=== PATIENT | male | born 1960 | race Two or more races ===

== ENCOUNTER 2024-11-13 16:43 | Emergency (ER) | payer MEDICAID, SELFPAY ==
[2024-11-13 16:55] VITALS: PULSE 84; RESP 18; O2SAT 98
--- NOTE | 2024-11-13 17:15 | EKG_ITS ---
[facility] Test Date: 2024-11-13 Pat Name: SHREYA HUERTA Department: Room: - Gender: Male Manager Epic: : [id number] Requested By: Gilles Knox Order Number: [id number] Reading MD: Gilles Knox Measurements Intervals [place] Rate: 79 P: 38 AL: 152 QRS: -81 QRSD: 89 T: 32 QT: 376 QTc: 431 Interpretive Statements SINUS RHYTHM LOW QRS VOLTAGE IN EXTREMITY LEADS [QRS DEFLECTION < 0.5 mV IN LIMB LEADS] LEFT ANTERIOR FASCICULAR BLOCK [QRS AXIS <= -45, QR IN I, RS IN II] POSSIBLE ANTERIOR MYOCARDIAL INFARCTION , OF INDETERMINATE AGE [30 ms Q WAVE IN V3/V4, OR R < 0.2 mV IN V4] INFERIOR MYOCARDIAL INFARCTION , PROBABLY OLD [40+ ms Q WAVE AND/OR ST/T ABNORMALITY IN II/aVF] Compared to ECG 05/19/2024 08:07:41 Low QRS voltage now present Left anterior fascicular block now present Myocardial infarct finding now present Left-axis deviation no longer present /store/S0/[id number]
--- NOTE | 2024-11-13 17:16 | PD.EDADULT ---
ED General RME/HPI General Chief complaint: Extremity Problem,Nontraumatic Stated complaint: SWELLING R LEG, L ARM x 3 MONTHS Time Seen by Provider: 11/13/24 17:14 Arrival date/time: 11/13/24 16:43 CC: Lower extremity edema medication noncompliance HPI per report the patient has had increased lower extremity edema and it was determined that since his has not been taking her medications he does not take his. The patient is awake alert oriented states he has swelling in his lower extremities and feet but denies any pain. Patient has a history of diabetes hypertension hyperlipidemia. Patient denies any chest pain shortness of breath or difficulty breathing. Related Data Home Medications ?Medication ?Instructions ?Recorded ?Confirmed sitagliptin phosphate 50 1 tab PO BID 05/19/24 07/16/24 mg-metformin 1,000 mg tablet (Janumet) Previous Rx's ?Medication ?Instructions ?Recorded flash glucose scanning reader #1 ea 05/23/24 (FreeStyle Rene 2 [place]) flash glucose sensor (FreeStyle #1 ea 05/23/24 Rene 2 Sensor kit) amlodipine 10 mg tablet 10 mg PO QDAY #30 tabs 05/24/24 doxycycline hyclate 100 mg capsule 100 mg PO BID #6 caps 07/17/24 dulaglutide 0.75 mg/0.5 mL 0.75 mg (0.5 mL) subcut QWEEK #2 mL 07/17/24 subcutaneous pen injector (Trulicity) zinc sulfate 50 mg zinc (220 mg) 50 mg PO QDAY #14 caps 07/17/24 capsule lisinopril 20 mg tablet 40 mg (2 x 20 mg) PO QDAY #60 tabs 07/19/24 furosemide 20 mg tablet (Lasix) 20 mg PO QAM #3 tabs 11/13/24 Allergies Allergy/AdvReac Type Severity Reaction Status Date / Time No Known Allergies Allergy Verified 11/13/24 17:09 Review of Systems Review of Systems Narrative Review of Systems: GEN: No fever, no chills, no weight loss EYES: No discharge, no visual changes, no pain HEENT: No ear pain, no congestion, no sore throat PULM: No shortness of breath, no cough, no congestion CV: No chest pain, no dyspnea on exertion, no palpitations GI: No nausea, no vomiting, no diarrhea, no pain, no constipation : No frequency, no urgency, no dysuria MUSC/SKEL: No joint pain, no back pain SKIN: No rash PSYCH: No hallucinations, no depression HEME/LYMPH: No easy bleeding or bruising tendencies NEURO: No weakness, no headache Past Medical History Past Medical History NEUROLOGIC: Positive Peripheral Neuropathy; Negative Neurological Disorders or Seizures CARDIAC: Positive Cardiac Disorders, Hypercholesterolemia and Hypertension; Negative Congestive Heart Failure RESPIRATORY: Negative Chronic Obstructive Pulmonary Disease (COPD) or Asthma GASTROINTESTINAL: Negative Gastrointestinal Disorders GENITOURINARY: Negative Genitourinary Disorders or Renal Disease MUSCULOSKELETAL: Positive Musculoskeletal Disorders and Fractures ENDOCRINE: Positive Endocrine Disorders and Diabetes Mellitus Type 2; Negative Diabetes Mellitus Type 1 HEMATOLOGIC: Negative Blood Disorders or Sickle Cell Disease OTHER HISTORY: Negative Blood Transfusions, Blood Transfusion Reaction, Anesthesia Reactions or Cancer Surgical History SURGICAL: Negative Abdominal Surgery Social History SMOKING STATUS: Never smoker SECOND HAND EXPOSURE: No SUBSTANCE USE: does not use ED Exam Narrative Physical exam: [General: No kempt but not disheveled, not in any acute distress Head normocephalic HEENT: Eyes pupils PERRLA EOMs are intact mouth: [place] dry membranes uvula is midline swallow symmetrical very poor dentition. All other subsystems of HEENT are within acceptable limits Neck is supple nontender Chest equal chest rise nontender to palpation Respiratory: Clear to auscultation no wheezes crackles or rubs CV: Rate rhythm is regular no murmurs rubs or clicks Abdomen is distended secondary to body habitus soft nontender no masses positive bowel sounds all 4 quadrants Back: No CVA tenderness no spinous process tenderness from cervical spine thoracic and lumbar spine Skin: Single 1 cm diameter ulcer to the ball of the left foot. Otherwise skin is intact no petechiae rash induration ulceration or crepitus Extremities: Bilateral lower extremity edema, nonpitting 2+ to mid shaft tibia. Moving all extremity against resistance cap refill less than 2 seconds neurosensory intact Neuro: Awake alert oriented x3 Glascow coma 15 no focal deficits] Course Quality Measures none Orders Category Date Time Status EKG (ED ONLY) *Do not use* NOW Care 11/13/24 17:15 Completed Saline [Insert IV] NOW Care 11/13/24 17:15 Active EKG (ED Only) Stat Exams 11/13/24 17:15 Draft B-Type Natriuretic Peptide Stat Lab 11/13/24 17:31 Completed CBC Stat Lab 11/13/24 17:31 Completed Comprehensive Metabolic Panel Stat Lab 11/13/24 17:31 Completed Drug Screen,Urine Stat Lab 11/13/24 20:43 Completed LDH (Lactate Dehydrogenase) Stat Lab 11/13/24 17:31 Completed Magnesium Stat Lab 11/13/24 17:31 Completed Partial Thromboplastin Time Stat Lab 11/13/24 17:31 Completed Prothrombin Time with INR Stat Lab 11/13/24 17:31 Completed Troponin I Stat Lab 11/13/24 17:31 Completed Urinalysis Stat Lab 11/13/24 20:43 Completed Ketorolac Inj [Toradol Inj] Med 11/13/24 19:16 Discontinued 15 mg IVP X1 ONE hydrALAZINE INJ [Apresoline Inj] Med 11/13/24 17:15 Discontinued 20 mg IV X1 ONE Vital Signs Vital signs: Vital Signs Pulse Rate 84 11/13/24 17:58 Blood Pressure 202/115 H 11/13/24 17:58 [facility] Patient data External records reviewed:: [facility] previous records and EMS form Clinical information provided by:: patient and EMS Social determinants that could affect healthcare access:: none Patient has the following chronic illnesses:: Diabetes hypertension hyperlipidemia How is presenting disease/condition affected by chronic disease/condition?: uneffected by Evaluation data The following diagnostics were reviewed and interpreted by me:: lab results, radiology exam(s) and EKG tracing(s) Lab and/or radiology exams considered but not ordered:: CBC shows no leukocytosis and H&H of 8 and 27 stable anemia, no thrombocytopenia Coags within acceptable limits CMP shows no acute electrolyte imbalances other than blood glucose level of 141 no renal impairment transaminitis or T. bili elevation BNP of 735 Troponin is negative Urine is negative for any acute finding requires emergent immediate intervention no UTI. Interpretation Summary: The patient has mild fluid overload we will give the patient IV Lasix and discharged home. Medications Medications considered but not ordered:: None Medication administrations:: Medication Administration History Discontinued Medications Hydralazine HCl (Hydralazine Inj 20 Mg/Ml Vial) 20 mg IV X1 ONE Stop: 11/13/24 17:16 Last Admin: 11/13/24 17:58 Dose: 20 mg Documented By: DAVID Ketorolac Tromethamine (Ketorolac Inj 30 Mg/Ml Vial) 15 mg IVP X1 ONE Stop: 11/13/24 19:17 Last Admin: 11/13/24 20:52 Dose: 15 mg Documented By: DAVID None Consultations Consultation(s) initiated? (list below): No Diagnosis Differential Diagnosis ED Complaint MDM: Mild fluid overload hyperglycemia electrolyte imbalance Most likely diagnosis given after review of the tests above:: Lower extremity edema Admission Indicated Admission indicated?: not indicated Explain why admission is indicated or not indicated:: Stable for outpatient follow-up Admission Request Was there a request for admission?: No Disposition Plan Disposition Plan: Discharge Discharge Attestation Discharge Attestation: The patient and all family members were given an opportunity to ask questions and understood the discharge instructions. Discharge instructions specifically effects, indications for sooner follow up or return to the emergency department, and the expected course of current diagnosis. Patient condition: Stable Medical Decision Making Differential Diagnosis Differential Diagnosis: Mild fluid overload hyperglycemia electrolyte imbalance Lab Data 11/13/24 17:31 11/13/24 17:31 Labs: Lab Results 11/13/24 11/13/24 Range/Units 17:31 20:43 WBC 6.2 (3.8-10.6) Thou/mm3 RBC 3.20 L (4.50-5.90) Miln/mm3 Hgb 8.9 L (13.5-16.0) g/dL Hct 27.5 L (41.0-53.0) % MCV 86 (80-100) fL MCH 27.8 (25.0-35.0) pg MCHC 32.4 (31.0-37.0) g/dl RDW Std Deviation 48.3 H (35.1-43.9) fL Plt Count 295 (140-440) Thou/mm3 Neut % (Auto) 61 (37-80) % Lymph % (Auto) 24 (10-50) % [place] % (Auto) 8 (0-12) % Eos % (Auto) 5 (0-10) % Baso % (Auto) 1 (0-2.5) % Neut # (Auto) 3.8 (1.8-7.7) Thou/mm3 Lymph # (Auto) 1.5 (1.0-4.8) Thou/mm3 [place] # (Auto) 0.5 (0.0-0.8) Thou/mm3 Eos # (Auto) 0.3 (0.0-0.5) Thou/mm3 Baso # (Auto) 0.1 (0.0-0.2) Thou/mm3 Immature Gran # (Auto) 0.03 H (0.00-0.00) Thou/mm3 Absolute Nucleated RBC 0.00 (0.00-0.00) Thou/mm3 Immature Gran % 1 H (0-0) % Nucleated RBC % 0 (0) /100 WBC PT 10.2 (9.0-12.2) Seconds INR 0.9 (0.9-1.3) APTT 32.2 (22.0-36.0) Seconds Sodium 139 (136-145) mMol/L Potassium 4.4 (3.4-5.1) mMol/L Chloride 106 (98-107) mMol/L Carbon Dioxide 28.5 (20.0-31.0) mMol/L Anion Gap 5 L (7-16) BUN 15 (9-23) mg/dL Creatinine 0.9 (0.6-1.3) mg/dL Estim Creat Clear Calc Not Performed. eGFR > 60 (60 - ) See Note BUN/Creatinine Ratio 17 (12-20) Ratio Glucose 141 H (74-106) mg/dL Calculated Osmolality 280 (275-295) Calcium 8.7 (8.3-10.6) mg/dL Corrected Calcium 9.5 (8.5-10.1) mg/dL Magnesium 1.8 (1.6-2.6) mg/dL Total Bilirubin 0.2 L (0.3-1.2) mg/dL AST 20 (0-34) U/L ALT 14 (10-49) U/L Alkaline Phosphatase 48 (46-116) U/L Lactate Dehydrogenase 244 (120-246) U/L Troponin I < 0.020 (0.0-0.045) ng/mL B-Natriuretic Peptide 735 H* (0-100) pg/mL Total Protein 6.0 (5.7-8.2) gm/dL Albumin 3.0 L (3.4-4.8) gm/dL Globulin 3.0 (2.3-3.5) gm/dL Albumin/Globulin Ratio 1.0 L (1.2-2.2) Ur Collection Type Clean Catch Urine Color Lt-Yellow (Lt Yel-Yel) Urine Clarity Clear (Clear/Hazy) Urine pH 7.0 (5.0-7.0) Ur Specific [place] 1.016 (1.001-1.035) Urine Protein 3+ A (Neg - Trace) Urine Glucose (UA) 1+ A (Negative) Urine Ketones Negative (Negative) Urine Blood 1+ A (Negative) Urine Nitrite Negative (Negative) Urine Bilirubin Negative (Negative) Urine Urobilinogen (Auto) Negative (0.0-1.0) mg/dL Ur Leukocyte Esterase Negative (Negative) Urine RBC 8 H (0-3) /hpf Urine WBC 4 (0-5) /hpf Ur Squamous Epith Cells < 1 (0-5) /hpf Urine Bacteria None (None) Hyaline Casts 1 (0-1) /hpf Urine Opiates Screen Negative (Negative) Urine Fentanyl Screen Negative (Negative) Ur Barbiturates Screen Negative (Negative) U Amphetamin/Meth Scrn Negative (Negative) U Benzodiazepines Scrn Negative (Negative) U Cocaine Metab Screen Negative (Negative) U Marijuana (THC) Screen Negative (Negative) Discharge Plan Plan Patient Disposition: HOME (Self Care) Patient condition on transfer: Stable Prescriptions/Referrals Prescriptions/Med Rec: New furosemide [Lasix] 20 mg tablet 20 mg PO QAM Qty: 3 0RF No Action Janumet 50-1,000 mg tablet 1 tab PO BID Patient Comments: TAKE 1 TABLET BY MOUTH TWICE A DAY WITH MEALS FOR 60 DAYS (DME) FreeStyle Rene 2 Sensor Kit See Rx Instructions .Route Qty: 1 0RF Rx Instructions: As directed (DME) FreeStyle Rene 2 [place] Misc See Rx Instructions .Route Qty: 1 0RF Rx Instructions: As directed amlodipine 10 mg tablet 10 mg PO QDAY Qty: 30 0RF doxycycline hyclate 100 mg capsule 100 mg PO BID Qty: 6 0RF zinc sulfate 50 mg zinc (220 mg) capsule 50 mg PO QDAY Qty: 14 0RF Trulicity 0.75 mg/0.5 mL pen injector 0.75 mg subcut QWEEK Qty: 2 0RF lisinopril 20 mg tablet 40 mg PO QDAY Qty: 60 0RF Referrals: Jono Weaver MD [Primary Care Provider] - In 1 week Problem List Clinical Impression: Bilateral edema of lower extremity Patient/Caregiver Discharge Instructions Education Materials: ED Leg Swelling in Both Legs Print Language: Nepali Stand Alone Forms: Karla Award Info., Patient Portal Info Letter, Work/School Release PA/[employer]PH[employer] DISTRIBUTOR TENDER Supervising Physician PA/[employer]PH[employer] DISTRIBUTOR TENDER Supervising Physician: Gilles Brown ENP
[2024-11-13 17:51] LABS: Basophils # (Auto) 0.1 Thou/mm3 (0.0-0.2); Basophils % (Auto) 1 % (0-2.5); Eosinophils # (Auto) 0.3 Thou/mm3 (0.0-0.5); Eosinophils % (Auto) 5 % (0-10); Hematocrit 27.5 % (41.0-53.0); Hemoglobin 8.9 g/dL (13.5-16.0); Immature Granulocytes % (Auto) 1 % (0-0); Immature Granulocytes Auto 0.03 Thou/mm3 (0.00-0.00); Lymphocytes # (Auto) 1.5 Thou/mm3 (1.0-4.8); Lymphocytes % (Auto) 24 % (10-50); Mean Corpuscular HGB Conc 32.4 g/dl (31.0-37.0); Mean Corpuscular Hemoglobin 27.8 pg (25.0-35.0); Mean Corpuscular Volume 86 fL (80-100); Monocytes # (Auto) 0.5 Thou/mm3 (0.0-0.8); Monocytes % (Auto) 8 % (0-12); Neutrophils # (Auto) 3.8 Thou/mm3 (1.8-7.7); Neutrophils % (Auto) 61 % (37-80); Nucleated Red Blood Cell % 0 /100 WBC (0); Platelet Count 295 Thou/mm3 (140-440); RDW Standard Deviation 48.3 fL (35.1-43.9); White Blood Count 6.2 Thou/mm3 (3.8-10.6)
[2024-11-13 17:58] VITALS: BP 202/115; PULSE 84
[2024-11-13] MEDS: hydrALAZINE INJ 20 MG/ML VIAL IV (17:58)
[2024-11-13 18:14] LABS: B-Type Natriuretic Peptide 735 pg/mL (0-100)
[2024-11-13 18:16] LABS: Alanine Aminotransferase 14 U/L (10-49); Alkaline Phosphatase 48 U/L (46-116); Anion Gap 5 (7-16); Aspartate Amino Transferase 20 U/L (0-34); BUN/Creatinine Ratio 17 Ratio (12-20); Bilirubin,Total 0.2 mg/dL (0.3-1.2); Blood Urea Nitrogen 15 mg/dL (9-23); Calcium 8.7 mg/dL (8.3-10.6); Calcium (Corrected) 9.5 mg/dL (8.5-10.1); Carbon Dioxide 28.5 mMol/L (20.0-31.0); Chloride 106 mMol/L (98-107); Creatinine (Component) 0.9 mg/dL (0.6-1.3); Glucose 141 mg/dL (74-106); Magnesium 1.8 mg/dL (1.6-2.6); Osmolality,Calculated 280 (275-295); Potassium 4.4 mMol/L (3.4-5.1); Sodium 139 mMol/L (136-145); Troponin I < 0.020 ng/mL (0.0-0.045); eGFR > 60 See Note
[2024-11-13 18:27] LABS: LDH (Lactate Dehydrogenase) 244 U/L (120-246)
[2024-11-13 18:54] VITALS: BP 140/86; PULSE 88; RESP 18; O2SAT 98
[2024-11-13 19:16] LABS: INR 0.9 (0.9-1.3); Partial Thromboplastin Time 32.2 Seconds (22.0-36.0); Prothrombin Time 10.2 Seconds (9.0-12.2)
[2024-11-13 20:22] VITALS: BMI 24.5
[2024-11-13] MEDS: KETOROLAC INJ 30 MG/ML VIAL 15 MG IVP (20:52)
[2024-11-13 21:12] LABS: Collection Type, Urine Clean Catch
[2024-11-13 21:53] LABS: Amphetamine/Methamp Scrn,U Negative (Negative); Barbiturate Screen,Urine Negative (Negative); Benzodiazepines Screen,Urine Negative (Negative); Benzoylecgonine Screen, Ur Negative (Negative); Fentanyl Screen,Urine Negative (Negative); Opiate Screen,Urine Negative (Negative); THC Screen,Urine Negative (Negative)
[2024-11-13 22:12] LABS: Bilirubin,Urine Negative (Negative); Blood,Urine 1+ (Negative); Clarity,Urine Clear (Clear/Hazy); Color,Urine Lt-Yellow (Lt Yel-Yel); Glucose, Urine 1+ (Negative); Hyaline Casts,Urine 1 /hpf (0-1); Ketones,Urine Negative (Negative); Leukocyte Esterase,Urine Negative (Negative); Nitrite,Urine Negative (Negative); Protein,Urine 3+ (Neg - Trace); RBC,Urine 8 /hpf (0-3); Specific Gravity,Urine 1.016 (1.001-1.035); Squamous Epithelial Cell,Urine < 1 /hpf (0-5); Urobilinogen,Urine Negative mg/dL (0.0-1.0); WBC,Urine 4 /hpf (0-5)
[2024-11-13 22:48] VITALS: BP 153/94; PULSE 87; RESP 17; O2SAT 98
[2024-11-14 01:17] VITALS: BP 174/97; PULSE 80; RESP 17; TEMP 36.7; O2SAT 98
== END 2024-11-14 01:18 | disposition home or self-care (01) ==
PROVIDERS: Registered Nurse General Practice; Emergency Provider Emergency Medicine; PCP Family Medicine
DX: R60.0 Localized edema (principal); I44.4 Left anterior fascicular block; I10 Essential (primary) hypertension
CPT/HCPCS: 36415; 80053; 80307; 81001; 83615; 83735; 83880; 84484; 85025; 85610; 85730; 93005; 99284; J0360; J1885

== ENCOUNTER 2025-01-26 19:31 | Inpatient (IN) | payer MEDICAID, SELFPAY ==
[2025-01-26] VITALS (8 sets, daily range): BP systolic 188–230; BP diastolic 108–135; PULSE 75–125; RESP 18–95; TEMP 36.6–36.8; O2SAT 96–98; BMI 21.7
--- NOTE | 2025-01-26 19:37 | EKG_ITS ---
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
--- NOTE | 2025-01-26 19:37 | XR_ITS ---
Examination: AP chest single view TECHNIQUE: AP portable upright chest single view Exam date and time: January 26, 2025 at 1917 hours Comparison August 24, 2023 INDICATIONS: Sepsis today. FINDINGS: Mild prominence left ventricle No pneumonia or pulmonary edema Moderate osteopenia IMPRESSION: No pneumonia identified
--- NOTE | 2025-01-26 19:38 | XR_ITS ---
Examination: CT brain head without contrast. 2-D sagittal coronal reconstructions Date and time of exam:January 26, 2025 at 2010 hours INDICATIONS: Onset altered mental status today CTDI: vol (mGy):49.1 DLP: (mGycm):907 Technique: Multiple CT axial sections of the brain have been obtained, 5 mm slice thickness. Contrast has not been administered. 2-D sagittal, coronal reconstructions have been obtained Low dose protocols were performed. One or more of the following dose reduction techniques were used; automated exposure control, adjustment of the mA and/or KV according to patient size, use of iterative reconstruction technique. Findings: No significant ventricular enlargement. Intra-axial or extra-axial hemorrhage density is not seen. No mass effect or midline shift Basal cisterns are not remarkable. Fourth ventricle is midline. Cranial vault intact. Impression: Negative for acute hemorrhage, mass effect or midline shift 9 7 Advise clinical correlation follow up accordingly
--- NOTE | 2025-01-26 19:39 | PD.EDAMS ---
Altered Mental Status RME/HPI General Chief Complaint: Altered Mental Status Stated Complaint: stroke alert Time Seen by Provider: 01/26/25 19:36 Arrival date/time: 01/26/25 19:31 RME / HPI RME / HPI narrative: 64-year-old male patient with significant history of hypertension diabetes mellitus, was brought in by EMS for evaluation regarding altered mental status. Per EMS, patient was noted to be having altered mental status, slurred speech, last well-known time unknown. Patient was noted to be moving all extremity with no sign of weakness. No other pertinent information can be extracted at this time. Related Data Home Medications ?Medication ?Instructions ?Recorded ?Confirmed sitagliptin phosphate 50 1 tab PO BID 05/19/24 07/16/24 mg-metformin 1,000 mg tablet (Janumet) atorvastatin 40 mg tablet 40 mg PO QPM 01/27/25 01/27/25 meloxicam 7.5 mg tablet 7.5 mg PO QDAY 01/27/25 01/27/25 Previous Rx's ?Medication ?Instructions ?Recorded flash glucose scanning reader #1 ea 05/23/24 (FreeStyle Rene 2 Marion) flash glucose sensor (FreeStyle #1 ea 05/23/24 Rene 2 Sensor kit) amlodipine 10 mg tablet 10 mg PO QDAY #30 tabs 05/24/24 doxycycline hyclate 100 mg capsule 100 mg PO BID #6 caps 07/17/24 dulaglutide 0.75 mg/0.5 mL 0.75 mg (0.5 mL) subcut QWEEK #2 mL 07/17/24 subcutaneous pen injector (Trulicity) zinc sulfate 50 mg zinc (220 mg) 50 mg PO QDAY #14 caps 07/17/24 capsule lisinopril 20 mg tablet 40 mg (2 x 20 mg) PO QDAY #60 tabs 07/19/24 furosemide 20 mg tablet (Lasix) 20 mg PO QAM #3 tabs 11/13/24 Allergies Allergy/AdvReac Type Severity Reaction Status Date / Time No Known Allergies Allergy Verified 11/13/24 17:09 Review of Systems Review of Systems Narrative Review of Systems: Review of system reviewed and within normal limits except mentioned in HPI ED Exam Narrative Physical exam: VITAL SIGNS: Reviewed. GENERAL APPEARANCE: Awake, good eye contact, does not follow commands, febrile no acute distress, GCS 14 HEAD AND FACE: Non-traumatic. ENT: PERRL, pink conjunctivitis, eyelid no trauma, Mucous membrane moist. NECK: Supple, nontender, no nuchal rigidity. CHEST: No tenderness, no crepitus, no paradoxical movement, no retractions. LUNGS: Clear, well ventilated, symmetric, no rales, no wheezing, no ronchi, no stridor, good breath sounds bilaterally. HEART: Regular rate, regular rhythm, no murmur, no gallops. ABDOMEN: Soft, positive bowel sounds, nondistended, no guarding, nontender, no rebound, no masses, RECTAL: Deferred. GENITAL: Deferred. NEUROLOGICAL: Gross motor function intact sensory function intact, Appropriate for age. MUSCULOSKELETAL: low back nontender, full range of motion. EXTREMITIES: Nontender, full range of motion. SKIN: Color pink, dry, no rash, no lacerations, no abrasions, no contusions. LYMPHATICS: Deferred. Course Quality Measures none Orders Category Date Time Status COVID-19 Screening Questionnaire NOW Care 01/26/25 21:49 Active Finishing Supervisor STAT Care 01/26/25 19:37 Active Continuous Pulse Oximetry STAT Care 01/26/25 19:37 Completed Decision to Admit X1 Care 01/26/25 21:49 Completed EKG (ED ONLY) *Do not use* NOW Care 01/26/25 19:37 Completed In and Out Catheter X1PRN Care 01/26/25 19:37 Completed Insert IV NOW Care 01/26/25 19:37 Completed NPO STAT Care 01/26/25 19:37 Completed Nurse Swallow Screen X1 Care 01/26/25 23:46 Active Strict Intake and Output Routine Care 01/26/25 19:[address] angio stroke protocol Stat Exams 01/26/25 22:[address] head/brain wo con Stat Exams 01/26/25 19:38 Completed EKG (ED Only) Stat Exams 01/26/25 19:37 Draft XR chest 1V SEPSIS PROTOCOL Stat Exams 01/26/25 19:37 Completed ABG [Arterial Blood Gas] Stat Lab 01/26/25 21:12 Completed Acetone [Beta Hydroxybutyrate] Stat Lab 01/26/25 23:08 Completed Ammonia Stat Lab 01/26/25 23:08 Completed B-Type Natriuretic Peptide Stat Lab 01/26/25 19:45 Completed Blood Culture (Lab) Stat Lab 01/26/25 20:43 Received CBC Stat Lab 01/26/25 19:45 Completed Comprehensive Metabolic Panel Stat Lab 01/26/25 19:45 Completed Drug Screen,Urine Stat Lab 01/26/25 19:48 Completed LDH (Lactate Dehydrogenase) Stat Lab 01/26/25 19:45 Completed Lactate (Lactic Acid) Stat Lab 01/26/25 19:45 Completed Lipase Stat Lab 01/26/25 19:45 Completed Magnesium Stat Lab 01/26/25 19:45 Completed Partial Thromboplastin Time Stat Lab 01/26/25 19:45 Completed Phosphorous Stat Lab 01/26/25 19:45 Completed Procalcitonin Stat Lab 01/26/25 19:45 Completed Prothrombin Time with INR Stat Lab 01/26/25 19:45 Completed Troponin I Stat Lab 01/26/25 19:45 Completed Urinalysis Stat Lab 01/26/25 19:48 Completed Urine Culture Stat Lab 01/26/25 19:48 Received Insulin Regular Med 01/26/25 21:35 Discontinued 10 unit IV X1 ONE Insulin Regular Med 01/26/25 23:48 Discontinued 10 unit IV X1 ONE Labetalol IV [Trandate IV] Med 01/26/25 20:09 Discontinued 20 mg IVP X1 ONE Labetalol IV [Trandate IV] Med 01/26/25 22:56 Discontinued 20 mg IVP X1 ONE POTASSIUM CHL 10 mEq IVPB [Kcl Ivpb] Med 01/26/25 21:35 Discontinued 10 meq in 100 ml IV X1 Ringers Lactated 1000 ml [Lactated Ringers] 1,000 ml Med 01/26/25 21:36 Discontinued IV 999 mls/hr Sodium Chloride 0.9% 1000 ml [Ns] 1,000 ml Med 01/26/25 19:37 Discontinued IV 999 mls/hr amLODIPine BESYLATE [Norvasc] Med 01/26/25 23:48 Discontinued 10 mg PO X1 ONE cefTRIAXone/D5w 1gm IV premix [Rocephin/D5w 1gm IV Med 01/26/25 19:38 Discontinued premix] 1 gm in 50 ml IV X1 Oxygen Delivery NOW RT 01/26/25 19:37 Completed Vital Signs Vital signs: Vital Signs Temperature 98.1 F 01/26/25 19:42 Pulse Rate 92 01/26/25 19:42 Respiratory Rate 20 01/26/25 19:42 Blood Pressure 226/131 H 01/26/25 19:42 Pulse Oximetry (%) 96 01/26/25 19:42 Oxygen Delivery Method Room Air 01/26/25 19:42 Altered Mental Status [facility] Narrative [facility] Narrative:: 64-year-old male patient with significant history of hypertension diabetes mellitus, was brought in by EMS for evaluation regarding altered mental status. Per EMS, patient was noted to be having altered mental status, slurred speech, last well-known time unknown. Patient was noted to be moving all extremity with no sign of weakness. No other pertinent information can be extracted at this time. 1950 pm I called the telephone number that was listed on the houseperson however there was no response the phone is disconnected Patient's friend arrived in the emergency room at 10:30 PM, who is very knowledgeable about what happened to the patient. Last known well time according to the friend was 12 PM. She went home and she just learned that patient was already in the emergency room. Stroke alert was initiated right away. Patient still was noted to be confused and restless. Moving all extremities except for the left upper extremity EKG shows sinus rhythm, ventricular to 76 bpm, no ST segment elevation depression noted. CT scan of the head came back unremarkable. CT angiogram of the head and neck came back unremarkable also. Patient was noted to have a blood sugar above 600 with no sign of diabetic ketoacidosis. ABG CO2 is unremarkable, Was given 2 L of IV fluids, and insulin. Spoke with teleneurologist, who told me that patient is not a candidate for thrombolytic at this time out of the window. Case discussed with hospitalist who admitted the patient. Patient data External records reviewed:: EMS form Clinical information provided by:: family Social determinants that could affect healthcare access:: none Patient has the following chronic illnesses:: History of hypertension diabetes mellitus and CVA How is presenting disease/condition affected by chronic disease/condition?: caused by Evaluation data The following diagnostics were reviewed and interpreted by me:: lab results, radiology exam(s) and EKG tracing(s) Lab and/or radiology exams considered but not ordered:: None Interpretation Summary: See results in MDM Medications / Prescriptions Medications or Prescriptions considered but not ordered:: None Medication administrations:: Medication Administration History Acetaminophen (Acetaminophen Supp 650 Mg Supp) 650 mg MN Q6H PRN PRN Reason: temp > 100.4 Stop: 02/26/25 03:59 Last Admin: 01/27/25 04:22 Dose: 650 mg Documented By: PARADISE Aspirin (Aspirin Ec 81 Mg Tabec) 81 mg PO QDAY [facility] Stop: 02/27/25 08:59 Dextrose (Dextrose 50%-Water Inj 50 Ml Syringe) 25 ml IV Q15MIN PRN PRN Reason: BG 50-70 responsive npo pt Stop: 02/25/25 23:53 Dextrose (Dextrose 50%-Water Inj 50 Ml Syringe) 50 ml IV Q15MIN PRN PRN Reason: BG <50 OR BG <70 & pt unresponsive Stop: 02/25/25 23:53 Glucagon (Glucagon Inj 1 Mg Vial) 1 mg IM Q15MIN PRN PRN Reason: BG <70, and no IV access Heparin Sodium (Porcine) (Heparin Sod Inj 5000 Unit/Ml Vial) 5,000 unit SC Q8HR [facility] Stop: 02/10/25 05:59 Last Admin: 01/27/25 14:42 Dose: 5,000 unit Documented By: FABI Co-signed By: ODALIS Admin: 01/27/25 06:20 Dose: 5,000 unit Documented By: RAVEN Co-signed By: EE Ceftriaxone Sodium/Dextrose (Rocephin/D5w 1gm Iv Premix) 1 gm in 50 mls @ 100 mls/hr IV HS [facility] Stop: 02/03/25 20:59 Insulin Glargine (Insulin Glargine (Lantus) 5 Unit/0.05 Ml (Per 5 Units)) 20 unit SC QDAY [facility] Stop: 02/26/25 08:59 Last Admin: 01/27/25 19:23 Dose: Not Given Documented By: LAITH Non-Admin Reason: day shift Insulin Human Lispro (Insulin Lispro (Admelog) 1 Unit/0.01 Ml Unit) 0 unit SC [facility]; Protocol Stop: 02/26/25 17:29 Last Admin: 01/27/25 17:26 Dose: Not Given Documented By: FABI Non-Admin Reason: Duplicate Medication on eMAR Labetalol HCl (Labetalol Inj 5 Mg/Ml Vial 20 Ml) 10 mg IVP Q4H PRN PRN Reason: SBP > 200 or DBP > 110. Stop: 02/26/25 02:18 Last Admin: 01/27/25 11:52 Dose: 10 mg Documented By: Admin: 01/27/25 04:03 Dose: 10 mg Documented By: PARADISE Discontinued Medications Acetaminophen (Acetaminophen 325 Mg Tablet) 650 mg PO Q6H PRN PRN Reason: Fever >101.5 Stop: 02/25/25 23:48 Amlodipine Besylate (Amlodipine Besylate 5 Mg Tablet) 10 mg PO X1 ONE Stop: 01/26/25 23:49 Last Admin: 01/27/25 00:15 Dose: Not Given Documented By: PARADISE Non-Admin Reason: Unable to Swallow Sodium Chloride (Ns) 1,000 mls @ 999 mls/hr IV .Q1H1M ONE Stop: 01/26/25 20:37 Last Infusion: 01/26/25 21:00 Dose: Infused Documented By: Admin: 01/26/25 19:59 Dose: 999 mls/hr Documented By: PARADISE Ceftriaxone Sodium/Dextrose (Rocephin/D5w 1gm Iv Premix) 1 gm in 50 mls @ 100 mls/hr IV X1 ONE Stop: 01/26/25 20:07 Last Infusion: 01/26/25 21:20 Dose: Infused Documented By: Admin: 01/26/25 20:50 Dose: 100 mls/hr Documented By: PARADISE Potassium Chloride (Kcl Ivpb) 10 meq in 100 mls @ 100 mls/hr IV X1 ONE Stop: 01/26/25 22:34 Last Infusion: 01/26/25 23:16 Dose: Infused Documented By: Admin: 01/26/25 22:13 Dose: 100 mls/hr Documented By: PARADISE Lactated Ringer's (Lactated Ringers) 1,000 mls @ 999 mls/hr IV .Q1H1M ONE Stop: 01/26/25 22:36 Last Infusion: 01/26/25 22:57 Dose: Infused Documented By: Admin: 01/26/25 21:56 Dose: 999 mls/hr Documented By: PARADISE Sodium Chloride (Ns) 1,000 mls @ 999 mls/hr IV .Q1H1M ONE Stop: 01/27/25 04:42 Last Infusion: 01/27/25 05:03 Dose: Infused Documented By: Admin: 01/27/25 04:02 Dose: 999 mls/hr Documented By: PARADISE Insulin Human Lispro (Insulin Lispro (Admelog) 1 Unit/0.01 Ml Unit) 0 unit SC Q6H [facility]; Protocol Stop: 02/25/25 23:44 Last Admin: 01/27/25 06:21 Dose: 3 unit Documented By: RAVEN Co-signed By: TYRONE Admin: 01/27/25 02:17 Dose: 4 unit Documented By: PARADISE Co-signed By: Insulin Human Lispro (Insulin Lispro (Admelog) 1 Unit/0.01 Ml Unit) 0 unit SC Q6HR [facility]; Protocol Stop: 02/26/25 12:14 Last Admin: 01/27/25 17:14 Dose: 2 unit Documented By: FABI Co-signed By: NICHOLE Admin: 01/27/25 12:09 Dose: 2 unit Documented By: MERI Co-signed By: ANTONIO Insulin Human Regular (Insulin Hum Regular 1 Unit/0.01 Ml (Per Unit)) 10 unit IV X1 ONE Stop: 01/26/25 21:36 Last Admin: 01/26/25 21:56 Dose: 10 unit Documented By: PARADISE Co-signed By: Insulin Human Regular (Insulin Hum Regular 1 Unit/0.01 Ml (Per Unit)) 10 unit IV X1 ONE Stop: 01/26/25 23:49 Last Admin: 01/27/25 01:01 Dose: 10 unit Documented By: TYRONE Co-signed By: PARADISE Insulin Human Regular (Insulin Hum Regular 1 Unit/0.01 Ml (Per Unit)) 10 unit IV X1 ONE Stop: 01/27/25 05:14 Last Admin: 01/27/25 06:20 Dose: Not Given Documented By: RAVEN Non-Admin Reason: Cancelled by Provider Comments: hold per dr. harris Labetalol HCl (Labetalol Inj 5 Mg/Ml Vial 20 Ml) 20 mg IVP X1 ONE Stop: 01/26/25 20:10 Last Admin: 01/26/25 20:31 Dose: 20 mg Documented By: PARADISE Labetalol HCl (Labetalol Inj 5 Mg/Ml Vial 20 Ml) 20 mg IVP X1 ONE Stop: 01/26/25 22:57 Last Admin: 01/26/25 23:14 Dose: 20 mg Documented By: PARADISE IV fluids for hydration, IV fluids, labetalol Consultations Consultation(s) initiated? (list below): Yes Consultation #1 (Physician, Specialty, Details): Teleneurologist Diagnosis Differential diagnosis altered mental status: altered mental status, subarachnoid hemorrhage and sepsis Most likely diagnosis given after review of the tests above:: Hyperglycemia, altered mental status Admission Indicated Admission indicated?: indicated Explain why admission is indicated or not indicated:: Patient is to be admitted for further management. Admission Request Was there a request for admission?: Yes Admission Attestation Admission request attestation: Discussed case with [Dr. Harris] from Hospitalist service regarding admission. Discussed patients ED course, exam findings, labs, and radiology results. The Hospitalist [agrees] to accept the patient for admission. Disposition Plan Disposition Plan: Admit Critical Care Time Critical Care Time Critical Care Time: Yes Total Critical Care Time (min.): 45 Attestation: Critical Care Time The very real possibility of a deterioration of this patient's condition required the highest level of my preparedness for sudden, emergent intervention for the following systems: Cardiac and Metabolic. I provided critical care services, which included medication orders, frequent re-evaluations of the patient's condition and response to treatment, ordering and reviewing test results, and discussing the case with various consultants including: nursing staff, hospitalist, and more. The critical care time associated with the care of this patient was 45 minutes. Discharge Plan Plan Patient Disposition: Admit Acute Care w/in Hospital Disposition Comment: Stable Problem List Clinical Impression: Hyperglycemia, Altered mental status
[2025-01-26 19:54] LABS: Collection Type, Urine Clean Catch; Squamous Epithelial Cell,Urine 0 /hpf (0-5)
[2025-01-26 19:54] LABS: Lactate (Lactic Acid) 1.2 mMol/L (0.4-2.0)
[2025-01-26] MEDS: SODIUM CHLORIDE 0.9% 1000 ML 1,000 ML 999 ML IV (19:59)
--- NOTE | 2025-01-26 20:07 | PC.NURSE ---
pt to ct
[2025-01-26 20:12] LABS: Basophils # (Auto) 0.1 Thou/mm3 (0.0-0.2); Basophils % (Auto) 1 % (0-2.5); Eosinophils # (Auto) 0.1 Thou/mm3 (0.0-0.5); Eosinophils % (Auto) 1 % (0-10); Hematocrit 32.5 % (41.0-53.0); Hemoglobin 11.4 g/dL (13.5-16.0); Immature Granulocytes % (Auto) 1 % (0-0); Immature Granulocytes Auto 0.04 Thou/mm3 (0.00-0.00); Lymphocytes # (Auto) 1.2 Thou/mm3 (1.0-4.8); Lymphocytes % (Auto) 18 % (10-50); Mean Corpuscular HGB Conc 35.1 g/dl (31.0-37.0); Mean Corpuscular Hemoglobin 28.7 pg (25.0-35.0); Mean Corpuscular Volume 82 fL (80-100); Monocytes # (Auto) 0.2 Thou/mm3 (0.0-0.8); Monocytes % (Auto) 4 % (0-12); Neutrophils % (Auto) 76 % (37-80); Nucleated Red Blood Cell % 0 /100 WBC (0); Platelet Count 316 Thou/mm3 (140-440); RDW Standard Deviation 41.2 fL (35.1-43.9); Red Blood Count 3.97 Miln/mm3 (4.50-5.90); White Blood Count 6.5 Thou/mm3 (3.8-10.6)
[2025-01-26 20:16] LABS: Bilirubin,Urine Negative (Negative); Blood,Urine Trace (Negative); Clarity,Urine Clear (Clear/Hazy); Color,Urine Colorless (Lt Yel-Yel); Glucose, Urine 4+ (Negative); Ketones,Urine Negative (Negative); Leukocyte Esterase,Urine Negative (Negative); Nitrite,Urine Negative (Negative); PH,Urine 6.5 (5.0-7.0); Protein,Urine 2+ (Neg - Trace); RBC,Urine 1 /hpf (0-3); Specific Gravity,Urine 1.021 (1.001-1.035); Urobilinogen,Urine Negative mg/dL (0.0-1.0); WBC,Urine < 1 /hpf (0-5)
[2025-01-26 20:20] LABS: Partial Thromboplastin Time 28.5 Seconds (22.0-36.0); Prothrombin Time 10.5 Seconds (9.0-12.2)
[2025-01-26 20:21] LABS: B-Type Natriuretic Peptide 215 pg/mL (0-100)
[2025-01-26] MEDS: LABETALOL INJ 5 MG/ML VIAL 20 ML 20 MG IVP ×2 (20:31→23:14)
[2025-01-26 20:42] LABS: Alanine Aminotransferase 110 U/L (10-49); Albumin, Serum 3.6 gm/dL (3.4-4.8); Albumin/Globulin Ratio 1.3 (1.2-2.2); Alkaline Phosphatase 99 U/L (46-116); Anion Gap 6 (7-16); Aspartate Amino Transferase 60 U/L (0-34); BUN/Creatinine Ratio 18 Ratio (12-20); Bilirubin,Total 0.4 mg/dL (0.3-1.2); Blood Urea Nitrogen 23 mg/dL (9-23); Calcium 9.4 mg/dL (8.3-10.6); Calcium (Corrected) 9.7 mg/dL (8.5-10.1); Carbon Dioxide 30.9 mMol/L (20.0-31.0); Chloride 96 mMol/L (98-107); Creatinine (Component) 1.3 mg/dL (0.6-1.3); Estimated Creatinine Clearance 41.2 mL/min (>60); Globulin 2.8 gm/dL (2.3-3.5); Lipase 41 U/L (12-53); Magnesium 1.8 mg/dL (1.6-2.6); Osmolality,Calculated 301 (275-295); Phosphorous 4.1 mg/dL (2.4-5.1); Potassium 4.1 mMol/L (3.4-5.1); Procalcitonin 0.09 ng/ml (0.0-0.49); Sodium 133 mMol/L (136-145); Total Protein 6.4 gm/dL (5.7-8.2); Troponin I < 0.020 ng/mL (0.0-0.045); eGFR > 60 See Note
[2025-01-26] MEDS: cefTRIAXone/D5w 1gm IV premix 1 GM/50 ML BAG IV (20:50)
[2025-01-26 20:56] LABS: LDH (Lactate Dehydrogenase) 254 U/L (120-246)
[2025-01-26 21:16] LABS: Glucose 655 mg/dL (74-106)
[2025-01-26 21:25] LABS: Base Excess 4 (-3-3); HCO3 29 mEq/L (20-26); Inspired Oxygen, FIO2 21 %; O2 Saturation 99 % (91-98); PCO2 45 mmHg (32.0-48.0); PO2 94 mmHg (83-108); pH, Arterial 7.42 (7.35-7.45)
[2025-01-26 21:27] LABS: Allen Test Performed/OK; Puncture Site Right Radial
[2025-01-26] MEDS: INSULIN HUM REGULAR 1 UNIT/0.01 ML (PER UNIT) 10 UNIT IV (21:56)
[2025-01-26] MEDS: RINGERS LACTATED 1000 ML 1,000 ML 999 ML IV (21:56)
[2025-01-26] MEDS: POTASSIUM CHL 10 mEq IVPB 10 MEQ/100 ML BAG 100 MEQ IV (22:13)
--- NOTE | 2025-01-26 22:42 | XR_ITS ---
Examination: CTA carotids with intravenous contrast CTA brain, head with intravenous contrast. 2-D sagittal, coronal reconstructions. 3-D reconstructions. Exam date and time: January 26, 2025, 0004 hours INDICATIONS: Stroke alert, onset focal neurologic deficit altered mental status today, left-sided body weakness CTDI: vol (mGy) 11.8 DLP: (mGycm) 354 Technique: Multiple CTA axial brain, head carotid images post intravenous contrast injection 100 cc, [id number]. 2-D sagittal, coronal reconstructions. 3-D reconstructions, 3-D post processing including vascular maximum intensity projection images. Low dose protocols were performed. One or more of the following dose reduction techniques were used; automated exposure control, adjustment of the mA and/or KV according to patient size, use of iterative reconstruction technique. Findings: No significant common carotid carotid bifurcation or internal carotid artery stenoses, opacification of neck and cerebral vessels is poor No cerebral large vessel arterial occlusions, thrombus, dissection or cerebral aneurysm IMPRESSION: Limited study No significant neck arterial stenoses. No cerebral large vessel arterial occlusions or thromboses Given the patient's presentation, recommend MRI MRA without contrast stroke protocol brain follow up
--- NOTE | 2025-01-26 23:13 | PD.TNEURO ---
Tele Neuro Consultation Consultation Date 01/26/25 Most Recent Vital Signs Last Vital Signs Temp 98.3 F 01/26/25 22:54 Pulse 88 01/26/25 22:54 Resp 18 01/26/25 22:54 BP 204/135 H 01/26/25 22:54 Pulse Ox 98 01/26/25 22:54 O2 Del Method Room Air 01/26/25 22:54 Laboratory-Coagulation Panel PT 10.5 Seconds (9.0-12.2) 01/26/25 19:45 INR 1.0 (0.9-1.3) 01/26/25 19:45 APTT 28.5 Seconds (22.0-36.0) 01/26/25 19:45 Consultation Narrative [facility] Patient Name:???maury stockton Date of :???1960 Identification Number:??? Date of Service:???01/26/2025 22:37:01 Diagnosis:?G93.49 - Encephalopathy Multifactorial Impression: ?The patient has a h/o stroke with LUE weakness and presents with altered mental status. He was severely hypertensive and hyperglycemic. On exam, he is not following commands and appears quite altered, cachectic, and wearing briefs. He has L sided weakness which I'm told is baseline after his stroke. Other than that he is really not cooperative with exam. He is outside the window for IV thrombolysis. Given his poor baseline function he is not eligible for KORTNEY consideration. Thus will admit and obtain MRI brain to rule out stroke. Our recommendations are outlined below. Recommendations: ? Stroke/Telemetry Floor ? Neuro Checks ? Bedside Swallow Eval ? DVT Prophylaxis ? IV Fluids, Normal Saline ? Head of Bed 30 Degrees ? Euglycemia and Avoid Hyperthermia (PRN Acetaminophen) ? Initiate or continue Aspirin 325 MG daily ?Get WORKUP for TOXIC/METABOLIC/INFECTIOUS causes ?obtain MRI brain to rule out stroke Sign Out: ? Discussed with Emergency Department Provider Advanced Imaging: Advanced Imaging Deferred because: Poor functional status at baseline, a greater risk than benefit with acute intervention Metrics: Last Known Well: 01/26/2025 12:00:00 Dispatch Time: 01/26/2025 22:37:01 Arrival Time: 01/26/2025 19:31:00 Initial Response Time: 01/26/2025 22:39:04Symptoms: altered mental status. Initial patient interaction: 01/26/2025 22:42:00 NIHSS Assessment Completed: 01/26/2025 22:45:12Patient is not a candidate for Thrombolytic. Thrombolytic Medical Decision: 01/26/2025 22:48:12Patient was not deemed candidate for Thrombolytic because of following reasons: LKW outside [address] head showed no acute hemorrhage or acute core infarct. Primary Provider Notified of Diagnostic Impression and Management Plan on: 01/26/2025 22:51:14 History of Present Illness:Patient is a 64 year old Male. Patient was brought by EMS for symptoms of altered mental status. EMS was called because he was altered. glucose was in the 500s. He lives at home. the Caregiver said he ambulates with assist and needs help being fed. He has had a stroke in the past. 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 He says he is currently with God. LKWT per his friend was 12PM. Past Medical History: ?Hypertension ?Diabetes Mellitus ?Hyperlipidemia ?Stroke ?There is no history of Seizures Other PMH:? osteomyelitis unable to obtain due to:?? Patient Is Confused Medications: Anticoagulant use:??Unknown Antiplatelet use:?Unknown Reviewed EMR for current medications Allergies:? Reviewed Allergies Unable To Obtain Due To:?Patient Is Confused Social History: Unable To Obtain Due To Patient Status :?Patient Is Confused Family History: Family History Cannot Be Obtained Because:Patient Is Confused ROS :?ROS Cannot Be Obtained Because:? Patient Is Confused Past Surgical History: Past Surgical History Cannot Be Obtained Because: Patient Is Confused There Is No Surgical History Contributory To Today?s Visit Examination: BP(204/135),?Pulse(88), 1A: Level of Consciousness - Alert; keenly responsive?+ 0 1B: Ask Month and Age - Could Not Answer Either Question Correctly?+ 2 1C: Blink Eyes & Squeeze Hands - Performs 0 Tasks?+ 2 2: Test Horizontal Extraocular Movements - Normal?+ 0 3: Test Visual Madsen - No Visual Loss?+ 0 4: Test Facial Palsy (Use Grimace if Obtunded) - Partial paralysis (lower face)?+ 2 5A: Test Left Arm Motor Drift - No Movement?+ 4 5B: Test Right Arm Motor Drift - Some Effort Against [place]?+ 2 6A: Test Left Leg Motor Drift - Some Effort Against [place]?+ 2 6B: Test Right Leg Motor Drift - Some Effort Against [place]?+ 2 7: Test Limb Ataxia (FNF/Heel-Shine) - No Ataxia?+ 0 8: Test Sensation - Normal; No sensory loss?+ 0 9: Test Language/Aphasia - Severe Aphasia: Fragmentary Expression, Inference Needed, Cannot Identify Materials?+ 2 10: Test Dysarthria - Normal?+ 0 11: Test Extinction/Inattention - No abnormality?+ 0 NIHSS Score:?18 Pre-Morbid Modified Jesus Scale:4 Points = Moderately severe disability; unable to walk and attend to bodily needs without assistance Spoke with :?[facility] This consult was conducted in real time using interactive audio and video technology. Patient was informed of the technology being used for this visit and agreed to proceed. Patient located in hospital and provider located at home/office setting. Patient is being evaluated for possible acute neurologic impairment and high probability of imminent or life-threatening deterioration. I spent total of 35 minutes providing care to this patient, including time for face to face visit via telemedicine, review of medical records, imaging studies and discussion of findings with providers, the patient and/or family. Dr Jaydon Valle [facility] For Inpatient follow-up with [facility] physician please call [facility] at . As we are not an outpatient service for any post hospital discharge needs please contact the hospital for assistance. If you have any questions for the [facility] physicians or need to reconsult for clinical or diagnostic changes please contact us via [facility] at .
[2025-01-26 23:37] LABS: Beta Hydroxybutyrate 0.2 mmol/L (<0.6)
[2025-01-26 23:47] LABS: Ammonia 12 uMol/L (11-32)
[2025-01-26 23:52] LABS: Amphetamine/Methamp Scrn,U Negative (Negative); Barbiturate Screen,Urine Negative (Negative); Benzodiazepines Screen,Urine Negative (Negative); Benzoylecgonine Screen, Ur Negative (Negative); Fentanyl Screen,Urine Negative (Negative); Opiate Screen,Urine Negative (Negative); THC Screen,Urine Negative (Negative)
--- NOTE | 2025-01-26 23:55 | ESHP_ITS ---
<Statement entered by Prieto Galindo MD - 01/27/25 05:33> 64-year-old male with multiple comorbidities including type 2 diabetes mellitus, hyperlipidemia and hypertension who presented to the ER with altered mentation patient found to have hypertensive emergency with altered mentation. In the ER, stroke alert was activated and patient underwent CT head with no acute intracranial abnormality and evaluated by teleneurology who did not recommend tPA and recommended stroke workup including MRI and echocardiogram. As for hypertensive emergency, plan to start patient on amlodipine with IV pushes of hydralazine with a goal reduction of 25% in the first 4 hours followed by slowly dropping BP to normotensive state in the next 24-48 hours. Plan to admit the patient to telemetry and obtain stroke workup.I reviewed above note and agree with findings and plans. I have also personally examined the patient with medicine team and went over assessment and plan with medical team including creative services intern and resident physician. Documentation for date of: 01/26/25 HPI History of Present Illness History of present illness: The patient is a 64-year-old male with significant past medical history of hypertension, IDDM, diabetic foot ulcer, who was brought into ED with chief complaint of altered mental status. The patient was apparently doing well until this noon, but was found to have in AMS, slurred speech and EMS was called. History was obtained from chart review, as patient is alert and oriented to his name only. Review of system unobtainable. The point of personnel assistant was attempted to contact but was unsuccessful. In the ED, vitals were significant for blood pressure 226/131, pulse 92, respiration rate 20, temperature 98.1, saturating 96% on room air. Labs are significant for hemoglobin 11.4, ABG revealed bicarb 29, pH 7.42, and pCO2 45. Chemistry panel revealed sodium 133, chloride 96, creatinine 1.3, blood sugar 655, osmolality 301, lactic acid 1.2, AST/ALT 60/110, LDH 254, UA revealed protein 2+, glucose 4+, but no UTI, U tox was negative. Head CT was negative for acute hemorrhage, mass effect or midline shift. Pending CTA head and neck and brain MRI. Patient received 1 L of IV normal saline and 1 L of LR bolus, was given labetalol 20 Mg IVP x 2, insulin regular 10 units x 2, and admitted to telemetry unit for further management of altered mental status and to rule out CVA. Review of Systems Review of Systems Systems Reviewed: All systems reviewed, normal except as documented Past Medical History Past Medical History Comments PMH COMMENT: PMH: HTN, insulin-dependent diabetes PSH: I&D of diabetic foot wound SH: Does not drink, smoke, or use illicit drugs. Allergies:?NKDA Medications: Lisinopril, Tresiba, Janumet Exam Vital Signs Temp Pulse Resp BP Pulse Ox O2 Del Method 98.3 F 84 18 188/94 H 96 Room Air 01/26/25 22:54 01/27/25 00:24 01/27/25 00:24 01/27/25 00:24 01/27/25 00:24 01/27/25 00:24 Narrative Exam General: No acute distress, uncooperative, alert and oriented x 1, to himself only HEENT: Moist mucous membranes, oropharynx clear Neck: Supple, No masses, No JVD CVS: S1S2 Regular rate and rhythm, No murmurs, rubs or gallops Lungs: Clear to auscultation with no accessory use, no wheeze no rhonchi Abd: Soft, NT/ND, +BS, no organomegaly Ext: No edema, warm and well perfused Skin: No rash Neuro: Unobtainable due to mental status, moving all the limbs spontaneously Psych: Unobtainable due to mental status Results: Labs 01/27/25 04:31 01/26/25 19:45 Labs: Short CBC 01/26/25 Range/Units 19:45 WBC 6.5 (3.8-10.6) Thou/mm3 Hgb 11.4 L (13.5-16.0) g/dL Hct 32.5 L (41.0-53.0) % Plt Count 316 (140-440) Thou/mm3 BMP 01/26/25 19:45 Sodium 133 L Potassium 4.1 Chloride 96 L Carbon Dioxide 30.9 BUN 23 Creatinine 1.3 Glucose 655 H* Calcium 9.4 Cardiac Enzymes 01/26/25 Range/Units 19:45 Troponin I < 0.020 (0.0-0.045) ng/mL Liver Function 01/26/25 Range/Units 19:45 Total Bilirubin 0.4 (0.3-1.2) mg/dL AST 60 H (0-34) U/L ALT 110 H (10-49) U/L Alkaline Phosphatase 99 (46-116) U/L Albumin 3.6 (3.4-4.8) gm/dL Urine 01/26/25 Range/Units 19:48 Urine Color Colorless A (Lt Yel-Yel) Urine Clarity Clear (Clear/Hazy) Urine pH 6.5 (5.0-7.0) Ur Specific [place] 1.021 (1.001-1.035) Urine Protein 2+ A (Neg - Trace) Urine Glucose (UA) 4+ A (Negative) ABG Interpretation ABG results: 01/26/25 21:12 ABG pH 7.42 ABG pCO2 45 ABG pO2 94 ABG HCO3 29 H ABG O2 Saturation 99 H ABG Base Excess 4 H Quality Measures Quality Measures VTE prophylaxis Advance care planning discussed with:: other (tried contacting with person to notify but was unsuccessful. ) Medications Home Medications and Allergies Home Medications ?Medication ?Instructions ?Recorded ?Confirmed ?Type sitagliptin phosphate 50 1 tab PO BID 05/19/24 History mg-metformin 1,000 mg tablet (Janumet) Allergies Allergy/AdvReac Type Severity Reaction Status Date / Time No Known Allergies Allergy Verified 11/13/24 17:09 Visit Medications Acetaminophen (Acetaminophen 325 Mg Tablet) 650 mg PO Q6H PRN PRN Reason: Fever >101.5 Stop: 02/25/25 23:48 Dextrose (Dextrose 50%-Water Inj 50 Ml Syringe) 25 ml IV Q15MIN PRN PRN Reason: BG 50-70 responsive npo pt Stop: 02/25/25 23:53 Dextrose (Dextrose 50%-Water Inj 50 Ml Syringe) 50 ml IV Q15MIN PRN PRN Reason: BG <50 OR BG <70 & pt unresponsive Stop: 02/25/25 23:53 Glucagon (Glucagon Inj 1 Mg Vial) 1 mg IM Q15MIN PRN PRN Reason: BG <70, and no IV access Heparin Sodium (Porcine) (Heparin Sod Inj 5000 Unit/Ml Vial) 5,000 unit SC Q8HR YOLI Stop: 02/10/25 05:59 Insulin Human Lispro (Insulin Lispro (Admelog) 1 Unit/0.01 Ml Unit) 0 unit SC Q6H YOLI; Protocol Stop: 02/25/25 23:44 Discontinued Medications Amlodipine Besylate (Amlodipine Besylate 5 Mg Tablet) 10 mg PO X1 ONE Stop: 01/26/25 23:49 Last Admin: 01/27/25 00:15 Dose: Not Given Sodium Chloride (Ns) 1,000 mls @ 999 mls/hr IV .Q1H1M ONE Stop: 01/26/25 20:37 Last Infusion: 01/26/25 21:00 Dose: Infused Ceftriaxone Sodium/Dextrose (Rocephin/D5w 1gm Iv Premix) 1 gm in 50 mls @ 100 mls/hr IV X1 ONE Stop: 01/26/25 20:07 Last Infusion: 01/26/25 21:20 Dose: Infused Potassium Chloride (Kcl Ivpb) 10 meq in 100 mls @ 100 mls/hr IV X1 ONE Stop: 01/26/25 22:34 Last Infusion: 01/26/25 23:16 Dose: Infused Lactated Ringer's (Lactated Ringers) 1,000 mls @ 999 mls/hr IV .Q1H1M ONE Stop: 01/26/25 22:36 Last Infusion: 01/26/25 22:57 Dose: Infused Insulin Human Regular (Insulin Hum Regular 1 Unit/0.01 Ml (Per Unit)) 10 unit IV X1 ONE Stop: 01/26/25 21:36 Last Admin: 01/26/25 21:56 Dose: 10 unit Insulin Human Regular (Insulin Hum Regular 1 Unit/0.01 Ml (Per Unit)) 10 unit IV X1 ONE Stop: 01/26/25 23:49 Last Admin: 01/27/25 01:01 Dose: 10 unit Labetalol HCl (Labetalol Inj 5 Mg/Ml Vial 20 Ml) 20 mg IVP X1 ONE Stop: 01/26/25 20:10 Last Admin: 01/26/25 20:31 Dose: 20 mg Labetalol HCl (Labetalol Inj 5 Mg/Ml Vial 20 Ml) 20 mg IVP X1 ONE Stop: 01/26/25 22:57 Last Admin: 01/26/25 23:14 Dose: 20 mg Assessment & Plan Plan The patient is a 64-year-old male with significant past medical history of hypertension, IDDM, diabetic foot ulcer, who was brought into ED with chief complaint of altered mental status was found to have acute encephalopathy secondary to hypertensive emergency and HHS. Rule out CVA. #Acute encephalopathy 2/2 #Hypertensive emergency, and #HHS Likely 2/2 #Medical noncompliance #Rule out CVA The patient was brought into the ED with chief complaint of altered mental status, was found to have blood pressure 226/131, blood sugar of [address] was negative for acute hemorrhage, mass effect or midline shift, ammonia WNL, pCO2 WNL Patient received 1 L of IV normal saline and 1 L of LR bolus, was given labetalol 20 Mg IVP x 2, insulin regular 10 units x 2. Teleneurologist consulted, and he believes that the patient does not have any CVA, and was already out of window for thrombolytics. He recommended MRI brain tomorrow morning. -Fingerstick blood sugar every 6 hourly -We will slowly control blood pressure, with 25% of reduction in the first 4- hour, followed by slowly maintaining to normotensive in within 24-hour to 48 hours -Sliding scale insulin with lispro -CTA head and neck report pending -MRI brain pending -Monitor closely #SAGE Likely prerenal in the setting of volume depletion secondary to hyperglycemia Presented with creatinine of 1.3, baseline 0.8 -Received 1 L of IV normal saline and 1 L of LR bolus -Renally dose medications -Avoid nephrotoxic drugs -Daily a.m. labs for renal panel #Pseudohyponatremia Presented with sodium of 133 Likely in the setting of hyperglycemia -Continue to treat underlying HHS -Monitor daily a.m. sodium level #Proteinuria 2/2 #Insulin-dependent diabetes mellitus type 2 #Primary hypertension Patient's insulin glargine was increased to 25 units daily from 20 units daily during last discharge On lisinopril 40 Mg daily at home Urine revealed 2+ proteinuria -We will hold on lisinopril due to SAGE -On lispro sliding scale insulin -On insulin glargine 20 units daily #Mild transaminitis Likely secondary to HHS with uncontrolled IDDM type II -Continue to monitor CMP daily #Microcytic anemia Likely secondary to anemia of chronic disease Ordered iron panel and ferritin -Continue to monitor underlying diabetes mellitus -Continue to monitor hemoglobin daily a.m. Health maintenance: Dispo: Patient admitted to telemetry unit for further management of acute encephalopathy secondary to HHS and hypertensive emergency DVT prophylaxis: Subcu heparin Diet: N.p.o. except meds CODE STATUS: Full code, unable to contact the point of care The patient's management plan was discussed with my attending physician MD Ranjan Mcmanus MD, PGY2
[2025-01-27] VITALS (14 sets, daily range): BP systolic 158–209; BP diastolic 80–130; PULSE 70–94; RESP 14–21; TEMP 36.6–38.1; O2SAT 96–100; BMI 19.4; BMI 20.7
--- NOTE | 2025-01-27 | XR_ITS ---
Examinations: MRI Brain without intravenous contrast. MRA brain without intravenous contrast. MRA carotids without intravenous contrast 3-D vascular reconstructions Date and time of exam: January 27, 2025 1822 hours INDICATIONS: Altered mental status today Technique: Multiple axial and sagittal images of the brain have been obtained MRA brain carotid images without contrast obtained, including 3-D postprocessing, vascular maximum intensity projection images Findings: [place] is not enlarged. The optic chiasm and infundibular stalk are not remarkable. Prepontine and interpeduncular cisterns are not enlarged. No localized enlargement of the medulla or michele. Fourth ventricle and cerebellar tonsils normal in position. Subacute hemorrhage is not seen. Fourth ventricle is midline. Mass in the cerebellopontine angle region is not evident. 7th and 8th nerve complexes exhibits symmetry. Globes are symmetrical with no retro-orbital mass. Increased white matter signal prominent Diffusion-weighted images demonstrate no focus of restricted diffusion Bilateral mastoiditis Mass-effect upon the ventricular system is not identified. MRA carotid images degraded by patient motion. MRA brain images no cerebral large vessel arterial occlusions Impression: Negative for acute hemorrhage or mass effect or midline shift No acute infarct No cerebral large vessel arterial occlusions
--- NOTE | 2025-01-27 00:31 | PC.NURSE ---
unable to complete swallow eval, pt not following commands. dr. machuca made aware.
--- NOTE | 2025-01-27 00:48 | PRELIM_ITS ---
CT angiogram of the head and neck with intravenous contrast (axial sections with sagittal and coronal reformats) January 26, 2025 at 2352 hours Clinical History: Rule out stroke. AH: informed pt's Left eye pupil wider than the right eye, AMS and pt is not cooperating to determine the side of weakness Comparison: CT of January 26, 2025. Findings: Head: The internal carotid, middle and anterior cerebral arteries are patent bilaterally. The intracranial vertebral arteries are patent. The vertebrobasilar junction, basilar and posterior cerebral arteries are patent. No evidence of large vessel occlusion, critical stenosis or aneurysm. Neck: The aortic arch to the extent visualized as well as the origins of the right brachiocephalic, left common carotid, and left subclavian arteries are patent. The common carotid arteries, carotid bulbs, and internal and external carotid arteries are patent. The origins of the vertebral arteries are unremarkable. The right vertebral artery is dominant. No evidence of vascular occlusion, critical stenosis, dissection or aneurysm. The soft tissues of the neck are unremarkable. Degenerative changes of the imaged portions of the spine. No acute fractures. Chronic multilevel disc disease. Impression: Head: No evidence of large vessel occlusion, critical stenosis or aneurysm. Neck: No evidence of vascular occlusion, critical stenosis, dissection or aneurysm. Report Electronically Signed By: Deniz Moses 01/27/2025 12:47:30 AM [EST]
[2025-01-27] MEDS: INSULIN HUM REGULAR 1 UNIT/0.01 ML (PER UNIT) 10 UNIT IV (01:01)
--- NOTE | 2025-01-27 02:09 | PC.NURSE ---
spoke with dr. machuca in regards to pt current blood pressure of 180/114. per dr. machuca blood pressure within parameters at this time.
[2025-01-27] MEDS: INSULIN LISPRO (AdmeLOG) 1 UNIT/0.01 ML UNIT SC ×5 (02:17→21:03)
[2025-01-27] MEDS: SODIUM CHLORIDE 0.9% 1000 ML 1,000 ML 999 ML IV (04:02)
[2025-01-27] MEDS: LABETALOL INJ 5 MG/ML VIAL 20 ML 10 MG IVP ×2 (04:03→11:52)
[2025-01-27] MEDS: ACETAMINOPHEN SUPP 650 MG SUPP PR (04:22)
[2025-01-27 04:55] LABS: Basophils # (Auto) 0.1 Thou/mm3 (0.0-0.2); Basophils % (Auto) 0 % (0-2.5); Eosinophils % (Auto) 0 % (0-10); Hematocrit 28.3 % (41.0-53.0); Hemoglobin 9.9 g/dL (13.5-16.0); Immature Granulocytes % (Auto) 1 % (0-0); Immature Granulocytes Auto 0.08 Thou/mm3 (0.00-0.00); Lymphocytes # (Auto) 1.1 Thou/mm3 (1.0-4.8); Lymphocytes % (Auto) 10 % (10-50); Mean Corpuscular Hemoglobin 28.7 pg (25.0-35.0); Mean Corpuscular Volume 82 fL (80-100); Monocytes # (Auto) 0.5 Thou/mm3 (0.0-0.8); Monocytes % (Auto) 4 % (0-12); Neutrophils # (Auto) 9.7 Thou/mm3 (1.8-7.7); Neutrophils % (Auto) 85 % (37-80); Nucleated Red Blood Cell % 0 /100 WBC (0); Platelet Count 284 Thou/mm3 (140-440); RDW Standard Deviation 41.8 fL (35.1-43.9); Red Blood Count 3.45 Miln/mm3 (4.50-5.90); White Blood Count 11.5 Thou/mm3 (3.8-10.6)
[2025-01-27 05:17] LABS: Glucose Estimated Average 289 mg/dL (80-131); Hemoglobin A1C 11.7 % Hgb (4.8-6.0)
[2025-01-27 05:49] LABS: Ferritin 103 ng/mL (10.5-307.3); Iron 40 mcg/dL (65-175); Percent Iron Saturation 15 % (20-55); Total Iron Binding Capacity 262 mcg/dL (250-425); Unsaturated Iron Binding 222 (225-295)
[2025-01-27 05:57] LABS: Alanine Aminotransferase 77 U/L (10-49); Albumin, Serum 3.3 gm/dL (3.4-4.8); Albumin/Globulin Ratio 1.3 (1.2-2.2); Alkaline Phosphatase 68 U/L (46-116); Anion Gap 10 (7-16); Aspartate Amino Transferase 37 U/L (0-34); BUN/Creatinine Ratio 16 Ratio (12-20); Bilirubin,Total 0.4 mg/dL (0.3-1.2); Blood Urea Nitrogen 18 mg/dL (9-23); Calcium 8.8 mg/dL (8.3-10.6); Calcium (Corrected) 9.4 mg/dL (8.5-10.1); Carbon Dioxide 25.1 mMol/L (20.0-31.0); Chloride 103 mMol/L (98-107); Cholesterol 139 mg/dL (132-200); Creatinine (Component) 1.1 mg/dL (0.6-1.3); Estimated Creatinine Clearance 48.7 mL/min (>60); Globulin 2.5 gm/dL (2.3-3.5); Glucose 282 mg/dL (74-106); HDL Cholesterol 46 mg/dL (40-60); LDL Cholesterol,Calculated 74 mg/dL (0-130); Magnesium 1.6 mg/dL (1.6-2.6); Osmolality,Calculated 287 (275-295); Phosphorous 3.6 mg/dL (2.4-5.1); Potassium 3.7 mMol/L (3.4-5.1); Sodium 138 mMol/L (136-145); Thyroid Stimulating Hormone 3.18 uIU/mL (0.55-4.78); Total Protein 5.8 gm/dL (5.7-8.2); Triglycerides 93 mg/dL (30-150); eGFR > 60 See Note
[2025-01-27] MEDS: HEPARIN SOD INJ 5000 UNIT/ML VIAL SC ×3 (06:20→21:03)
--- NOTE | 2025-01-27 10:32 | PC.NURSE ---
phone numbers on file are not working to get info for MRI screen
--- NOTE | 2025-01-27 10:53 | PC.NURSE ---
ct mc mcintosh called as ct was ordered with contrast she stated that we do not usually do contrast within 24hrs of other contrast order. if i can contact provider
--- NOTE | 2025-01-27 10:55 | XR_ITS ---
Examination: CT abdomen and pelvis without contrast. Coronal 3-D reconstructions. Sagittal 2-D reconstructions. Date and time of exam:January 27, 2025 at 1120 hrs. Indications: Rigid abdomen and abdominal pain today CTDI: vol (mGy): 9.59 DLP: (mGycm): 163 Technique: Axial images of the abdomen have been obtained, 3 mm slice thickness Intravenous contrast material has not been administered. Low dose protocols were performed. One or more of the following dose reduction techniques were used; automated exposure control, adjustment of the mA and/or KV according to patient size, use of iterative reconstruction technique. Findings: Liver is mildly irregular contour with fatty infiltration Contrast in the gallbladder Spleen is not enlarged No pancreatic mass No hydronephrosis Mild bilateral renal parenchymal scar formation Abdominal aortic calcification no aneurysmal dilatation Normal appendix No bowel obstruction or diverticulitis Prominently distended urinary bladder, secondary to enlarged prostate, transverse dimension 4.7 cm Fat-containing inguinal hernias Suspicious for mild anasarca Prominent osteopenia Impression: Suspect primary hepatocellular disease Contrast in the gallbladder, likely secondary to the prior CT angiography Suspicious for mild anasarca, clinical correlation advised Prominently distended urinary bladder, secondary to enlarged prostate, transverse dimension 4.7 cm
--- NOTE | 2025-01-27 10:55 | PC.NURSE ---
called dr. carrion regarding ct with contrast and ct concerns she states she will order it without contrast
--- NOTE | 2025-01-27 10:57 | PC.NURSE ---
nurse swallow not performed pt is still altered asleep most of the time
--- NOTE | 2025-01-27 12:01 | PC.NURSE ---
pharmacy called for insulin coverqage dose
--- NOTE | 2025-01-27 12:04 | PC.NURSE ---
unable to given lantus due to med not available. Pharmacy to restock med
--- NOTE | 2025-01-27 16:11 | ESPR_ITS ---
Documentation for date of: 01/27/25 Subjective Subjective Interval history: No overnight events. Patient seen and examined at bedside, severe distress. Patient disoriented, expresses severe pain but unable to localize. Noted to have lower abdominal tenderness with guarding. CT showed urinary retention, Miller cath placed. Follow-up stroke MRI. Closely monitor BP Exam Vital Signs Temp Pulse Resp BP Pulse Ox O2 Del Method 97.9 F 75 18 158/93 H 99 Room Air 01/27/25 12:41 01/27/25 15:00 01/27/25 12:41 01/27/25 15:00 01/27/25 12:41 01/27/25 12:41 Narrative Exam PE: Gen: Well-developed and well-nourished. Acute distress. HEENT: NCAT, MMM, anicteric conjunctivae. Blind. CVS: normal S1 and S2. RRR. No M/R/G. Resp: CTA B/L. No rhonchi, rales, crackles or wheezing. Abd: Significant lower abdominal tenderness with guarding. MSK: Good ROM in BUE & BLE. No edema or rash. Neuro: CN II-XII grossly intact. Strength 5/5 in BUE & BLE. A&O x 1. Psych: appropriate mood and affect. Objective Labs 01/28/25 04:44 01/28/25 04:44 Labs: Laboratory Results - last 24 hr 01/26/25 01/26/25 01/26/25 19:45 19:48 21:12 WBC 6.5 RBC 3.97 L Hgb 11.4 L Hct 32.5 L MCV 82 MCH 28.7 MCHC 35.1 RDW Std Deviation 41.2 Plt Count 316 Neut % (Auto) 76 Lymph % (Auto) 18 [place] % (Auto) 4 Eos % (Auto) 1 Baso % (Auto) 1 Neut # (Auto) 5.0 Lymph # (Auto) 1.2 [place] # (Auto) 0.2 Eos # (Auto) 0.1 Baso # (Auto) 0.1 Immature Gran # (Auto) 0.04 H Absolute Nucleated RBC 0.00 Immature Gran % 1 H Nucleated RBC % 0 PT 10.5 INR 1.0 APTT 28.5 Puncture Site Right Radial ABG pH 7.42 ABG pCO2 45 ABG pO2 94 ABG HCO3 29 H ABG O2 Saturation 99 H ABG Base Excess 4 H FiO2 21 Sodium 133 L Potassium 4.1 Chloride 96 L Carbon Dioxide 30.9 Anion Gap 6 L BUN 23 Creatinine 1.3 Estim Creat Clear Calc 41.2 L eGFR > 60 BUN/Creatinine Ratio 18 Glucose 655 H* Estimated Ave Glu mg/dL Hemoglobin A1c Calculated Osmolality 301 H Lactic Acid 1.2 Calcium 9.4 Corrected Calcium 9.7 Phosphorus 4.1 Magnesium 1.8 Iron TIBC Iron Saturation Unsat Iron Binding Ferritin Total Bilirubin 0.4 AST 60 H ALT 110 H Alkaline Phosphatase 99 Ammonia Lactate Dehydrogenase 254 H Troponin I < 0.020 B-Natriuretic Peptide 215 H Total Protein 6.4 Albumin 3.6 Globulin 2.8 Albumin/Globulin Ratio 1.3 Triglycerides Cholesterol LDL Cholesterol, Calc HDL Cholesterol Cholesterol/HDL Ratio Lipase 41 Beta-Hydroxybutyrate/Acetoacetate Procalcitonin 0.09 TSH Ur Collection Type Clean Catch Urine Color Colorless A Urine Clarity Clear Urine pH 6.5 Ur Specific [place] 1.021 Urine Protein 2+ A Urine Glucose (UA) 4+ A Urine Ketones Negative Urine Blood Trace Urine Nitrite Negative Urine Bilirubin Negative Urine Urobilinogen (Auto) Negative Ur Leukocyte Esterase Negative Urine RBC 1 Urine WBC < 1 Ur Squamous Epith Cells 0 Urine Bacteria None Urine Opiates Screen Negative Urine Fentanyl Screen Negative Ur Barbiturates Screen Negative U Amphetamin/Meth Scrn Negative U Benzodiazepines Scrn Negative U Cocaine Metab Screen Negative U Marijuana (THC) Screen Negative 01/26/25 01/27/25 23:08 04:31 WBC 11.5 H D RBC 3.45 L Hgb 9.9 L Hct 28.3 L MCV 82 MCH 28.7 MCHC 35.0 RDW Std Deviation 41.8 Plt Count 284 D Neut % (Auto) 85 H Lymph % (Auto) 10 [place] % (Auto) 4 Eos % (Auto) 0 Baso % (Auto) 0 Neut # (Auto) 9.7 H Lymph # (Auto) 1.1 [place] # (Auto) 0.5 Eos # (Auto) 0.0 Baso # (Auto) 0.1 Immature Gran # (Auto) 0.08 H Absolute Nucleated RBC 0.00 Immature Gran % 1 H Nucleated RBC % 0 PT INR APTT Puncture Site ABG pH ABG pCO2 ABG pO2 ABG HCO3 ABG O2 Saturation ABG Base Excess FiO2 Sodium 138 Potassium 3.7 Chloride 103 Carbon Dioxide 25.1 Anion Gap 10 BUN 18 Creatinine 1.1 Estim Creat Clear Calc 48.7 L eGFR > 60 BUN/Creatinine Ratio 16 Glucose [address] Glu mg/dL 289 H Hemoglobin A1c 11.7 H Calculated Osmolality 287 Lactic Acid Calcium 8.8 Corrected Calcium 9.4 Phosphorus 3.6 Magnesium 1.6 Iron 40 L TIBC 262 Iron Saturation 15 L Unsat Iron Binding 222 L Ferritin 103 Total Bilirubin 0.4 AST 37 H ALT 77 H Alkaline Phosphatase 68 D Ammonia 12 Lactate Dehydrogenase Troponin I B-Natriuretic Peptide Total Protein 5.8 Albumin 3.3 L Globulin 2.5 Albumin/Globulin Ratio 1.3 Triglycerides 93 Cholesterol 139 LDL Cholesterol, Calc 74 HDL Cholesterol 46 Cholesterol/HDL Ratio 3.0 L Lipase Beta-Hydroxybutyrate/Acetoacetate 0.2 Procalcitonin TSH 3.18 Ur Collection Type Urine Color Urine Clarity Urine pH Ur Specific [place] Urine Protein Urine Glucose (UA) Urine Ketones Urine Blood Urine Nitrite Urine Bilirubin Urine Urobilinogen (Auto) Ur Leukocyte Esterase Urine RBC Urine WBC Ur Squamous Epith Cells Urine Bacteria Urine Opiates Screen Urine Fentanyl Screen Ur Barbiturates Screen U Amphetamin/Meth Scrn U Benzodiazepines Scrn U Cocaine Metab Screen U Marijuana (THC) Screen ABG Interpretation ABG results: 01/26/25 21:12 ABG pH 7.42 ABG pCO2 45 ABG pO2 94 ABG HCO3 29 H ABG O2 Saturation 99 H ABG Base Excess 4 H Quality Measures Quality Measures VTE prophylaxis Advance care planning discussed with:: patient Assessment & Plan Assessment Current Active Medications: Generic Name Dose Route Start Last Admin Trade Name Freq PRN Reason Stop Dose Admin Acetaminophen 650 mg 01/27/25 03:55 01/27/25 04:22 Acetaminophen Supp 650 Mg Supp HI 02/26/25 03:59 650 mg Q6H PRN Administration temp > 100.4 Aspirin 81 mg 01/28/25 09:00 Aspirin Ec 81 Mg Tabec PO 02/27/25 08:59 QDAY YOLI Dextrose 25 ml 01/26/25 23:54 Dextrose 50%-Water Inj 50 Ml Syringe IV 02/25/25 23:53 Q15MIN PRN BG 50-70 responsive npo pt Dextrose 50 ml 01/26/25 23:54 Dextrose 50%-Water Inj 50 Ml Syringe IV 02/25/25 23:53 Q15MIN PRN BG <50 OR BG <70 & pt unresponsive Glucagon 1 mg 01/26/25 23:54 Glucagon Inj 1 Mg Vial IM Q15MIN PRN BG <70, and no IV access Heparin Sodium (Porcine) 5,000 unit 01/27/25 06:00 01/27/25 14:42 Heparin Sod Inj 5000 Unit/Ml Vial SC 02/10/25 05:59 5,000 unit Q8HR YOLI Administration Ceftriaxone Sodium/Dextrose 1 gm in 50 mls @ 100 mls/hr 01/27/25 21:00 Rocephin/D5w 1gm Iv Premix IV 02/03/25 20:59 HS YOLI Insulin Glargine 20 unit 01/27/25 09:00 Insulin Glargine (Lantus) 5 Unit/0.05 Ml (Per 5 Units) SC 02/26/25 08:59 QDAY YOLI Insulin Human Lispro 0 unit 01/27/25 12:15 01/27/25 12:09 Insulin Lispro (Admelog) 1 Unit/0.01 Ml Unit SC 02/26/25 12:14 2 unit Q6HR YOLI Administration Protocol Labetalol HCl 10 mg 01/27/25 02:19 01/27/25 11:52 Labetalol Inj 5 Mg/Ml Vial 20 Ml IVP 02/26/25 02:18 10 mg Q4H PRN Administration SBP > 200 or DBP > 110. Plan 64-year-old male with significant past medical history of hypertension, IDDM, diabetic foot ulcer, who was brought into ED with chief complaint of altered mental status was found to have acute encephalopathy secondary to hypertensive emergency and HHS. Rule out CVA. #Acute encephalopathy 2/2 HTN emergency versus urinary retention #Hypertensive emergency #Urinary retention The patient was brought into the ED with chief complaint of altered mental status, was found to have blood pressure 226/131, blood sugar of 655. Head CT was negative for acute hemorrhage, mass effect or midline shift, CTA head/neck unremarkable. Ammonia WNL, pCO2 WNL. Patient received 1 L of IV normal saline and 1 L of LR bolus, was given labetalol 20 Mg IVP x 2, insulin regular 10 units x 2. Teleneurologist consulted, and he believes that the patient does not have any CVA, and was already out of window for thrombolytics. He recommended MRI brain tomorrow morning. CT A/P showed bladder distention, likely due to BPH. -Miller cath placement -We will slowly control blood pressure, with 25% of reduction in the first 4- hour, followed by slowly maintaining to normotensive in within 24-hour to 48 hours -Labetalol 10 mg IV every 4 hours as needed for SBP greater than 200 -MRI brain pending #SAGE Likely prerenal in the setting of volume depletion secondary to hyperglycemia Presented with creatinine of 1.3, baseline 0.8 -Received 1 L of IV normal saline and 1 L of LR bolus -Renally dose medications -Avoid nephrotoxic drugs -Daily a.m. labs for renal panel #Hyperglycemia Patient presented with elevated glucose 655. Not HHS, serum osmolality 301. Glucose came down with insulin, currently 237. -Treat diabetes as below -Continue to monitor #Pseudohyponatremia Presented with sodium of 133 Likely in the setting of hyperglycemia -Continue to treat underlying hyperglycemia -Monitor daily a.m. sodium level #Insulin-dependent diabetes mellitus type 2 #Primary hypertension Patient's insulin glargine was increased to 25 units daily from 20 units daily during last discharge On lisinopril 40 Mg daily at home -We will hold on lisinopril due to SAGE -On lispro sliding scale insulin -On insulin glargine 20 units daily #Mild transaminitis Likely secondary to hypertensive emergency -Continue to monitor CMP daily -Treat hypertension as above #Microcytic anemia Likely secondary to anemia of chronic disease Ordered iron panel and ferritin -Continue to monitor underlying diabetes mellitus -Continue to monitor hemoglobin daily a.m. Lines: Peripheral IV, Miller cath DVT prophylaxis: Subcu heparin Diet: N.p.o. except meds CODE STATUS: Full code, unable to contact the point of care Plan of care discussed with attending Dr. Negron. Sher Doss MD PGY?1 Attending Provider Attestation/Addendum I have examined the patient, reviewed labs and imaging findings, discussed the case with the resident(s), and reviewed entered orders. I agree with the plan of care as outlined in this note, with these additional summaries/recommendations: Patient seen at bedside. Patient admitted overnight for acute encephalopathy. He remains encephalopathic at bedside today and is alert and oriented x 1. Patient is only able to state his name and no further reliable history can be obtained. He frequently thinks he is talking to his mother. Acute encephalopathy likely multifactorial secondary to hypertensive emergency +/- urinary retention +/- hyperglycemia. We will continue to optimize blood pressure management. Miller catheter ordered and we will monitor urinary output. Hyperglycemia significantly improved and we will continue basal plus bolus insulin. A1c 11.7%. Diabetic education once mentation is more improved. Stroke alert was called in the ED although suspicion low via teleneurology. Patient started on aspirin per recommendations and pending MRI brain. Patient started on IV Rocephin although low suspicion for infection at this time. We will follow-up blood cultures when available. Urinalysis relatively within normal limits and no evidence of lobar pneumonia on chest x-ray. Continue Pharm measures to prevent delirium. Patient has healing decubitus which appears to have almost resolved. Repeat hematology and chemistry panel in AM. Dr. Jamil MD
[2025-01-27] MEDS: cefTRIAXone/D5w 1gm IV premix 1 GM/50 ML BAG IV (20:44)
[2025-01-28] VITALS (7 sets, daily range): BP systolic 118–196; BP diastolic 87–102; PULSE 69–99; RESP 15–20; TEMP 36.4–37.2; O2SAT 96–98; BMI 20.7
[2025-01-28] MEDS: HEPARIN SOD INJ 5000 UNIT/ML VIAL SC ×3 (05:28→21:15)
[2025-01-28 06:13] LABS: Basophils # (Auto) 0.1 Thou/mm3 (0.0-0.2); Basophils % (Auto) 1 % (0-2.5); Eosinophils # (Auto) 0.1 Thou/mm3 (0.0-0.5); Eosinophils % (Auto) 1 % (0-10); Hematocrit 27.6 % (41.0-53.0); Hemoglobin 9.7 g/dL (13.5-16.0); Immature Granulocytes % (Auto) 0 % (0-0); Immature Granulocytes Auto 0.02 Thou/mm3 (0.00-0.00); Lymphocytes # (Auto) 1.4 Thou/mm3 (1.0-4.8); Lymphocytes % (Auto) 18 % (10-50); Mean Corpuscular HGB Conc 35.1 g/dl (31.0-37.0); Mean Corpuscular Hemoglobin 29.3 pg (25.0-35.0); Mean Corpuscular Volume 83 fL (80-100); Monocytes # (Auto) 0.5 Thou/mm3 (0.0-0.8); Monocytes % (Auto) 7 % (0-12); Neutrophils # (Auto) 5.6 Thou/mm3 (1.8-7.7); Neutrophils % (Auto) 73 % (37-80); Nucleated Red Blood Cell % 0 /100 WBC (0); Platelet Count 328 Thou/mm3 (140-440); RDW Standard Deviation 44.4 fL (35.1-43.9); Red Blood Count 3.31 Miln/mm3 (4.50-5.90); White Blood Count 7.6 Thou/mm3 (3.8-10.6)
[2025-01-28 06:48] LABS: Alanine Aminotransferase 59 U/L (10-49); Albumin, Serum 2.9 gm/dL (3.4-4.8); Albumin/Globulin Ratio 1.2 (1.2-2.2); Alkaline Phosphatase 54 U/L (46-116); Anion Gap 8 (7-16); Aspartate Amino Transferase 45 U/L (0-34); BUN/Creatinine Ratio 15 Ratio (12-20); Bilirubin,Total 0.4 mg/dL (0.3-1.2); Blood Urea Nitrogen 15 mg/dL (9-23); Calcium 8.6 mg/dL (8.3-10.6); Calcium (Corrected) 9.5 mg/dL (8.5-10.1); Chloride 103 mMol/L (98-107); Estimated Creatinine Clearance 51.3 mL/min (>60); Globulin 2.4 gm/dL (2.3-3.5); Glucose 239 mg/dL (74-106); Magnesium 1.7 mg/dL (1.6-2.6); Osmolality,Calculated 286 (275-295); Phosphorous 3.7 mg/dL (2.4-5.1); Potassium 3.6 mMol/L (3.4-5.1); Sodium 139 mMol/L (136-145); Total Protein 5.3 gm/dL (5.7-8.2); eGFR > 60 See Note
[2025-01-28] MEDS: INSULIN LISPRO (AdmeLOG) 1 UNIT/0.01 ML UNIT SC ×4 (08:00→21:17)
[2025-01-28] MEDS: INSULIN GLARGINE (Lantus) 5 UNIT/0.05 ML (PER 5 UNITS) 20 UNIT SC (08:00)
[2025-01-28] MEDS: FINASTERIDE 5 MG TABLET PO (10:39)
[2025-01-28] MEDS: TAMSULOSIN HCL 0.4 MG CAPSULE PO (10:40)
[2025-01-28] MEDS: Lisinopril 20 MG TABLET 40 MG PO (10:40)
[2025-01-28] MEDS: ASPIRIN 81 MG CHEW PO (10:45)
--- NOTE | 2025-01-28 14:28 | PD.RESPRO ---
Documentation for date of: 01/28/25 Subjective Subjective Interval history: No overnight events. Patient seen examined at bedside. Resting comfortably, denies nausea, vomiting, fever, chills, dysuria, abdominal pain. Initiated Flomax and finasteride. Will attempt to contact patient's family for discharge planning. Exam Vital Signs Temp Pulse Resp BP Pulse Ox O2 Del Method 97.6 F 70 20 148/87 H 96 Room Air 01/28/25 12:00 01/28/25 12:00 01/28/25 12:00 01/28/25 12:00 01/28/25 12:01/28/25 12:00 Narrative Exam PE: Gen: Well-developed and well-nourished. Calm and comfortable. HEENT: NCAT, MMM, anicteric conjunctivae. Blind. CVS: normal S1 and S2. RRR. No M/R/G. Resp: CTA B/L. No rhonchi, rales, crackles or wheezing. Abd: Nontender. MSK: Good ROM in BUE & BLE. No edema or rash. Neuro: CN II-XII grossly intact. Strength 5/5 in BUE & BLE. A&O x 3. Psych: appropriate mood and affect. Objective Labs 01/28/25 04:44 01/28/25 04:44 Labs: Laboratory Results - last 24 hr 01/28/25 04:44 WBC 7.6 RBC 3.31 L Hgb 9.7 L Hct 27.6 L MCV 83 MCH 29.3 MCHC 35.1 RDW Std Deviation 44.4 H Plt Count 328 D Neut % (Auto) 73 Lymph % (Auto) 18 [place] % (Auto) 7 Eos % (Auto) 1 Baso % (Auto) 1 Neut # (Auto) 5.6 Lymph # (Auto) 1.4 [place] # (Auto) 0.5 Eos # (Auto) 0.1 Baso # (Auto) 0.1 Immature Gran # (Auto) 0.02 H Absolute Nucleated RBC 0.00 Immature Gran % 0 Nucleated RBC % 0 Sodium 139 Potassium 3.6 Chloride 103 Carbon Dioxide 28.0 Anion Gap 8 BUN 15 Creatinine 1.0 Estim Creat Clear Calc 51.3 L eGFR > 60 BUN/Creatinine Ratio 15 Glucose 239 H Calculated Osmolality 286 Calcium 8.6 Corrected Calcium 9.5 Phosphorus 3.7 Magnesium 1.7 Total Bilirubin 0.4 AST 45 H ALT 59 H Alkaline Phosphatase 54 D Total Protein 5.3 L Albumin 2.9 L Globulin 2.4 Albumin/Globulin Ratio 1.2 ABG Interpretation ABG results: 01/26/25 21:12 ABG pH 7.42 ABG pCO2 45 ABG pO2 94 ABG HCO3 29 H ABG O2 Saturation 99 H ABG Base Excess 4 H Quality Measures Quality Measures VTE prophylaxis Advance care planning discussed with:: patient Assessment & Plan Assessment Current Active Medications: Generic Name Dose Route Start Last Admin Trade Name Freq PRN Reason Stop Dose Admin Acetaminophen 650 mg 01/27/25 03:55 01/27/25 04:22 Acetaminophen Supp 650 Mg Supp [place] 02/26/25 03:59 650 mg Q6H PRN Administration temp > 100.4 Aspirin 81 mg 01/28/25 10:45 01/28/25 10:45 Aspirin 81 Mg Chew PO 02/27/25 08:59 81 mg QDAY YOLI Administration Dextrose 25 ml 01/26/25 23:54 Dextrose 50%-Water Inj 50 Ml Syringe IV 02/25/25 23:53 Q15MIN PRN BG 50-70 responsive npo pt Dextrose 50 ml 01/26/25 23:54 Dextrose 50%-Water Inj 50 Ml Syringe IV 02/25/25 23:53 Q15MIN PRN BG <50 OR BG <70 & pt unresponsive Finasteride 5 mg 01/28/25 09:45 01/28/25 10:39 Finasteride 5 Mg Tablet PO 02/27/25 09:44 5 mg QDAY YOLI Administration Glucagon 1 mg 01/26/25 23:54 Glucagon Inj 1 Mg Vial IM Q15MIN PRN BG <70, and no IV access Heparin Sodium (Porcine) 5,000 unit 01/27/25 06:00 01/28/25 14:11 Heparin Sod Inj 5000 Unit/Ml Vial SC 02/10/25 05:59 5,000 unit Q8HR YOLI Administration Insulin Glargine 20 unit 01/27/25 09:00 01/28/25 08:00 Insulin Glargine (Lantus) 5 Unit/0.05 Ml (Per 5 Units) SC 02/26/25 08:59 20 unit QDAY YOLI Administration Insulin Human Lispro 0 unit 01/27/25 17:30 01/28/25 12:05 Insulin Lispro (Admelog) 1 Unit/0.01 Ml Unit SC 02/26/25 17:29 2 unit ACHS YOLI Administration Protocol Labetalol HCl 10 mg 01/27/25 02:19 01/27/25 11:52 Labetalol Inj 5 Mg/Ml Vial 20 Ml IVP 02/26/25 02:18 10 mg Q4H PRN Administration SBP > 200 or DBP > 110. Lisinopril 40 mg 01/28/25 09:45 01/28/25 10:40 Lisinopril 20 Mg Tablet PO 02/27/25 09:44 40 mg QDAY YOLI Administration Tamsulosin HCl 0.4 mg 01/28/25 09:45 01/28/25 10:40 Tamsulosin Hcl 0.4 Mg Capsule PO 02/27/25 09:44 0.4 mg QDAY YOLI Administration Plan 64-year-old male with significant past medical history of hypertension, IDDM, diabetic foot ulcer, who was brought into ED with chief complaint of altered mental status was found to have acute encephalopathy secondary to hypertensive emergency and urinary retention. #Acute encephalopathy (resolved) 2/2 HTN emergency versus urinary retention #Hypertensive emergency, resolved #Urinary retention, resolved The patient was brought into the ED with chief complaint of altered mental status, was found to have blood pressure 226/131, blood sugar of 655. Head CT was negative for acute hemorrhage, mass effect or midline shift, CTA head/neck unremarkable. Ammonia WNL, pCO2 WNL. Patient received 1 L of IV normal saline and 1 L of LR bolus, was given labetalol 20 Mg IVP x 2, insulin regular 10 units x 2. Teleneurologist consulted, and he believes that the patient does not have any CVA, and was already out of window for thrombolytics. He recommended MRI brain tomorrow morning. CT A/P showed bladder distention, likely due to BPH. MRI brain unremarkable. Patient A&O x 3, back to baseline. Home BP meds resumed -Urias cath placement -Labetalol 10 mg IV every 4 hours as needed for SBP greater than 200 -Resume home lisinopril -Contact family regarding discharge planning #SAGE, resolved Likely prerenal in the setting of volume depletion secondary to hyperglycemia Presented with creatinine of 1.3, baseline 0.8. Received 1 L of IV normal saline and 1 L of LR bolus. -Renally dose medications -Avoid nephrotoxic drugs -Daily a.m. labs for renal panel #Hyperglycemia, resolved Patient presented with elevated glucose 655. Not HHS, serum osmolality 301. Glucose came down with insulin, currently 177. -Treat diabetes as below -Continue to monitor #Pseudohyponatremia Presented with sodium of 133 Likely in the setting of hyperglycemia -Continue to treat underlying hyperglycemia -Monitor daily a.m. sodium level #Insulin-dependent diabetes mellitus type 2 #Primary hypertension Patient's insulin glargine was increased to 25 units daily from 20 units daily during last discharge On lisinopril 40 Mg daily at home -Resume home meds: Lisinopril 40 mg p.o. daily -On lispro sliding scale insulin -On insulin glargine 20 units daily #Mild transaminitis Likely secondary to hypertensive emergency -Continue to monitor CMP daily -Treat hypertension as above #Microcytic anemia Likely secondary to anemia of chronic disease Ordered iron panel and ferritin -Continue to monitor underlying diabetes mellitus -Continue to monitor hemoglobin daily a.m. Lines: Peripheral IV, Urias cath DVT prophylaxis: Subcu heparin Diet: Cardiac CODE STATUS: Full code Plan of care discussed with attending Dr. Negron. Sher Doss MD PGY?1 Attending Provider Attestation/Addendum I have examined the patient, reviewed labs and imaging findings, discussed the case with the resident(s), and reviewed entered orders. I agree with the plan of care as outlined in this note, with these additional summaries/recommendations: Patient seen at bedside. No acute overnight events. Patients mental status is back to baseline. At this time acute encephalopathy is most likely secondary to acute urinary retention. Urias catheter was placed with almost 750cc return. CT ABD/PLV also showed prominently distended urinary bladder with enlarged prostate with transverse dimension 4.7cm. Continue urias catheter and patient started on Flomax plus finasteride. Patient counseled extensively he will need close outpatient follow-up with urology. We will continue to optimize blood pressure management. Hyperglycemia significantly improved and we will continue basal plus bolus insulin. A1c 11.7%. Stroke alert was called in the ED although CVA ruled out and MRI brain showed no acute infarct. Patient is legally blind and unable to provide family members phones numbers. Phone number in EMR disconnected. We will follow-up with health care social worker for discharge planning. Dr. Jamil MD
[2025-01-29] VITALS (10 sets, daily range): BP systolic 140–190; BP diastolic 82–104; PULSE 67–82; RESP 12–18; TEMP 36.2–37.1; O2SAT 97–98; BMI 28.3; BMI 11.0
--- NOTE | 2025-01-29 00:01 | PC.NURSE ---
notified Dr. Lei of patients bp 190/104. He is reviewing chart and will change prn
[2025-01-29] MEDS: LABETALOL INJ 5 MG/ML VIAL 20 ML 10 MG IVP (00:44)
[2025-01-29] MEDS: HEPARIN SOD INJ 5000 UNIT/ML VIAL SC ×3 (05:20→21:36)
[2025-01-29 06:03] LABS: Basophils # (Auto) 0.1 Thou/mm3 (0.0-0.2); Basophils % (Auto) 1 % (0-2.5); Eosinophils # (Auto) 0.2 Thou/mm3 (0.0-0.5); Eosinophils % (Auto) 2 % (0-10); Hemoglobin 9.7 g/dL (13.5-16.0); Immature Granulocytes % (Auto) 0 % (0-0); Immature Granulocytes Auto 0.03 Thou/mm3 (0.00-0.00); Lymphocytes # (Auto) 1.5 Thou/mm3 (1.0-4.8); Lymphocytes % (Auto) 22 % (10-50); Mean Corpuscular HGB Conc 34.6 g/dl (31.0-37.0); Mean Corpuscular Hemoglobin 29.4 pg (25.0-35.0); Mean Corpuscular Volume 85 fL (80-100); Monocytes # (Auto) 0.4 Thou/mm3 (0.0-0.8); Monocytes % (Auto) 6 % (0-12); Neutrophils # (Auto) 4.7 Thou/mm3 (1.8-7.7); Neutrophils % (Auto) 70 % (37-80); Nucleated Red Blood Cell % 0 /100 WBC (0); Platelet Count 218 Thou/mm3 (140-440); White Blood Count 6.8 Thou/mm3 (3.8-10.6)
[2025-01-29 06:26] LABS: Alanine Aminotransferase 55 U/L (10-49); Albumin, Serum 2.8 gm/dL (3.4-4.8); Albumin/Globulin Ratio 1.2 (1.2-2.2); Alkaline Phosphatase 53 U/L (46-116); Anion Gap 8 (7-16); Aspartate Amino Transferase 36 U/L (0-34); BUN/Creatinine Ratio 14 Ratio (12-20); Bilirubin,Total 0.3 mg/dL (0.3-1.2); Blood Urea Nitrogen 17 mg/dL (9-23); Calcium 8.3 mg/dL (8.3-10.6); Calcium (Corrected) 9.3 mg/dL (8.5-10.1); Carbon Dioxide 28.1 mMol/L (20.0-31.0); Chloride 100 mMol/L (98-107); Creatinine (Component) 1.2 mg/dL (0.6-1.3); Estimated Creatinine Clearance 50.2 mL/min (>60); Globulin 2.3 gm/dL (2.3-3.5); Glucose 246 mg/dL (74-106); Magnesium 1.7 mg/dL (1.6-2.6); Osmolality,Calculated 281 (275-295); Phosphorous 3.4 mg/dL (2.4-5.1); Potassium 3.8 mMol/L (3.4-5.1); Sodium 136 mMol/L (136-145); Total Protein 5.1 gm/dL (5.7-8.2); eGFR > 60 See Note
[2025-01-29] MEDS: INSULIN LISPRO (AdmeLOG) 1 UNIT/0.01 ML UNIT SC ×4 (07:38→20:06)
[2025-01-29] MEDS: INSULIN GLARGINE (Lantus) 5 UNIT/0.05 ML (PER 5 UNITS) 20 UNIT SC (08:18)
[2025-01-29] MEDS: ASPIRIN 81 MG CHEW PO (08:19)
[2025-01-29] MEDS: Lisinopril 20 MG TABLET 40 MG PO (08:19)
[2025-01-29] MEDS: TAMSULOSIN HCL 0.4 MG CAPSULE PO (08:19)
[2025-01-29] MEDS: FINASTERIDE 5 MG TABLET PO (08:20)
[2025-01-29] MEDS: Magnesium Sulfate 4 GM Ivpb 4 GM/50 ML BAG IV (10:01)
[2025-01-29] MEDS: POTASSIUM CHLORIDE 20 mEq TABCR PO (10:01)
--- NOTE | 2025-01-29 14:21 | ESPR_ITS ---
<Statement entered by Chrissy Dasilva MD - 01/29/25 15:19> Patient seen and examined at bedside. Patient is A&O 3 (name, place, and situation). Patient however requires max assistance especially someone at bedside for feeding. Patient will also need SNF after PT evaulation, which patient agrees. Anticipate discharge within 24-48 hours. Patient will also have to f/u with urology for his chronic indwelling catheter which was placed here in his hospitalization to help with his urinary retention. Chrissy Dasilva, PGY-2 <Statement entered by Nikia Li MD - 01/29/25 14:54> I discussed with and supervised the sports intern physician who took care of this patient. I personally saw and examined the patient and discussed the assessment and plan with the entire medicine team, including my attending Dr. Negron, I agree with the assessment and plan as documented below Patient seen and examined at bedside today. Labs and imaging reviewed. This morning the bedside, patient is AO x 3, respond to questions properly, denied any acute complaints at this moment. Patient is safe and stable for discharge otherwise per physical therapy recommendations he will require SNF. We spoke with patient about being discharged to nursing home facility and he agreed. Case management is informed of the case and we will anticipate discharge to SNF in the next 24 to 48 hours. Nikia Li MD PGY-3 Disclaimer: Despite multiple revisions, due to the dictation software being used, the document bellow may not be free of grammatical errors including phonetic/typographic errors. However, this does not deter from our commitment to providing health care in the patient's best interest in mind. Documentation for date of: 01/29/25 Subjective Subjective Interval history: No overnight events. Patient seen and examined at bedside, resting comfortably. Patient in good mood, alert and oriented, cooperative. Patient denies fever, chills, shortness of breath, chest pain, abdominal pain, dysuria. PT eval recommended SNF placement for rehab, patient agreeable. Will DC pending rehab placement. Exam Vital Signs Temp Pulse Resp BP Pulse Ox O2 Del Method 97.2 F 67 14 155/82 H 98 Room Air 01/29/25 12:01/29/25 12:01/29/25 12:01/29/25 12:01/29/25 12:00 01/29/25 12:00 Narrative Exam PE: Gen: Well-developed and well-nourished. Calm and comfortable. HEENT: NCAT, MMM, anicteric conjunctivae. Blind. CVS: normal S1 and S2. RRR. No M/R/G. Resp: CTA B/L. No rhonchi, rales, crackles or wheezing. Abd: Nontender. MSK: Good ROM in BUE & BLE. No edema or rash. Neuro: CN II-XII grossly intact. Strength 5/5 in BUE & BLE. A&O x 3. Psych: appropriate mood and affect. Objective Labs 01/29/25 05:35 01/29/25 05:35 Labs: Laboratory Results - last 24 hr 01/29/25 05:35 WBC 6.8 RBC 3.30 L Hgb 9.7 L Hct 28.0 L MCV 85 MCH 29.4 MCHC 34.6 RDW Std Deviation 45.0 H Plt Count 218 D Neut % (Auto) 70 Lymph % (Auto) 22 [place] % (Auto) 6 Eos % (Auto) 2 Baso % (Auto) 1 Neut # (Auto) 4.7 Lymph # (Auto) 1.5 [place] # (Auto) 0.4 Eos # (Auto) 0.2 Baso # (Auto) 0.1 Immature Gran # (Auto) 0.03 H Absolute Nucleated RBC 0.00 Immature Gran % 0 Nucleated RBC % 0 Sodium 136 Potassium 3.8 Chloride 100 Carbon Dioxide 28.1 Anion Gap 8 BUN 17 Creatinine 1.2 Estim Creat Clear Calc 50.2 L eGFR > 60 BUN/Creatinine Ratio 14 Glucose 246 H Calculated Osmolality 281 Calcium 8.3 Corrected Calcium 9.3 Phosphorus 3.4 Magnesium 1.7 Total Bilirubin 0.3 AST 36 H ALT 55 H Alkaline Phosphatase 53 Total Protein 5.1 L Albumin 2.8 L Globulin 2.3 Albumin/Globulin Ratio 1.2 ABG Interpretation ABG results: 01/26/25 21:12 ABG pH 7.42 ABG pCO2 45 ABG pO2 94 ABG HCO3 29 H ABG O2 Saturation 99 H ABG Base Excess 4 H Quality Measures Quality Measures VTE prophylaxis Advance care planning discussed with:: patient Assessment & Plan Assessment Current Active Medications: Generic Name Dose Route Start Last Admin Trade Name Freq PRN Reason Stop Dose Admin Acetaminophen 650 mg 01/27/25 03:55 01/27/25 04:22 Acetaminophen Supp 650 Mg Supp ME 02/26/25 03:59 650 mg Q6H PRN Administration temp > 100.4 Aspirin 81 mg 01/28/25 10:45 01/29/25 08:19 Aspirin 81 Mg Chew PO 02/27/25 08:59 81 mg QDAY YOLI Administration Dextrose 25 ml 01/26/25 23:54 Dextrose 50%-Water Inj 50 Ml Syringe IV 02/25/25 23:53 Q15MIN PRN BG 50-70 responsive npo pt Dextrose 50 ml 01/26/25 23:54 Dextrose 50%-Water Inj 50 Ml Syringe IV 02/25/25 23:53 Q15MIN PRN BG <50 OR BG <70 & pt unresponsive Finasteride 5 mg 01/28/25 09:45 01/29/25 08:20 Finasteride 5 Mg Tablet PO 02/27/25 09:44 5 mg QDAY YOLI Administration Glucagon 1 mg 01/26/25 23:54 Glucagon Inj 1 Mg Vial IM Q15MIN PRN BG <70, and no IV access Heparin Sodium (Porcine) 5,000 unit 01/27/25 06:00 01/29/25 13:29 Heparin Sod Inj 5000 Unit/Ml Vial SC 02/10/25 05:59 5,000 unit Q8HR YOLI Administration Insulin Glargine 20 unit 01/27/25 09:00 01/29/25 08:18 Insulin Glargine (Lantus) 5 Unit/0.05 Ml (Per 5 Units) SC 02/26/25 08:59 20 unit QDAY YOLI Administration Insulin Human Lispro 0 unit 01/27/25 17:30 01/29/25 11:23 Insulin Lispro (Admelog) 1 Unit/0.01 Ml Unit SC 02/26/25 17:29 2 unit ACHS YOLI Administration Protocol Labetalol HCl 10 mg 01/29/25 00:01 01/29/25 00:44 Labetalol Inj 5 Mg/Ml Vial 20 Ml IVP 02/26/25 02:18 10 mg Q4H PRN Administration SBP > 180 Lisinopril 40 mg 01/28/25 09:45 01/29/25 08:19 Lisinopril 20 Mg Tablet PO 02/27/25 09:44 40 mg QDAY YOLI Administration Magnesium Hydroxide 30 ml 01/29/25 08:13 Milk Of Magnesia Susp 30 Ml Udc PO 02/28/25 08:12 QDAY PRN CONSTIPATION Protocol Sennosides 8.8 mg 01/29/25 08:13 Sennosides Syrup 8.8 Mg/5 Ml Udc PO 02/28/25 08:12 QDAY PRN CONSTIPATION Protocol Tamsulosin HCl 0.4 mg 01/28/25 09:45 01/29/25 08:19 Tamsulosin Hcl 0.4 Mg Capsule PO 02/27/25 09:44 0.4 mg QDAY YOLI Administration Plan 64-year-old male with significant past medical history of hypertension, IDDM, diabetic foot ulcer, who was brought into ED with chief complaint of altered mental status was found to have acute encephalopathy secondary to hypertensive emergency and urinary retention. #Acute encephalopathy (resolved) 2/2 HTN emergency versus urinary retention #Hypertensive emergency, resolved #Urinary retention, resolved The patient was brought into the ED with chief complaint of altered mental status, was found to have blood pressure 226/131, blood sugar of 655. Head CT was negative for acute hemorrhage, mass effect or midline shift, CTA head/neck unremarkable. Ammonia WNL, pCO2 WNL. Patient received 1 L of IV normal saline and 1 L of LR bolus, was given labetalol 20 Mg IVP x 2, insulin regular 10 units x 2. Teleneurologist consulted, and he believes that the patient does not have any CVA, and was already out of window for thrombolytics. He recommended MRI brain tomorrow morning. CT A/P showed bladder distention, likely due to BPH. MRI brain unremarkable. Patient A&O x 3, back to baseline. Home BP meds resumed PT eval recommended acute rehab placement for further therapy, patient agreeable. -Miller cath placement -Labetalol 10 mg IV every 4 hours as needed for SBP greater than 200 -Resume home lisinopril -Contact family regarding discharge planning -Plan for DC to acute rehab for further therapy. -Finasteride 5 mg p.o. daily -Tamsulosin 0.4 mg p.o. daily #SAGE, resolved Likely prerenal in the setting of volume depletion secondary to hyperglycemia Presented with creatinine of 1.3, baseline 0.8. Received 1 L of IV normal saline and 1 L of LR bolus. -Renally dose medications -Avoid nephrotoxic drugs -Daily a.m. labs for renal panel #Hyperglycemia, resolved Patient presented with elevated glucose 655. Not HHS, serum osmolality 301. Glucose came down with insulin, currently 177. -Treat diabetes as below -Continue to monitor #Pseudohyponatremia Presented with sodium of 133 Likely in the setting of hyperglycemia -Continue to treat underlying hyperglycemia -Monitor daily a.m. sodium level #Insulin-dependent diabetes mellitus type 2 #Primary hypertension Patient's insulin glargine was increased to 25 units daily from 20 units daily during last discharge On lisinopril 40 Mg daily at home -Resume home meds: Lisinopril 40 mg p.o. daily -On lispro sliding scale insulin -On insulin glargine 20 units daily #Mild transaminitis Likely secondary to hypertensive emergency -Continue to monitor CMP daily -Treat hypertension as above #Microcytic anemia Likely secondary to anemia of chronic disease Ordered iron panel and ferritin -Continue to monitor underlying diabetes mellitus -Continue to monitor hemoglobin daily a.m. Lines: Peripheral IV, Miller cath DVT prophylaxis: Subcu heparin Diet: Cardiac CODE STATUS: Full code Plan of care discussed with senior residents Dr. Dasilva PGY?[address] Li PGY 3, and attending Dr. Negron. Sher Doss MD PGY?1 Attending Provider Attestation/Addendum I have examined the patient, reviewed labs and imaging findings, discussed the case with the resident(s), and reviewed entered orders. I agree with the plan of care as outlined in this note, with these additional summaries/recommendations: Patient seen at bedside. No acute overnight events. Patient is back to his baseline mental status. We have been unable to contact patient's , family, or friends. Patient unable to provide telephone numbers or addresses. Nonetheless patient was seen by physical therapy who recommended nursing home facility placement. Patient is in agreement with SNF. technical services assistant working on contacting patient's family. Continue Miller catheter and Flomax plus finasteride. Miller catheter will be continued on discharge and patient will need close outpatient follow-up with urology. Patient showed understanding. Patient was allowed time to ask questions and all questions answered to satisfaction. Dr. Jamil MD
[2025-01-30] VITALS (10 sets, daily range): BP systolic 135–170; BP diastolic 80–103; PULSE 67–78; RESP 14–19; TEMP 36.2–36.9; O2SAT 94–99
[2025-01-30] MEDS: HEPARIN SOD INJ 5000 UNIT/ML VIAL SC ×3 (05:30→20:59)
[2025-01-30 05:51] LABS: Basophils % (Auto) 0 % (0-2.5); Eosinophils # (Auto) 0.2 Thou/mm3 (0.0-0.5); Eosinophils % (Auto) 2 % (0-10); Hematocrit 28.8 % (41.0-53.0); Immature Granulocytes % (Auto) 0 % (0-0); Immature Granulocytes Auto 0.03 Thou/mm3 (0.00-0.00); Lymphocytes # (Auto) 1.5 Thou/mm3 (1.0-4.8); Lymphocytes % (Auto) 19 % (10-50); Mean Corpuscular HGB Conc 34.7 g/dl (31.0-37.0); Mean Corpuscular Hemoglobin 29.4 pg (25.0-35.0); Mean Corpuscular Volume 85 fL (80-100); Monocytes # (Auto) 0.4 Thou/mm3 (0.0-0.8); Monocytes % (Auto) 5 % (0-12); Neutrophils # (Auto) 5.6 Thou/mm3 (1.8-7.7); Neutrophils % (Auto) 73 % (37-80); Nucleated Red Blood Cell % 0 /100 WBC (0); Platelet Count 236 Thou/mm3 (140-440); RDW Standard Deviation 44.8 fL (35.1-43.9); White Blood Count 7.6 Thou/mm3 (3.8-10.6)
[2025-01-30 06:03] LABS: Alanine Aminotransferase 57 U/L (10-49); Albumin/Globulin Ratio 1.4 (1.2-2.2); Alkaline Phosphatase 55 U/L (46-116); Anion Gap 6 (7-16); Aspartate Amino Transferase 45 U/L (0-34); BUN/Creatinine Ratio 16 Ratio (12-20); Bilirubin,Total 0.3 mg/dL (0.3-1.2); Blood Urea Nitrogen 19 mg/dL (9-23); Calcium 8.4 mg/dL (8.3-10.6); Calcium (Corrected) 9.2 mg/dL (8.5-10.1); Chloride 99 mMol/L (98-107); Creatinine (Component) 1.2 mg/dL (0.6-1.3); Estimated Creatinine Clearance 50.2 mL/min (>60); Globulin 2.2 gm/dL (2.3-3.5); Glucose 207 mg/dL (74-106); Magnesium 2.4 mg/dL (1.6-2.6); Osmolality,Calculated 276 (275-295); Phosphorous 3.7 mg/dL (2.4-5.1); Potassium 4.5 mMol/L (3.4-5.1); Sodium 134 mMol/L (136-145); Total Protein 5.2 gm/dL (5.7-8.2); eGFR > 60 See Note
[2025-01-30] MEDS: INSULIN LISPRO (AdmeLOG) 1 UNIT/0.01 ML UNIT SC ×4 (07:29→20:59)
[2025-01-30] MEDS: Lisinopril 20 MG TABLET 40 MG PO (08:42)
[2025-01-30] MEDS: TAMSULOSIN HCL 0.4 MG CAPSULE PO (08:42)
[2025-01-30] MEDS: ASPIRIN 81 MG CHEW PO (08:42)
[2025-01-30] MEDS: FINASTERIDE 5 MG TABLET PO (08:43)
[2025-01-30] MEDS: amLODIPine BESYLATE 5 MG TABLET 10 MG PO (08:43)
--- NOTE | 2025-01-30 09:41 | PC.SS ---
Addendum entered by Chasidy Pollard 01/30/25 12:05: SS received a call from nursing staff indicating that patient's and careprovider are present and want to speak. , Romaine, confirmed they reside together. Patient was using a walker for very short distances. Careprovider was present, Alexandra @ [phone] , Tim, Family prefers patient to d/c to [facility] short term Original Note: SS met with patient who is alert/oriented. ticket agent present. Patient states he's from home and lives with his . Patient states he uses a walker, cane, wheelchair. Patient is blind and has difficulty getting around. He's been progressively weak. Patient worked with PT yesterday and was max assist. Patient had verbalized he does not recall his home address but provided location off [address] and [address]. Patient states he has a care provider. Nursing staff confirmed patient had a careprovider stop by yesterday and request SNF at [facility]. SS will send inquiry to this facility. Patient will need short term rehab. PASRR completed.
--- NOTE | 2025-01-30 14:44 | ESDS_ITS ---
<Statement entered by Nikia Li MD - 01/30/25 15:01> I discussed with and supervised the internet programmer physician who took care of this patient. I personally saw and examined the patient and discussed the assessment and plan with the entire medicine team, including my attending Dr. Negron, I agree with the assessment and plan as documented below Patient seen and examined at bedside today. Labs and imaging reviewed. Nikia Li MD PGY-3 Disclaimer: Despite multiple revisions, due to the dictation software being used, the document bellow may not be free of grammatical errors including phonetic/typographic errors. However, this does not deter from our commitment to providing health care in the patient's best interest in mind. <Statement entered by Chrissy Dasilva MD - 01/30/25 15:00> I discussed with and supervised the internet programmer physician who took care of this patient. I personally saw and examined the patient and discussed the assessment and plan with the entire medicine team, including my attending Dr. Negron, I agree with most of the assessment and plan as documented below Chrissy Dasilva M.D. PGY-2 Planned Discharge Date 01/30/25 DS: Providers Provider Date of admission: 01/26/25 23:49 Primary care physician: Jono Weaver MD Admitting Provider: Prieto Galindo MD Attending Provider on Admission: Jl Negron MD Consults: 01/28/25 09:38 Referral Physical Therapy Routine Comment: Physician Instructions: Attending Provider on DC: Jl Negron MD Discharging Provider: Sher Doss MD DS: Diagnosis Problem List Completed Was Problem List Reviewed/Reconciled?: Yes Hospital Course Hospital Course Hospital course: 64-year-old male with significant past medical history of hypertension, IDDM, diabetic foot ulcer, who was brought into ED on 01/26/2025 with chief complaint of altered mental status. Patient is brought in from home, A&O x 1, extremely disoriented. Patient found to have suprapubic abdominal tenderness, CT scan showed distended bladder with enlarged prostate. Patient was given a Urias cath with significant urinary output, patient showed significant improvement in mental status. PT eval recommended placement acute rehab facility for continued physical therapy. Patient medically stable and cleared for discharge. Discharge plan: Please take your new medications: Finasterisde and Tamsulosin daily All questions were answered. Please return to the ED if symptoms worsen. You are being discharged to rehab facility for physical therapy. Take all your other medications as prescribed. Please see your PCP within 1-2 weeks and have a referral to f/u with urology for urias catheter. Diagnoses: #Acute encephalopathy (resolved) 2/2 HTN emergency versus urinary retention #Hypertensive emergency, resolved #Urinary retention, resolved #SAGE, resolved #Hyperglycemia, resolved #Pseudohyponatremia #Insulin-dependent diabetes mellitus type 2 #Primary hypertension #Mild transaminitis #Microcytic anemia Plan of care discussed with senior resident Dr. Dasilva PGY?[address] Li PGY?3, and attending Dr. Negron. Sher Doss MD PGY?1 Status at Discharge Overall status at discharge: patient is progressing back to baseline Time Spent with Patient Time attestation: Total time spent providing and/or coordinating discharge services: Time spent: Greater than 30 minutes Exam Vital Signs Temp Pulse Resp BP Pulse Ox O2 Del Method 98.5 F 73 14 153/90 H 98 Room Air 01/30/25 12:00 01/30/25 12:00 01/30/25 12:00 01/30/25 12:00 01/30/25 12:01/30/25 12:00 Narrative Exam PE: Gen: Well-developed and well-nourished. Calm and comfortable. HEENT: NCAT, MMM, anicteric conjunctivae. Blind. CVS: normal S1 and S2. RRR. No M/R/G. Resp: CTA B/L. No rhonchi, rales, crackles or wheezing. Abd: Nontender. MSK: Good ROM in BUE & BLE. No edema or rash. Neuro: CN II-XII grossly intact. Strength 5/5 in BUE & BLE. A&O x 3. Psych: appropriate mood and affect. Discharge Plan Plan Patient Disposition: Xfer Skilled Nsg Fac (SNF) Disposition Comment: Stable Patient condition on transfer: Stable Care Plan Goals: Please take your new medications: Finasterisde and Tamsulosin daily All questions were answered. Please return to the ED if symptoms worsen. You are being discharged to rehab facility for physical therapy. Take all your other medications as prescribed. Please see your PCP within 1-2 weeks and have a referral to f/u with urology for urias catheter. Prescriptions/Referrals Prescriptions/Med Rec: New tamsulosin 0.4 mg Capsule 0.4 mg PO QDAY 30 Days Qty: 30 0RF finasteride 5 mg Tablet 5 mg PO QDAY 30 Days Qty: 30 0RF Continued Janumet 50-1,000 mg tablet 1 tab PO BID Patient Comments: TAKE 1 TABLET BY MOUTH TWICE A DAY WITH MEALS FOR 60 DAYS (DME) FreeStyle Rene 2 Sensor Kit See Rx Instructions .Route Qty: 1 0RF Rx Instructions: As directed (DME) FreeStyle Rene 2 [place] Misc See Rx Instructions .Route Qty: 1 0RF Rx Instructions: As directed amlodipine 10 mg tablet 10 mg PO QDAY Qty: 30 0RF zinc sulfate 50 mg zinc (220 mg) capsule 50 mg PO QDAY Qty: 14 0RF Trulicity 0.75 mg/0.5 mL pen injector 0.75 mg subcut QWEEK Qty: 2 0RF lisinopril 20 mg tablet 40 mg PO QDAY Qty: 60 0RF furosemide [Lasix] 20 mg tablet 20 mg PO QAM Qty: 3 0RF atorvastatin 40 mg tablet 40 mg PO QPM Held meloxicam 7.5 mg tablet 7.5 mg PO QDAY Hold Instructions: until follow up with pcp Patient Comments: TOME 1 TABLETA POR V A ORAL TODOS LOS D FOR 30 DAYS Discontinued doxycycline hyclate 100 mg capsule 100 mg PO BID Qty: 6 0RF Referrals: Jono Weaver MD [Primary Care Provider] - Patient/Caregiver Discharge Instructions Discharge Activity: resume usual activities Education Materials: ED Urias Catheter, Care, ED Urinary Retention, Male Print Language: Macedonian Stand Alone Forms: Karla Award Info., Patient Portal Info Letter Discharge Order Discharge Orders: Discharge (Routine); Ordered 01/30/25 Ordered By: Chrissy Dasilva Quality Discharge Quality Measures VTE prophylaxis Attestestation MD Attestation I have examined the patient, reviewed labs and imaging findings, discussed the case with the resident(s), and reviewed entered orders. I agree with the plan of care as outlined in this note. Time Spent: [address] Jamil MD
[2025-01-31] VITALS (8 sets, daily range): BP systolic 123–162; BP diastolic 67–95; PULSE 68–75; RESP 14–20; TEMP 36.2–37; O2SAT 98–99; BMI 28.3
[2025-01-31 05:54] LABS: Basophils % (Auto) 0 % (0-2.5); Eosinophils # (Auto) 0.2 Thou/mm3 (0.0-0.5); Eosinophils % (Auto) 2 % (0-10); Hematocrit 26.7 % (41.0-53.0); Hemoglobin 9.4 g/dL (13.5-16.0); Immature Granulocytes % (Auto) 0 % (0-0); Immature Granulocytes Auto 0.02 Thou/mm3 (0.00-0.00); Lymphocytes # (Auto) 1.5 Thou/mm3 (1.0-4.8); Lymphocytes % (Auto) 16 % (10-50); Mean Corpuscular HGB Conc 35.2 g/dl (31.0-37.0); Mean Corpuscular Hemoglobin 29.6 pg (25.0-35.0); Mean Corpuscular Volume 84 fL (80-100); Monocytes # (Auto) 0.5 Thou/mm3 (0.0-0.8); Monocytes % (Auto) 5 % (0-12); Neutrophils # (Auto) 7.3 Thou/mm3 (1.8-7.7); Neutrophils % (Auto) 77 % (37-80); Nucleated Red Blood Cell % 0 /100 WBC (0); Platelet Count 283 Thou/mm3 (140-440); RDW Standard Deviation 44.1 fL (35.1-43.9); Red Blood Count 3.18 Miln/mm3 (4.50-5.90); White Blood Count 9.6 Thou/mm3 (3.8-10.6)
[2025-01-31 06:23] LABS: Alanine Aminotransferase 52 U/L (10-49); Albumin, Serum 3.1 gm/dL (3.4-4.8); Albumin/Globulin Ratio 1.3 (1.2-2.2); Alkaline Phosphatase 57 U/L (46-116); Anion Gap 7 (7-16); Aspartate Amino Transferase 34 U/L (0-34); BUN/Creatinine Ratio 24 Ratio (12-20); Bilirubin,Total 0.4 mg/dL (0.3-1.2); Blood Urea Nitrogen 24 mg/dL (9-23); Calcium 8.6 mg/dL (8.3-10.6); Calcium (Corrected) 9.3 mg/dL (8.5-10.1); Carbon Dioxide 27.6 mMol/L (20.0-31.0); Chloride 98 mMol/L (98-107); Estimated Creatinine Clearance 60.2 mL/min (>60); Globulin 2.4 gm/dL (2.3-3.5); Glucose 131 mg/dL (74-106); Magnesium 2.3 mg/dL (1.6-2.6); Osmolality,Calculated 272 (275-295); Phosphorous 4.1 mg/dL (2.4-5.1); Potassium 4.5 mMol/L (3.4-5.1); Sodium 133 mMol/L (136-145); Total Protein 5.5 gm/dL (5.7-8.2); eGFR > 60 See Note
[2025-01-31] MEDS: INSULIN GLARGINE (Lantus) 5 UNIT/0.05 ML (PER 5 UNITS) 20 UNIT SC (08:32)
[2025-01-31] MEDS: TAMSULOSIN HCL 0.4 MG CAPSULE PO (08:33)
[2025-01-31] MEDS: amLODIPine BESYLATE 5 MG TABLET 10 MG PO (08:33)
[2025-01-31] MEDS: Lisinopril 20 MG TABLET 40 MG PO (08:33)
[2025-01-31] MEDS: ASPIRIN 81 MG CHEW PO (08:34)
[2025-01-31] MEDS: FINASTERIDE 5 MG TABLET PO (08:34)
[2025-01-31] MEDS: INSULIN LISPRO (AdmeLOG) 1 UNIT/0.01 ML UNIT SC ×2 (11:59→17:16)
[2025-01-31] MEDS: HEPARIN SOD INJ 5000 UNIT/ML VIAL SC ×2 (13:17→21:12)
--- NOTE | 2025-01-31 13:37 | ESDS_ITS ---
<Statement entered by Chrissy Dasilva MD - 01/31/25 14:26> I discussed with and supervised the psychology intern physician who took care of this patient. I personally saw and examined the patient and discussed the assessment and plan with the entire medicine team, including my attending , I agree with most of the assessment and plan as documented below Chrissy Dasilva M.D. PGY-2 <Statement entered by Nikia Li MD - 01/31/25 13:57> I discussed with and supervised the psychology intern physician who took care of this patient. I personally saw and examined the patient and discussed the assessment and plan with the entire medicine team, including my attending Dr. Negron, I agree with the assessment and plan as documented below Patient seen and examined at bedside today. Labs and imaging reviewed. Nikia Li MD PGY-3 Disclaimer: Despite multiple revisions, due to the dictation software being used, the document bellow may not be free of grammatical errors including phonetic/typographic errors. However, this does not deter from our commitment to providing health care in the patient's best interest in mind. Planned Discharge Date 01/31/25 DS: Providers Provider Date of admission: 01/26/25 23:49 Primary care physician: Jono Weaver MD Admitting Provider: Prieto Galindo MD Attending Provider on Admission: Jl Negron MD Consults: 01/28/25 09:38 Referral Physical Therapy Routine Comment: Physician Instructions: Attending Provider on DC: Jl Negron MD Discharging Provider: Sher Doss MD DS: Diagnosis Problem List Completed Was Problem List Reviewed/Reconciled?: Yes Hospital Course Hospital Course Hospital course: 64-year-old male with significant past medical history of hypertension, IDDM, diabetic foot ulcer, who was brought into ED on 01/26/2025 with chief complaint of altered mental status. Patient is brought in from home, A&O x 1, extremely disoriented. Patient found to have suprapubic abdominal tenderness, CT scan showed distended bladder with enlarged prostate. Patient was given a Urias cath with significant urinary output, patient showed significant improvement in mental status. PT eval recommended placement acute rehab facility for continued physical therapy. Patient medically stable and cleared for discharge. Discharge plan: Please take your new medications: Finasterisde and Tamsulosin daily All questions were answered. Please return to the ED if symptoms worsen. You are being discharged to rehab facility for physical therapy. Take all your other medications as prescribed. Please see your PCP within 1-2 weeks and have a referral to f/u with urology for urias catheter. Diagnoses: #Acute encephalopathy (resolved) 2/2 HTN emergency versus urinary retention #Hypertensive emergency, resolved #Urinary retention, resolved #SAGE, resolved #Hyperglycemia, resolved #Pseudohyponatremia #Insulin-dependent diabetes mellitus type 2 #Primary hypertension #Mild transaminitis #Microcytic anemia Plan of care discussed with senior resident Dr. Dasilva PGY?[address] Li PGY?3, and attending Dr. Negron. Sher Doss MD PGY?1 Time Spent with Patient Time attestation: Total time spent providing and/or coordinating discharge services: Exam Vital Signs Temp Pulse Resp BP Pulse Ox O2 Del Method 97.3 F 72 16 132/81 H 99 Room Air 01/31/25 12:01/31/25 12:01/31/25 12:01/31/25 12:01/31/25 12:01/31/25 12:00 Narrative Exam PE: Gen: Well-developed and well-nourished. Calm and comfortable. HEENT: NCAT, MMM, anicteric conjunctivae. Blind. CVS: normal S1 and S2. RRR. No M/R/G. Resp: CTA B/L. No rhonchi, rales, crackles or wheezing. Abd: Nontender. MSK: Good ROM in BUE & BLE. No edema or rash. Neuro: CN II-XII grossly intact. Strength 5/5 in BUE & BLE. A&O x 3. Psych: appropriate mood and affect. Discharge Plan Plan Patient Disposition: Xfer Skilled Nsg Fac (SNF) Disposition Comment: Stable Patient condition on transfer: Stable Care Plan Goals: Please take your new medications: Finasterisde and Tamsulosin daily All questions were answered. Please return to the ED if symptoms worsen. You are being discharged to rehab facility for physical therapy. Take all your other medications as prescribed. Please see your PCP within 1-2 weeks and have a referral to f/u with urology for urias catheter. Prescriptions/Referrals Prescriptions/Med Rec: New tamsulosin 0.4 mg Capsule 0.4 mg PO QDAY 30 Days Qty: 30 0RF finasteride 5 mg Tablet 5 mg PO QDAY 30 Days Qty: 30 0RF Continued Janumet 50-1,000 mg tablet 1 tab PO BID Patient Comments: TAKE 1 TABLET BY MOUTH TWICE A DAY WITH MEALS FOR 60 DAYS (DME) FreeStyle Rene 2 Sensor Kit See Rx Instructions .Route Qty: 1 0RF Rx Instructions: As directed (DME) FreeStyle Rene 2 [place] Misc See Rx Instructions .Route Qty: 1 0RF Rx Instructions: As directed amlodipine 10 mg tablet 10 mg PO QDAY Qty: 30 0RF zinc sulfate 50 mg zinc (220 mg) capsule 50 mg PO QDAY Qty: 14 0RF Trulicity 0.75 mg/0.5 mL pen injector 0.75 mg subcut QWEEK Qty: 2 0RF lisinopril 20 mg tablet 40 mg PO QDAY Qty: 60 0RF furosemide [Lasix] 20 mg tablet 20 mg PO QAM Qty: 3 0RF atorvastatin 40 mg tablet 40 mg PO QPM Held meloxicam 7.5 mg tablet 7.5 mg PO QDAY Hold Instructions: until follow up with pcp Patient Comments: TOME 1 TABLETA POR V A ORAL TODOS LOS D FOR 30 DAYS Discontinued doxycycline hyclate 100 mg capsule 100 mg PO BID Qty: 6 0RF Referrals: Jono Weaver MD [Primary Care Provider] - Patient/Caregiver Discharge Instructions Discharge Activity: resume usual activities Education Materials: ED Urias Catheter, Care, ED Urinary Retention, Male Print Language: Japanese Stand Alone Forms: Karla Award Info., Patient Portal Info Letter Discharge Order Discharge Orders: Discharge (Routine); Ordered 01/31/25 Ordered By: Chrissy Dasilva Quality Discharge Quality Measures VTE prophylaxis MD Attestestation MD Attestation I have examined the patient, reviewed labs and imaging findings, discussed the case with the resident(s), and reviewed entered orders. I agree with the plan of care as outlined in this note, with these additional summaries/recommendations: Patient medically cleared for discharge. Continue indwelling Urias catheter with at least monthly exchange. Patient counseled extensively on the importance of following up with urology outpatient. Continue BPH medications. Dr. Jamil MD
--- NOTE | 2025-01-31 14:26 | PC.SS ---
Addendum entered by Chasidy Pollard 01/31/25 15:17: SS contacted [facility] and they requested clinicals. SS re-submitted clinicals to [facility] to two different locations. Pending response. Insurance states it could take up to 72 hours expedited. Auth was requested yesterday by Cait. Original Note: Follow up note: Patient is ready for d/c. However, patient still does not have authorization. SS called multiple times and admissions still does not have auth.
--- NOTE | 2025-01-31 16:10 | PC.NURSE ---
tranferred pt.to [id number] via bed from 275 with all personal belongings.
[2025-02-01] VITALS (8 sets, daily range): BP systolic 127–146; BP diastolic 76–92; PULSE 65–79; RESP 12–18; TEMP 36.4–36.8; O2SAT 97–99; BMI 25.4
[2025-02-01] MEDS: HEPARIN SOD INJ 5000 UNIT/ML VIAL SC ×2 (05:44→13:39)
[2025-02-01 05:47] LABS: Basophils % (Auto) 0 % (0-2.5); Eosinophils # (Auto) 0.1 Thou/mm3 (0.0-0.5); Eosinophils % (Auto) 1 % (0-10); Hematocrit 26.1 % (41.0-53.0); Immature Granulocytes % (Auto) 0 % (0-0); Immature Granulocytes Auto 0.02 Thou/mm3 (0.00-0.00); Lymphocytes # (Auto) 1.8 Thou/mm3 (1.0-4.8); Lymphocytes % (Auto) 20 % (10-50); Mean Corpuscular HGB Conc 34.5 g/dl (31.0-37.0); Mean Corpuscular Hemoglobin 29.4 pg (25.0-35.0); Mean Corpuscular Volume 85 fL (80-100); Monocytes # (Auto) 0.6 Thou/mm3 (0.0-0.8); Monocytes % (Auto) 6 % (0-12); Neutrophils # (Auto) 6.5 Thou/mm3 (1.8-7.7); Neutrophils % (Auto) 72 % (37-80); Nucleated Red Blood Cell % 0 /100 WBC (0); Platelet Count 246 Thou/mm3 (140-440); RDW Standard Deviation 44.1 fL (35.1-43.9); Red Blood Count 3.06 Miln/mm3 (4.50-5.90)
[2025-02-01 06:26] LABS: Alanine Aminotransferase 45 U/L (10-49); Albumin, Serum 3.2 gm/dL (3.4-4.8); Albumin/Globulin Ratio 1.2 (1.2-2.2); Alkaline Phosphatase 54 U/L (46-116); Anion Gap 9 (7-16); Aspartate Amino Transferase 35 U/L (0-34); BUN/Creatinine Ratio 26 Ratio (12-20); Bilirubin,Total 0.3 mg/dL (0.3-1.2); Blood Urea Nitrogen 26 mg/dL (9-23); Calcium 9.2 mg/dL (8.3-10.6); Calcium (Corrected) 9.8 mg/dL (8.5-10.1); Carbon Dioxide 27.6 mMol/L (20.0-31.0); Chloride 99 mMol/L (98-107); Estimated Creatinine Clearance 53.8 mL/min (>60); Globulin 2.6 gm/dL (2.3-3.5); Glucose 55 mg/dL (74-106); Magnesium 2.2 mg/dL (1.6-2.6); Osmolality,Calculated 274 (275-295); Phosphorous 4.4 mg/dL (2.4-5.1); Potassium 4.3 mMol/L (3.4-5.1); Sodium 136 mMol/L (136-145); Total Protein 5.8 gm/dL (5.7-8.2); eGFR > 60 See Note
[2025-02-01] MEDS: Lisinopril 20 MG TABLET 40 MG PO (08:29)
[2025-02-01] MEDS: ASPIRIN 81 MG CHEW PO (08:30)
[2025-02-01] MEDS: amLODIPine BESYLATE 5 MG TABLET 10 MG PO (08:30)
[2025-02-01] MEDS: TAMSULOSIN HCL 0.4 MG CAPSULE PO (08:30)
[2025-02-01] MEDS: FINASTERIDE 5 MG TABLET PO (08:30)
--- NOTE | 2025-02-01 16:00 | ESDS_ITS ---
<Statement entered by Misha Wayne MD - 02/02/25 11:25> I have discussed and was present for the essential components of the history, physical examination, diagnosis, and treatment plan with the resident. I agree with the patient's care as documented by the resident and amended herein by me. Misha Wayne MD FACP. Planned Discharge Date 02/01/25 DS: Providers Provider Date of admission: 01/26/25 23:49 Primary care physician: Jono Weaver MD Admitting Provider: Prieto Galindo MD Attending Provider on Admission: Misha Wayne MD Consults: 01/28/25 09:38 Referral Physical Therapy Routine Comment: Physician Instructions: Attending Provider on DC: Chrissy Dasilva MD Discharging Provider: Chrissy Dasilva MD DS: Diagnosis Problem List Completed Was Problem List Reviewed/Reconciled?: Yes Hospital Course Hospital Course Hospital course: 64-year-old male with significant past medical history of hypertension, IDDM, diabetic foot ulcer, who was brought into ED on 01/26/2025 with chief complaint of altered mental status. Patient is brought in from home, A&O x 1, extremely disoriented. Patient found to have suprapubic abdominal tenderness, CT scan showed distended bladder with enlarged prostate. Patient was given a Urias cath with significant urinary output, patient showed significant improvement in men mikaela status. PT eval recommended placement acute rehab facility for continued physical therapy. Patient medically stable and cleared for discharge. Discharge plan: Please take your new medications: Finasterisde and Tamsulosin daily All questions were answered. Please return to the ED if symptoms worsen. You are being discharged to rehab facility for physical therapy. Take all your other medications as prescribed. Please see your PCP within 1-2 weeks and have a referral to f/u with urology for urias catheter. Diagnoses: #Acute encephalopathy (resolved) 2/2 HTN emergency versus urinary retention #Hypertensive emergency, resolved #Urinary retention, resolved #SAGE, resolved #Hyperglycemia, resolved #Pseudohyponatremia #Insulin-dependent diabetes mellitus type 2 #Primary hypertension #Mild transaminitis #Microcytic anemia Plan of care discussed with senior resident Dr. Franz PGY?[address] Wayne. Chrissy Dasilva MD PGY?2 Status at Discharge Cognitive/behavioral status at discharge: stable Overall status at discharge: patient is progressing back to baseline Time Spent with Patient Time attestation: Total time spent providing and/or coordinating discharge services: 35 Exam Vital Signs Temp Pulse Resp BP Pulse Ox O2 Del Method 97.6 F 74 12 146/87 H 99 Room Air 02/01/25 12:00 02/01/25 12:00 02/01/25 12:00 02/01/25 12:00 02/01/25 12:00 02/01/25 12:00 Narrative Exam General Appearance: Pt in NAD laying comfortably in bed. Calm and comfortable. HEENT: NC/AT, no scleral icterus, no conjunctival pallor, MMM, blind. Lungs: CTAB, no wheezes or crackles appreciated CVS: RRR, S1/S2 heard, no murmurs or rubs appreciated ABD: Soft, non-tender, non-distended, BS + in all 4 quadrants EXT: no deformity/edema/lesions/cyanosis/clubbing, radial pulses 2+ BL, DP pulses 2 + BL SKIN: Skin exam normal without any rashes. Neuro: A&O x 3. No gross neurological deficits. Motor and sensory grossly intact in B/L UL and LL. Psych: Appropriate mood and affect Discharge Plan Plan Patient Disposition: Xfer Skilled Nsg Fac (SNF) Disposition Comment: Stable Patient condition on transfer: Stable Care Plan Goals: Please take your new medications: Finasterisde and Tamsulosin daily, as well as Insulin Glargine 10 units at night. All questions were answered. Please return to the ED if symptoms worsen. You are being discharged to rehab facility for physical therapy. Take all your other medications as prescribed. Please see your PCP within 1-2 weeks and have a referral to f/u with urology for urias catheter. Prescriptions/Referrals Prescriptions/Med Rec: New tamsulosin 0.4 mg Capsule 0.4 mg PO QDAY 30 Days Qty: 30 0RF finasteride 5 mg Tablet 5 mg PO QDAY 30 Days Qty: 30 0RF insulin glargine 100 unit/mL (3 mL) insulin pen 10 unit subcut QPM Qty: 15 0RF Continued (DME) FreeStyle Rene 2 Sensor Kit See Rx Instructions .Route Qty: 1 0RF Rx Instructions: As directed (DME) FreeStyle Rene 2 [facility] [place] Rx Instructions .Route Qty: 1 0RF Rx Instructions: As directed amlodipine 10 mg tablet 10 mg PO QDAY Qty: 30 0RF zinc sulfate 50 mg zinc (220 mg) capsule 50 mg PO QDAY Qty: 14 0RF Trulicity 0.75 mg/0.5 mL pen injector 0.75 mg subcut QWEEK Qty: 2 0RF lisinopril 20 mg tablet 40 mg PO QDAY Qty: 60 0RF furosemide [Lasix] 20 mg tablet 20 mg PO QAM Qty: 3 0RF atorvastatin 40 mg tablet 40 mg PO QPM Held Janumet 50-1,000 mg tablet 1 tab PO BID Hold Instructions: Resume on 02/15/25. Check daily blood glucose levels, and if blood glucose in AM after 130, can resume. Patient Comments: TAKE 1 TABLET BY MOUTH TWICE A DAY WITH MEALS FOR 60 DAYS meloxicam 7.5 mg tablet 7.5 mg PO QDAY Hold Instructions: until follow up with pcp Patient Comments: TOME 1 TABLETA POR V A ORAL TODOS LOS D FOR 30 DAYS Discontinued doxycycline hyclate 100 mg capsule 100 mg PO BID Qty: 6 0RF Referrals: Jono Weaver MD [Primary Care Provider] - Patient/Caregiver Discharge Instructions Discharge Activity: resume usual activities Education Materials: ED Urias Catheter, Care, ED Urinary Retention, Male Print Language: Montserratian Stand Alone Forms: Karla Award Info., Patient Portal Info Letter Discharge Order Discharge Orders: Discharge (Routine); Ordered 02/01/25 Ordered By: Chrissy Dasilva Quality Discharge Quality Measures VTE prophylaxis
--- NOTE | 2025-02-01 16:22 | PC.SS ---
Patient has auth and [employer]. Spoke to Sia @ [facility] . Patient will d/c via [facility] by 8p.m.
== END 2025-02-01 20:25 | disposition skilled nursing facility (03) | DRG 199 ==
LOC: SERX 23:25 → SERHOLD 01-27 00:11 → S2NX 01-27 12:22
PROVIDERS: Nurse Practitioner Family; Student in an Organized Health Care Education/Training Program; Admitting Provider Internal Medicine; Emergency Provider Emergency Medicine; PCP Family Medicine; Visit Provider Internal Medicine
DX: I16.1 Hypertensive emergency (principal); I10 Essential (primary) hypertension; R47.81 Slurred speech; I67.4 Hypertensive encephalopathy; N17.9 Acute kidney failure, unspecified; I69.354 Hemiplegia and hemiparesis following cerebral infarction affecting left non-dominant side; E11.65 Type 2 diabetes mellitus with hyperglycemia; G93.49 Other encephalopathy; R80.9 Proteinuria, unspecified; R74.01 Elevation of levels of liver transaminase levels; D50.9 Iron deficiency anemia, unspecified; D63.8 Anemia in other chronic diseases classified elsewhere; N40.1 Benign prostatic hyperplasia with lower urinary tract symptoms; R33.8 Other retention of urine; E78.5 Hyperlipidemia, unspecified; H54.8 Legal blindness, as defined in USA; N32.89 Other specified disorders of bladder; Z91.199 Patient's noncompliance with other medical treatment and regimen due to unspecified reason; Z79.4 Long term (current) use of insulin; Z79.899 Other long term (current) drug therapy
CPT/HCPCS: 36415; 36600; 70450; 70496; 70498; 70544; 71045; 74176; 80053; 80061; 80307; 81001; 82010; 82140; 82728; 82803; 83036; 83540; 83550; 83605; 83615; 83690; 83735; 83880; 84100; 84145; 84443; 84484; 85025; 85610; 85730; 87040; 87086; 93005; 96361; 96365; 96367; 96372; 96374; 96376; 97162; 99291; A4649; J0696; J1643; J1815; J3475; J3480; J3490; J7030; J7120; Q9967; A9270; J1920

== ENCOUNTER 2025-02-06 11:31 | Inpatient (IN) | payer MEDICAID, SELFPAY ==
[2025-02-06] VITALS (16 sets, daily range): BP systolic 157–206; BP diastolic 94–123; PULSE 67–144; RESP 6–25; TEMP 36.7–37.2; O2SAT 96–100
--- NOTE | 2025-02-06 11:56 | EKG_ITS ---
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
--- NOTE | 2025-02-06 11:57 | EDRME_ITS ---
Rapid Medical Screening Exam [facility] Arrival date/time: 02/06/25 11:31 64-year-old male with a history of hyperlipidemia, hypertension, type 2 diabetes, presents to the emergency room with a chief complaint of generalized weakness and swelling to his extremities. Patient states he was then a convalescent home but signed out due to him needing to fix the problem at his house. Patient states he is getting worse, he is not taking any medication, and wants to get checked out and possibly return to a convalescent home. I have greeted and performed a focused initial assessment of this patient. A comprehensive ED assessment and evaluation of the patient, analysis of all test results, and completion of the medical decision making process will be conducted by additional ED providers. Chief Complaint: Weakness Vital signs reviewed by provider: Yes
[2025-02-06 12:14] LABS: Basophils # (Auto) 0.1 Thou/mm3 (0.0-0.2); Basophils % (Auto) 1 % (0-2.5); Eosinophils # (Auto) 0.2 Thou/mm3 (0.0-0.5); Eosinophils % (Auto) 2 % (0-10); Hematocrit 27.1 % (41.0-53.0); Hemoglobin 9.3 g/dL (13.5-16.0); Immature Granulocytes % (Auto) 1 % (0-0); Immature Granulocytes Auto 0.07 Thou/mm3 (0.00-0.00); Lymphocytes # (Auto) 1.4 Thou/mm3 (1.0-4.8); Lymphocytes % (Auto) 14 % (10-50); Mean Corpuscular HGB Conc 34.3 g/dl (31.0-37.0); Mean Corpuscular Hemoglobin 29.7 pg (25.0-35.0); Mean Corpuscular Volume 87 fL (80-100); Monocytes # (Auto) 0.6 Thou/mm3 (0.0-0.8); Monocytes % (Auto) 6 % (0-12); Neutrophils # (Auto) 7.2 Thou/mm3 (1.8-7.7); Neutrophils % (Auto) 76 % (37-80); Nucleated Red Blood Cell % 0 /100 WBC (0); Platelet Count 479 Thou/mm3 (140-440); RDW Standard Deviation 45.2 fL (35.1-43.9); Red Blood Count 3.13 Miln/mm3 (4.50-5.90); White Blood Count 9.5 Thou/mm3 (3.8-10.6)
--- NOTE | 2025-02-06 12:26 | PD.EDADULT ---
ED General RME/HPI General Chief complaint: Weakness Stated complaint: SWOLLEN HANDS/LEGS, WEAK Time Seen by Provider: 02/06/25 12:20 Arrival date/time: 02/06/25 11:31 CC: Swelling to his lower extremities and generalized weakness HPI ongoing for 1 month. Patient states he signed himself out from assisted care facility secondary to having to fix a problem at his home. Currently patient denies any chest pain shortness of breath or difficulty breathing. RME / HPI RME / HPI narrative: 02/06/25 11:31 64-year-old male with a history of hyperlipidemia, hypertension, type 2 diabetes, presents to the emergency room with a chief complaint of generalized weakness and swelling to his extremities. Patient states he was then a convalescent home but signed out due to him needing to fix the problem at his house. Patient states he is getting worse, he is not taking any medication, and wants to get checked out and possibly return to a convalescent home. I have greeted and performed a focused initial assessment of this patient. A comprehensive ED assessment and evaluation of the patient, analysis of all test results, and completion of the medical decision making process will be conducted by additional ED providers. Related Data Home Medications ?Medication ?Instructions ?Recorded ?Confirmed sitagliptin phosphate 50 1 tab PO BID 05/19/24 01/30/25 mg-metformin 1,000 mg tablet (Janumet) Held on 02/01/25. Instructions: Resume on 02/15/25. Check daily blood glucose levels, and if blood glucose in AM after 130, can resume. atorvastatin 40 mg tablet 40 mg PO QPM 01/27/25 01/27/25 meloxicam 7.5 mg tablet 7.5 mg PO QDAY 01/27/25 01/27/25 Held on 01/29/25. Instructions: until follow up with pcp Previous Rx's ?Medication ?Instructions ?Recorded flash glucose scanning reader #1 ea 05/23/24 (FreeStyle Rene 2 Minerva) flash glucose sensor (FreeStyle #1 ea 05/23/24 Rene 2 Sensor kit) amlodipine 10 mg tablet 10 mg PO QDAY #30 tabs 05/24/24 dulaglutide 0.75 mg/0.5 mL 0.75 mg (0.5 mL) subcut QWEEK #2 mL 07/17/24 subcutaneous pen injector (Trulicity) zinc sulfate 50 mg zinc (220 mg) 50 mg PO QDAY #14 caps 07/17/24 capsule lisinopril 20 mg tablet 40 mg (2 x 20 mg) PO QDAY #60 tabs 07/19/24 furosemide 20 mg tablet (Lasix) 20 mg PO QAM #3 tabs 11/13/24 finasteride 5 mg tablet 5 mg PO QDAY 30 days #30 tabs 01/29/25 tamsulosin 0.4 mg capsule 0.4 mg PO QDAY 30 days #30 caps 01/29/25 insulin glargine 100 unit/mL (3 10 unit (0.1 mL) subcut QPM #15 mL 02/01/25 mL) subcutaneous pen levofloxacin 500 mg tablet 500 mg PO Q24H 7 days #7 tabs 02/06/25 Allergies Allergy/AdvReac Type Severity Reaction Status Date / Time No Known Allergies Allergy Verified 02/06/25 11:35 Review of Systems Review of Systems Narrative Review of Systems: GEN: No fever, no chills, no weight loss EYES: No discharge, no visual changes, no pain HEENT: No ear pain, no congestion, no sore throat PULM: No shortness of breath, no cough, no congestion CV: No chest pain, no dyspnea on exertion, no palpitations GI: No nausea, no vomiting, no diarrhea, no pain, no constipation : No frequency, no urgency, no dysuria MUSC/SKEL: No joint pain, no back pain SKIN: No rash PSYCH: No hallucinations, no depression HEME/LYMPH: No easy bleeding or bruising tendencies NEURO: + weakness, no headache Past Medical History Past Medical History NEUROLOGIC: Positive Peripheral Neuropathy; Negative Neurological Disorders or Seizures CARDIAC: Positive Hypercholesterolemia and Hypertension; Negative Cardiac Disorders or Congestive Heart Failure RESPIRATORY: Negative Chronic Obstructive Pulmonary Disease (COPD) or Asthma GASTROINTESTINAL: Negative Gastrointestinal Disorders GENITOURINARY: Negative Genitourinary Disorders or Renal Disease MUSCULOSKELETAL: Positive Musculoskeletal Disorders and Fractures ENDOCRINE: Positive Endocrine Disorders and Diabetes Mellitus Type 2; Negative Diabetes Mellitus Type 1 HEMATOLOGIC: Negative Blood Disorders or Sickle Cell Disease OTHER HISTORY: Negative Blood Transfusions, Blood Transfusion Reaction, Anesthesia Reactions or Cancer Surgical History SURGICAL: Negative Abdominal Surgery Social History SMOKING STATUS: Former smoker SECOND HAND EXPOSURE: No SUBSTANCE USE: does not use ED Exam Narrative Physical exam: [General: Appears not in any acute distress Head normocephalic HEENT: Within acceptable limits Neck is supple nontender Chest equal chest rise nontender to palpation Respiratory: Clear to auscultation no wheezes crackles or rubs CV: Rate rhythm is regular no murmurs rubs or clicks Abdomen is distended secondary to body habitus soft nontender no masses positive bowel sounds all 4 quadrants Back: No CVA tenderness no spinous process tenderness from cervical spine thoracic and lumbar spine Skin: Intact no petechiae rash induration ulceration or crepitus Extremities: Right upper extremity hand is contracted, left upper extremity patient has dorsal edema to the hand. Left lower extremity nonpitting edema to the ankle, right lower extremity is no edema. Moving all extremity against resistance cap refill less than 2 seconds neurosensory intact Neuro: Awake alert oriented x3 Glascow coma 15 no focal deficits] Course Course Course Narrative: Glucose was 325 and given patient be discharged home. Quality Measures none Orders Category Date Time Status EKG (ED ONLY) *Do not use* NOW Care 02/06/25 11:56 Completed Glucose [Bedside Blood Glucose] Q1HR Care 02/06/25 12:59 Active EKG (ED Only) Stat Exams 02/06/25 11:56 Draft XR chest 1V portable Stat Exams 02/06/25 12:30 Completed B-Type Natriuretic Peptide Stat Lab 02/06/25 12:03 Completed CBC Stat Lab 02/06/25 12:03 Completed Comprehensive Metabolic Panel Stat Lab 02/06/25 12:03 Completed LDH (Lactate Dehydrogenase) Stat Lab 02/06/25 12:03 Completed Magnesium Stat Lab 02/06/25 12:03 Completed Partial Thromboplastin Time Stat Lab 02/06/25 12:03 Completed Prothrombin Time with INR Stat Lab 02/06/25 12:03 Completed Troponin I Stat Lab 02/06/25 12:03 Completed Urinalysis Stat Lab 02/06/25 11:56 Ordered Insulin Regular Med 02/06/25 12:59 Discontinued 10 unit SC X1 ONE Insulin Regular Med 02/06/25 14:17 Discontinued 5 unit SC X1 ONE cefTRIAXone [Rocephin] 1,000 mg Med 02/06/25 15:11 Discontinued Lidocaine 1% 20 ml [Xylocaine 1% 20 ML] 2.1 ml IM X1 cefTRIAXone/D5w 1gm IV premix [Rocephin/D5w 1gm IV Med 02/06/25 14:40 Discontinued premix] 1 gm in 50 ml IV X1 Vital Signs Vital signs: Vital Signs Temperature 98.5 F 02/06/25 12:09 Pulse Rate 75 02/06/25 12:09 Respiratory Rate 18 02/06/25 12:09 Blood Pressure 193/94 H 02/06/25 12:09 Pulse Oximetry (%) 100 02/06/25 12:09 Oxygen Delivery Method Room Air 02/06/25 12:09 MDM Patient data External records reviewed:: [facility] previous records Clinical information provided by:: patient Social determinants that could affect healthcare access:: none Patient has the following chronic illnesses:: Diabetes hypertension CHF How is presenting disease/condition affected by chronic disease/condition?: exacerbated by Evaluation data The following diagnostics were reviewed and interpreted by me:: lab results, radiology exam(s) and EKG tracing(s) Lab and/or radiology exams considered but not ordered:: EKG performed at 1207 shows a ventricular rate of 75 NJ interval 145 QRS of 9 0 QTc of 425 there is left axis deviation abnormal EKG. Interpretation Summary: Early pneumonia on x-ray, there is no other clinical finding for the patient is suffering of generalized weakness is in relatively poor health therefore this will be treated. Medications Medications considered but not ordered:: None Medication administrations:: Medication Administration History Discontinued Medications Ceftriaxone Sodium 1,000 mg/ (Lidocaine HCl 2.1 ml) 0 mg IM X1 ONE Stop: 02/06/25 15:12 Ceftriaxone Sodium/Dextrose (Rocephin/D5w 1gm Iv Premix) 1 gm in 50 mls @ 100 mls/hr IV X1 ONE Stop: 02/06/25 15:09 Insulin Human Regular (Insulin Hum Regular 1 Unit/0.01 Ml (Per Unit)) 10 unit SC X1 ONE Stop: 02/06/25 13:00 Last Admin: 02/06/25 14:18 Dose: Not Given Documented By: AA Non-Admin Reason: Cancelled by Provider Insulin Human Regular (Insulin Hum Regular 1 Unit/0.01 Ml (Per Unit)) 5 unit SC X1 ONE Stop: 02/06/25 14:18 Last Admin: 02/06/25 14:24 Dose: 5 unit Documented By: AA Co-signed By: IRINEO None Consultations Consultation(s) initiated? (list below): No Diagnosis Differential Diagnosis ED Complaint MDM: Pneumonia anemia electrolyte imbalance Most likely diagnosis given after review of the tests above:: Pneumonia hyperglycemia Admission Indicated Admission indicated?: not indicated Explain why admission is indicated or not indicated:: Stable for discharge Admission Request Was there a request for admission?: No Disposition Plan Disposition Plan: Discharge Discharge Attestation Discharge Attestation: The patient and all family members were given an opportunity to ask questions and understood the discharge instructions. Discharge instructions specifically effects, indications for sooner follow up or return to the emergency department, and the expected course of current diagnosis. Patient condition: Stable Medical Decision Making Differential Diagnosis Differential Diagnosis: Pneumonia anemia electrolyte imbalance Lab Data 02/06/25 12:03 02/06/25 12:03 Labs: Lab Results 02/06/25 Range/Units 12:03 WBC 9.5 (3.8-10.6) Thou/mm3 RBC 3.13 L (4.50-5.90) Miln/mm3 Hgb 9.3 L (13.5-16.0) g/dL Hct 27.1 L (41.0-53.0) % MCV 87 (80-100) fL MCH 29.7 (25.0-35.0) pg MCHC 34.3 (31.0-37.0) g/dl RDW Std Deviation 45.2 H (35.1-43.9) fL Plt Count 479 H D (140-440) Thou/mm3 Neut % (Auto) 76 (37-80) % Lymph % (Auto) 14 (10-50) % Bennett % (Auto) 6 (0-12) % Eos % (Auto) 2 (0-10) % Baso % (Auto) 1 (0-2.5) % Neut # (Auto) 7.2 (1.8-7.7) Thou/mm3 Lymph # (Auto) 1.4 (1.0-4.8) Thou/mm3 Bennett # (Auto) 0.6 (0.0-0.8) Thou/mm3 Eos # (Auto) 0.2 (0.0-0.5) Thou/mm3 Baso # (Auto) 0.1 (0.0-0.2) Thou/mm3 Immature Gran # (Auto) 0.07 H (0.00-0.00) Thou/mm3 Absolute Nucleated RBC 0.00 (0.00-0.00) Thou/mm3 Immature Gran % 1 H (0-0) % Nucleated RBC % 0 (0) /100 WBC PT 10.2 (9.0-12.2) Seconds INR 0.9 (0.9-1.3) APTT 32.0 (22.0-36.0) Seconds Sodium 133 L (136-145) mMol/L Potassium 4.1 (3.4-5.1) mMol/L Chloride 100 (98-107) mMol/L Carbon Dioxide 26.2 (20.0-31.0) mMol/L Anion Gap 7 (7-16) BUN 19 (9-23) mg/dL Creatinine 1.2 (0.6-1.3) mg/dL Estim Creat Clear Calc Not Performed. eGFR > 60 (60 - ) See Note BUN/Creatinine Ratio 16 (12-20) Ratio Glucose 469 H* (74-106) mg/dL Calculated Osmolality 289 (275-295) Calcium 8.3 (8.3-10.6) mg/dL Corrected Calcium 8.9 (8.5-10.1) mg/dL Magnesium 2.1 (1.6-2.6) mg/dL Total Bilirubin 0.3 (0.3-1.2) mg/dL AST 23 (0-34) U/L ALT 32 (10-49) U/L Alkaline Phosphatase 79 (46-116) U/L Lactate Dehydrogenase 251 H (120-246) U/L Troponin I < 0.020 (0.0-0.045) ng/mL B-Natriuretic Peptide 172 H (0-100) pg/mL Total Protein 6.1 (5.7-8.2) gm/dL Albumin 3.3 L (3.4-4.8) gm/dL Globulin 2.8 (2.3-3.5) gm/dL Albumin/Globulin Ratio 1.2 (1.2-2.2) Discharge Plan Plan Patient Disposition: HOME (Self Care) Patient condition on transfer: Stable Prescriptions/Referrals Prescriptions/Med Rec: New levofloxacin 500 mg tablet 500 mg PO Q24H 7 Days Qty: 7 0RF No Action Janumet 50-1,000 mg tablet 1 tab PO BID Patient Comments: TAKE 1 TABLET BY MOUTH TWICE A DAY WITH MEALS FOR 60 DAYS (DME) FreeStITM Power Rene 2 Sensor Kit See Rx Instructions .Route Qty: 1 0RF Rx Instructions: As directed (DME) FreeStyle Rene 2 Minerva Misc See Rx Instructions .Route Qty: 1 0RF Rx Instructions: As directed amlodipine 10 mg tablet 10 mg PO QDAY Qty: 30 0RF zinc sulfate 50 mg zinc (220 mg) capsule 50 mg PO QDAY Qty: 14 0RF Trulicity 0.75 mg/0.5 mL pen injector 0.75 mg subcut QWEEK Qty: 2 0RF lisinopril 20 mg tablet 40 mg PO QDAY Qty: 60 0RF furosemide [Lasix] 20 mg tablet 20 mg PO QAM Qty: 3 0RF meloxicam 7.5 mg tablet 7.5 mg PO QDAY Patient Comments: TOME 1 TABLETA POR V A ORAL TODOS LOS D FOR 30 DAYS atorvastatin 40 mg tablet 40 mg PO QPM tamsulosin 0.4 mg Capsule 0.4 mg PO QDAY 30 Days Qty: 30 0RF finasteride 5 mg Tablet 5 mg PO QDAY 30 Days Qty: 30 0RF insulin glargine 100 unit/mL (3 mL) insulin pen 10 unit subcut QPM Qty: 15 0RF Referrals: No Primary/Family,Physician [Primary Care Provider] - In 1 week Problem List Clinical Impression: Pneumonia, Hyperglycemia due to diabetes mellitus Patient/Caregiver Discharge Instructions Education Materials: High Blood Sugar (Hyperglycemia), Treating Pneumonia Print Language: Austrian Stand Alone Forms: Karla Award Info., Patient Portal Info Letter, Work/School Release PA/COPPER PLATE LITHOGRAPHER Supervising Physician PA/COPPER PLATE LITHOGRAPHER Supervising Physician: Gilles Brown ENP
--- NOTE | 2025-02-06 12:30 | XR_ITS ---
Examination: AP chest single view Technique one AP mobile upright chest single view Exam date and time: February 06, 2025 1243 hours INDICATIONS: Shortness of breath today. FINDINGS: Early pneumonia left base Normal heart size Moderate osteopenia IMPRESSION: Early pneumonia left base
[2025-02-06 12:38] LABS: B-Type Natriuretic Peptide 172 pg/mL (0-100)
[2025-02-06 12:43] LABS: Alanine Aminotransferase 32 U/L (10-49); Albumin, Serum 3.3 gm/dL (3.4-4.8); Albumin/Globulin Ratio 1.2 (1.2-2.2); Alkaline Phosphatase 79 U/L (46-116); Anion Gap 7 (7-16); Aspartate Amino Transferase 23 U/L (0-34); BUN/Creatinine Ratio 16 Ratio (12-20); Bilirubin,Total 0.3 mg/dL (0.3-1.2); Blood Urea Nitrogen 19 mg/dL (9-23); Calcium 8.3 mg/dL (8.3-10.6); Calcium (Corrected) 8.9 mg/dL (8.5-10.1); Carbon Dioxide 26.2 mMol/L (20.0-31.0); Chloride 100 mMol/L (98-107); Creatinine (Component) 1.2 mg/dL (0.6-1.3); Globulin 2.8 gm/dL (2.3-3.5); LDH (Lactate Dehydrogenase) 251 U/L (120-246); Magnesium 2.1 mg/dL (1.6-2.6); Osmolality,Calculated 289 (275-295); Potassium 4.1 mMol/L (3.4-5.1); Sodium 133 mMol/L (136-145); Total Protein 6.1 gm/dL (5.7-8.2); Troponin I < 0.020 ng/mL (0.0-0.045); eGFR > 60 See Note
[2025-02-06 12:45] LABS: Glucose 469 mg/dL (74-106)
--- NOTE | 2025-02-06 12:55 | PC.NURSE ---
Assume care for this 64 year old male with chief c/o of swelling to lower extremities and upper extremes bilat. Pt reports that approx 5 days he be became weak and has not been able to move or feed himself; Pt reports that his life partner has been feeding him.Pt also reports that he has been unable to control his blood sugars at home. On assessment there is swelling the left lower leg and left forearm. The left/right arm are flaccid in which the Pt is unable to hold his arms up, but is able to make a fist and move his fingers bilat. There swelling to the left forearm and left lower leg in which there is +1 pitted edema noted. Pt is a GCS of 15, A&O X4. Pt was given update on plan of care. Call light within reach
[2025-02-06 13:13] LABS: INR 0.9 (0.9-1.3); Prothrombin Time 10.2 Seconds (9.0-12.2)
[2025-02-06] MEDS: INSULIN HUM REGULAR 1 UNIT/0.01 ML (PER UNIT) 5 UNIT SC ×2 (14:24→17:26)
[2025-02-06] MEDS: cefTRIAXone 1,000 MG, LIDOCAINE 1% 20 ML 2.1 ML IM (17:27)
--- NOTE | 2025-02-06 18:18 | PC.NURSE ---
UNABLE TO CONTACT ANY FAMILY MEMBER FOR THIS PT.
--- NOTE | 2025-02-06 18:21 | PC.NURSE ---
Called patient's friend Alexandra on his contact list, she states she met patient 3 weeks ago and does not know a lot about him, other than he has a common law and that as far as she knows he has no close family just friends. Unable to contact anyone else on patient's contact list, therefore, social service consult placed for patient regarding possible placement to SNF, do to patient being bed ridden.
--- NOTE | 2025-02-06 18:39 | XR_ITS ---
Examination: CT brain head without contrast. 2-D sagittal coronal reconstructions Date and time of exam: February 06, 2025 1859 hours INDICATIONS: Unable to move arms beginning one week ago, altered mental status also January 26, 2025 CTDI: vol (mGy):46.7 DLP: (mGycm):923 Technique: Multiple CT axial sections of the brain have been obtained, 5 mm slice thickness. Contrast has not been administered. 2-D sagittal, coronal reconstructions have been obtained Low dose protocols were performed. One or more of the following dose reduction techniques were used; automated exposure control, adjustment of the mA and/or KV according to patient size, use of iterative reconstruction technique. Findings: No significant ventricular enlargement. Intra-axial or extra-axial hemorrhage density is not seen. No mass effect or midline shift Basal cisterns are not remarkable. Fourth ventricle is midline. Cranial vault intact. Prominent calcification intracranial right vertebral artery Impression: Negative for acute hemorrhage, mass effect or midline shift Consider repeat brain MRI follow-up, stroke protocol
--- NOTE | 2025-02-06 19:53 | PC.NURSE ---
p[t asleep. arouses easily. wating on results.
--- NOTE | 2025-02-06 21:10 | PD.EDADDENDU ---
Emergency Room Addendum Addendum Narrative: Patient's case and the update on his findings as well as the consultation with Dr. Dasilva was noted to Dr. Harris, resident for Dr. Kendrick Palumbo who agrees to accept the patient for admission.
[2025-02-06 21:41] LABS: Amphetamine/Methamp Scrn,U Negative (Negative); Barbiturate Screen,Urine Negative (Negative); Benzodiazepines Screen,Urine Negative (Negative); Benzoylecgonine Screen, Ur Negative (Negative); Fentanyl Screen,Urine Negative (Negative); Opiate Screen,Urine Negative (Negative); THC Screen,Urine Negative (Negative)
--- NOTE | 2025-02-06 21:59 | XR_ITS ---
Examination: Duplex scan of the upper extremity, unilateral left Date and time of exam: February 06, 2025 1110 hours INDICATIONS: Left upper arm swelling and pain beginning 3 days ago Technique: Duplex scan of the extremity veins using B-mode/grayscale imaging and Doppler spectral analysis and color flow Attention is directed to internal echogenicity, compression and augmentation involving these veins, color flow assessment, spectral analysis Findings: Major deep venous structures in the extremity demonstrate normal course and caliber. There is no evidence of deep vein thrombosis. Normal color flow and spectral analysis Impression: Negative for DVT..
--- NOTE | 2025-02-06 21:59 | XR_ITS ---
Examination: CT cervical spine without contrast 2-D sagittal reconstructions 2-D coronal reconstructions 3-D reconstructions. Exam date and time:February 06, 2025 at 1145 hours INDICATIONS: Patient fell today with injury to the neck, neck pain and weakness in the arms CTDI:vol (mGy) 13.2 DLP: (mGycm) 257 Technique: Multiple 2 mm axial sections of the cervical spine have been obtained. The coronal and sagittal reconstructions have been obtained. 3-D reconstructions have been obtained. Low dose protocols were performed. One or more of the following dose reduction techniques were used; automated exposure control, adjustment of the mA and/or KV according to patient size, use of iterative reconstruction technique. Findings: Axial sections demonstrate intact base of the skull. C1 exhibit satisfactory relationship to the odontoid. No acute cervical vertebral body fracture seen. Alignment posterior spinous processes satisfactory. Cervical fusion C3-C4 Advanced degenerative disc disease C4-C5, C5-C6, C6-C7, C7-T1 C3-C4 moderate bilateral neural foraminal stenosis C4-C5 moderate right neural foraminal stenosis C5-C6 advanced right and moderate left neural foraminal stenosis C6-C7 moderate bilateral neural foraminal stenosis Impression: No acute cervical fracture. Degenerative disc disease as above with bilateral neural foraminal stenosis Elective MRI cervical spine follow up would best assess full extent of acquired soft tissue spinal stenosis
--- NOTE | 2025-02-06 21:59 | XR_ITS ---
Examination: Duplex scan of the lower extremity, unilateral left Date and time of exam: February 06, 2025 1042 hours INDICATIONS: Left leg swelling beginning 3 days ago Technique: Duplex scan of the extremity veins using B-mode/grayscale imaging and Doppler spectral analysis and color flow Attention is directed to internal echogenicity, compression and augmentation involving these veins, color flow assessment, spectral analysis Findings: Major deep venous structures in the extremity demonstrate normal course and caliber. There is no evidence of deep vein thrombosis. Normal color flow and spectral analysis Impression: Negative for DVT..
--- NOTE | 2025-02-06 21:59 | XR_ITS ---
Examination: Carotid arterial duplex scan, ultrasound. Date and time of exam: February 06, 2025 1051 hours INDICATIONS: Generalized weakness beginning 3 days ago Technique: Multiple sonographic images have been obtained of the carotid arteries and vertebral arteries, B-mode/grayscale imaging and Doppler spectral analysis and color flow Peak systolic and diastolic velocities have been recorded. Systolic diastolic ratios have been calculated. Findings: Right peak systolic velocities: Distal internal carotid artery peak systolic velocity is 0.5 M/sec Proximal internal carotid artery peak systolic velocity is 0.5 M/sec Carotid bifurcation peak systolic velocity is 0.7 M/sec External carotid artery peak systolic velocity is 0.7 M/sec Vertebral artery flow is antegrade. Left peak systolic velocities: Distal internal carotid artery peak systolic velocity is 0.4 M/sec Proximal internal carotid artery peak systolic velocity is 0.4 M/sec Carotid bifurcation peak systolic velocity is 0.6 M/sec External carotid artery peak systolic velocity is 0.5 M/sec Vertebral artery flow is antegrade Doppler waveform analysis demonstrates no spectral broadening Impression: Right internal carotid artery demonstrates 0-10% stenosis. Left internal carotid artery demonstrates 0-10% stenosis.
--- NOTE | 2025-02-06 22:12 | XR_ITS ---
Examination: AP shoulder single view, left TECHNIQUE: AP internal rotation left shoulder single view Exam date and time: February 06, 2025 1025 pm INDICATION: Patient fell today with injury to the shoulder, shoulder pain FINDINGS: No shoulder fracture or dislocation. No AC joint separation IMPRESSION: No shoulder fracture or dislocation
--- NOTE | 2025-02-06 22:17 | ESHP_ITS ---
Documentation for date of: 02/06/25 HPI History of Present Illness History of present illness: The patient is a 64-year-old male with significant past medical history of hypertension, IDDM, diabetic foot ulcer, BPH who was brought into ED with chief complaint of generalized weakness. The patient was admitted last 9 days ago for AMS and slurred speech and CVA was ruled out. He reported that he has been having generalized weakness for past 10 days and his hands are contracted for past 2 months. He reported walking using walker but hasn't been able to walk for past couple of days. He reported falling on his back about 10 days ago, but his contracture on BL UE started 2 months ago. He denies any blurry vision, facial weakness, SOB, chest pain, abdominal pain, fever or chills, nausea or vomiting. In the ED, vitals were significant for blood pressure 193/94, pulse 74, respiration rate 17, temperature 98.5, saturating 100% on room air. Labs are significant for hemoglobin 9.3, platelet 479. Chemistry panel revealed sodium 133, blood sugar 469, LDH 251, U tox was negative. Head CT was negative for acute hemorrhage, mass effect or midline shift. Pending US doppler neck and brain MRI. Patient received insulin regular 10 units x 1 and 5 U x 1, and admitted to telemetry unit for further management of generalized weakness and to rule out CVA. Review of Systems Review of Systems Systems Reviewed: All systems reviewed, normal except as documented Past Medical History Past Medical History Comments PMH COMMENT: PMH: HTN, insulin-dependent diabetes PSH: I&D of diabetic foot wound SH: Does not drink, smoke, or use illicit drugs. Allergies:?NKDA Medications: Lisinopril, Tresiba, Janumet Exam Vital Signs Temp Pulse Resp BP Pulse Ox O2 Del Method 98.2 F 74 17 169/102 H 96 Room Air 02/06/25 20:48 02/06/25 20:48 02/06/25 20:48 02/06/25 20:48 02/06/25 20:48 02/06/25 20:48 Narrative Exam General: No acute distress, cooperative, alert and oriented x 3 HEENT: Moist mucous membranes, oropharynx clear Neck: Supple, No masses, No JVD CVS: S1S2 Regular rate and rhythm, No murmurs, rubs or gallops Lungs: Clear to auscultation with no accessory use, no wheeze no rhonchi Abd: Soft, NT/ND, +BS, no organomegaly Ext: Lt LE 2+ pitting edema up to mid vines, 0-1+ pitting edema on Rt LL, Lt UE 1+ pitting edema Skin: mild abrasion over lt LL. Neuro: BL UE contracture with decreased sensation, Lt LE strength 4/5 Psych: Appropriate mood and affect Results: Labs 02/06/25 12:03 02/06/25 12:03 Labs: Short CBC 02/06/25 Range/Units 12:03 WBC 9.5 (3.8-10.6) Thou/mm3 Hgb 9.3 L (13.5-16.0) g/dL Hct 27.1 L (41.0-53.0) % Plt Count 479 H D (140-440) Thou/mm3 BMP 02/06/25 12:03 Sodium 133 L Potassium 4.1 Chloride 100 Carbon Dioxide 26.2 BUN 19 Creatinine 1.2 Glucose 469 H* Calcium 8.3 Cardiac Enzymes 02/06/25 Range/Units 12:03 Troponin I < 0.020 (0.0-0.045) ng/mL Liver Function 02/06/25 Range/Units 12:03 Total Bilirubin 0.3 (0.3-1.2) mg/dL AST 23 (0-34) U/L ALT 32 (10-49) U/L Alkaline Phosphatase 79 (46-116) U/L Albumin 3.3 L (3.4-4.8) gm/dL Quality Measures Quality Measures none Advance care planning discussed with:: patient Medications Home Medications and Allergies Home Medications ?Medication ?Instructions ?Recorded ?Confirmed ?Type sitagliptin phosphate 50 1 tab PO BID 05/19/24 History mg-metformin 1,000 mg tablet (Janumet) Held on 02/01/25. Instructions: Resume on 02/15/25. Check daily blood glucose levels, and if blood glucose in AM after 130, can resume. atorvastatin 40 mg tablet 40 mg PO QPM 01/27/25 History meloxicam 7.5 mg tablet 7.5 mg PO QDAY 01/27/2501/07 History Held on 01/29/25. Instructions: until follow up with pcp Allergies Allergy/AdvReac Type Severity Reaction Status Date / Time No Known Allergies Allergy Verified 02/06/25 11:35 Visit Medications Acetaminophen (Acetaminophen 325 Mg Tablet) 650 mg PO Q6H PRN PRN Reason: Fever >101.5 Stop: 03/08/25 21:43 Acetaminophen (Acetaminophen 325 Mg Tablet) 650 mg PO Q6H PRN PRN Reason: PAIN SCALE 1-3 (mild Stop: 03/08/25 21:43 Dextrose (Dextrose 50%-Water Inj 50 Ml Syringe) 25 ml IV Q15MIN PRN PRN Reason: BG 50-70 responsive npo pt Stop: 03/08/25 21:52 Dextrose (Dextrose 50%-Water Inj 50 Ml Syringe) 50 ml IV Q15MIN PRN PRN Reason: BG <50 OR BG <70 & pt unresponsive Stop: 03/08/25 21:52 Glucagon (Glucagon Inj 1 Mg Vial) 1 mg IM Q15MIN PRN PRN Reason: BG <70, and no IV access Heparin Sodium (Porcine) (Heparin Sod Inj 5000 Unit/Ml Vial) 5,000 unit SC Q8HR [facility] Stop: 02/20/25 21:59 Insulin Glargine (Insulin Glargine (Lantus) 5 Unit/0.05 Ml (Per 5 Units)) 12 unit SC HS [facility] Stop: 03/08/25 21:54 Insulin Human Lispro (Insulin Lispro (Admelog) 1 Unit/0.01 Ml Unit) 0 unit SC Q6H [facility]; Protocol Stop: 03/08/25 21:59 Discontinued Medications Ceftriaxone Sodium 1,000 mg/ (Lidocaine HCl 2.1 ml) 0 mg IM X1 ONE Stop: 02/06/25 15:12 Last Admin: 02/06/25 17:27 Dose: 1,000 mg Ceftriaxone Sodium/Dextrose (Rocephin/D5w 1gm Iv Premix) 1 gm in 50 mls @ 100 mls/hr IV X1 ONE Stop: 02/06/25 15:09 Last Admin: 02/06/25 16:46 Dose: Not Given Insulin Human Regular (Insulin Hum Regular 1 Unit/0.01 Ml (Per Unit)) 10 unit SC X1 ONE Stop: 02/06/25 13:00 Last Admin: 02/06/25 14:18 Dose: Not Given Insulin Human Regular (Insulin Hum Regular 1 Unit/0.01 Ml (Per Unit)) 5 unit SC X1 ONE Stop: 02/06/25 14:18 Last Admin: 02/06/25 14:24 Dose: 5 unit Insulin Human Regular (Insulin Hum Regular 1 Unit/0.01 Ml (Per Unit)) 5 unit SC X1 ONE Stop: 02/06/25 16:47 Last Admin: 02/06/25 17:26 Dose: 5 unit Assessment & Plan Plan The patient is a 64-year-old male with significant past medical history of hypertension, IDDM, diabetic foot ulcer, who was brought into ED with chief complaint of generalized weakness and is being ruled out for CVA. #Bilateral upper extremity weakness #Rule out CVA DDx: Vit B12, B9 or B6 deficiency The patient was brought into the ED with chief complaint of generalized weakness Head CT was negative for acute hemorrhage, mass effect or midline shift Patient received insulin regular 10 units x 1 and [address] Arndt consulted, and recommended further CVA workup. -Fingerstick blood sugar every 6 hourly -We will slowly control blood pressure, with 25% of reduction in the first 4- hour, followed by slowly maintaining to normotensive in within 24-hour to 48 hours -Sliding scale insulin with lispro and Lantus 12 U HS -Doppler US neck -Ordered CT cervical spine WO contrast to rule out any cervical injury after fall -Ordered Vit B12, B6 and Folate level, Vitamin D, Syphilis -MRI brain pending -Monitor closely #Hypertensive urgency -Patient had blood pressure of 193/94 on presentation -Started on lisinopril 20 daily along with IV hydralazine as needed #Insulin-dependent diabetes mellitus type 2 #Hyperglycemia #Primary hypertension Presented with BS of 469 On lisinopril 40 Mg daily at home Urine revealed 2+ proteinuria -We will hold on lisinopril as BP slowly trending down -On lispro sliding scale insulin -On insulin glargine 12 units daily at night #Pseudohyponatremia Presented with sodium of 133 Likely in the setting of hyperglycemia -Continue to treat underlying HHS -Monitor daily a.m. sodium level #Microcytic anemia Likely secondary to anemia of chronic disease Ordered iron panel and ferritin -Continue to monitor underlying diabetes mellitus -Continue to monitor hemoglobin daily a.m. #Possible Lt UE and LE DVT -Ordered LT UE and LE US venous doppler #BPH Started on home finasteride 5mg daily and tamsulosin 0.4mg daily Health maintenance: Dispo: Patient admitted to telemetry unit for further management generalized weakness, HHS and hypertensive urgency DVT prophylaxis: Subcu heparin Diet: N.p.o. except meds CODE STATUS: Full code The patient's management plan was discussed with my attending physician MD Ranjan Houser MD, PGY2 Attending Provider Attestation/Addendum I attest that I was physically present for the evaluation, physical examination, lab and imaging review of the patient with the residents. I discussed the case with the residents and agree with the findings and plans of care as documented above. Patient is a 64 years old male with past medical history of hypertension, diabetes, BPH who presented to the ED with complaint of generalized weakness. Patient was recently discharged after being management for acute encephalopathy secondary to hypertensive emergency versus urinary retention and SAGE. Examination finding at that time showed no gross neurological deficit and patient was able to move all all his extremities. MRI was obtained and CVA was ruled out. At this time, patient is states that he has been having progressive generalized weakness, unable to move his upper extremities. At baseline, he uses walker to ambulate but has not been able to ambulate for last couple of days. He also had a fall, he is unsure if he lost consciousness but denied any dizziness, blurry vision, headache. In the ED, his blood pressure was high, 193/94. Rest of the vitals were within normal limits, he was saturating well on room air. Lab results show hemoglobin of 9.3 and blood glucose 469. CT head was obtained which was negative for acute hemorrhage, mass effect or midline shift. On exam, patient was alert and oriented x 4, was able to answer questions and follow commands appropriately. He had weaknesses of bilateral upper extremities with abnormal posture of hands. There was only slight decrease in strength of lower extremity, more on left side. Patient did complain of numbness on all 4 limbs but symmetrical. Also noted to have pitting edema on left upper and lower extremity. We will admit the patient for evaluation of weakness, rule out CVA. Neurology contacted by ED, who recommended admission for further workup. We will obtain Doppler ultrasound of neck, CT cervical spine, vitamin B12, folate, vitamin D levels, MRI brain, syphilis. We will start him on insulin regimen for high blood glucose. We will also start him on antihypertensives with goal of 25% decrease in 24 hours. We will also obtain Doppler ultrasound of left upper and lower extremities to rule out DVTs. Yahaira Boyer MD
[2025-02-06] MEDS: INSULIN GLARGINE (Lantus) 5 UNIT/0.05 ML (PER 5 UNITS) 12 UNIT SC (23:10)
[2025-02-06] MEDS: HEPARIN SOD INJ 5000 UNIT/ML VIAL SC (23:12)
--- NOTE | 2025-02-06 23:52 | PC.NURSE ---
Report called to carol. Clifford in [place] now.
[2025-02-07] VITALS (9 sets, daily range): BP systolic 143–185; BP diastolic 80–100; PULSE 63–87; RESP 16–20; TEMP 36.4–36.6; O2SAT 95–98; BMI 12.0
--- NOTE | 2025-02-07 | XR_ITS ---
Examination: MRI brain without intravenous contrast. Date and time of exam: February 07, 2025 1615 hours Technique: Images technique, diffusion-weighted images ADC map and FLAIR images, the patient could not cooperate INDICATIONS: Altered mental status slurred speech 10 days Findings: All of the images are degraded by patient motion No significant ventricular enlargement No foci of restricted diffusion FLAIR images demonstrate moderate chronic microvascular white matter change Significant bilateral mastoiditis IMPRESSION: Limited study Negative for acute hemorrhage mass effect or midline shift No acute infarct
[2025-02-07] MEDS: hydrALAZINE INJ 20 MG/ML VIAL 10 MG IV (05:01)
[2025-02-07 05:25] LABS: Basophils # (Auto) 0.1 Thou/mm3 (0.0-0.2); Basophils % (Auto) 1 % (0-2.5); Eosinophils # (Auto) 0.2 Thou/mm3 (0.0-0.5); Eosinophils % (Auto) 3 % (0-10); Hematocrit 25.5 % (41.0-53.0); Immature Granulocytes % (Auto) 1 % (0-0); Immature Granulocytes Auto 0.05 Thou/mm3 (0.00-0.00); Lymphocytes # (Auto) 1.3 Thou/mm3 (1.0-4.8); Lymphocytes % (Auto) 19 % (10-50); Mean Corpuscular HGB Conc 34.5 g/dl (31.0-37.0); Mean Corpuscular Hemoglobin 29.2 pg (25.0-35.0); Mean Corpuscular Volume 85 fL (80-100); Monocytes # (Auto) 0.4 Thou/mm3 (0.0-0.8); Monocytes % (Auto) 5 % (0-12); Neutrophils # (Auto) 4.7 Thou/mm3 (1.8-7.7); Neutrophils % (Auto) 71 % (37-80); Nucleated Red Blood Cell % 0 /100 WBC (0); Platelet Count 351 Thou/mm3 (140-440); RDW Standard Deviation 44.5 fL (35.1-43.9); Red Blood Count 3.01 Miln/mm3 (4.50-5.90); White Blood Count 6.7 Thou/mm3 (3.8-10.6)
[2025-02-07 05:40] LABS: Hemoglobin 8.8 g/dL (13.5-16.0)
[2025-02-07 05:47] LABS: Alanine Aminotransferase 27 U/L (10-49); Albumin/Globulin Ratio 1.2 (1.2-2.2); Alkaline Phosphatase 57 U/L (46-116); Anion Gap 5 (7-16); Aspartate Amino Transferase 21 U/L (0-34); BUN/Creatinine Ratio 20 Ratio (12-20); Bilirubin,Total 0.2 mg/dL (0.3-1.2); Blood Urea Nitrogen 20 mg/dL (9-23); C-Reactive Protein 0.7 mg/dL (0.0-0.9); Calcium 8.5 mg/dL (8.3-10.6); Calcium (Corrected) 9.3 mg/dL (8.5-10.1); Carbon Dioxide 26.9 mMol/L (20.0-31.0); Cardiac Risk Estimate 3.9 RATIO (4.0-6.7); Chloride 105 mMol/L (98-107); Cholesterol 195 mg/dL (132-200); Globulin 2.6 gm/dL (2.3-3.5); Glucose 195 mg/dL (74-106); HDL Cholesterol 50 mg/dL (40-60); LDL Cholesterol,Calculated 120 mg/dL (0-130); Magnesium 2.1 mg/dL (1.6-2.6); Osmolality,Calculated 281 (275-295); Phosphorous 3.5 mg/dL (2.4-5.1); Potassium 3.9 mMol/L (3.4-5.1); Sodium 137 mMol/L (136-145); Thyroid Stimulating Hormone 7.28 uIU/mL (0.55-4.78); Total Protein 5.6 gm/dL (5.7-8.2); Triglycerides 123 mg/dL (30-150); eGFR > 60 See Note
[2025-02-07 05:50] LABS: Sed Rate (ESR) 75 mm/hr (0-20)
--- NOTE | 2025-02-07 05:57 | PC.NURSE ---
pt refused ccondom cath for urine specimen for ua. Pt wants to sleep at this time.
[2025-02-07 06:03] LABS: Folate 8.21 ng/mL (>5.38); Glucose Estimated Average 280 mg/dL (80-131); Hemoglobin A1C 11.4 % Hgb (4.8-6.0); Vitamin B12 762 pg/mL (211-911); Vitamin D 25 Hydroxy Total 11.4 ng/mL (7.3-40.2)
[2025-02-07 07:26] LABS: Syphilis Nonreactive (Nonreactive)
[2025-02-07 07:45] LABS: Ferritin 105 ng/mL (10.5-307.3); Iron 30 mcg/dL (65-175); Percent Iron Saturation 12 % (20-55); Total Iron Binding Capacity 231 mcg/dL (250-425); Unsaturated Iron Binding 201 (225-295)
[2025-02-07] MEDS: TAMSULOSIN HCL 0.4 MG CAPSULE PO (09:29)
[2025-02-07] MEDS: FINASTERIDE 5 MG TABLET PO (09:29)
[2025-02-07] MEDS: Lisinopril 20 MG TABLET PO (09:30)
[2025-02-07 09:33] LABS: Free T4 (Free Thyroxine) 1.02 ng/dL (0.89-1.76)
[2025-02-07 10:32] LABS: Collection Type, Urine Clean Catch
[2025-02-07] MEDS: IRON SUCROSE CPLX INJ 20 MG/ML VIAL 5 ML 100 MG IVP (10:50)
[2025-02-07] MEDS: Erythromycin Op Oint 0.5% 1 GM PACKET BOTH EYES (10:50)
[2025-02-07 11:01] LABS: Bilirubin,Urine Negative (Negative); Blood,Urine Trace (Negative); Clarity,Urine Clear (Clear/Hazy); Color,Urine Lt-Yellow (Lt Yel-Yel); Glucose, Urine 4+ (Negative); Hyaline Casts,Urine < 1 /hpf (0-1); Ketones,Urine Negative (Negative); Leukocyte Esterase,Urine Negative (Negative); Nitrite,Urine Negative (Negative); PH,Urine 6.5 (5.0-7.0); Protein,Urine 3+ (Neg - Trace); RBC,Urine 3 /hpf (0-3); Specific Gravity,Urine 1.019 (1.001-1.035); Squamous Epithelial Cell,Urine < 1 /hpf (0-5); Urobilinogen,Urine Negative mg/dL (0.0-1.0); WBC,Urine 2 /hpf (0-5)
--- NOTE | 2025-02-07 11:23 | PC.SS ---
Patient is a re-admit. [place] speaking only. SS spoke to patient with seismic interpreter on phone line. 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 SS inquired if patient cannot feed himself. Nursing states at this time he cannot. Patient is from home and was recently discharged to [facility]. They had called stating patient was yelling and screaming and hanging off their hospital bed. 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 Patient then went home and was admitted here on 02/06/25 for generalized weakness. Patient resides with . He is total [facility]. He has a careprovider, Alexandra. Alexandra comes out to the home 2-3 days a week. Patient has a wheelchair at home. He uses to ambulate with walker. He is blind and can get confused. is hard of hearing. Careprovider provides transportation assistance. Patient may be difficult to place at SNF due to previous behaviors. He may benefit from home with home health services. is alt medical decision maker, Georgina, . Care provider is also to be contacted as they are all close. jose Morris, .
[2025-02-07] MEDS: INSULIN LISPRO (AdmeLOG) 1 UNIT/0.01 ML UNIT SC ×3 (11:58→21:28)
--- NOTE | 2025-02-07 12:14 | ESCONSULT_ITS ---
HPI Data of Consult Consult date: 02/07/25 Requesting Physician: Yahaira Boyer MD Admitting Provider: Yahaira Boyer MD Attending Provider: Yahaira Boyer MD Primary Care Provider: Physician No Primary/Family Consult Narrative History of present illness: The patient is a 64-year-old male with past medical history of hypertension, diabetes complicated by diabetic foot ulcer, BPH who was brought to the ED on 02/06/2025 with complaints of generalized weakness. Per the patient, after his last admission about 10 days ago which was for altered mental status and slurred speech, he has been having increasing generalized weakness as well as had a fall on his back. Additionally, he has had contractures in his arms for about 2 months with decreased range of motion. The patient denies any other symptoms, respiratory, abdominal or urinary. Significant findings in the ED for blood pressure 193/94, however patient was afebrile and saturating 100% on room air. CHEM panel shows some hyponatremia with hyperglycemia, negative U tox. Head CT was done which was negative and neurology was consulted for assessment of upper extremity weakness with a CVA rule out cc:: cc: Yahaira Boyer MD Review of Systems Review of Systems Systems Reviewed: All systems reviewed, normal except as documented Exam Vital Signs Temp Pulse Resp BP Pulse Ox O2 Del Method 97.7 F 67 19 143/89 H 97 Room Air 02/07/25 08:00 02/07/25 09:30 02/07/25 08:00 02/07/25 09:30 02/07/25 08:00 02/07/25 08:00 Narrative Exam GENERAL: AAOX3 NEURO: GCS-15, cranial 2 through 12 grossly intact. Strength 5/5 in bilateral lower extremities, strength in left upper extremity, 4/5 and 3/5 in right upper. Intact sensation, unable to assess [id number] test due to decreased range of motion. Reflexes normal HEENT: Moist mucosa. Eyes open, symmetrical, & clear CARDIO: No chest pain on palpation. Heart RRR, no obvious murmurs PULM: No noted coughing/dyspnea. Lungs CTA B/L GI: Abdomen soft, nondistended, no pain on palpation. 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 SKIN/MSK/EXT: Decreased range of motion in bilateral upper extremities, unable to abduct at right shoulder Results Labs 02/09/25 04:47 02/09/25 04:47 Labs: Short CBC 02/06/25 02/07/25 Range/Units 12:03 04:43 WBC 9.5 6.7 (3.8-10.6) Thou/mm3 Hgb 9.3 L 8.8 L (13.5-16.0) g/dL Hct 27.1 L 25.5 L (41.0-53.0) % Plt Count 479 H D 351 D (140-440) Thou/mm3 BMP 02/06/25 02/07/25 12:03 04:43 Sodium 133 L 137 Potassium 4.1 3.9 Chloride 100 105 Carbon Dioxide 26.2 26.9 BUN 19 20 Creatinine 1.2 1.0 Glucose 469 H* 195 H D Calcium 8.3 8.5 Cardiac Enzymes 02/06/25 Range/Units 12:03 Troponin I < 0.020 (0.0-0.045) ng/mL Liver Function 02/06/25 02/07/25 Range/Units 12:03 04:43 Total Bilirubin 0.3 0.2 L (0.3-1.2) mg/dL AST 23 21 (0-34) U/L ALT 32 27 (10-49) U/L Alkaline Phosphatase 79 57 D (46-116) U/L Albumin 3.3 L 3.0 L (3.4-4.8) gm/dL Urine 02/07/25 Range/Units 10:14 Urine Color Lt-Yellow (Lt Yel-Yel) Urine Clarity Clear (Clear/Hazy) Urine pH 6.5 (5.0-7.0) Ur Specific [place] 1.019 (1.001-1.035) Urine Protein 3+ A (Neg - Trace) Urine Glucose (UA) 4+ A (Negative) Quality Measures Quality Measures none Advance care planning discussed with:: patient Medications Home Medications and Allergies Home Medications ?Medication ?Instructions ?Recorded ?Confirmed ?Type sitagliptin phosphate 50 1 tab PO BID 05/19/24 History mg-metformin 1,000 mg tablet (Janumet) atorvastatin 40 mg tablet 40 mg PO QPM 01/27/25 History Allergies Allergy/AdvReac Type Severity Reaction Status Date / Time No Known Allergies Allergy Verified 02/06/25 11:35 Visit Medications Acetaminophen (Acetaminophen 325 Mg Tablet) 650 mg PO Q6H PRN PRN Reason: Fever >101.5 Stop: 03/08/25 21:43 Acetaminophen (Acetaminophen 325 Mg Tablet) 650 mg PO Q6H PRN PRN Reason: PAIN SCALE 1-3 (mild Stop: 03/08/25 21:43 Aspirin (Aspirin Ec 81 Mg Tabec) 81 mg PO [facility] Stop: 03/09/25 20:59 Atorvastatin Calcium (Atorvastatin Calcium 20 Mg Tablet) 40 mg PO [facility] Stop: 03/09/25 20:59 Dextrose (Dextrose 50%-Water Inj 50 Ml Syringe) 25 ml IV Q15MIN PRN PRN Reason: BG 50-70 responsive npo pt Stop: 03/08/25 21:52 Dextrose (Dextrose 50%-Water Inj 50 Ml Syringe) 50 ml IV Q15MIN PRN PRN Reason: BG <50 OR BG <70 & pt unresponsive Stop: 03/08/25 21:52 Finasteride (Finasteride 5 Mg Tablet) 5 mg PO QDAY [facility] Stop: 03/09/25 08:59 Last Admin: 02/07/25 09:29 Dose: 5 mg Glucagon (Glucagon Inj 1 Mg Vial) 1 mg IM Q15MIN PRN PRN Reason: BG <70, and no IV access Heparin Sodium (Porcine) (Heparin Sod Inj 5000 Unit/Ml Vial) 5,000 unit SC Q12HR [facility] Stop: 02/21/25 20:59 Insulin Glargine (Insulin Glargine (Lantus) 5 Unit/0.05 Ml (Per 5 Units)) 12 unit SC [facility] Stop: 03/08/25 21:54 Last Admin: 02/06/25 23:10 Dose: 12 unit Insulin Human Lispro (Insulin Lispro (Admelog) 1 Unit/0.01 Ml Unit) 0 unit SC [facility]; Protocol Stop: 03/09/25 11:59 Last Admin: 02/07/25 11:58 Dose: 5 unit Lisinopril (Lisinopril 20 Mg Tablet) 20 mg PO QDAY [facility] Stop: 03/09/25 08:59 Last Admin: 02/07/25 09:30 Dose: 20 mg Quetiapine Fumarate (Quetiapine Fumarate 25 Mg Tablet) 25 mg PO [facility] Stop: 03/09/25 20:59 Tamsulosin HCl (Tamsulosin Hcl 0.4 Mg Capsule) 0.4 mg PO QDAY YOLI Stop: 03/09/25 08:59 Last Admin: 02/07/25 09:29 Dose: 0.4 mg Discontinued Medications Aspirin (Aspirin 325 Mg Tablet) 325 mg PO X1 ONE Stop: 02/06/25 22:10 Last Admin: 02/07/25 05:10 Dose: Not Given Ceftriaxone Sodium 1,000 mg/ (Lidocaine HCl 2.1 ml) 0 mg IM X1 ONE Stop: 02/06/25 15:12 Last Admin: 02/06/25 17:27 Dose: 1,000 mg Erythromycin (Erythromycin Op Oint 0.5% 1 Gm Packet) 1 gm BOTH EYES X1 ONE Stop: 02/07/25 10:31 Last Admin: 02/07/25 10:50 Dose: 1 gm Heparin Sodium (Porcine) (Heparin Sod Inj 5000 Unit/Ml Vial) 5,000 unit SC Q8HR YOLI Stop: 02/20/25 21:59 Last Admin: 02/07/25 05:57 Dose: Not Given Hydralazine HCl (Hydralazine Inj 20 Mg/Ml Vial) 10 mg IV Q8H PRN PRN Reason: SBP>160, DBP>110 Stop: 03/08/25 23:44 Last Admin: 02/07/25 05:01 Dose: 10 mg Ceftriaxone Sodium/Dextrose (Rocephin/D5w 1gm Iv Premix) 1 gm in 50 mls @ 100 mls/hr IV X1 ONE Stop: 02/06/25 15:09 Last Admin: 02/06/25 16:46 Dose: Not Given Insulin Human Lispro (Insulin Lispro (Admelog) 1 Unit/0.01 Ml Unit) 0 unit SC Q6HR [facility]; Protocol Stop: 03/08/25 21:59 Last Admin: 02/07/25 05:55 Dose: Not Given Insulin Human Lispro (Insulin Lispro (Admelog) 1 Unit/0.01 Ml Unit) 0 unit SC ACHS [facility]; Protocol Stop: 03/09/25 16:59 Insulin Human Regular (Insulin Hum Regular 1 Unit/0.01 Ml (Per Unit)) 10 unit SC X1 ONE Stop: 02/06/25 13:00 Last Admin: 02/06/25 14:18 Dose: Not Given Insulin Human Regular (Insulin Hum Regular 1 Unit/0.01 Ml (Per Unit)) 5 unit SC X1 ONE Stop: 02/06/25 14:18 Last Admin: 02/06/25 14:24 Dose: 5 unit Insulin Human Regular (Insulin Hum Regular 1 Unit/0.01 Ml (Per Unit)) 5 unit SC X1 ONE Stop: 02/06/25 16:47 Last Admin: 02/06/25 17:26 Dose: 5 unit Iron Sucrose (Iron Sucrose Cplx Inj 20 Mg/Ml Vial 5 Ml) 100 mg IVP X1 ONE Stop: 02/07/25 10:19 Last Admin: 02/07/25 10:50 Dose: 100 mg Assessment & Plan Plan Summary: The patient is a 64-year-old male with past medical history of hypertension, diabetes complicated by diabetic foot ulcer, BPH who was brought to the ED on 02/06/2025 with complaints of generalized weakness. #Bilateral upper extremity weakness #Bilateral contractures #CVA rule out The patient presented with progressive generalized weakness in his bilateral upper extremities for last 10 days. Lower extremities have been fine, no weakness and patient does have a decent gait otherwise, he did have a fall about [address] was done which was negative for acute hemorrhage, mass effect or midline shift. On examination, patient has decreased range of motion and some decrease strength in bilateral lower extremities, however patient patient with deficits makes it unlikely to be as result of CVA. However, we will still obtain an MRI to complete the workup. Consider rotator cuff assessment, can be evaluated as an outpatient CT cervical spine was done which showed no acute fracture but degenerative disc disease with follow-up MRI suggested. Shoulder x-ray also negative. Plan: -Pending MRI brain -Physical therapy -Consider rotator cuff assessment #Hypertensive urgency #History of type II DM #History of BPH -Management per primary team Case was discussed with attending physician, Dr Brown Slater MD PGY-1 Disclaimer: This note was dictated by speech recognition. Minor errors in option trader may be present due to voice recognition software. Attending Provider Attestation/Addendum I personally have seen and examined the patient at the bedside and I agree with resident's findings, assessment and plan of care. Follow-up with brain MRI findings and physical therapy evaluation. Patient would need MRI of the cervical spine to evaluate for spinal stenosis at multiple levels.
[2025-02-07] MEDS: LORazepam 2 MG/ML VIAL 1 MG IVP (16:16)
--- NOTE | 2025-02-07 16:41 | ESPR_ITS ---
<Statement entered by Azul Lozano MD - 02/08/25 09:07> No acute overnight events. patient is still complaining of generalized and upper extremity weakness. Ultrasound was done which was negative for DVT. Physical therapy was placed. Patient will have an MRI today. Blood pressure currently is under control, started on lisinopril 20 mg daily, patient also have an IV hydralazine as needed. Blood sugars currently well-controlled. Continue close monitoring. Further labs revealed iron deficiency microcytic anemia, patient received IV iron. Neurology is on board, pending MRI. I personally saw and examined the patient and discussed the assessment and plan with the entire medicine team, including my attending Dr. Bailey, Azul Lozano M.D. PGY-2 Disclaimer: Despite multiple revisions, due to the dictation software being used, the document bellow may not be free of grammatical errors including phonetic/typographic errors. However, this does not deter from our commitment to providing health care in the patient's best interest in mind. Documentation for date of: 02/07/25 Subjective Subjective Interval history: Patient was admitted overnight. Patient has a past medical history of hypertension and diabetes mellitus type 2 uncontrolled, and BPH who was admitted for generalized weakness and stroke rule out. Patient stated he had a mechanical fall as he was entering his home and hit himself against blood on his back. Patient stated he he started having upper extremity weakness shortly after the mechanical fall. Patient stated he has a history of vision problems, unable to recall if secondary to degenerative macular disease vs glaucoma. Patient denied headache. Patient denied chest pain. Lower extremity weakness but motor function intact. Complained of left upper extremity swelling, DVT negative. Advised to keep left arm elevated. Patient is pending a MRI. Exam Vital Signs Temp Pulse Resp BP Pulse Ox O2 Del Method 97.6 F 72 16 151/82 H 95 Room Air 02/07/25 12:02/07/25 12:02/07/25 12:02/07/25 12:02/07/25 12:02/07/25 12:00 Narrative Exam General Appearance: Alert & Oriented X3, well-nourished male who is lying in bed in [no acute distress] HEENT: Skull symmetrical and atraumatic. Conjunctivae pin and moist. Pupils equal, round, reactive to light and accommodation (PERRL). External ear without lesion or discharge. Straight, nares patient, mucosa pink, no discharge. No thyroid nodule appreciated. No cervical lymphadenopathy. Cardio: Normal Rate and Rhythm with S1 and S2 heart sounds. No murmurs or extra heart sounds auscultated. No bruits on carotid auscultation. Left upper extremity swelling, dvt ruled out. Lungs: Symmetric with good expansion. Chest and back non-tender. Breath sounds vesicular without crackles, wheezing or rhonchi Abdomen: Non-tender, Non-distended, Normal Reactive Bowel Sounds Neuro: Alert, cooperative, oriented to person, place, and time. Speech clear. CN grossly intact. Upper motor strength 3/5 and Lower motor strength 4/5. Sensation intact. Objective Labs 02/08/25 05:21 02/08/25 05:21 Labs: Laboratory Results - last 24 hr 02/06/25 02/07/25 02/07/25 21:10 04:43 10:14 WBC 6.7 RBC 3.01 L Hgb 8.8 L Hct 25.5 L MCV 85 MCH 29.2 MCHC 34.5 RDW Std Deviation 44.5 H Plt Count 351 D Neut % (Auto) 71 Lymph % (Auto) 19 [place] % (Auto) 5 Eos % (Auto) 3 Baso % (Auto) 1 Neut # (Auto) 4.7 Lymph # (Auto) 1.3 [place] # (Auto) 0.4 Eos # (Auto) 0.2 Baso # (Auto) 0.1 Immature Gran # (Auto) 0.05 H Absolute Nucleated RBC 0.00 Immature Gran % 1 H Nucleated RBC % 0 ESR 75 H Sodium 137 Potassium 3.9 Chloride 105 Carbon Dioxide 26.9 Anion Gap 5 L BUN 20 Creatinine 1.0 Estim Creat Clear Calc Not Performed. eGFR > 60 BUN/Creatinine Ratio [address] Glu mg/dL 280 H Hemoglobin A1c 11.4 H Calculated Osmolality 281 Calcium 8.5 Corrected Calcium 9.3 Phosphorus 3.5 Magnesium 2.1 Iron 30 L TIBC 231 L Iron Saturation 12 L Unsat Iron Binding 201 L Ferritin 105 Total Bilirubin 0.2 L AST 21 ALT 27 Alkaline Phosphatase 57 D C-Reactive Prot, Quant 0.7 Total Protein 5.6 L Albumin 3.0 L Globulin 2.6 Albumin/Globulin Ratio 1.2 Triglycerides 123 Cholesterol 195 LDL Cholesterol, Calc 120 HDL Cholesterol 50 Cholesterol/HDL Ratio 3.9 L Vitamin B12 762 25-OH Vitamin D Total 11.4 Folate 8.21 TSH 7.28 H D Free T4 1.02 Ur Collection Type Clean Catch Urine Color Lt-Yellow Urine Clarity Clear Urine pH 6.5 Ur Specific [place] 1.019 Urine Protein 3+ A Urine Glucose (UA) 4+ A Urine Ketones Negative Urine Blood Trace Urine Nitrite Negative Urine Bilirubin Negative Urine Urobilinogen (Auto) Negative Ur Leukocyte Esterase Negative Urine RBC 3 Urine WBC 2 Ur Squamous Epith Cells < 1 Urine Bacteria None Hyaline Casts < 1 Urine Opiates Screen Negative Urine Fentanyl Screen Negative Ur Barbiturates Screen Negative U Amphetamin/Meth Scrn Negative U Benzodiazepines Scrn Negative U Cocaine Metab Screen Negative U Marijuana (THC) Screen Negative Syphilis Serology Nonreactive Quality Measures Quality Measures none Advance care planning discussed with:: patient Assessment & Plan Assessment Current Active Medications: Generic Name Dose Route Start Last Admin Trade Name Freq PRN Reason Stop Dose Admin Acetaminophen 650 mg 02/06/25 21:44 Acetaminophen 325 Mg Tablet PO 03/08/25 21:43 Q6H PRN Fever >101.5 Acetaminophen 650 mg 02/06/25 21:44 Acetaminophen 325 Mg Tablet PO 03/08/25 21:43 Q6H PRN PAIN SCALE 1-3 (mild Aspirin 81 mg 02/07/25 21:00 Aspirin Ec 81 Mg Tabec PO 03/09/25 20:59 HS YOLI Atorvastatin Calcium 40 mg 02/07/25 21:00 Atorvastatin Calcium 20 Mg Tablet PO 03/09/25 20:59 HS YOLI Dextrose 25 ml 02/06/25 21:53 Dextrose 50%-Water Inj 50 Ml Syringe IV 03/08/25 21:52 Q15MIN PRN BG 50-70 responsive npo pt Dextrose 50 ml 02/06/25 21:53 Dextrose 50%-Water Inj 50 Ml Syringe IV 03/08/25 21:52 Q15MIN PRN BG <50 OR BG <70 & pt unresponsive Finasteride 5 mg 02/07/25 09:00 02/07/25 09:29 Finasteride 5 Mg Tablet PO 03/09/25 08:59 5 mg QDAY YOLI Administration Glucagon 1 mg 02/06/25 21:53 Glucagon Inj 1 Mg Vial IM Q15MIN PRN BG <70, and no IV access Heparin Sodium (Porcine) 5,000 unit 02/07/25 21:00 Heparin Sod Inj 5000 Unit/Ml Vial SC 02/21/25 20:59 Q12HR YOLI Insulin Glargine 12 unit 02/06/25 21:55 02/06/25 23:10 Insulin Glargine (Lantus) 5 Unit/0.05 Ml (Per 5 Units) SC 03/08/25 21:54 12 unit HS YOLI Administration Insulin Human Lispro 0 unit 02/07/25 12:00 02/07/25 11:58 Insulin Lispro (Admelog) 1 Unit/0.01 Ml Unit SC 03/09/25 11:59 5 unit ACHS YOLI Administration Protocol Lisinopril 20 mg 02/07/25 09:00 02/07/25 09:30 Lisinopril 20 Mg Tablet PO 03/09/25 08:59 20 mg QDAY YOLI Administration Quetiapine Fumarate 25 mg 02/07/25 21:00 Quetiapine Fumarate 25 Mg Tablet PO 03/09/25 20:59 HS YOLI Tamsulosin HCl 0.4 mg 02/07/25 09:00 02/07/25 09:29 Tamsulosin Hcl 0.4 Mg Capsule PO 03/09/25 08:59 0.4 mg QDAY YOLI Administration Plan The patient is a 64-year-old male with significant past medical history of hypertension, IDDM, diabetic foot ulcer, who was brought into ED with chief complaint of generalized weakness and is being ruled out for CVA. #Bilateral upper extremity weakness #Cervical Myelopathy vs Radiculopathy vs stroke #Mechanical Fall #Rule out CVA Etiology: Given recent traumatic fall about 1 month ago and stenosis noted on imaging, likely secondary to mechanical fall about 1 month ago that caused cervical myelopathy vs radiculopathy vs less likely secondary to stroke given negative MRI and CT head Vs less likely secondary to demylination from vitamin deficiency as normal levels. Less likely secondary to autoimmune such as polymyositis Diagnostics: Syphilis Non-Reactive B6 pending, B12 762, Vitamin D 11.4, Folate 8.21 TSH 7.28 and Free T4 1.02 Brain MRI: Limited study. Negative for acute hemorrhage mass effect or midline shift. No acute infarct Head CT: Negative for acute hemorrhage, mass effect or midline shift Shoulder X-ray: No Shoulder Fracture or Dislocation Cervial Spine: C1 exhibit satisfactory relationship to the odontoid. No acute cervical vertebral body fracture seen.Alignment posterior spinous processes satisfactory. Cervical fusion C3-C4 Advanced degenerative disc disease C4-C5, C5-C6, C6-C7, C7-T1 C3-C4 moderate bilateral neural foraminal stenosis C4-C5 moderate right neural foraminal stenosis C5-C6 advanced right and moderate left neural foraminal stenosis C6-C7 moderate bilateral neural foraminal stenosis Plan: -Physical therapy -Outpatinet follow up w/ neurology vs neurosurgeon #Hypertensive urgency, improved #Primary Hypertension On admission, elevated blood pressure of 193/94 despite home medication of amlodipine 10 mg and lisinopril 20 mg Qday. Systolic Blood pressure <150, consider increasing lisinopril if blood pressure increase. Diagnostics: urine 2+protein Plan -Started on lisinopril 20 Qday -Hold Amlodipine given left upper extremity swelling. -IV hydralazine PRN #Insulin-dependent diabetes mellitus type 2 #Hyperglycemia #HLD Etiology: long standing history of diabetes mellitus type 2 who was previously discharged on Glargine 10 units and Tulicity 0.75 mg SubQ weekly. On admission blood glucose of 469 w/ A1c of 1104 (February 07 2025). Diagnostic: A1c 11 (02/2025) Lipid Panel Triglycerides 123, Cholesterol 195, LDL 120, HDL 50 Plan: -Glargine 12 units HS -Lispro Sliding Scale -Add Scheduled lispro AM -Atorvastatin 40 mg HS -Follow up with Fasting Blood Glucose #Pseudohyponatremia Presented with sodium of 133 Likely in the setting of hyperglycemia -Continue to treat underlying HHS -Monitor daily a.m. sodium level #Microcytic anemia Likely secondary to anemia of chronic disease given normal MCV levels, treat underlying condition. Iron Panel: Iron 30, Iron saturation 12, TIBC 231, Unsaturated 201 Plan: -Iron Sucrose x1 -Ferrous Sulfate 325 02/08/2025 -Continue to monitor hemoglobin daily a.m. Upper Extremity Edema Likely secondary to decrease use as patient stated over the past month, decreasing motor function vs Amlodipine side effect Vs less likley secondary to DVT given negative U/S. Plan No acute intervention monitor #BPH Started on home finasteride 5mg daily and tamsulosin 0.4mg daily Health maintenance: Dispo: Patient admitted to telemetry unit for further management generalized weakness, pending MRI and final recommendtions from neuro DVT prophylaxis: Subcu heparin Diet: Mechanical Diet 2 CODE STATUS: Full code - The patient's plan was discussed with attending Dr. Bailey and senior residents Dr. Blake Palacios MD PGY1 Internal Medicine Attending Provider Attestation/Addendum I have discussed and was present for the essential components of the history, physical examination, diagnosis, and treatment plan with the resident. I agree with the patient's care as documented by the resident and amended herein by me. Abdulkadir Bailey, DO. Although this document has been carefully reviewed, there may still be some phonetic and other typographical errors. These errors are purely grammatical due to imperfections in the software program and should not be construed in any way to compromise the substance of the patient's medical care during this visit.
[2025-02-07] MEDS: ATORVASTATIN CALCIUM 20 MG TABLET 40 MG PO (20:56)
[2025-02-07] MEDS: HEPARIN SOD INJ 5000 UNIT/ML VIAL SC (20:57)
[2025-02-07] MEDS: ASPIRIN EC 81 MG TABEC PO (20:57)
[2025-02-07] MEDS: QUEtiapine FUMARATE 25 MG TABLET PO (20:57)
[2025-02-07] MEDS: INSULIN GLARGINE (Lantus) 5 UNIT/0.05 ML (PER 5 UNITS) 12 UNIT SC (21:28)
[2025-02-08] VITALS (10 sets, daily range): BP systolic 125–165; BP diastolic 72–86; PULSE 63–93; RESP 14–20; TEMP 36.4–37.7; O2SAT 95–99; BMI 28.3
[2025-02-08 05:54] LABS: Basophils % (Auto) 1 % (0-2.5); Eosinophils # (Auto) 0.2 Thou/mm3 (0.0-0.5); Eosinophils % (Auto) 4 % (0-10); Hematocrit 23.5 % (41.0-53.0); Immature Granulocytes % (Auto) 0 % (0-0); Immature Granulocytes Auto 0.01 Thou/mm3 (0.00-0.00); Lymphocytes # (Auto) 1.3 Thou/mm3 (1.0-4.8); Lymphocytes % (Auto) 30 % (10-50); Mean Corpuscular Hemoglobin 29.4 pg (25.0-35.0); Mean Corpuscular Volume 86 fL (80-100); Monocytes # (Auto) 0.4 Thou/mm3 (0.0-0.8); Monocytes % (Auto) 8 % (0-12); Neutrophils # (Auto) 2.4 Thou/mm3 (1.8-7.7); Neutrophils % (Auto) 56 % (37-80); Nucleated Red Blood Cell % 0 /100 WBC (0); Platelet Count 350 Thou/mm3 (140-440); RDW Standard Deviation 46.2 fL (35.1-43.9); Red Blood Count 2.72 Miln/mm3 (4.50-5.90); White Blood Count 4.3 Thou/mm3 (3.8-10.6)
[2025-02-08 06:32] LABS: Alanine Aminotransferase 21 U/L (10-49); Albumin, Serum 2.7 gm/dL (3.4-4.8); Albumin/Globulin Ratio 1.2 (1.2-2.2); Alkaline Phosphatase 47 U/L (46-116); Anion Gap 7 (7-16); Aspartate Amino Transferase 17 U/L (0-34); BUN/Creatinine Ratio 22 Ratio (12-20); Bilirubin,Total 0.2 mg/dL (0.3-1.2); Blood Urea Nitrogen 22 mg/dL (9-23); Calcium 8.3 mg/dL (8.3-10.6); Calcium (Corrected) 9.3 mg/dL (8.5-10.1); Chloride 104 mMol/L (98-107); Estimated Creatinine Clearance 53.8 mL/min (>60); Globulin 2.3 gm/dL (2.3-3.5); Glucose 72 mg/dL (74-106); Magnesium 1.9 mg/dL (1.6-2.6); Osmolality,Calculated 277 (275-295); Potassium 3.7 mMol/L (3.4-5.1); Sodium 138 mMol/L (136-145); eGFR > 60 See Note
[2025-02-08] MEDS: FERROUS SULF 325 MG TABLET PO (08:26)
[2025-02-08] MEDS: TAMSULOSIN HCL 0.4 MG CAPSULE PO (08:26)
[2025-02-08] MEDS: Lisinopril 20 MG TABLET PO (08:27)
[2025-02-08] MEDS: FINASTERIDE 5 MG TABLET PO (08:28)
[2025-02-08] MEDS: HEPARIN SOD INJ 5000 UNIT/ML VIAL SC ×2 (08:28→20:19)
[2025-02-08] MEDS: POTASSIUM CHLORIDE 20 mEq TABCR PO (08:45)
[2025-02-08] MEDS: POLYETHYLENE GLYCOL 17 GM PACKET PO (08:45)
--- NOTE | 2025-02-08 10:40 | PC.SS ---
Addendum entered by Chasidy Pollard 02/08/25 11:21: Follow up note: SS received a call from , Abdulkadir. She was upset and crying on phone indicating she cannot take care of him any more. states he's out of his mind and doesn't listen and he gets aggressive. SS will send out inquiry throughout [facility] on [employer]. Patient will need [facility] care. Original Note: Follow up note: Patient may d/c home today. SS spoke to Alexandra garcia, who is aware. SS attempted to contact but voice mail was not set up and she did not pickling solution maker. Patient already has IHSS and will benefit from home health services. SS provided careprovider with the number for [facility]'s 24 hour [facility]SS program. Patient will benefit from this. Careprovisophie states they may need a hospital bed. SS attempting to verify with . Careprovider will attempt to have call us here.
[2025-02-08] MEDS: INSULIN LISPRO (AdmeLOG) 1 UNIT/0.01 ML UNIT SC ×3 (12:34→20:17)
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
--- NOTE | 2025-02-08 14:49 | ESPR_ITS ---
Documentation for date of: 02/08/25 Subjective Subjective Interval history: Patient seen and examined at bedside. No acute overnight events. Patient still has weakness in bilateral upper extremities. MRI brain was negative, no acute infarct. Patient will benefit from outpatient workup for foraminal stenosis as well as MSK evaluation vis a vis rotator cuff. Exam Vital Signs Temp Pulse Resp BP Pulse Ox O2 Del Method 98.0 F 78 17 158/86 H 98 Room Air 02/08/25 12:00 02/08/25 12:02/08/25 12:02/08/25 12:02/08/25 12:02/08/25 12:00 Narrative Exam GENERAL: AAOX3 NEURO: GCS-15, cranial 2 through 12 grossly intact. Strength 5/5 in bilateral lower extremities, strength in left upper extremity, 4/5 and 3/5 in right upper. Intact sensation, unable to assess [id number] test due to decreased range of motion. Reflexes normal HEENT: Moist mucosa. Eyes open, symmetrical, & clear CARDIO: No chest pain on palpation. Heart RRR, no obvious murmurs PULM: No noted coughing/dyspnea. Lungs CTA B/L GI: Abdomen soft, nondistended, no pain on palpation. BSx4 URO/SUPERVISOR PLASMA:: No further abnormalities noted. SKIN/MSK/EXT: Decreased range of motion in bilateral upper extremities, unable to abduct at right shoulder Objective Labs 02/09/25 04:47 02/09/25 04:47 Labs: Laboratory Results - last 24 hr 02/08/25 05:21 WBC 4.3 RBC 2.72 L Hgb 8.0 L Hct 23.5 L MCV 86 MCH 29.4 MCHC 34.0 RDW Std Deviation 46.2 H Plt Count 350 Neut % (Auto) 56 Lymph % (Auto) 30 [place] % (Auto) 8 Eos % (Auto) 4 Baso % (Auto) 1 Neut # (Auto) 2.4 Lymph # (Auto) 1.3 [place] # (Auto) 0.4 Eos # (Auto) 0.2 Baso # (Auto) 0.0 Immature Gran # (Auto) 0.01 H Absolute Nucleated RBC 0.00 Immature Gran % 0 Nucleated RBC % 0 Sodium 138 Potassium 3.7 Chloride 104 Carbon Dioxide 27.0 Anion Gap 7 BUN 22 Creatinine 1.0 Estim Creat Clear Calc 53.8 L eGFR > 60 BUN/Creatinine Ratio 22 H Glucose 72 L D Calculated Osmolality 277 Calcium 8.3 Corrected Calcium 9.3 Phosphorus 4.0 Magnesium 1.9 Total Bilirubin 0.2 L AST 17 ALT 21 Alkaline Phosphatase 47 Total Protein 5.0 L Albumin 2.7 L Globulin 2.3 Albumin/Globulin Ratio 1.2 Quality Measures Quality Measures none Advance care planning discussed with:: patient Assessment & Plan Assessment Current Active Medications: Generic Name Dose Route Start Last Admin Trade Name Dayanna PRN Reason Stop Dose Admin Acetaminophen 650 mg 02/06/25 21:44 Acetaminophen 325 Mg Tablet PO 03/08/25 21:43 Q6H PRN Fever >101.5 Acetaminophen 650 mg 02/06/25 21:44 Acetaminophen 325 Mg Tablet PO 03/08/25 21:43 Q6H PRN PAIN SCALE 1-3 (mild Aspirin 81 mg 02/07/25 21:00 02/07/25 20:57 Aspirin Ec 81 Mg Tabec PO 03/09/25 20:59 81 mg HS YOLI Administration Atorvastatin Calcium 40 mg 02/07/25 21:00 02/07/25 20:56 Atorvastatin Calcium 20 Mg Tablet PO 03/09/25 20:59 40 mg HS YOLI Administration Dextrose 25 ml 02/06/25 21:53 Dextrose 50%-Water Inj 50 Ml Syringe IV 03/08/25 21:52 Q15MIN PRN BG 50-70 responsive npo pt Dextrose 50 ml 02/06/25 21:53 Dextrose 50%-Water Inj 50 Ml Syringe IV 03/08/25 21:52 Q15MIN PRN BG <50 OR BG <70 & pt unresponsive Ferrous Sulfate 325 mg 02/08/25 09:00 02/08/25 08:26 Ferrous Sulf 325 Mg Tablet PO 03/10/25 08:59 325 mg QOD YOLI Administration Finasteride 5 mg 02/07/25 09:00 02/08/25 08:28 Finasteride 5 Mg Tablet PO 03/09/25 08:59 5 mg QDAY YOLI Administration Glucagon 1 mg 02/06/25 21:53 Glucagon Inj 1 Mg Vial IM Q15MIN PRN BG <70, and no IV access Heparin Sodium (Porcine) 5,000 unit 02/07/25 21:00 02/08/25 08:28 Heparin Sod Inj 5000 Unit/Ml Vial SC 02/21/25 20:59 5,000 unit Q12HR YOLI Administration Insulin Glargine 12 unit 02/06/25 21:55 02/07/25 21:28 Insulin Glargine (Lantus) 5 Unit/0.05 Ml (Per 5 Units) SC 03/08/25 21:54 12 unit HS YOLI Administration Insulin Human Lispro 0 unit 02/07/25 12:00 02/08/25 12:34 Insulin Lispro (Admelog) 1 Unit/0.01 Ml Unit SC 03/09/25 11:59 1 unit ACHS YOLI Administration Protocol Lisinopril 20 mg 02/07/25 09:00 02/08/25 08:27 Lisinopril 20 Mg Tablet PO 03/09/25 08:59 20 mg QDAY YOLI Administration Polyethylene Glycol 17 gm 02/08/25 09:00 02/08/25 08:45 Polyethylene Glycol 17 Gm Packet PO 03/10/25 08:59 17 gm QDAY YOLI Administration Tamsulosin HCl 0.4 mg 02/07/25 09:00 02/08/25 08:26 Tamsulosin Hcl 0.4 Mg Capsule PO 03/09/25 08:59 0.4 mg QDAY YOLI Administration Plan Summary: The patient is a 64-year-old male with past medical history of hypertension, diabetes complicated by diabetic foot ulcer, BPH who was brought to the ED on 02/06/2025 with complaints of generalized weakness. #Bilateral upper extremity weakness #Bilateral contractures #CVA ruled out The patient presented with progressive generalized weakness in his bilateral upper extremities for last 10 days. Lower extremities have been fine, no weakness and patient does have a decent gait otherwise, he did have a fall about [address] was done which was negative for acute hemorrhage, mass effect or midline shift. On examination, patient has decreased range of motion and some decrease strength in bilateral lower extremities, however patient patient with deficits makes it unlikely to be as result of CVA. However, we will still obtain an MRI to complete the workup. Consider rotator cuff assessment, can be evaluated as an outpatient CT cervical spine was done which showed no acute fracture but degenerative disc disease with follow-up MRI suggested. Shoulder x-ray also negative. MRI brain negative Plan: -Physical therapy -Consider rotator cuff assessment as well as outpatient follow up for stenosis #Hypertensive urgency #History of type II DM #History of BPH -Management per primary team Case was discussed with attending physician, Dr Brown Slater MD PGY-1 Disclaimer: This note was dictated by speech recognition. Minor errors in funeral home location manager may be present due to voice recognition software. Attending Provider Attestation/Addendum I personally have seen and examined the patient at the bedside and agree with resident's findings, assessment and plan of care. Continue with range of motion involving both upper extremities. He would need MRI of the cervical spine to look for cervical spinal stenosis contributing to upper extremity weakness. Will do EMG nerve conduction study as an outpatient. Continue with the physical therapy for now.
--- NOTE | 2025-02-08 14:56 | PC.SS ---
SS received call from Calin at [facility] who explained previous inquiry sent on [facility] was not accurate. SS cancelled inquiry from [facility] and resubmitted with correct information. SS sent inquiry to SNF within 50 mile radius from [facility].
--- NOTE | 2025-02-08 19:36 | PC.NURSE ---
called Alexandra(careprovider) tel#[phone] re home med rec- Alexandra doesn't have pt home med lists or home med bottles, and doesn't know which pharmacy pt's gets his prescription meds.
[2025-02-08] MEDS: ACETAMINOPHEN 325 MG TABLET 650 MG PO (19:56)
[2025-02-08] MEDS: ATORVASTATIN CALCIUM 20 MG TABLET 40 MG PO (20:16)
[2025-02-08] MEDS: ASPIRIN EC 81 MG TABEC PO (20:16)
[2025-02-08] MEDS: INSULIN GLARGINE (Lantus) 5 UNIT/0.05 ML (PER 5 UNITS) 12 UNIT SC (20:18)
[2025-02-09] VITALS (9 sets, daily range): BP systolic 120–185; BP diastolic 76–105; PULSE 70–83; RESP 12–21; TEMP 36.3–37.3; O2SAT 95–97; BMI 23.1; BMI 12.0
[2025-02-09 05:38] LABS: Basophils # (Auto) 0.1 Thou/mm3 (0.0-0.2); Basophils % (Auto) 1 % (0-2.5); Eosinophils # (Auto) 0.2 Thou/mm3 (0.0-0.5); Eosinophils % (Auto) 3 % (0-10); Hematocrit 23.8 % (41.0-53.0); Immature Granulocytes % (Auto) 1 % (0-0); Immature Granulocytes Auto 0.06 Thou/mm3 (0.00-0.00); Lymphocytes # (Auto) 1.6 Thou/mm3 (1.0-4.8); Lymphocytes % (Auto) 27 % (10-50); Mean Corpuscular HGB Conc 33.2 g/dl (31.0-37.0); Mean Corpuscular Hemoglobin 29.5 pg (25.0-35.0); Mean Corpuscular Volume 89 fL (80-100); Monocytes # (Auto) 0.4 Thou/mm3 (0.0-0.8); Monocytes % (Auto) 7 % (0-12); Neutrophils # (Auto) 3.5 Thou/mm3 (1.8-7.7); Neutrophils % (Auto) 61 % (37-80); Nucleated Red Blood Cell % 0 /100 WBC (0); Platelet Count 401 Thou/mm3 (140-440); RDW Standard Deviation 46.6 fL (35.1-43.9); Red Blood Count 2.68 Miln/mm3 (4.50-5.90); White Blood Count 5.8 Thou/mm3 (3.8-10.6)
[2025-02-09 05:40] LABS: Hemoglobin 7.9 g/dL (13.5-16.0)
[2025-02-09 06:14] LABS: Alanine Aminotransferase 46 U/L (10-49); Albumin, Serum 2.8 gm/dL (3.4-4.8); Albumin/Globulin Ratio 1.2 (1.2-2.2); Alkaline Phosphatase 55 U/L (46-116); Anion Gap 6 (7-16); Aspartate Amino Transferase 48 U/L (0-34); BUN/Creatinine Ratio 21 Ratio (12-20); Bilirubin,Total 0.2 mg/dL (0.3-1.2); Blood Urea Nitrogen 25 mg/dL (9-23); Carbon Dioxide 27.7 mMol/L (20.0-31.0); Chloride 99 mMol/L (98-107); Creatinine (Component) 1.2 mg/dL (0.6-1.3); Estimated Creatinine Clearance 44.8 mL/min (>60); Globulin 2.3 gm/dL (2.3-3.5); Glucose 217 mg/dL (74-106); Magnesium 1.9 mg/dL (1.6-2.6); Osmolality,Calculated 277 (275-295); Phosphorous 4.1 mg/dL (2.4-5.1); Potassium 4.6 mMol/L (3.4-5.1); Sodium 133 mMol/L (136-145); Total Protein 5.1 gm/dL (5.7-8.2); eGFR > 60 See Note
[2025-02-09] MEDS: INSULIN LISPRO (AdmeLOG) 1 UNIT/0.01 ML UNIT SC ×4 (07:30→20:30)
[2025-02-09] MEDS: Magnesium Sulfate 2 GM Ivpb 2 GM/50 ML BAG IV (09:21)
[2025-02-09] MEDS: FINASTERIDE 5 MG TABLET PO (09:22)
[2025-02-09] MEDS: TAMSULOSIN HCL 0.4 MG CAPSULE PO (09:22)
[2025-02-09] MEDS: Lisinopril 20 MG TABLET 30 MG PO (09:23)
[2025-02-09] MEDS: HEPARIN SOD INJ 5000 UNIT/ML VIAL SC ×2 (09:29→20:32)
[2025-02-09] MEDS: INSULIN LISPRO (AdmeLOG) 1 UNIT/0.01 ML UNIT 3 UNIT SC ×3 (11:57→20:31)
--- NOTE | 2025-02-09 13:08 | PC.SS ---
Follow up note: SS reviewed [facility]. [facility], [facility], [facility], and [facility] all accepted patient for placement. SS updated that patient has not had any reported behaviors here in our hospital. However, he has had some behaviors at SNF prior. Patient was yelling out prior at [facility]. Family has no preference. [facility] had a bed available today and could start auth. SS will updated patient and family today. This is only short term rehab. Updated physician team.
--- NOTE | 2025-02-09 14:16 | ESPR_ITS ---
<Statement entered by Azul Lozano MD - 02/09/25 14:34> No acute overnight events. Blood pressure was running a little bit on the higher side, patient started on lisinopril 30, will continue close monitor blood pressure. Blood glucose is above 200, patient is on lispro 3u AC as well as her Lantus 12. Will continue close monitoring. health and social care teacher Samara present to [facility], pending authorization. I personally saw and examined the patient and discussed the assessment and plan with the entire medicine team, including my attending , Azul Lozano M.D. PGY-2 Disclaimer: Despite multiple revisions, due to the dictation software being used, the document bellow may not be free of grammatical errors including phonetic/typographic errors. However, this does not deter from our commitment to providing health care in the patient's best interest in mind. Documentation for date of: 02/09/25 Subjective Subjective Interval history: NO acute events overnight. Patient is pending SNF placement. Patient was sad that there was no acute intervention to be taken for his upper extremity weakness. Long acting glargine increased. Scheduled Lispro added. Exam Vital Signs Temp Pulse Resp BP Pulse Ox O2 Del Method 97.5 F 80 15 120/80 97 Room Air 02/09/25 12:00 02/09/25 14:06 02/09/25 12:00 02/09/25 14:06 02/09/25 12:00 02/09/25 12:00 Narrative Exam General Appearance: Alert & Oriented X3, well-nourished male who is lying in bed in no acute distress HEENT: Skull symmetrical and atraumatic. Conjunctivae pin and moist. Pupils equal, round, reactive to light and accommodation (PERRL). External ear without lesion or discharge. Straight, nares patient, mucosa pink, no discharge. No thyroid nodule appreciated. Cardio: Normal Rate and Rhythm with S1 and S2 heart sounds. No murmurs or extra heart sounds auscultated. No bruits on carotid auscultation. Left upper extremity swelling, dvt ruled out. Lungs: Symmetric with good expansion. Chest and back non-tender. Breath sounds vesicular without crackles, wheezing or rhonchi Abdomen: Non-tender, Non-distended, Normal Reactive Bowel Sounds Neuro: Alert, cooperative, oriented to person, place, and time. Speech clear. CN grossly intact. Upper motor strength 2/5 and Lower motor strength 4/5. Mild hyperreflexia at lower extremities. Sensation intact. Objective Labs 02/09/25 04:47 02/09/25 04:47 Labs: Laboratory Results - last 24 hr 02/09/25 04:47 WBC 5.8 RBC 2.68 L Hgb 7.9 L Hct 23.8 L MCV 89 MCH 29.5 MCHC 33.2 RDW Std Deviation 46.6 H Plt Count 401 D Neut % (Auto) 61 Lymph % (Auto) 27 [place] % (Auto) 7 Eos % (Auto) 3 Baso % (Auto) 1 Neut # (Auto) 3.5 Lymph # (Auto) 1.6 [place] # (Auto) 0.4 Eos # (Auto) 0.2 Baso # (Auto) 0.1 Immature Gran # (Auto) 0.06 H Absolute Nucleated RBC 0.00 Immature Gran % 1 H Nucleated RBC % 0 Sodium 133 L Potassium 4.6 D Chloride 99 Carbon Dioxide 27.7 Anion Gap 6 L BUN 25 H Creatinine 1.2 Estim Creat Clear Calc 44.8 L eGFR > 60 BUN/Creatinine Ratio 21 H Glucose 217 H D Calculated Osmolality 277 Calcium 8.0 L Corrected Calcium 9.0 Phosphorus 4.1 Magnesium 1.9 Total Bilirubin 0.2 L AST 48 H ALT 46 Alkaline Phosphatase 55 Total Protein 5.1 L Albumin 2.8 L Globulin 2.3 Albumin/Globulin Ratio 1.2 Quality Measures Quality Measures none Advance care planning discussed with:: patient Assessment & Plan Assessment Current Active Medications: Generic Name Dose Route Start Last Admin Trade Name Dayanna PRN Reason Stop Dose Admin Acetaminophen 650 mg 02/06/25 21:44 Acetaminophen 325 Mg Tablet PO 03/08/25 21:43 Q6H PRN Fever >101.5 Acetaminophen 650 mg 02/06/25 21:44 02/08/25 19:56 Acetaminophen 325 Mg Tablet PO 03/08/25 21:43 650 mg Q6H PRN Administration PAIN SCALE 1-3 (mild Aspirin 81 mg 02/07/25 21:00 02/08/25 20:16 Aspirin Ec 81 Mg Tabec PO 03/09/25 20:59 81 mg HS YOLI Administration Atorvastatin Calcium 40 mg 02/07/25 21:00 02/08/25 20:16 Atorvastatin Calcium 20 Mg Tablet PO 03/09/25 20:59 40 mg HS YOLI Administration Dextrose 25 ml 02/06/25 21:53 Dextrose 50%-Water Inj 50 Ml Syringe IV 03/08/25 21:52 Q15MIN PRN BG 50-70 responsive npo pt Dextrose 50 ml 02/06/25 21:53 Dextrose 50%-Water Inj 50 Ml Syringe IV 03/08/25 21:52 Q15MIN PRN BG <50 OR BG <70 & pt unresponsive Ferrous Sulfate 325 mg 02/08/25 09:00 02/08/25 08:26 Ferrous Sulf 325 Mg Tablet PO 03/10/25 08:59 325 mg QOD YOLI Administration Finasteride 5 mg 02/07/25 09:00 02/09/25 09:22 Finasteride 5 Mg Tablet PO 03/09/25 08:59 5 mg QDAY YOLI Administration Glucagon 1 mg 02/06/25 21:53 Glucagon Inj 1 Mg Vial IM Q15MIN PRN BG <70, and no IV access Heparin Sodium (Porcine) 5,000 unit 02/07/25 21:00 02/09/25 09:29 Heparin Sod Inj 5000 Unit/Ml Vial SC 02/21/25 20:59 5,000 unit Q12HR [facility] Administration Insulin Glargine 12 unit 02/06/25 21:55 02/08/25 20:18 Insulin Glargine (Lantus) 5 Unit/0.05 Ml (Per 5 Units) SC 03/08/25 21:54 12 unit HS [facility] Administration Insulin Human Lispro 0 unit 02/07/25 12:00 02/09/25 11:33 Insulin Lispro (Admelog) 1 Unit/0.01 Ml Unit ME 03/09/25 11:59 3 unit [facility] Administration Protocol Insulin Human Lispro 3 unit 02/09/25 11:30 02/09/25 11:57 Insulin Lispro (Admelog) 1 Unit/0.01 Ml Unit ME 03/11/25 11:29 3 unit [facility] Administration Lisinopril 40 mg 02/10/25 09:00 Lisinopril 20 Mg Tablet PO 03/12/25 08:59 QDAY YOLI Polyethylene Glycol 17 gm 02/08/25 09:00 02/09/25 09:25 Polyethylene Glycol 17 Gm Packet PO 03/10/25 08:59 Not Given QDAY YOLI Quetiapine Fumarate 25 mg 02/09/25 21:00 Quetiapine Fumarate 25 Mg Tablet PO 03/11/25 20:59 HS YOLI Tamsulosin HCl 0.4 mg 02/07/25 09:00 02/09/25 09:22 Tamsulosin Hcl 0.4 Mg Capsule PO 03/09/25 08:59 0.4 mg QDAY YOLI Administration Plan The patient is a 64-year-old male with significant past medical history of hypertension, IDDM, diabetic foot ulcer, who was brought into ED with chief complaint of generalized weakness likely secondary to cervical stenosis as stroke was ruled out. #Bilateral upper extremity weakness #Cervical Myelopathy #Mechanical Fall #CVA, ruled out Etiology: Given recent traumatic fall about 1 month ago and stenosis noted on imaging, likely secondary to mechanical fall about 1 month ago that caused cervical myelopathy vs radiculopathy vs less likely secondary to stroke given negative MRI and CT head Vs less likely secondary to demylination from vitamin deficiency as normal levels. Less likely secondary to autoimmune such as polymyositis Diagnostics: Syphilis Non-Reactive B6 pending, B12 762, Vitamin D 11.4, Folate 8.21 TSH 7.28 and Free T4 1.02 Brain MRI: Limited study. Negative for acute hemorrhage mass effect or midline shift. No acute infarct Head CT: Negative for acute hemorrhage, mass effect or midline shift Shoulder X-ray: No Shoulder Fracture or Dislocation Cervial Spine: C1 exhibit satisfactory relationship to the odontoid. No acute cervical vertebral body fracture seen.Alignment posterior spinous processes satisfactory. Cervical fusion C3-C4 Advanced degenerative disc disease C4-C5, C5-C6, C6-C7, C7-T1 C3-C4 moderate bilateral neural foraminal stenosis C4-C5 moderate right neural foraminal stenosis C5-C6 advanced right and moderate left neural foraminal stenosis C6-C7 moderate bilateral neural foraminal stenosis Plan: -Pending SNF -Physical therapy -Outpatinet follow up w/ neurology vs neurosurgeon -Appreciate recommendation Dr. Dasilva #Insulin-dependent diabetes mellitus type 2 #Hyperglycemia #HLD Etiology: long standing history of diabetes mellitus type 2 who was previously discharged on Glargine 10 units and Tulicity 0.75 mg SubQ weekly. On admission blood glucose of 469 w/ A1c of 1104 (February 07 2025). Diagnostic: A1c 11 (02/2025) Lipid Panel Triglycerides 123, Cholesterol 195, LDL 120, HDL 50 Plan: -Glargine 12 units HS -Lispro 3 w/ meals -Lispro Sliding Scale -Atorvastatin 40 mg HS -Follow up with Fasting Blood Glucose #Primary Hypertension On admission, elevated blood pressure of 193/94 despite home medication of amlodipine 10 mg and lisinopril 20 mg Qday. Systolic Blood pressure <150, consider increasing lisinopril if blood pressure increase. Diagnostics: urine 2+protein Plan -Lisinopril 40 Qday-home dose -Hold Amlodipine given left upper extremity swelling. -IV hydralazine PRN #Microcytic anemia Likely secondary to anemia of chronic disease given normal MCV levels, treat underlying condition. Iron Panel: Iron 30, Iron saturation 12, TIBC 231, Unsaturated 201 Plan: -Iron Sucrose x1 -Ferrous Sulfate 325 02/08/2025 -Continue to monitor hemoglobin daily a.m. Upper Extremity Edema, improved Likely secondary to decrease use as patient stated over the past month, decreasing motor function vs Amlodipine side effect Vs less likley secondary to DVT given negative U/S. Plan No acute intervention monitor #BPH Started on home finasteride 5mg daily and tamsulosin 0.4mg daily #Agitation Plan -Seroquel 25 mg HS #Pseudohyponatremia, resolved. #Hypertensive urgency, improved Health maintenance: Dispo: Patient admitted to telemetry unit for further management generalized weakness, pending SNF placement DVT prophylaxis: Subcu heparin Diet: Mechanical Diet 2 CODE STATUS: Full code - The patient's plan was discussed with attending Dr. Bailey and senior residents Dr. Blake Palacios MD PGY1 Internal Medicine Attending Provider Attestation/Addendum I have discussed and was present for the essential components of the history, physical examination, diagnosis, and treatment plan with the resident. I agree with the patient's care as documented by the resident and amended herein by me. Abdulkadir Bailey DO. Patient stable, pending placement Although this document has been carefully reviewed, there may still be some phonetic and other typographical errors. These errors are purely grammatical due to imperfections in the software program and should not be construed in any way to compromise the substance of the patient's medical care during this visit.
[2025-02-09] MEDS: ASPIRIN EC 81 MG TABEC PO (20:26)
[2025-02-09] MEDS: ATORVASTATIN CALCIUM 20 MG TABLET 40 MG PO (20:26)
[2025-02-09] MEDS: INSULIN GLARGINE (Lantus) 5 UNIT/0.05 ML (PER 5 UNITS) 12 UNIT SC (20:32)
[2025-02-09] MEDS: QUEtiapine FUMARATE 25 MG TABLET PO (20:33)
[2025-02-10] VITALS (8 sets, daily range): BP systolic 115–175; BP diastolic 68–97; PULSE 60–78; RESP 14–20; TEMP 36.1–36.6; O2SAT 96–98; BMI 23.6
--- NOTE | 2025-02-10 00:10 | PD.NEUROPROG ---
Documentation for date of: 02/10/25 Subjective Subjective Interval history: Patient is in telemetry. No new symptoms reported continues to have bilateral upper extremity weakness. Exam - Neurology Vital Signs Temp Pulse Resp BP Pulse Ox O2 Del Method 97.3 F 83 20 127/76 95 Room Air 02/09/25 20:00 02/09/25 20:00 02/09/25 20:00 02/09/25 20:00 02/09/25 20:00 02/09/25 20:00 Objective Labs 02/09/25 04:47 02/09/25 04:47 Labs: Laboratory Results - last 24 hr 02/09/25 04:47 WBC 5.8 RBC 2.68 L Hgb 7.9 L Hct 23.8 L MCV 89 MCH 29.5 MCHC 33.2 RDW Std Deviation 46.6 H Plt Count 401 D Neut % (Auto) 61 Lymph % (Auto) 27 [place] % (Auto) 7 Eos % (Auto) 3 Baso % (Auto) 1 Neut # (Auto) 3.5 Lymph # (Auto) 1.6 [place] # (Auto) 0.4 Eos # (Auto) 0.2 Baso # (Auto) 0.1 Immature Gran # (Auto) 0.06 H Absolute Nucleated RBC 0.00 Immature Gran % 1 H Nucleated RBC % 0 Sodium 133 L Potassium 4.6 D Chloride 99 Carbon Dioxide 27.7 Anion Gap 6 L BUN 25 H Creatinine 1.2 Estim Creat Clear Calc 44.8 L eGFR > 60 BUN/Creatinine Ratio 21 H Glucose 217 H D Calculated Osmolality 277 Calcium 8.0 L Corrected Calcium 9.0 Phosphorus 4.1 Magnesium 1.9 Total Bilirubin 0.2 L AST 48 H ALT 46 Alkaline Phosphatase 55 Total Protein 5.1 L Albumin 2.8 L Globulin 2.3 Albumin/Globulin Ratio 1.2 Assessment & Plan Additional Assessment & Plan Additional Plan: 64-year-old male with past medical history of hypertension, diabetes complicated by diabetic foot ulcer, BPH who was brought to the ED on 02/06/2025 with complaints of generalized weakness. #Bilateral upper extremity weakness #Bilateral contractures #CVA rule out The patient presented with progressive generalized weakness in his bilateral upper extremities for last 10 days. Lower extremities have been fine, no weakness and patient does have a decent gait otherwise, he did have a fall about [address] was done which was negative for acute hemorrhage, mass effect or midline shift. On examination, patient has decreased range of motion and some decrease strength in bilateral lower extremities, however patient patient with deficits makes it unlikely to be as result of CVA. MRI: Negative for acute infarction CT cervical spine was done which showed no acute fracture but degenerative disc disease with follow-up MRI suggested. Shoulder x-ray also negative. Plan: -Pending MRI C-spine -Physical therapy #Hypertensive urgency #History of type II DM #History of BPH -Management per primary team
[2025-02-10 06:00] LABS: Magnesium 2.3 mg/dL (1.6-2.6); Phosphorous 3.9 mg/dL (2.4-5.1)
[2025-02-10] MEDS: TAMSULOSIN HCL 0.4 MG CAPSULE PO (08:35)
[2025-02-10] MEDS: FERROUS SULF 325 MG TABLET PO (08:35)
[2025-02-10] MEDS: Lisinopril 20 MG TABLET 40 MG PO (08:36)
[2025-02-10] MEDS: FINASTERIDE 5 MG TABLET PO (08:36)
[2025-02-10] MEDS: HEPARIN SOD INJ 5000 UNIT/ML VIAL SC ×2 (08:37→21:05)
[2025-02-10] MEDS: POLYETHYLENE GLYCOL 17 GM PACKET PO (08:37)
[2025-02-10] MEDS: amLODIPine BESYLATE 5 MG TABLET PO (08:45)
--- NOTE | 2025-02-10 09:32 | PC.SS ---
FORESTRY CONSULTANT met with pt to inform pt that he will be going to a SNF ([facility]) once there is a auth, FORESTRY CONSULTANT called Stephanie but no answer, so FORESTRY CONSULTANT called Alexandra a friend of pt and informed on discharge update. Alexandra stated that she would be calling to inform her.
[2025-02-10] MEDS: INSULIN LISPRO (AdmeLOG) 1 UNIT/0.01 ML UNIT 3 UNIT SC ×3 (12:13→21:09)
--- NOTE | 2025-02-10 12:14 | PD.RESPRO ---
Documentation for date of: 02/10/25 Subjective Subjective Interval history: No over night events. Patient is pending SNF placement in [place] until Wednesday. Exam Vital Signs Temp Pulse Resp BP Pulse Ox O2 Del Method 97.6 F 70 20 149/85 H 97 Room Air 02/10/25 12:00 02/10/25 12:00 02/10/25 12:00 02/10/25 12:00 02/10/25 12:00 02/10/25 12:00 Narrative Exam General Appearance: Alert & Oriented X3, well-nourished male who is lying in bed in no acute distress HEENT: Skull symmetrical and atraumatic. Conjunctivae pin and moist. Pupils equal, round, reactive to light and accommodation (PERRL). External ear without lesion or discharge. Straight, nares patient, mucosa pink, no discharge. No thyroid nodule appreciated. Cardio: Normal Rate and Rhythm with S1 and S2 heart sounds. No murmurs or extra heart sounds auscultated. No bruits on carotid auscultation. Left upper extremity swelling, dvt ruled out. Lungs: Symmetric with good expansion. Chest and back non-tender. Breath sounds vesicular without crackles, wheezing or rhonchi Abdomen: Non-tender, Non-distended, Normal Reactive Bowel Sounds Neuro: Alert, cooperative, oriented to person, place, and time. Speech clear. CN grossly intact. Upper motor strength 2/5 and Lower motor strength 4/5. Mild hyperreflexia at lower extremities. Sensation intact. Objective Labs 02/09/25 04:47 02/09/25 04:47 Labs: Laboratory Results - last 24 hr 02/10/25 04:37 Phosphorus 3.9 Magnesium 2.3 Quality Measures Quality Measures none Advance care planning discussed with:: patient Assessment & Plan Assessment Current Active Medications: Generic Name Dose Route Start Last Admin Trade Name Freq PRN Reason Stop Dose Admin Acetaminophen 650 mg 02/06/25 21:44 Acetaminophen 325 Mg Tablet PO 03/08/25 21:43 Q6H PRN Fever >101.5 Acetaminophen 650 mg 02/06/25 21:44 02/08/25 19:56 Acetaminophen 325 Mg Tablet PO 03/08/25 21:43 650 mg Q6H PRN Administration PAIN SCALE 1-3 (mild Amlodipine Besylate 5 mg 02/10/25 09:00 02/10/25 08:45 Amlodipine Besylate 5 Mg Tablet PO 03/12/25 08:59 5 mg QDAY YOLI Administration Aspirin 81 mg 02/07/25 21:00 02/09/25 20:26 Aspirin Ec 81 Mg Tabec PO 03/09/25 20:59 81 mg HS YOLI Administration Atorvastatin Calcium 40 mg 02/07/25 21:00 02/09/25 20:26 Atorvastatin Calcium 20 Mg Tablet PO 03/09/25 20:59 40 mg HS YOLI Administration Dextrose 25 ml 02/06/25 21:53 Dextrose 50%-Water Inj 50 Ml Syringe IV 03/08/25 21:52 Q15MIN PRN BG 50-70 responsive npo pt Dextrose 50 ml 02/06/25 21:53 Dextrose 50%-Water Inj 50 Ml Syringe IV 03/08/25 21:52 Q15MIN PRN BG <50 OR BG <70 & pt unresponsive Ferrous Sulfate 325 mg 02/08/25 09:00 02/10/25 08:35 Ferrous Sulf 325 Mg Tablet PO 03/10/25 08:59 325 mg QOD YOLI Administration Finasteride 5 mg 02/07/25 09:00 02/10/25 08:36 Finasteride 5 Mg Tablet PO 03/09/25 08:59 5 mg QDAY YOLI Administration Glucagon 1 mg 02/06/25 21:53 Glucagon Inj 1 Mg Vial IM Q15MIN PRN BG <70, and no IV access Heparin Sodium (Porcine) 5,000 unit 02/07/25 21:00 02/10/25 08:37 Heparin Sod Inj 5000 Unit/Ml Vial SC 02/21/25 20:59 5,000 unit Q12HR YOLI Administration Insulin Glargine 16 unit 02/10/25 21:00 Insulin Glargine (Lantus) 5 Unit/0.05 Ml (Per 5 Units) SC 03/12/25 20:59 HS [facility] Insulin Human Lispro 0 unit 02/07/25 12:00 02/10/25 07:37 Insulin Lispro (Admelog) 1 Unit/0.01 Ml Unit SC 03/09/25 11:59 Not Given [facility] Protocol Insulin Human Lispro 3 unit 02/09/25 11:30 02/10/25 07:38 Insulin Lispro (Admelog) 1 Unit/0.01 Ml Unit SC 03/11/25 11:29 Not Given ACHS YOLI Lisinopril 40 mg 02/10/25 09:00 02/10/25 08:36 Lisinopril 20 Mg Tablet PO 03/12/25 08:59 40 mg QDAY YOLI Administration Polyethylene Glycol 17 gm 02/08/25 09:00 02/10/25 08:37 Polyethylene Glycol 17 Gm Packet PO 03/10/25 08:59 17 gm QDAY YOLI Administration Quetiapine Fumarate 25 mg 02/09/25 21:00 02/09/25 20:33 Quetiapine Fumarate 25 Mg Tablet PO 03/11/25 20:59 25 mg HS YOLI Administration Tamsulosin HCl 0.4 mg 02/07/25 09:00 02/10/25 08:35 Tamsulosin Hcl 0.4 Mg Capsule PO 03/09/25 08:59 0.4 mg QDAY YOLI Administration Plan The patient is a 64-year-old male with significant past medical history of hypertension, IDDM, diabetic foot ulcer, who was brought into ED with chief complaint of generalized weakness likely secondary to cervical stenosis as stroke was ruled out. #Bilateral upper extremity weakness #Cervical Myelopathy #Mechanical Fall #CVA, ruled out Etiology: Given recent traumatic fall about 1 month ago and stenosis noted on imaging, likely secondary to mechanical fall about 1 month ago that caused cervical myelopathy vs radiculopathy vs less likely secondary to stroke given negative MRI and CT head Vs less likely secondary to demylination from vitamin deficiency as normal levels. Less likely secondary to autoimmune such as polymyositis Diagnostics: Syphilis Non-Reactive B6 pending, B12 762, Vitamin D 11.4, Folate 8.21 TSH 7.28 and Free T4 1.02 Brain MRI: Limited study. Negative for acute hemorrhage mass effect or midline shift. No acute infarct Head CT: Negative for acute hemorrhage, mass effect or midline shift Shoulder X-ray: No Shoulder Fracture or Dislocation Cervial Spine: C1 exhibit satisfactory relationship to the odontoid. No acute cervical vertebral body fracture seen.Alignment posterior spinous processes satisfactory. Cervical fusion C3-C4 Advanced degenerative disc disease C4-C5, C5-C6, C6-C7, C7-T1 C3-C4 moderate bilateral neural foraminal stenosis C4-C5 moderate right neural foraminal stenosis C5-C6 advanced right and moderate left neural foraminal stenosis C6-C7 moderate bilateral neural foraminal stenosis Plan: -Pending SNF -Physical therapy -Outpatinet follow up w/ neurology vs neurosurgeon -Appreciate recommendation Dr. Dasilva #Insulin-dependent diabetes mellitus type 2 #Hyperglycemia #HLD Etiology: long standing history of diabetes mellitus type 2 who was previously discharged on Glargine 10 units and Tulicity 0.75 mg SubQ weekly. On admission blood glucose of 469 w/ A1c of 1104 (February 07 2025). Diagnostic: A1c 11 (02/2025) Lipid Panel Triglycerides 123, Cholesterol 195, LDL 120, HDL 50 Plan: -Glargine 16 units HS -Lispro 4 w/ meals -Lispro Sliding Scale -Atorvastatin 40 mg HS -Follow up with Fasting Blood Glucose #Primary Hypertension On admission, elevated blood pressure of 193/94 despite home medication of amlodipine 10 mg and lisinopril 20 mg Qday. Systolic Blood pressure <150, consider increasing lisinopril if blood pressure increase. Diagnostics: urine 2+protein Plan -Lisinopril 40 Qday -Amlodipine 5 mg Qday -IV hydralazine PRN #Microcytic anemia Likely secondary to anemia of chronic disease given normal MCV levels, treat underlying condition. Iron Panel: Iron 30, Iron saturation 12, TIBC 231, Unsaturated 201 Plan: -Iron Sucrose x1 -Ferrous Sulfate 325 02/08/2025 -Continue to monitor hemoglobin daily a.m. Upper Extremity Edema, improved Likely secondary to decrease use as patient stated over the past month, decreasing motor function vs Amlodipine side effect Vs less likley secondary to DVT given negative U/S. Plan No acute intervention monitor #BPH Started on home finasteride 5mg daily and tamsulosin 0.4mg daily #Agitation Plan -Seroquel 25 mg HS #Pseudohyponatremia, resolved. #Hypertensive urgency, improved Health maintenance: Dispo: Patient admitted to telemetry unit for further management generalized weakness, pending SNF placement on Wednesday at [place] DVT prophylaxis: Subcu heparin Diet: Mechanical Diet 2 CODE STATUS: Full code The patient's plan was discussed with attending Dr. Leo Palacios MD PGY1 Internal Medicine Attending Provider Attestation/Addendum I have discussed and was present for the essential components of the history, physical examination, diagnosis, and treatment plan with the resident. I agree with the patient's care as documented by the resident and amended herein by me. Abdulkadir Bailey DO. Patient seen and evaluated this AM. No acute events overnight, patient pending SNF placement, insurance authorization pending Although this document has been carefully reviewed, there may still be some phonetic and other typographical errors. These errors are purely grammatical due to imperfections in the software program and should not be construed in any way to compromise the substance of the patient's medical care during this visit.
[2025-02-10] MEDS: INSULIN LISPRO (AdmeLOG) 1 UNIT/0.01 ML UNIT SC ×2 (16:45→21:09)
[2025-02-10] MEDS: ATORVASTATIN CALCIUM 20 MG TABLET 40 MG PO (21:04)
[2025-02-10] MEDS: ASPIRIN EC 81 MG TABEC PO (21:04)
[2025-02-10] MEDS: QUEtiapine FUMARATE 25 MG TABLET PO (21:04)
[2025-02-10] MEDS: INSULIN GLARGINE (Lantus) 5 UNIT/0.05 ML (PER 5 UNITS) 16 UNIT SC (21:05)
[2025-02-11] VITALS (7 sets, daily range): BP systolic 119–140; BP diastolic 69–89; PULSE 68–80; RESP 11–20; TEMP 36.1–36.8; O2SAT 96–99; BMI 23.6
[2025-02-11 05:59] LABS: Magnesium 2.1 mg/dL (1.6-2.6); Phosphorous 4.7 mg/dL (2.4-5.1)
[2025-02-11] MEDS: amLODIPine BESYLATE 5 MG TABLET PO (09:30)
[2025-02-11] MEDS: HEPARIN SOD INJ 5000 UNIT/ML VIAL SC ×2 (09:30→21:01)
[2025-02-11] MEDS: POLYETHYLENE GLYCOL 17 GM PACKET PO (09:30)
[2025-02-11] MEDS: Lisinopril 20 MG TABLET 40 MG PO (09:30)
[2025-02-11] MEDS: FINASTERIDE 5 MG TABLET PO (09:30)
[2025-02-11] MEDS: TAMSULOSIN HCL 0.4 MG CAPSULE PO (09:30)
[2025-02-11] MEDS: INSULIN LISPRO (AdmeLOG) 1 UNIT/0.01 ML UNIT SC ×2 (11:18→21:02)
[2025-02-11] MEDS: INSULIN LISPRO (AdmeLOG) 1 UNIT/0.01 ML UNIT 3 UNIT SC ×2 (11:19→21:02)
--- NOTE | 2025-02-11 16:18 | PD.RESPRO ---
Documentation for date of: 02/11/25 Subjective Subjective Interval history: No overnight events. Patient seen examined at bedside, resting comfortably. Denies any change in status, only complains of upper extremity weakness. Pending SNF placement. Exam Vital Signs Temp Pulse Resp BP Pulse Ox O2 Del Method 98.0 F 78 14 125/73 98 Room Air 02/11/25 12:00 02/11/25 12:00 02/11/25 12:00 02/11/25 12:00 02/11/25 12:00 02/11/25 12:00 Narrative Exam General Appearance: Alert & Oriented X3, well-nourished male who is lying in bed in no acute distress HEENT: Skull symmetrical and atraumatic. Conjunctivae pin and moist. Pupils equal, round, reactive to light and accommodation (PERRL). External ear without lesion or discharge. Straight, nares patient, mucosa pink, no discharge. No thyroid nodule appreciated. Cardio: Normal Rate and Rhythm with S1 and S2 heart sounds. No murmurs or extra heart sounds auscultated. No bruits on carotid auscultation. Left upper extremity swelling, dvt ruled out. Lungs: Symmetric with good expansion. Chest and back non-tender. Breath sounds vesicular without crackles, wheezing or rhonchi Abdomen: Non-tender, Non-distended, Normal Reactive Bowel Sounds Neuro: Alert, cooperative, oriented to person, place, and time. Speech clear. CN grossly intact. Upper motor strength 2/5 and Lower motor strength 4/5. Mild hyperreflexia at lower extremities. Sensation intact. Objective Labs 02/09/25 04:47 02/09/25 04:47 Labs: Laboratory Results - last 24 hr 02/11/25 05:10 Phosphorus 4.7 Magnesium 2.1 Quality Measures Quality Measures VTE prophylaxis and none Advance care planning discussed with:: patient Assessment & Plan Assessment Current Active Medications: Generic Name Dose Route Start Last Admin Trade Name Freq PRN Reason Stop Dose Admin Acetaminophen 650 mg 02/06/25 21:44 Acetaminophen 325 Mg Tablet PO 03/08/25 21:43 Q6H PRN Fever >101.5 Acetaminophen 650 mg 02/06/25 21:44 02/08/25 19:56 Acetaminophen 325 Mg Tablet PO 03/08/25 21:43 650 mg Q6H PRN Administration PAIN SCALE 1-3 (mild Amlodipine Besylate 5 mg 02/10/25 09:00 02/11/25 09:30 Amlodipine Besylate 5 Mg Tablet PO 03/12/25 08:59 5 mg QDAY YOLI Administration Aspirin 81 mg 02/07/25 21:00 02/10/25 21:04 Aspirin Ec 81 Mg Tabec PO 03/09/25 20:59 81 mg HS YOLI Administration Atorvastatin Calcium 40 mg 02/07/25 21:00 02/10/25 21:04 Atorvastatin Calcium 20 Mg Tablet PO 03/09/25 20:59 40 mg HS YOLI Administration Dextrose 25 ml 02/06/25 21:53 Dextrose 50%-Water Inj 50 Ml Syringe IV 03/08/25 21:52 Q15MIN PRN BG 50-70 responsive npo pt Dextrose 50 ml 02/06/25 21:53 Dextrose 50%-Water Inj 50 Ml Syringe IV 03/08/25 21:52 Q15MIN PRN BG <50 OR BG <70 & pt unresponsive Ferrous Sulfate 325 mg 02/08/25 09:00 02/10/25 08:35 Ferrous Sulf 325 Mg Tablet PO 03/10/25 08:59 325 mg QOD YOLI Administration Finasteride 5 mg 02/07/25 09:00 02/11/25 09:30 Finasteride 5 Mg Tablet PO 03/09/25 08:59 5 mg QDAY YOLI Administration Glucagon 1 mg 02/06/25 21:53 Glucagon Inj 1 Mg Vial IM Q15MIN PRN BG <70, and no IV access Heparin Sodium (Porcine) 5,000 unit 02/07/25 21:00 02/11/25 09:30 Heparin Sod Inj 5000 Unit/Ml Vial SC 02/21/25 20:59 5,000 unit Q12HR YOLI Administration Insulin Glargine 16 unit 02/10/25 21:00 02/10/25 21:05 Insulin Glargine (Lantus) 5 Unit/0.05 Ml (Per 5 Units) SC 03/12/25 20:59 16 unit HS YOLI Administration Insulin Human Lispro 0 unit 02/07/25 12:00 02/11/25 11:18 Insulin Lispro (Admelog) 1 Unit/0.01 Ml Unit SC 03/09/25 11:59 2 unit ACHS YOLI Administration Protocol Insulin Human Lispro 3 unit 02/09/25 11:30 02/11/25 11:19 Insulin Lispro (Admelog) 1 Unit/0.01 Ml Unit SC 03/11/25 11:29 3 unit ACHS YOLI Administration Lisinopril 40 mg 02/10/25 09:00 02/11/25 09:30 Lisinopril 20 Mg Tablet PO 03/12/25 08:59 40 mg QDAY YOLI Administration Polyethylene Glycol 17 gm 02/08/25 09:00 02/11/25 09:30 Polyethylene Glycol 17 Gm Packet PO 03/10/25 08:59 17 gm QDAY YOLI Administration Quetiapine Fumarate 25 mg 02/09/25 21:00 02/10/25 21:04 Quetiapine Fumarate 25 Mg Tablet PO 03/11/25 20:59 25 mg HS YOLI Administration Sennosides 8.8 mg 02/11/25 11:17 Sennosides Syrup 8.8 Mg/5 Ml Udc PO 03/13/25 11:16 QDAY PRN CONSTIPATION Protocol Tamsulosin HCl 0.4 mg 02/07/25 09:00 02/11/25 09:30 Tamsulosin Hcl 0.4 Mg Capsule PO 03/09/25 08:59 0.4 mg QDAY YOLI Administration Plan The patient is a 64-year-old male with significant past medical history of hypertension, IDDM, diabetic foot ulcer, who was brought into ED with chief complaint of generalized weakness likely secondary to cervical stenosis as stroke was ruled out. #Bilateral upper extremity weakness #Cervical Myelopathy #Mechanical Fall #CVA, ruled out Etiology: Given recent traumatic fall about 1 month ago and stenosis noted on imaging, likely secondary to mechanical fall about 1 month ago that caused cervical myelopathy vs radiculopathy vs less likely secondary to stroke given negative MRI and CT head Vs less likely secondary to demylination from vitamin deficiency as normal levels. Less likely secondary to autoimmune such as polymyositis Syphilis Non-Reactive, B12 762, Vitamin D 11.4, Folate 8.21 TSH 7.28 and Free T4 1.02. Brain MRI: Limited study. Negative for acute hemorrhage mass effect or midline shift. No acute infarct Head CT: Negative for acute hemorrhage, mass effect or midline shift Shoulder X-ray: No Shoulder Fracture or Dislocation Cervial Spine: C1 exhibit satisfactory relationship to the odontoid. No acute cervical vertebral body fracture seen.Alignment posterior spinous processes satisfactory. Cervical fusion C3-C4 Advanced degenerative disc disease C4-C5, C5-C6, C6-C7, C7-T1 C3-C4 moderate bilateral neural foraminal stenosis C4-C5 moderate right neural foraminal stenosis C5-C6 advanced right and moderate left neural foraminal stenosis C6-C7 moderate bilateral neural foraminal stenosis -Pending SNF -Physical therapy -Outpatient follow up w/ neurology vs neurosurgeon -Appreciate recommendation Dr. Dasilva #Insulin-dependent diabetes mellitus type 2 #Hyperglycemia #HLD Etiology: long standing history of diabetes mellitus type 2 who was previously discharged on Glargine 10 units and Tulicity 0.75 mg SubQ weekly. On admission blood glucose of 469 w/ A1c of 1104 (February 07 2025). Diagnostic: A1c 11 (02/2025) Lipid Panel Triglycerides 123, Cholesterol 195, LDL 120, HDL 50 -Glargine 16 units HS -Lispro 4 w/ meals -Lispro Sliding Scale -Atorvastatin 40 mg HS -Follow up with Fasting Blood Glucose #Primary Hypertension On admission, elevated blood pressure of 193/94 despite home medication of amlodipine 10 mg and lisinopril 20 mg Qday. Systolic Blood pressure <150, consider increasing lisinopril if blood pressure increase. Diagnostics: urine 2+protein -Lisinopril 40 Qday -Amlodipine 5 mg Qday -IV hydralazine PRN #Microcytic anemia Likely secondary to anemia of chronic disease given normal MCV levels, treat underlying condition. Iron Panel: Iron 30, Iron saturation 12, TIBC 231, Unsaturated 201 Patient received Iron Sucrose x1 -Ferrous Sulfate 325 02/08/2025 -Continue to monitor hemoglobin daily a.m. #Upper Extremity Edema, improved Likely secondary to decrease use as patient stated over the past month, decreasing motor function vs Amlodipine side effect Vs less likley secondary to DVT given negative U/S. -No acute intervention -monitor #BPH -Started on home finasteride 5mg daily and tamsulosin 0.4mg daily #Agitation -Seroquel 25 mg HS #Pseudohyponatremia, resolved. #Hypertensive urgency, improved Lines: Peripheral IV DVT prophylaxis: Subcu heparin Diet: Mechanical Diet 2 CODE STATUS: Full code Plan of care discussed with attending Dr. Bailey. Sher Perez MD PGY?1 Attending Provider Attestation/Addendum I have discussed and was present for the essential components of the history, physical examination, diagnosis, and treatment plan with the resident. I agree with the patient's care as documented by the resident and amended herein by me. Abdulkadir Bailey DO. Patient seen and evaluated this AM. No acute events overnight, patient pending insurance authorization for SNF placement. Although this document has been carefully reviewed, there may still be some phonetic and other typographical errors. These errors are purely grammatical due to imperfections in the software program and should not be construed in any way to compromise the substance of the patient's medical care during this visit.
[2025-02-11] MEDS: QUEtiapine FUMARATE 25 MG TABLET PO (21:00)
[2025-02-11] MEDS: ATORVASTATIN CALCIUM 20 MG TABLET 40 MG PO (21:00)
[2025-02-11] MEDS: INSULIN GLARGINE (Lantus) 5 UNIT/0.05 ML (PER 5 UNITS) 16 UNIT SC (21:01)
[2025-02-11] MEDS: ASPIRIN EC 81 MG TABEC PO (21:01)
--- NOTE | 2025-02-11 23:41 | PD.VPROG1 ---
Telemedicine visit statement This visit was conducted with the use of interactive audio and video telecommunications system that permits real time communication between the patient and the provider. Patient's verbal consent for virtual visit was obtained on 02/11/25 at 2341. Documentation for date of: 02/11/25 Subjective Subjective Interval history: Patient is in telemetry, continued to have bilateral upper extremity weakness no new symptoms reported Virtual exam Vital Signs Temp Pulse Resp BP Pulse Ox O2 Del Method 97.8 F 79 14 140/82 H 96 Room Air 02/11/25 20:00 02/11/25 20:00 02/11/25 20:00 02/11/25 20:00 02/11/25 20:00 02/11/25 20:00 Objective Labs 02/09/25 04:47 02/09/25 04:47 Labs: Laboratory Results - last 24 hr 02/11/25 05:10 Phosphorus 4.7 Magnesium 2.1 Assessment & Plan Assessment 64-year-old male with past medical history of hypertension, diabetes complicated by diabetic foot ulcer, BPH who was brought to the ED on 02/06/2025 with complaints of generalized weakness. #Bilateral upper extremity weakness #Bilateral contractures #CVA rule out The patient presented with progressive generalized weakness in his bilateral upper extremities for last 10 days. Lower extremities have been fine, no weakness and patient does have a decent gait otherwise, he did have a fall about [address] was done which was negative for acute hemorrhage, mass effect or midline shift. On examination, patient has decreased range of motion and some decrease strength in bilateral lower extremities, however patient patient with deficits makes it unlikely to be as result of CVA. MRI: Negative for acute infarction CT cervical spine was done which showed no acute fracture but degenerative disc disease with follow-up MRI suggested. Shoulder x-ray also negative. Plan: -Pending MRI C-spine -Physical therapy #Hypertensive urgency #History of type II DM #History of BPH -Management per primary team
[2025-02-12] VITALS (9 sets, daily range): BP systolic 119–141; BP diastolic 73–92; PULSE 65–150; RESP 15–20; TEMP 36.2–36.6; O2SAT 95–98; BMI 23.4
[2025-02-12 06:09] LABS: Magnesium 2.3 mg/dL (1.6-2.6); Phosphorous 4.4 mg/dL (2.4-5.1)
[2025-02-12] MEDS: amLODIPine BESYLATE 5 MG TABLET PO (08:37)
[2025-02-12] MEDS: TAMSULOSIN HCL 0.4 MG CAPSULE PO (08:37)
[2025-02-12] MEDS: Lisinopril 20 MG TABLET 40 MG PO (08:38)
[2025-02-12] MEDS: FINASTERIDE 5 MG TABLET PO (08:38)
[2025-02-12] MEDS: FERROUS SULF 325 MG TABLET PO (08:38)
[2025-02-12] MEDS: POLYETHYLENE GLYCOL 17 GM PACKET PO (08:38)
[2025-02-12] MEDS: HEPARIN SOD INJ 5000 UNIT/ML VIAL SC ×2 (08:39→20:01)
--- NOTE | 2025-02-12 09:13 | PC.SS ---
Rounding: Pt is DC ready pending auth for short term rehab with [facility]. SS reached out to Peggy at [facility] via [employer] no response, SS provided call back information to get update on Auth.
[2025-02-12] MEDS: INSULIN LISPRO (AdmeLOG) 1 UNIT/0.01 ML UNIT 3 UNIT SC ×3 (11:41→20:01)
[2025-02-12] MEDS: INSULIN LISPRO (AdmeLOG) 1 UNIT/0.01 ML UNIT SC ×3 (11:42→20:02)
--- NOTE | 2025-02-12 12:24 | PC.SS ---
SS contacted Peggy at [facility] , she stated she reached out to insurance this afternoon, pending a response. SS provided call back #.
--- NOTE | 2025-02-12 13:53 | PD.RESPRO ---
Documentation for date of: 02/12/25 Exam Vital Signs Temp Pulse Resp BP Pulse Ox O2 Del Method 97.8 F 71 19 127/92 H 95 Room Air 02/12/25 12:00 02/12/25 12:00 02/12/25 12:00 02/12/25 12:00 02/12/25 12:00 02/12/25 08:00 Objective Labs 02/09/25 04:47 02/09/25 04:47 Labs: Laboratory Results - last 24 hr 02/12/25 04:50 Phosphorus 4.4 Magnesium 2.3 Quality Measures Quality Measures VTE prophylaxis and none Assessment & Plan Assessment Current Active Medications: Generic Name Dose Route Start Last Admin Trade Name Freq PRN Reason Stop Dose Admin Acetaminophen 650 mg 02/06/25 21:44 Acetaminophen 325 Mg Tablet PO 03/08/25 21:43 Q6H PRN Fever >101.5 Acetaminophen 650 mg 02/06/25 21:44 02/08/25 19:56 Acetaminophen 325 Mg Tablet PO 03/08/25 21:43 650 mg Q6H PRN Administration PAIN SCALE 1-3 (mild Amlodipine Besylate 5 mg 02/10/25 09:00 02/12/25 08:37 Amlodipine Besylate 5 Mg Tablet PO 03/12/25 08:59 5 mg QDAY YOLI Administration Aspirin 81 mg 02/07/25 21:00 02/11/25 21:01 Aspirin Ec 81 Mg Tabec PO 03/09/25 20:59 81 mg HS YOLI Administration Atorvastatin Calcium 40 mg 02/07/25 21:00 02/11/25 21:00 Atorvastatin Calcium 20 Mg Tablet PO 03/09/25 20:59 40 mg HS YOLI Administration Dextrose 25 ml 02/06/25 21:53 Dextrose 50%-Water Inj 50 Ml Syringe IV 03/08/25 21:52 Q15MIN PRN BG 50-70 responsive npo pt Dextrose 50 ml 02/06/25 21:53 Dextrose 50%-Water Inj 50 Ml Syringe IV 03/08/25 21:52 Q15MIN PRN BG <50 OR BG <70 & pt unresponsive Ferrous Sulfate 325 mg 02/08/25 09:00 02/12/25 08:38 Ferrous Sulf 325 Mg Tablet PO 03/10/25 08:59 325 mg QOD YOLI Administration Finasteride 5 mg 02/07/25 09:00 02/12/25 08:38 Finasteride 5 Mg Tablet PO 03/09/25 08:59 5 mg QDAY YOLI Administration Glucagon 1 mg 02/06/25 21:53 Glucagon Inj 1 Mg Vial IM Q15MIN PRN BG <70, and no IV access Heparin Sodium (Porcine) 5,000 unit 02/07/25 21:00 02/12/25 08:39 Heparin Sod Inj 5000 Unit/Ml Vial SC 02/21/25 20:59 5,000 unit Q12HR YOLI Administration Insulin Glargine 16 unit 02/10/25 21:00 02/11/25 21:01 Insulin Glargine (Lantus) 5 Unit/0.05 Ml (Per 5 Units) SC 03/12/25 20:59 16 unit HS YOLI Administration Insulin Human Lispro 0 unit 02/07/25 12:00 02/12/25 11:42 Insulin Lispro (Admelog) 1 Unit/0.01 Ml Unit SC 03/09/25 11:59 2 unit ACHS YOLI Administration Protocol Insulin Human Lispro 3 unit 02/09/25 11:30 02/12/25 11:41 Insulin Lispro (Admelog) 1 Unit/0.01 Ml Unit SC 03/11/25 11:29 3 unit ACHS YOLI Administration Lisinopril 40 mg 02/10/25 09:00 02/12/25 08:38 Lisinopril 20 Mg Tablet PO 03/12/25 08:59 40 mg QDAY YOLI Administration Polyethylene Glycol 17 gm 02/08/25 09:00 02/12/25 08:38 Polyethylene Glycol 17 Gm Packet PO 03/10/25 08:59 17 gm QDAY YOLI Administration Quetiapine Fumarate 25 mg 02/09/25 21:00 02/11/25 21:00 Quetiapine Fumarate 25 Mg Tablet PO 03/11/25 20:59 25 mg HS YOLI Administration Sennosides 8.8 mg 02/11/25 11:17 Sennosides Syrup 8.8 Mg/5 Ml Udc PO 03/13/25 11:16 QDAY PRN CONSTIPATION Protocol Tamsulosin HCl 0.4 mg 02/07/25 09:00 02/12/25 08:37 Tamsulosin Hcl 0.4 Mg Capsule PO 03/09/25 08:59 0.4 mg QDAY YLOI Administration
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
--- NOTE | 2025-02-12 14:47 | PC.SS ---
RAGHU spoke to Peggy at [facility] and she stated they have auth. She requested orders be sent via [employer] and [employer] file exchanged. SS to set up transport with [facility] and update Peggy. [phone]
--- NOTE | 2025-02-12 15:23 | PC.SS ---
Transport set up via [facility] #[id number] SS spoke to Layla.
--- NOTE | 2025-02-12 15:29 | PC.SS ---
SS has called and spoke to Tona at [facility] to setup transportation for 6pm to [facility]. Ref#[id number]. Tona at [facility] has placed pt on will call list until they have been contacted by [facility]. SS has contacted Sy from [facility] and provided her with the best contact phone# [phone], nurses station for transportation. has sent patient's facesheet and ambulance form to [facility] using [facility]. SS has informed patient's and friend, Ceferino. also provided them with [facility]'s phone# and address. Katarzyna HERNANDEZ is aware. Bedside nurseAlba is aware. Peggy from [facility] is aware. [facility] by Noel KRISHNAMURTHY.
--- NOTE | 2025-02-12 15:55 | PC.SS ---
SS received call from from [facility] who explained they have been contacted by [facility] and next available transport is 8:30. Per , they will document pt is ready after 6pm. Katarzyna HERNANDEZ is aware.
--- NOTE | 2025-02-12 16:17 | PC.SS ---
SS has sent d/c summary to [facility] using [facility].
--- NOTE | 2025-02-12 19:25 | PC.NURSE ---
Called [facility] and report given to nursing staff Sree regarding transfer.
[2025-02-12] MEDS: QUEtiapine FUMARATE 25 MG TABLET PO (20:00)
[2025-02-12] MEDS: ASPIRIN EC 81 MG TABEC PO (20:00)
[2025-02-12] MEDS: INSULIN GLARGINE (Lantus) 5 UNIT/0.05 ML (PER 5 UNITS) 16 UNIT SC (20:01)
[2025-02-12] MEDS: ATORVASTATIN CALCIUM 20 MG TABLET 40 MG PO (20:01)
[2025-02-15 06:45] LABS: Vitamin B6, Plasma* 3.1 ng/mL (2.1-21.7)
== END 2025-02-12 20:13 | disposition skilled nursing facility (03) | DRG 861 ==
LOC: SERX 21:05 → SERHOLD 22:12 → S2NX 02-07 00:32
PROVIDERS: Nurse Practitioner Family; Registered Nurse General Practice; Student in an Organized Health Care Education/Training Program; Admitting Provider Student in an Organized Health Care Education/Training Program; Emergency Provider Emergency Medicine; Visit Provider Student in an Organized Health Care Education/Training Program
DX: R53.1 Weakness (principal); I16.0 Hypertensive urgency; E78.5 Hyperlipidemia, unspecified; I10 Essential (primary) hypertension; E11.42 Type 2 diabetes mellitus with diabetic polyneuropathy; J18.9 Pneumonia, unspecified organism; N40.0 Benign prostatic hyperplasia without lower urinary tract symptoms; E87.1 Hypo-osmolality and hyponatremia; D50.9 Iron deficiency anemia, unspecified; E11.649 Type 2 diabetes mellitus with hypoglycemia without coma; E11.65 Type 2 diabetes mellitus with hyperglycemia; E11.621 Type 2 diabetes mellitus with foot ulcer; G99.2 Myelopathy in diseases classified elsewhere; D63.8 Anemia in other chronic diseases classified elsewhere; Z79.4 Long term (current) use of insulin; Z87.891 Personal history of nicotine dependence; Z79.899 Other long term (current) drug therapy; W19.XXXA Unspecified fall, initial encounter
CPT/HCPCS: 36415; 70450; 70551; 71045; 72125; 73020; 80053; 80061; 80307; 81001; 82306; 82607; 82728; 82746; 83036; 83540; 83550; 83615; 83735; 83880; 84100; 84207; 84439; 84443; 84484; 85025; 85610; 85652; 85730; 86140; 86780; 87081; 87811; 92526; 92610; 93005; 93880; 93971; 96372; 97162; 99285; J0360; J0696; J1643; J1756; J1815; J2060; J3475; J3490; A9270

== ENCOUNTER 2025-03-15 19:05 | Emergency (ER) | payer MEDICAID, SELFPAY ==
[2025-03-15 19:10] VITALS: BP 150/79; PULSE 86; RESP 22; TEMP 37.6; O2SAT 97
--- NOTE | 2025-03-15 19:31 | PD.EDADULT ---
ED General RME/HPI General Chief complaint: Weakness Stated complaint: SWELLING BODY PAIN Time Seen by Provider: 03/15/25 19:29 Arrival date/time: 03/15/25 19:05 RME / HPI RME / HPI narrative: Dr. Gaxiola?s Main ED Evaluation: 64yo male with a history of DM, HTN BIBA from home presents to the ED for a chief complaint of full body pain. Per EMS, family called 911 due to the patient complaining of BUE and BLE swelling, which is new (unknown amount of time). Patient endorses having pain throughout his body, but more so to his BUE and BLE. Blood sugar en route was 396. No recent fever, chills or any other associated symptoms reported. No known allergies. Related Data Home Medications ?Medication ?Instructions ?Recorded ?Confirmed sitagliptin phosphate 50 1 tab PO BID 05/19/24 01/30/25 mg-metformin 1,000 mg tablet (Janumet) atorvastatin 40 mg tablet 40 mg PO QPM 01/27/25 01/27/25 Previous Rx's ?Medication ?Instructions ?Recorded flash glucose scanning reader #1 ea 05/23/24 (FreeStyle Rene 2 [place]) flash glucose sensor (FreeStyle #1 ea 05/23/24 Rene 2 Sensor kit) amlodipine 10 mg tablet 10 mg PO QDAY #30 tabs 05/24/24 dulaglutide 0.75 mg/0.5 mL 0.75 mg (0.5 mL) subcut QWEEK #2 mL 07/17/24 subcutaneous pen injector (Trulicity) zinc sulfate 50 mg zinc (220 mg) 50 mg PO QDAY #14 caps 07/17/24 capsule lisinopril 20 mg tablet 40 mg (2 x 20 mg) PO QDAY #60 tabs 07/19/24 furosemide 20 mg tablet (Lasix) 20 mg PO QAM #3 tabs 11/13/24 Allergies Allergy/AdvReac Type Severity Reaction Status Date / Time No Known Allergies Allergy Verified 02/06/25 11:35 Review of Systems Review of Systems Systems Reviewed: All systems reviewed, normal except as documented ED Exam Narrative Physical exam: GENERAL APPEARANCE: AxOx4, cachectic, appears older than stated age, no acute distress. HEENT: NC, AT. MMM. EOMI, clear conjunctiva, oropharynx clear. NECK: Supple without lymphadenopathy. No stiffness or restricted ROM. HEART: Normal rate and regular rhythm, normal S1/S1, no m/r/g LUNGS: CTAB, moving air well. No crackles or wheezes are heard. ABDOMEN: Soft, nontender, nondistended with good bowel sounds heard. BACK: No midline C/T/L spine pain or deformity, No CVAT, no obvious deformity. EXTREMITIES: Without cyanosis, clubbing or edema. MUSCULOSKELETAL: no chest tenderness NEUROLOGICAL: Grossly nonfocal. Alert and oriented, moving all 4 extremities. CN not formally tested but appear grossly intact. Skin: Warm and dry without any rash. Course Course Course Narrative: CXR is ordered for determining the etiology of BLE swelling. Quality Measures none Orders Category Date Time Status In and Out Catheter X1 Care 03/15/25 20:44 Active XR chest 1V Stat Exams 03/15/25 19:33 Completed Alcohol, Urine Stat Lab 03/15/25 20:08 Completed CBC Stat Lab 03/15/25 20:22 Completed CMP [Comprehensive Metabolic Panel] Stat Lab 03/15/25 20:22 Completed Drug Screen,Urine Stat Lab 03/15/25 20:08 Completed Troponin I Stat Lab 03/15/25 20:22 Completed Troponin I Stat Lab 03/15/25 22:53 Completed Urinalysis Stat Lab 03/15/25 20:05 Completed Acetaminophen Tab [Tylenol Tab] Med 03/15/25 22:36 Discontinued 650 mg PO X1 ONE Insulin Regular Med 03/15/25 21:36 Discontinued 6 unit SC X1 ONE Sodium Chloride 0.9% 1000 ml [Ns] 1,000 ml Med 03/15/25 19:32 Discontinued IV 999 mls/hr Sodium Chloride 0.9% 1000 ml [Ns] 1,000 ml Med 03/15/25 21:36 Discontinued IV 999 mls/hr Vital Signs Vital signs: Vital Signs Temperature 99.7 F 03/15/25 19:10 Pulse Rate 86 03/15/25 19:10 Respiratory Rate 22 H 03/15/25 19:10 Blood Pressure 150/79 H 03/15/25 19:10 Pulse Oximetry (%) 97 03/15/25 19:10 Oxygen Delivery Method Room Air 03/15/25 19:10 Discharge Plan Plan Patient Disposition: HOME (Self Care) Prescriptions/Referrals Prescriptions/Med Rec: No Action Janumet 50-1,000 mg tablet 1 tab PO BID Patient Comments: TAKE 1 TABLET BY MOUTH TWICE A DAY WITH MEALS FOR 60 DAYS (DME) FreeStyle Rene 2 Sensor Kit See Rx Instructions .Route Qty: 1 0RF Rx Instructions: As directed (DME) FreeStyle Rene 2 [place] Misc See Rx Instructions .Route Qty: 1 0RF Rx Instructions: As directed amlodipine 10 mg tablet 10 mg PO QDAY Qty: 30 0RF zinc sulfate 50 mg zinc (220 mg) capsule 50 mg PO QDAY Qty: 14 0RF Trulicity 0.75 mg/0.5 mL pen injector 0.75 mg subcut QWEEK Qty: 2 0RF lisinopril 20 mg tablet 40 mg PO QDAY Qty: 60 0RF furosemide [Lasix] 20 mg tablet 20 mg PO QAM Qty: 3 0RF atorvastatin 40 mg tablet 40 mg PO QPM Referrals: No Primary/Family,Physician [Primary Care Provider] - In 1 week Problem List Clinical Impression: Hyperglycemia without ketosis, Dehydration Patient/Caregiver Discharge Instructions Education Materials: ED Diabetes with High Blood Sugar, ED Dehydration (Adult) Additional Instructions: Es importante que tome todos afia medicamentos, incluidos los de la diabetes. Deb abundante l?quido monster los pr?ximos 2 d?as o 48 horas. Acuda a linette jessica de seguimiento con calderon m?dico de cabecera en 2 o 3 d?as para linette nueva evaluaci?n. Print Language: Russian Stand Alone Forms: Karla Award Info., Patient Portal Info Letter MDM Narrative MDM hospital course (for use when minimal MDM required): Scribe Attestation: 03/15/25 - Ashley Ugarte am scribing for and in the presence of Dr. Gaxiola. 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 Imaging Imaging interpretation: Interpreted by me Imaging Interpretation(s): [place] [facility] Report Signed Patient: SHREYA HUERTA Record#: [id number] Birthdate: 1960 Age/Sex: 64 / M Location: [facility] [place] Attending Dr: Ordering Physician: Miguel Gaxiola MD Date of Service: 03/15/25 Procedure(s): XR chest 1V Accession Number(s): [id number] cc: Miguel Gaxiola MD; Jerald Shelley MD; NO PRIMARY/FAMILY,PHYSICIAN~ Examination: AP chest single view TECHNIQUE: AP portable upright chest single view Exam date and time: March 15, 20252005 hours INDICATIONS: Chest pain shortness of breath today. FINDINGS: Atelectasis versus early pneumonia left base, clinical correlation advised No pulmonary edema Normal heart size Moderate osteopenia IMPRESSION: Atelectasis versus early pneumonia left base clinical correlation advised Dictated By: Jerald Shelley MD Signed By: <Electronically signed by Jerald Shelley MD in OV> 03/15/252048 Medication Administration(s) Medication Administration History Discontinued Medications Acetaminophen (Acetaminophen 325 Mg Tablet) 650 mg PO X1 ONE Stop: 03/15/25 22:37 Last Admin: 03/15/25 23:13 Dose: 650 mg Documented By: TYRONE Sodium Chloride (Ns) 1,000 mls @ 999 mls/hr IV .Q1H1M ONE Stop: 03/15/25 20:32 Last Infusion: 03/15/25 21:48 Dose: Infused Documented By: Admin: 03/15/25 20:25 Dose: 999 mls/hr Documented By: TYRONE Sodium Chloride (Ns) 1,000 mls @ 999 mls/hr IV .Q1H1M ONE Stop: 03/15/25 22:36 Last Infusion: 03/15/25 23:14 Dose: Infused Documented By: Admin: 03/15/25 22:08 Dose: 999 mls/hr Documented By: TYRONE Insulin Human Regular (Insulin Hum Regular 1 Unit/0.01 Ml (Per Unit)) 6 unit SC X1 ONE Stop: 03/15/25 21:37 Last Admin: 03/15/25 22:07 Dose: 6 unit Documented By: TYRONE Co-signed By: RAVEN see above Diagnosis Differential Diagnosis ED Complaint MDM: dehydration, SAGE, hyperglycemia without ketosis, DKA
[2025-03-15 19:48] VITALS: PULSE 86; RESP 20; O2SAT 99; BMI 24.1
[2025-03-15 20:01] VITALS: BP 156/88; PULSE 78; RESP 16; TEMP 37.8; O2SAT 99
[2025-03-15] MEDS: SODIUM CHLORIDE 0.9% 1000 ML 1,000 ML 999 ML IV ×2 (20:25→22:08)
[2025-03-15 20:48] LABS: Collection Type, Urine Catheter; WBC,Urine 0 /hpf (0-5)
[2025-03-15 20:51] LABS: Basophils # (Auto) 0.1 Thou/mm3 (0.0-0.2); Basophils % (Auto) 1 % (0-2.5); Eosinophils # (Auto) 0.4 Thou/mm3 (0.0-0.5); Eosinophils % (Auto) 5 % (0-10); Hematocrit 26.5 % (41.0-53.0); Hemoglobin 9.2 g/dL (13.5-16.0); Immature Granulocytes % (Auto) 1 % (0-0); Immature Granulocytes Auto 0.06 Thou/mm3 (0.00-0.00); Lymphocytes % (Auto) 12 % (10-50); Mean Corpuscular HGB Conc 34.7 g/dl (31.0-37.0); Mean Corpuscular Hemoglobin 29.9 pg (25.0-35.0); Mean Corpuscular Volume 86 fL (80-100); Monocytes # (Auto) 0.6 Thou/mm3 (0.0-0.8); Monocytes % (Auto) 8 % (0-12); Neutrophils # (Auto) 5.9 Thou/mm3 (1.8-7.7); Neutrophils % (Auto) 74 % (37-80); Nucleated Red Blood Cell % 0 /100 WBC (0); Platelet Count 375 Thou/mm3 (140-440); RDW Standard Deviation 42.1 fL (35.1-43.9); Red Blood Count 3.08 Miln/mm3 (4.50-5.90)
[2025-03-15 21:08] LABS: Alcohol, Urine Negative (Negative); Amphetamine/Methamp Scrn,U Negative (Negative); Barbiturate Screen,Urine Negative (Negative); Benzodiazepines Screen,Urine Negative (Negative); Benzoylecgonine Screen, Ur Negative (Negative); Fentanyl Screen,Urine Negative (Negative); Opiate Screen,Urine Negative (Negative); THC Screen,Urine Negative (Negative)
[2025-03-15 21:16] LABS: Alanine Aminotransferase 11 U/L (10-49); Albumin, Serum 3.3 gm/dL (3.4-4.8); Albumin/Globulin Ratio 1.2 (1.2-2.2); Alkaline Phosphatase 74 U/L (46-116); Anion Gap 6 (7-16); Aspartate Amino Transferase 10 U/L (0-34); BUN/Creatinine Ratio 18 Ratio (12-20); Bilirubin,Total 0.3 mg/dL (0.3-1.2); Blood Urea Nitrogen 24 mg/dL (9-23); Calcium 8.3 mg/dL (8.3-10.6); Calcium (Corrected) 8.9 mg/dL (8.5-10.1); Carbon Dioxide 25.8 mMol/L (20.0-31.0); Chloride 101 mMol/L (98-107); Creatinine (Component) 1.3 mg/dL (0.6-1.3); Estimated Creatinine Clearance 48.6 mL/min (>60); Globulin 2.7 gm/dL (2.3-3.5); Glucose 371 mg/dL (74-106); Osmolality,Calculated 285 (275-295); Potassium 3.2 mMol/L (3.4-5.1); Sodium 133 mMol/L (136-145); Troponin I < 0.020 ng/mL (0.0-0.045); eGFR > 60 See Note
[2025-03-15 21:18] LABS: Bilirubin,Urine Negative (Negative); Blood,Urine Trace (Negative); Clarity,Urine Clear (Clear/Hazy); Color,Urine Lt-Yellow (Lt Yel-Yel); Glucose, Urine 4+ (Negative); Hyaline Casts,Urine < 1 /hpf (0-1); Ketones,Urine Negative (Negative); Leukocyte Esterase,Urine Negative (Negative); Nitrite,Urine Negative (Negative); PH,Urine 6.5 (5.0-7.0); Protein,Urine 3+ (Neg - Trace); RBC,Urine 3 /hpf (0-3); Specific Gravity,Urine 1.019 (1.001-1.035); Squamous Epithelial Cell,Urine < 1 /hpf (0-5); Urobilinogen,Urine Negative mg/dL (0.0-1.0)
[2025-03-15] MEDS: INSULIN HUM REGULAR 1 UNIT/0.01 ML (PER UNIT) 6 UNIT SC (22:07)
[2025-03-15 22:28] VITALS: BP 150/98; PULSE 76; RESP 16; TEMP 37; O2SAT 99
[2025-03-15] MEDS: ACETAMINOPHEN 325 MG TABLET 650 MG PO (23:13)
[2025-03-15 23:48] LABS: Troponin I < 0.020 ng/mL (0.0-0.045)
[2025-03-16 06:00] VITALS: BP 147/81; PULSE 87; RESP 16; TEMP 36.7; O2SAT 99
[2025-03-16 09:29] VITALS: BP 175/91; PULSE 76; RESP 17; TEMP 37.1; O2SAT 99
--- NOTE | 2025-03-16 09:46 | PC.NURSE ---
TRIED TO CALLED PT FAMILY/FRIEND TO SEE IF THEY ARE HOME SO THEY CAN RECEIVE THIS PT, BUT I HAVE NOT BEEN ABLE TO GET AHOLD OF ANYONE WHO IS ON THIS PT CONTACT LIST. CHARGE NURSE ANA M AND SYSTEMS ADMIN MADE AWARE.
--- NOTE | 2025-03-16 10:30 | PC.NURSE ---
[facility] REACHED ABOUT ABOUT PLACEMENT.
--- NOTE | 2025-03-16 11:22 | PC.NURSE ---
I CALLED [facility] AND I SPOKE TO DISPATCH TO SEE IF THEY CAN DO A WELFARE CHECK AT THIS PT HOME SO WE CAN DO A SAFE DISCHARGE. PER DISPATCH JEFFERY, THEY WILL SEND AN OFFICER AND WILL CALL ME BACK WITH AN UPDATE TO SEE IF ANYONE IS AT THIS PT HOME.
[2025-03-16 11:26] VITALS: BP 125/81; PULSE 85; RESP 18; TEMP 36.7; O2SAT 97
--- NOTE | 2025-03-16 11:48 | PC.NURSE ---
GOT A CALL FROM DMITRY PEÑA WHO REPORTS THAT [facility] MADE CONTACT WITH HER AND SHE IS A FAMILY MEMBER FOR THIS PT AND REPORTS THAT THIS PT DOES HAVE A PHONE BUT IS HARD OF HEARING AND WAS UNABLE TO ANSWER THE PHONE. PT REPORTS THAT THE IS AT HOME AND CAN RECIVED THE PT AT HOME. DMITRY ALSO REPORTS THAT WE CAN CALL HER FOR FUTURE REFERENCES AT [phone]
--- NOTE | 2025-03-16 12:30 | PC.SS ---
SS follow up note; SS set up transportation for patient through [facility], Reference # [id number].
[2025-03-16 13:56] VITALS: BP 122/77; PULSE 77; RESP 16; TEMP 36.8; O2SAT 99
== END 2025-03-16 14:00 | disposition home or self-care (01) ==
PROVIDERS: Emergency Provider Emergency Medicine
DX: E86.0 Dehydration (principal); E11.65 Type 2 diabetes mellitus with hyperglycemia; R64 Cachexia; Z79.84 Long term (current) use of oral hypoglycemic drugs; Z79.85 Long-term (current) use of injectable non-insulin antidiabetic drugs; Z68.24 Body mass index [BMI] 24.0-24.9, adult
CPT/HCPCS: 51701; 36415; 71045; 80053; 80307; 80320; 81001; 84484; 85025; 87400; 87811; 96360; 96361; 96372; 99284; J1815; J7030; A9270; G0480

== ENCOUNTER 2025-03-20 10:31 | Emergency (ER) | payer MEDICAID, SELFPAY ==
[2025-03-20] VITALS (9 sets, daily range): BP systolic 150–207; BP diastolic 83–109; PULSE 68–86; RESP 12–18; TEMP 36.4–36.9; O2SAT 96–99; BMI 24.1; BMI 12.0
--- NOTE | 2025-03-20 10:53 | PC.NURSE ---
HIGH BS NOTIFIED NO ORDERS GIVEN
--- NOTE | 2025-03-20 10:58 | PC.NURSE ---
PT STATES HE DOESNT RECEIVE ANY MEDICAL HELP AT HOME. 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 RN CONTACTED SILO MAN TO HELP PT RECEIVE HELP OR OBTAIN RECOURSES
--- NOTE | 2025-03-20 11:25 | XR_ITS ---
Examination: AP chest single view TECHNIQUE: Portable AP sitting chest single view Date and time: March 20, 2025 1248 hours Comparison March 15, 2025 INDICATIONS: Chest pain today. FINDINGS: Normal heart size Atelectasis versus mild pneumonia left base Right lung clear Moderate osteopenia IMPRESSION: Atelectasis versus mild pneumonia left base, clinical correlation advised
--- NOTE | 2025-03-20 11:25 | EKG_ITS ---
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
--- NOTE | 2025-03-20 11:27 | EDNOTE_ITS ---
ED General RME/HPI General Chief complaint: General Adult/Misc Complain Stated complaint: GENERALIZED PAIN Time Seen by Provider: 03/20/25 11:19 Arrival date/time: 03/20/25 10:31 CC: Body aches into hands and feet swelling HPI ongoing for the past several weeks. Patient denies chest pain shortness of breath or difficulty breathing. Patient is complaining of generalized body aches Related Data Home Medications ?Medication ?Instructions ?Recorded ?Confirmed sitagliptin phosphate 50 1 tab PO BID 05/19/24 mg-metformin 1,000 mg tablet (Janumet) atorvastatin 40 mg tablet 40 mg PO QPM 01/27/25 Previous Rx's ?Medication ?Instructions ?Recorded flash glucose scanning reader #1 ea 05/23/24 (CaLivingBenefitsStyle Rene 2 [place]) flash glucose sensor (FreeStyle #1 ea 05/23/24 Rene 2 Sensor kit) amlodipine 10 mg tablet 10 mg PO QDAY #30 tabs 05/24 dulaglutide 0.75 mg/0.5 mL 0.75 mg (0.5 mL) subcut QWE EK #2 mL 07/17/24 subcutaneous pen injector (shopatplaces) zinc sulfate 50 mg zinc (220 mg) 50 mg PO QDAY #14 cap s 07/17/24 capsule lisinopril 20 mg tablet 40 mg (2 x 20 mg) PO QDAY #6 0 tabs 07/19/24 furosemide 20 mg tablet (Lasix) 20 mg PO QAM #3 tabs 0 11/13/24 Allergies Allergy/AdvReac Type Severity Reaction Status Date / Time No Known Allergies Allergy Verified 02/06/25 11:35 Review of Systems Review of Systems Narrative Review of Systems: GEN: No fever, no chills, no weight loss EYES: No discharge, no visual changes, no pain HEENT: No ear pain, no congestion, no sore throat PULM: No shortness of breath, no cough, no congestion CV: No chest pain, no dyspnea on exertion, no palpitations GI: No nausea, no vomiting, no diarrhea, no pain, no constipation : No frequency, no urgency, no dysuria MUSC/SKEL: No joint pain, no back pain SKIN: No rash PSYCH: No hallucinations, no depression HEME/LYMPH: No easy bleeding or bruising tendencies NEURO: No weakness, no headache, + body aches Past Medical History Past Medical History NEUROLOGIC: Positive Peripheral Neuropathy; Negative Neurological Disorders or Seizures CARDIAC: Positive Hypercholesterolemia, Hypertension and Hypotension; Negative Cardiac Disorders or Congestive Heart Failure RESPIRATORY: Negative Chronic Obstructive Pulmonary Disease (COPD) or Asthma GASTROINTESTINAL: Negative Gastrointestinal Disorders GENITOURINARY: Positive Benign Prostatic Hyperplasia; Negative Genitourinary Disorders or Renal Disease MUSCULOSKELETAL: Positive Musculoskeletal Disorders and Fractures ENDOCRINE: Positive Endocrine Disorders and Diabetes Mellitus Type 2 (DM foot ulcer); Negative Diabetes Mellitus Type 1 HEMATOLOGIC: Negative Blood Disorders or Sickle Cell Disease OTHER HISTORY: Positive Falls and MRSA (2023-nares swab and left foot culture); Negative Blood Transfusions, Blood Transfusion Reaction, Anesthesia Reactions or Cancer Surgical History SURGICAL: Negative Abdominal Surgery Social History SMOKING STATUS: Never smoker SECOND HAND EXPOSURE: No SUBSTANCE USE: does not use ED Exam Narrative Physical exam: [General: In mild discomfort not in any acute distress Head normocephalic HEENT: Within acceptable limits Neck is supple nontender Chest equal chest rise nontender to palpation Respiratory: Clear to auscultation no wheezes crackles or rubs CV: Rate rhythm is regular no murmurs rubs or clicks Abdomen is distended secondary to body habitus soft nontender no masses positive bowel sounds all 4 quadrants Back: No CVA tenderness no spinous process tenderness from cervical spine thoracic and lumbar spine Skin: Intact no petechiae rash induration ulceration or crepitus Extremities: Nonpitting edema to both hands and feet. Moving all extremity against resistance cap refill less than 2 seconds neurosensory intact Neuro: Awake alert oriented x2, person and place, Glascow coma 15 no focal deficits] Course Quality Measures none Orders Category Date Time Status Consult Heater Mechanic X1 Care 03/20/25 14:03 Completed EKG (ED ONLY) *Do not use* NOW Care 03/20/25 11:25 Completed Glucose [Bedside Blood Glucose] Q6HR Care 03/20/25 14:04 Completed Referral Physical Therapy Stat Cons 03/20/25 13:56 Completed Referral Wound Care Stat Cons 03/22/25 11:56 Active Diet Renal Diet 03/20/25 Dinner Completed Diet Renal Diet 03/22/25 Lunch Active EKG (ED Only) Stat Exams 03/20/25 11:25 Draft XR chest 1V Stat Exams 03/20/25 11:25 Completed B-Type Natriuretic Peptide Stat Lab 03/20/25 11:41 Completed CBC Stat Lab 03/20/25 11:41 Completed Comprehensive Metabolic Panel Stat Lab 03/20/25 11:41 Completed Drug Screen,Urine Stat Lab 03/20/25 11:42 Completed LDH (Lactate Dehydrogenase) Stat Lab 03/20/25 11:41 Completed Magnesium Stat Lab 03/20/25 11:41 Completed Partial Thromboplastin Time Stat Lab 03/20/25 11:41 Completed Prothrombin Time with INR Stat Lab 03/20/25 11:41 Completed Troponin I Stat Lab 03/20/25 11:41 Completed Urinalysis Stat Lab 03/20/25 11:42 Completed Acetaminophen Tab [Tylenol ES Tab] Med 03/21/25 10:26 Discontinued 1,000 mg PO X1 ONE Insulin Regular Med 03/20/25 12:43 Discontinued 10 unit SC X1 ONE Insulin Regular Med 03/21/25 19:49 Discontinued 10 unit SC X1 ONE Lisinopril [Prinivil] Med 03/21/25 09:00 Discontinued 40 mg PO QDAY amLODIPine BESYLATE [Norvasc] Med 03/21/25 07:00 Discontinued 10 mg PO QDAY hydrALAZINE INJ [Apresoline Inj] Med 03/20/25 11:25 Discontinued 10 mg IV X1 ONE metFORMIN [Glucophage] Med 03/21/25 09:00 Discontinued 1,000 mg PO BID Vital Signs Vital signs: Vital Signs Temperature 97.9 F 03/20/25 10:47 Pulse Rate 68 03/20/25 10:47 Respiratory Rate 13 03/20/25 10:47 Blood Pressure 197/109 H 03/20/25 10:47 Pulse Oximetry (%) 99 03/20/25 10:47 Oxygen Delivery Method Room Air 03/20/25 10:47 Discharge Plan Plan Patient Disposition: Xfer Custodial Acute Prescriptions/Referrals Prescriptions/Med Rec: No Action Janumet 50-1,000 mg tablet 1 tab PO BID Patient Comments: TAKE 1 TABLET BY MOUTH TWICE A DAY WITH MEALS FOR 60 DAYS (DME) FreeStyle Rene 2 Sensor Kit See Rx Instructions .Route Qty: 1 0RF Rx Instructions: As directed (DME) FreeStyle Rene 2 [place] Misc See Rx Instructions .Route Qty: 1 0RF Rx Instructions: As directed amlodipine 10 mg tablet 10 mg PO QDAY Qty: 30 0RF zinc sulfate 50 mg zinc (220 mg) capsule 50 mg PO QDAY Qty: 14 0RF Trulicity 0.75 mg/0.5 mL pen injector 0.75 mg subcut QWEEK Qty: 2 0RF lisinopril 20 mg tablet 40 mg PO QDAY Qty: 60 0RF furosemide [Lasix] 20 mg tablet 20 mg PO QAM Qty: 3 0RF atorvastatin 40 mg tablet 40 mg PO QPM Referrals: No Primary/Family,Physician [Primary Care Provider] - In 1 week Problem List Clinical Impression: Diabetes, Hypertension Patient/Caregiver Discharge Instructions Print Language: Marshallese Stand Alone Forms: [facility] Info., Patient Portal Info Letter MDM Clinical Information Provided by: patient and EMS Medical Records reviewed EMS Meds/Rx considered, not ordered None Labs/Rad/Tests considered, not ordered None EKG Interpretation EKG #1: EKG Interpretation: EKG performed at 1145 shows a ventricular rate of 69 RI interval 145 QRS of 92 QTc of 441 sinus rhythm low voltage. Medication Administration(s) Medication Administration History Discontinued Medications Acetaminophen (Acetaminophen 500 Mg Tablet) 1,000 mg PO X1 ONE Stop: 03/21/25 10:27 Last Admin: 03/21/25 10:38 Dose: 1,000 mg Documented By: KARLA Amlodipine Besylate (Amlodipine Besylate 5 Mg Tablet) 10 mg PO QDAY YOLI Stop: 04/20/25 06:59 Last Admin: 03/22/25 09:30 Dose: 10 mg Documented By: Admin: 03/21/25 09:25 Dose: Not Given Documented By: KARLA Non-Admin Reason: Duplicate Medication on eMAR Admin: 03/21/25 06:29 Dose: 10 mg Documented By: MERI Hydralazine HCl (Hydralazine Inj 20 Mg/Ml Vial) 10 mg IV X1 ONE Stop: 03/20/25 11:26 Last Admin: 03/20/25 11:37 Dose: 10 mg Documented By: HAN Insulin Human Regular (Insulin Hum Regular 1 Unit/0.01 Ml (Per Unit)) 10 unit SC X1 ONE Stop: 03/20/25 12:44 Last Admin: 03/20/25 12:49 Dose: 10 unit Documented By: HAN Co-signed By: LADAN Insulin Human Regular (Insulin Hum Regular 1 Unit/0.01 Ml (Per Unit)) 10 unit SC X1 ONE Stop: 03/21/25 19:50 Last Admin: 03/21/25 20:33 Dose: 10 unit Documented By: SYDNEE Co-signed By: SAMMY Lisinopril (Lisinopril 20 Mg Tablet) 40 mg PO QDAY [facility] Stop: 04/20/25 08:59 Last Admin: 03/22/25 08:15 Dose: 40 mg Documented By: Admin: 03/21/25 09:32 Dose: 40 mg Documented By: KARLA Metformin HCl (Metformin 500 Mg Tablet) 1,000 mg PO BID [facility] Stop: 04/20/25 08:59 Last Admin: 03/22/25 09:28 Dose: 1,000 mg Documented By: Admin: 03/21/25 20:31 Dose: 1,000 mg Documented By: Admin: 03/21/25 10:39 Dose: 1,000 mg Documented By: KARLA
[2025-03-20] MEDS: hydrALAZINE INJ 20 MG/ML VIAL 10 MG IV (11:37)
[2025-03-20 11:58] LABS: Collection Type, Urine Clean Catch; Squamous Epithelial Cell,Urine 0 /hpf (0-5)
--- NOTE | 2025-03-20 12:00 | PC.NURSE ---
PT WAS REPOSITIONED
[2025-03-20 12:02] LABS: Basophils % (Auto) 0 % (0-2.5); Eosinophils # (Auto) 0.3 Thou/mm3 (0.0-0.5); Eosinophils % (Auto) 4 % (0-10); Hemoglobin 9.4 g/dL (13.5-16.0); Immature Granulocytes % (Auto) 1 % (0-0); Immature Granulocytes Auto 0.05 Thou/mm3 (0.00-0.00); Lymphocytes # (Auto) 1.2 Thou/mm3 (1.0-4.8); Lymphocytes % (Auto) 17 % (10-50); Mean Corpuscular HGB Conc 36.2 g/dl (31.0-37.0); Mean Corpuscular Volume 83 fL (80-100); Monocytes # (Auto) 0.4 Thou/mm3 (0.0-0.8); Monocytes % (Auto) 6 % (0-12); Neutrophils # (Auto) 5.1 Thou/mm3 (1.8-7.7); Neutrophils % (Auto) 72 % (37-80); Nucleated Red Blood Cell % 0 /100 WBC (0); Platelet Count 391 Thou/mm3 (140-440); RDW Standard Deviation 41.1 fL (35.1-43.9); Red Blood Count 3.13 Miln/mm3 (4.50-5.90)
[2025-03-20 12:10] LABS: Amphetamine/Methamp Scrn,U Negative (Negative); Barbiturate Screen,Urine Negative (Negative); Benzodiazepines Screen,Urine Negative (Negative); Benzoylecgonine Screen, Ur Negative (Negative); Fentanyl Screen,Urine Negative (Negative); Opiate Screen,Urine Negative (Negative); THC Screen,Urine Negative (Negative)
[2025-03-20 12:12] LABS: Bilirubin,Urine Negative (Negative); Blood,Urine Trace (Negative); Clarity,Urine Turbid (Clear/Hazy); Color,Urine Lt-Yellow (Lt Yel-Yel); Glucose, Urine 4+ (Negative); Ketones,Urine Negative (Negative); Leukocyte Esterase,Urine Negative (Negative); Nitrite,Urine Negative (Negative); PH,Urine 6.5 (5.0-7.0); Protein,Urine 3+ (Neg - Trace); RBC,Urine 2 /hpf (0-3); Specific Gravity,Urine 1.022 (1.001-1.035); Urobilinogen,Urine Negative mg/dL (0.0-1.0); WBC,Urine 2 /hpf (0-5)
[2025-03-20 12:21] LABS: INR 0.9 (0.9-1.3); Partial Thromboplastin Time 31.5 Seconds (22.0-36.0); Prothrombin Time 10.2 Seconds (9.0-12.2)
[2025-03-20 12:30] LABS: Alanine Aminotransferase 14 U/L (10-49); Albumin, Serum 3.3 gm/dL (3.4-4.8); Albumin/Globulin Ratio 1.2 (1.2-2.2); Alkaline Phosphatase 96 U/L (46-116); Anion Gap 10 (7-16); Aspartate Amino Transferase 13 U/L (0-34); BUN/Creatinine Ratio 19 Ratio (12-20); Bilirubin,Total 0.2 mg/dL (0.3-1.2); Blood Urea Nitrogen 23 mg/dL (9-23); Calcium 8.1 mg/dL (8.3-10.6); Calcium (Corrected) 8.7 mg/dL (8.5-10.1); Carbon Dioxide 25.7 mMol/L (20.0-31.0); Chloride 101 mMol/L (98-107); Creatinine (Component) 1.2 mg/dL (0.6-1.3); Estimated Creatinine Clearance 52.7 mL/min (>60); Globulin 2.7 gm/dL (2.3-3.5); LDH (Lactate Dehydrogenase) 304 U/L (120-246); Magnesium 1.9 mg/dL (1.6-2.6); Osmolality,Calculated 299 (275-295); Potassium 3.9 mMol/L (3.4-5.1); Sodium 137 mMol/L (136-145); Troponin I < 0.020 ng/mL (0.0-0.045); eGFR > 60 See Note
[2025-03-20 12:40] LABS: Glucose 492 mg/dL (74-106)
[2025-03-20] MEDS: INSULIN HUM REGULAR 1 UNIT/0.01 ML (PER UNIT) 10 UNIT SC (12:49)
[2025-03-20 13:32] LABS: B-Type Natriuretic Peptide 245 pg/mL (0-100)
--- NOTE | 2025-03-20 13:57 | PC.SS ---
Initial assessment: patient is a 64yr old male. Reports he lives at home with life partner, Stephanie Oneill. Patient confirmed home demographic information. Per patient he requires assistance with ADL's and has had multiple falls. Patient follows [facility] for primary care. Patient would like to discharge to a SNF, no preferred. Patient is aware he will require insurance authorization. Patient assigned life partner as emergency contact. Patient will need PT eval. D/c plan: SNF Next of kin: life partner, Stephanie
--- NOTE | 2025-03-20 14:00 | PC.SS ---
Addendum entered by JACOBO Thapa 03/20/25 16:51: PASRR completed. LV1. Addendum entered by JACOBO Thapa 03/20/25 16:49: SNF inquiry sent via [facility]. Pending responses. Original Note: Provider Yane Brown was informed patient will need PT evaluation for insurance authorization for SNF.
--- NOTE | 2025-03-20 14:14 | PC.NURSE ---
bs 369, provider notified, no new orders given
--- NOTE | 2025-03-20 15:25 | PC.PT ---
PT eval completed. Please see evaluation for further details.
--- NOTE | 2025-03-20 16:03 | PC.NURSE ---
PT WAS REPOSITIONED TO LEFT
--- NOTE | 2025-03-20 16:03 | PC.NURSE ---
PT WAS REPOSITIONED TO RIGHT SIDE. PT WAS CLEANED DUE TO BOWEL MOVEMENT. BRIEF CHANGE
--- NOTE | 2025-03-20 16:45 | PC.SS ---
SS update: patient's friend, Ceferino provided contact number to be . Would like SNF placement in [place] or local surrounding areas.
--- NOTE | 2025-03-20 17:44 | PC.NURSE ---
PT TURNED AND REPOSITIONED TO EAT DINNER
--- NOTE | 2025-03-20 19:52 | PC.NURSE ---
junaid aguilera notified blood glucose 254 no new orders
[2025-03-21] VITALS (11 sets, daily range): BP systolic 130–197; BP diastolic 71–104; PULSE 72–86; RESP 15–18; TEMP 36.7–37.1; O2SAT 96–98
--- NOTE | 2025-03-21 03:09 | EDNOTE_ITS ---
Emergency Room Addendum Addendum Narrative: I took over the care from Gilles Brown NP at 11 PM on 03/20/2025, see his notes for complete H&P and ED course. Patient is requesting long-term replacement because he is not mobile and can't take care of himself. During my watch, the patient remained stable. At 6 AM on 03/21/2025, the care of the patient was transferred to Dr. Mueller. Marcos Enriquez MD
[2025-03-21] MEDS: amLODIPine BESYLATE 5 MG TABLET 10 MG PO (06:29)
--- NOTE | 2025-03-21 07:40 | PC.SS ---
SS follow up: [facility] willing to accept the patient, per Carlita with admissions. Sent updated packet and PASRR to facility via [facility]. Carlita informs she will initiate obtaining insurance authorization for SNF placement.
--- NOTE | 2025-03-21 07:57 | PC.NURSE ---
Report received from pm nurse, patient lying in gurney queitly with eyes closed, patient opens eyes to voice, patient alert and oriented x 3, patient awaiting SNF placement, when asking patient why he is here he states because i have a lot o problems with my hands and legs, patient skin is warm dry and pink, patient noted to have moderate edema noted to carlos a. hands and arms, patient c/o 9/10 pain to generalized head in which he states has been there for 5 worse, improved with repositioning, UNDERWRITER at bedside assisting with eating breakfast, call light within, patient has no other needs at this time.
--- NOTE | 2025-03-21 09:29 | PC.NURSE ---
CAlled pharmacy to bring Metformin to ER, no in our pyxis.
[2025-03-21] MEDS: Lisinopril 20 MG TABLET 40 MG PO (09:32)
[2025-03-21] MEDS: ACETAMINOPHEN 500 MG TABLET 1000 MG PO (10:38)
[2025-03-21] MEDS: metFORMIN 500 MG TABLET 1000 MG PO ×2 (10:39→20:31)
--- NOTE | 2025-03-21 10:43 | PC.NURSE ---
Patient brief soiled of small loose brown stool and urine, patient cleaned, clean dry brief applied and patient placed in POC by CAUSTIC STRENGTH INSPECTOR's, patient call light within reach, patient has no other needs at tbis time.
--- NOTE | 2025-03-21 11:16 | PC.CC ---
Elba PERES informed patient he has been accepted to [facility]. Patient is receptive to going to [facility]. ASW informed patient we are pending insurance authorization. ASW to follow up with Carlita with [facility].
--- NOTE | 2025-03-21 13:06 | PC.CC ---
JA Martin contacted Carlita from [facility] to ask about AUTH and Carlita reported they still have not gotten auth. Carlita stated she will contact [facility] once AUTH has been processed
--- NOTE | 2025-03-21 15:26 | PC.CC ---
ASWElba spoke to Carlita with [facility] who reports that authorization is still pending. She and I will be following up with [facility] for authorization.
--- NOTE | 2025-03-21 18:11 | PC.CC ---
lEba PERES made contact with [facility] there was no one to take the call regarding authorization. JA followed up with Carlita who reports that authorization is still pending.
[2025-03-21] MEDS: INSULIN HUM REGULAR 1 UNIT/0.01 ML (PER UNIT) 10 UNIT SC (20:33)
--- NOTE | 2025-03-21 22:41 | PD.EDADDENDU ---
Emergency Room Addendum <Ashley Weaver - Last Filed: 03/21/25 22:42> Addendum Narrative: I took over the care from Dr. Mueller at 6 PM on 03/21/2025, see her notes for complete H&P and ED course. Patient is currently pending insurance authorization for SNF placement. Patient remained clinically stable while under my care. <Marcos Enriquez MD - Last Filed: 03/22/25 04:16> Addendum Narrative: I took over the care from Dr. Mueller at 6 PM on 03/21/2025, see her notes for complete H&P and ED course. Patient is currently pending insurance authorization for SNF placement. At 6 AM on 03/22/2025, the care of the patient was transferred to Dr. MUELLER. Patient remained clinically stable while under my care. Marcos Enriquez MD
[2025-03-22] VITALS (8 sets, daily range): BP systolic 114–184; BP diastolic 61–95; PULSE 67–79; RESP 13–18; TEMP 36.6–36.9; O2SAT 93–97
[2025-03-22] MEDS: Lisinopril 20 MG TABLET 40 MG PO (08:15)
--- NOTE | 2025-03-22 09:26 | PD.EDADDENDU ---
Emergency Room Addendum Addendum Narrative: 0600: Care assumed from Dr. Enriquez, the previous shift emergency physician. Past medical, surgical, social and family history reviewed. Vitals and home medications reviewed. I will assume the care of the patient at this time, pending insurance authorization for SNF placement. The patient was placed in ED observation care at 0600 03/22/2025. While in ED observation the pt will have access to water, food, and personal hygiene. If the pt takes home medication(s), they will be continued in ED observation. Please refer to the emergency department record for history and examination from initial visit.?The following addendum documentation note is intended to reflect any pending information, findings, or radiology results not included in the patient?s initial chart. Notified by RON that insurance has authorized placement to [facility], EMS p/u 17:00 hours.
[2025-03-22] MEDS: metFORMIN 500 MG TABLET 1000 MG PO (09:28)
[2025-03-22] MEDS: amLODIPine BESYLATE 5 MG TABLET 10 MG PO (09:30)
--- NOTE | 2025-03-22 09:35 | PC.CC ---
0937-JA Martin contacted [facility] and spoke with Carlita who reported she called the insurance this morning and was told that they will provide her with an Auth today. As of now, auth is still pending. As soon as Carlita provides an auth, JA will arrange transportation to SNF.
--- NOTE | 2025-03-22 12:37 | PC.CC ---
Addendum entered by Amaris Martin 03/22/25 13:14: 1309-ASW contacted transportion via [employer] and [facility] will p/u pt as soon as they receive the call from [employer]. Reference #[id number]. Original Note: JA Martin called the pts insurance managed medicare insurance [facility] at [phone] and was provided an AUTH # of #[id number]; reference call [id number]. This AUTH is for the SNF placement. 1215-JA Martin attempted to contact Carlita from [facility] [phone] but was unable to reach her. ASW left a voice message requesting a return call. Carlita later called and reported to go ahead and arrange transportation for later this afternoon. ASW will arrange transporation.
--- NOTE | 2025-03-22 13:32 | PC.CC ---
ASW arranged transportation via [email or web address] ref #[id number] and uploaded the transporation form to [facility], but [facility] cannot move forward with a p/u ETA because [facility] has not called they to arrange the transportation. At this time, the transportation is arranged but technical document writer is waiting on [email or web address] to provide [facility] with a verificaiton. p/u ETA is unknown at this time.
--- NOTE | 2025-03-22 13:41 | PC.CC ---
Addendum entered by Amaris Martin 03/22/25 17:30: ASW informed hand lens polisher Kathy and CARIDAD Hines that pt will be d/c today at 1800. Pt will need d/c orders. Addendum entered by Amaris Martin 03/22/25 16:08: Pt will be picked up via EMS at 1700 to [facility], as per [facility]. Addendum entered by Amaris Martin 03/22/25 15:14: 2723-ASW called [facility] [phone] asking if they have called [facility] or [facility] to arrange transportation and writer producer was told the call is pending. At this time, there is no expected p/u ETA Original Note: 1511-ASW contacted [facility] to ask if they have contacted [facility] with a p/u ETA and [facility] reported they have still not yet called [facility] with a an p/u ETA. Sales Promotion Coordinator will call back in 30 min. from this writing.
--- NOTE | 2025-03-22 16:16 | PC.NURSE ---
PER LISSETT BOWSER, NO NEED FOR NURSE TO NURSE REPORT AT [facility].
== END 2025-03-22 19:32 ==
PROVIDERS: Registered Nurse General Practice; Emergency Provider Emergency Medicine
DX: E11.9 Type 2 diabetes mellitus without complications (principal); I10 Essential (primary) hypertension; R07.9 Chest pain, unspecified
CPT/HCPCS: 36415; 71045; 80053; 80307; 81001; 83615; 83735; 83880; 84484; 85025; 85610; 85730; 93005; 96372; 99285; J0360; J1815; A9270

== ENCOUNTER 2025-04-27 09:26 | Inpatient (IN) | payer MEDICAID, SELFPAY ==
[2025-04-27] VITALS (11 sets, daily range): BP systolic 137–161; BP diastolic 79–91; PULSE 83–90; RESP 12–98; TEMP 36.7–37; O2SAT 96–98; BMI 23.0
--- NOTE | 2025-04-27 09:47 | XR_ITS ---
Examination: AP chest single view Technique one AP portable semiupright chest single view Date and time: April 27, 2025 at 1005 hours Comparison 06/20/2025 INDICATIONS: Chest pain today. FINDINGS: Significant pneumonia left base obscuring detail fell left hemidiaphragm Mild to moderate left pleural fluid Normal heart size Prominent osteopenia IMPRESSION: Significant pneumonia left base
--- NOTE | 2025-04-27 09:47 | EKG_ITS ---
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
--- NOTE | 2025-04-27 09:51 | PD.EDADULT ---
ED General RME/HPI General Chief complaint: Shortness of Breath/Dyspnea Stated complaint: LOW SP02 & AMS Time Seen by Provider: 04/27/25 09:37 Arrival date/time: 04/27/25 09:26 RME / HPI RME / HPI narrative: DR. HERNADEZ MAIN ED EVALUATION: 64 year old male with past medical history significant for hypertension, diabetes, muscle weakness, and seizures presents to the Emergency Department [facility] from [facility] with complaint of shortness of breath/ hypoxia. Per EMS, patient was satting 71% on room air and placed on 10 L/min and then went up to 97%. Per EMS, intermediate staff also reported the patient to be altered, possibly from the hypoxia. Related Data Home Medications ?Medication ?Instructions ?Recorded ?Confirmed sitagliptin phosphate 50 1 tab PO BID 05/19/24 01/30/25 mg-metformin 1,000 mg tablet (Janumet) atorvastatin 40 mg tablet 40 mg PO QPM 01/27/25 01/27/25 Previous Rx's ?Medication ?Instructions ?Recorded flash glucose scanning reader #1 ea 05/23/24 (FreeStyle Rene 2 Carmi) flash glucose sensor (FreeStyle #1 ea 05/23/24 Rene 2 Sensor kit) amlodipine 10 mg tablet 10 mg PO QDAY #30 tabs 05/24/24 dulaglutide 0.75 mg/0.5 mL 0.75 mg (0.5 mL) subcut QWEEK #2 mL 07/17/24 subcutaneous pen injector (Trulicity) zinc sulfate 50 mg zinc (220 mg) 50 mg PO QDAY #14 caps 07/17/24 capsule lisinopril 20 mg tablet 40 mg (2 x 20 mg) PO QDAY #60 tabs 07/19/24 furosemide 20 mg tablet (Lasix) 20 mg PO QAM #3 tabs 11/13/24 Allergies Allergy/AdvReac Type Severity Reaction Status Date / Time No Known Allergies Allergy Verified 02/06/25 11:35 Review of Systems Review of Systems ROS Unobtainable: unobtainable due to mental status Past Medical History Past Medical History NEUROLOGIC: Positive Peripheral Neuropathy CARDIAC: Positive Hypercholesterolemia, Hypertension and Hypotension GENITOURINARY: Positive Benign Prostatic Hyperplasia MUSCULOSKELETAL: Positive Musculoskeletal Disorders and Fractures ENDOCRINE: Positive Endocrine Disorders and Diabetes Mellitus Type 2 OTHER HISTORY: Positive Falls and MRSA Social History SMOKING STATUS: Former smoker SECOND HAND EXPOSURE: No SUBSTANCE USE: does not use ALCOHOL: Never ED Exam Narrative Physical exam: Physical Exam: General: The vital signs were reviewed. Cordial hard of hearing atrophic bilateral lower extremities and has bilateral weakness of those extremities and on appears to have a significant weakness in all extremities. The patient is non-toxic, in no apparent distress and appears healthy with a patent airway, no respiratory distress and has no apparent circulatory problems. Head & Scalp: Normocephalic, atraumatic. Face: Appears normal and is without lesions, deformity. Ears: Left external pinna appears normal. Right external pinna appears normal. Eyes: The sclera is anicteric. No obvious photophobia. The Left and Right Orbit/Lid/Conjunctiva appears normal without swelling, discoloration or injection. Nose: The nose is without deformity, discharge or tenderness; Throat: Appears normal. The mucous membranes are pink and moist without exudates, redness or mass seen. The tongue appears normal. Neck: The neck is supple and no apparent mass or adenopathy. Chest: The chest wall is normal in size and symmetry and has no chest wall tenderness or crepitus. The patient displays normal ventilator effort without retractions, accessory muscle use and has adequate air movement bilaterally with no wheezes and no rales. Cardiovascular: Regular rate and rhythm; No murmurs, rubs, or gallops; Gastrointestinal: The abdomen appears normal. No obvious hernias or mass. The abdomen is soft and benign, non-distended, with no pain, no guarding and no rebound tenderness. Bowel sounds are present and normal sounding. No CVA tenderness. Genitourinary: Rectal was done it was pasty stool and strongly guaiac positive. Back/Spine: Normal inspection Extremities/Musculoskeletal/lymphatic: The bilateral upper and lower extremities are warm. There is no evidence of arterial insufficiency. There is no evidence of venous insufficiency/edema. The patient spontaneously moves bilateral upper and lower extremities with no pain and no limitation of movement. There is no apparent, injury or trauma. Skin: The skin is warm, dry and intact. No rashes. No petechia. No purpura. No abnormal bruising. The color is appropriate with no cyanosis. Mental status/Psychiatric: Mental status is baseline appropriate for age. The patient has no apparent delusions, visual hallucinations, no apparent audible hallucinations. The patient has no apparent suicidal thoughts/ideation and no apparent homicidal thoughts/ideation. Neurological: The patient is awake, alert, interactive, cordial, cooperative and is oriented to name and situation. The patient follows commands and answers historical question with no impairment. There is no visual disturbance apparent. The pupils are equal and reactive bilaterally with normal eye movements and no diplopia The bilateral upper and lower extremities have normal strength, normal range of motion and normal functioning. The gait, station and balance was not tested as the patient is nonambulatory. Rectal Exam Rectal exam: Present heme (+) stool Course Quality Measures none Orders Category Date Time Status Admit to Inpatient Status Routine Admission 04/27/25 13:46 Active Patient Condition Routine Admission 04/27/25 13:46 Ordered Activity as Tolerated Routine Care 04/27/25 13:48 Ordered Bedside Blood Glucose AC Care 04/27/25 13:52 Active Continuous Pulse Oximetry NOW Care 04/27/25 13:46 Completed EKG (ED ONLY) *Do not use* NOW Care 04/27/25 09:47 Completed Intake and Output QSHIFT Care 04/27/25 14:00 Ordered Miscellaneous Nursing Order NOW Care 04/27/25 13:51 Active Neuro Check Q4H Care 04/27/25 13:46 Active Notify provider NEEDED Care 04/27/25 13:46 Active Wound Care NOW Care 04/27/25 13:[address] abdomen pelvis wo con Stat Exams 04/27/25 14:[address] head/brain wo con Stat Exams 04/27/25 09:53 Completed EKG (ED Only) Stat Exams 04/27/25 09:47 Draft XR chest 1V portable Stat Exams 04/27/25 09:47 Completed Ammonia Stat Lab 04/27/25 09:58 Completed B-Type Natriuretic Peptide Stat Lab 04/27/25 09:58 Completed Blood Culture (Lab) Stat Lab 04/27/25 10:10 Received CBC AM DRAW Lab 04/28/25 05:00 Ordered CBC AM DRAW Lab 04/29/25 05:00 Ordered CBC AM DRAW Lab 04/30/25 05:00 Ordered CBC Stat Lab 04/27/25 09:58 Completed Comprehensive Metabolic Panel AM DRAW Lab 04/28/25 05:00 Ordered Comprehensive Metabolic Panel AM DRAW Lab 04/29/25 05:00 Ordered Comprehensive Metabolic Panel AM DRAW Lab 04/30/25 05:00 Ordered Comprehensive Metabolic Panel Stat Lab 04/27/25 09:58 Completed Drug Screen,Urine Stat Lab 04/27/25 09:58 Completed Lactate (Lactic Acid) Stat Lab 04/27/25 09:58 Completed Lipase Stat Lab 04/27/25 09:58 Completed Magnesium AM DRAW Lab 04/28/25 05:00 Ordered Magnesium AM DRAW Lab 04/29/25 05:00 Ordered Magnesium AM DRAW Lab 04/30/25 05:00 Ordered Magnesium Stat Lab 04/27/25 09:58 Completed Partial Thromboplastin Time Stat Lab 04/27/25 09:58 Completed Phosphorous AM DRAW Lab 04/28/25 05:00 Ordered Phosphorous AM DRAW Lab 04/29/25 05:00 Ordered Phosphorous AM DRAW Lab 04/30/25 05:00 Ordered Prothrombin Time with INR Stat Lab 04/27/25 09:58 Completed Troponin I Stat Lab 04/27/25 09:58 Completed Type and Screen Stat Lab 04/27/25 10:15 Completed Urinalysis Stat Lab 04/27/25 09:58 Completed Urinalysis, C/S if Indicated Stat Lab 04/27/25 09:58 Completed Urine Culture Stat Lab 04/27/25 09:58 Received Venous Blood Gas Stat Lab 04/27/25 09:58 Completed Acetaminophen Tab [Tylenol Tab] Med 04/27/25 13:46 Active 650 mg PO Q6H PRN Azithromycin Inj [Zithromax Inj] 500 mg Med 04/28/25 09:00 Pending Sodium Chloride 0.9% 250 ml [Ns] 250 ml IV QDAY Azithromycin Inj [Zithromax Inj] 500 mg Med 04/27/25 14:00 Active Sodium Chloride 0.9% 250 ml [Ns] 250 ml IV X1 Dextrose 50% Syr [D50w Syringe Abboject] Med 04/27/25 13:52 Active 25 ml IV Q15MIN PRN Dextrose 50% Syr [D50w Syringe Abboject] Med 04/27/25 13:52 Active 50 ml IV Q15MIN PRN Glucagon Inj Med 04/27/25 13:52 Active 1 mg IM Q15MIN PRN Heparin Inj Med 04/27/25 14:00 Active 5,000 unit SC Q8HR INSULIN LISPRO (AdmeLOG) [HumaLOG] Med 04/27/25 17:00 Active See Protocol SC AC Metoclopramide [Reglan] Med 04/27/25 13:46 Active 10 mg PO Q6H PRN Pantoprazole [Protonix] Med 04/28/25 09:00 Active 40 mg PO QDAY Piper/Tazo 3.375 gm Premix [Zosyn] Med 04/27/25 12:36 Discontinued 3.375 gm in 50 ml IV X1 Ringers Lactated 1000 ml [Lactated Ringers] 1,000 ml Med 04/27/25 13:48 Active IV 75 mls/hr Vancomycin/Ns 1 gm Ivpb 200 ml Med 04/27/25 12:36 Discontinued IV X1 cefTRIAXone/D5w 1gm IV premix [Rocephin/D5w 1gm IV Med 04/27/25 13:50 Active premix] 1 gm in 50 ml IV QDAY Code Status Routine Oth 04/27/25 13:46 Ordered Oxygen Delivery PRN RT 04/27/25 13:46 Active Vital Signs Vital signs: Vital Signs Temperature 98.6 F 04/27/25 09:42 Pulse Rate 87 04/27/25 09:42 Respiratory Rate 18 04/27/25 09:42 Blood Pressure 153/83 H 04/27/25 09:42 Pulse Oximetry (%) 97 04/27/25 09:42 Oxygen Delivery Method Oxy Mask 04/27/25 09:42 Oxygen Flow Rate 10 04/27/25 09:42 Discharge Plan Plan Patient Disposition: Admit Acute Care w/in Hospital Discharge Disposition comment: Hospitalist Dr. Henson Prescriptions/Referrals Prescriptions/Med Rec: No Action Janumet 50-1,000 mg tablet 1 tab PO BID Patient Comments: TAKE 1 TABLET BY MOUTH TWICE A DAY WITH MEALS FOR 60 DAYS (DME) FreeStyle Rene 2 Sensor Kit See Rx Instructions .Route Qty: 1 0RF Rx Instructions: As directed (DME) FreeStyle Rene 2 Carmi Misc See Rx Instructions .Route Qty: 1 0RF Rx Instructions: As directed amlodipine 10 mg tablet 10 mg PO QDAY Qty: 30 0RF zinc sulfate 50 mg zinc (220 mg) capsule 50 mg PO QDAY Qty: 14 0RF Trulicity 0.75 mg/0.5 mL pen injector 0.75 mg subcut QWEEK Qty: 2 0RF lisinopril 20 mg tablet 40 mg PO QDAY Qty: 60 0RF furosemide [Lasix] 20 mg tablet 20 mg PO QAM Qty: 3 0RF atorvastatin 40 mg tablet 40 mg PO QPM Problem List Clinical Impression: Hypoxemia, Altered mental status, Left lower lobe pneumonia, Urinary tract infection Patient/Caregiver Discharge Instructions Print Language: Belizean Stand Alone Forms: Karla Award Info., Patient Portal Info Letter MDM Clinical Information Provided by EMS [facility] Meds/Rx Considered, not Ordered None Labs/Rad/Tests considered, not Ordered None Chronic Illness/Social Conditions which may negatively complicate care or outcome(s)-explain: penitentiary/debilitated ([facility]) Add or document further as needed: hypertension, diabetes, muscle weakness, and seizures EKG EKG Interpretation narrative: My interpretation: EKG performed at 1001 hours, sinus rhythm, rate 87, low voltage, no STEMI Lab Interpretation Labs: see narrative above Imaging Imaging interpretation: see narrative above Radiology reports / interpretation(s): Procedure(s): CT head/brain wo con Accession Number(s): [id number] cc: John Hernadez MD; Jerald Shelley MD~ Examination: CT brain head without contrast. 2-D sagittal coronal reconstructions Date and time of exam:April 27, 2025 1009 hours Comparison February 06, 2025 INDICATIONS: Loss of consciousness episode today CTDI: vol (mGy):49.9 DLP: (mGycm):911 Technique: Multiple CT axial sections of the brain have been obtained, 5 mm slice thickness. Contrast has not been administered. 2-D sagittal, coronal reconstructions have been obtained Low dose protocols were performed. One or more of the following dose reduction techniques were used; automated exposure control, adjustment of the mA and/or KV according to patient size, use of iterative reconstruction technique. Findings: No significant ventricular enlargement. Intra-axial or extra-axial hemorrhage density is not seen. No mass effect or midline shift Basal cisterns are not remarkable. Fourth ventricle is midline. Cranial vault intact. Chronic ethmoid sphenoid maxillary antral sinusitis Impression: Negative for acute hemorrhage, mass effect or midline shift Advise clinical correlation and follow-up accordingly Dictated By: Jerald Shelley MD Procedure(s): XR chest 1V portable Accession Number(s): [id number] cc: John Hernadez MD; Jerald Shelley MD~ Examination: AP chest single view Technique one AP portable semiupright chest single view Date and time: April 27, 2025 at 1005 hours Comparison 06/20/2025 INDICATIONS: Chest pain today. FINDINGS: Significant pneumonia left base obscuring detail fell left hemidiaphragm Mild to moderate left pleural fluid Normal heart size Prominent osteopenia IMPRESSION: Significant pneumonia left base Dictated By: Jerald Shelley MD Medication Administration(s) Medication Administration History Acetaminophen (Acetaminophen 325 Mg Tablet) 650 mg PO Q6H PRN PRN Reason: Fever >101.5 Stop: 05/27/25 13:45 Dextrose (Dextrose 50%-Water Inj 50 Ml Syringe) 25 ml IV Q15MIN PRN PRN Reason: BG 50-70 responsive npo pt Stop: 05/27/25 13:51 Dextrose (Dextrose 50%-Water Inj 50 Ml Syringe) 50 ml IV Q15MIN PRN PRN Reason: BG <50 OR BG <70 & pt unresponsive Stop: 05/27/25 13:51 Glucagon (Glucagon Inj 1 Mg Vial) 1 mg IM Q15MIN PRN PRN Reason: BG <70, and no IV access Heparin Sodium (Porcine) (Heparin Sod Inj 5000 Unit/Ml Vial) 5,000 unit SC Q8HR YOLI Stop: 05/11/25 13:59 Last Admin: 04/27/25 14:37 Dose: 5,000 unit Documented By: CUCO Co-signed By: HAN Comments: md valdes aware of elevated ptt okay' to give Lactated Ringer's (Lactated Ringers) 1,000 mls @ 75 mls/hr IV .[id number] ONE Stop: 04/28/25 03:07 Last Admin: 04/27/25 14:52 Dose: 75 mls/hr Documented By: EF Ceftriaxone Sodium/Dextrose (Rocephin/D5w 1gm Iv Premix) 1 gm in 50 mls @ 100 mls/hr IV QDAY [facility] Stop: 05/04/25 13:49 Last Admin: 04/27/25 14:36 Dose: 100 mls/hr Documented By: EF Azithromycin 500 mg/ Sodium (Chloride) 250 mls @ 250 mls/hr IV QDAY YOLI Stop: 05/05/25 08:59 Azithromycin 500 mg/ Sodium (Chloride) 250 mls @ 250 mls/hr IV X1 ONE Stop: 04/27/25 14:59 Last Admin: 04/27/25 14:52 Dose: 250 mls/hr Documented By: EF Insulin Human Lispro (Insulin Lispro (Admelog) 1 Unit/0.01 Ml Unit) 0 unit SC AC [facility]; Protocol Stop: 05/27/25 16:59 Metoclopramide HCl (Metoclopramide 5 Mg Tablet) 10 mg PO Q6H PRN; Protocol PRN Reason: NAUSEA OR VOMITING Stop: 05/27/25 13:45 Pantoprazole Sodium (Pantoprazole 40 Mg Tablet) 40 mg PO QDAY [facility] Stop: 05/28/25 08:59 Discontinued Medications Vancomycin/Sodium Chloride (Vancomycin/Ns 1 Gm Ivpb) 200 mls @ 120 mls/hr IV X1 ONE Stop: 04/27/25 14:15 Last Admin: 04/27/25 13:44 Dose: 120 mls/hr Documented By: EF Piperacillin/Tazobactam/Dextrose (Zosyn) 3.375 gm in 50 mls @ 100 mls/hr IV X1 ONE Stop: 04/27/25 13:05 Last Infusion: 04/27/25 13:36 Dose: Infused Documented By: Admin: 04/27/25 13:06 Dose: 100 mls/hr Documented By: EF Diagnosis Differential diagnosis: Hypoxia, hypoxemia, TIA, CVA Most likely dx, and/or detailed dx discussion: Hypoxemia AMS Left lower lobe pneumonia UTI Dispositon Disposition: Admit
--- NOTE | 2025-04-27 09:54 | PC.NURSE ---
Patient BIBA from [facility] due low 02 sats and increased AMS since 0800. Patient is A&O to self, Pashto speaking only, Dr. Hernadez at bedside assessing patient at this time. No SOB noted at this time.
[2025-04-27 10:09] LABS: Collection Type, Urine Clean Catch
[2025-04-27 10:10] LABS: Base Excess, Venous -4 (-3-3); Lactate (Lactic Acid) 0.8 mMol/L (0.4-2.0); O2 Saturation, Venous 94 % (96-97); PCO2, Venous 37 mmHg (36-56); PO2, Venous 73 mmHg (15-58); pH, Venous 7.36 (7.33-7.66)
[2025-04-27 10:12] LABS: Basophils # (Auto) 0.1 Thou/mm3 (0.0-0.2); Basophils % (Auto) 0 % (0-2.5); Eosinophils # (Auto) 0.1 Thou/mm3 (0.0-0.5); Eosinophils % (Auto) 1 % (0-10); Hematocrit 23.6 % (41.0-53.0); Immature Granulocytes % (Auto) 1 % (0-0); Immature Granulocytes Auto 0.14 Thou/mm3 (0.00-0.00); Lymphocytes # (Auto) 1.5 Thou/mm3 (1.0-4.8); Lymphocytes % (Auto) 11 % (10-50); Mean Corpuscular HGB Conc 33.9 g/dl (31.0-37.0); Mean Corpuscular Volume 86 fL (80-100); Monocytes % (Auto) 7 % (0-12); Neutrophils # (Auto) 10.8 Thou/mm3 (1.8-7.7); Neutrophils % (Auto) 80 % (37-80); Nucleated Red Blood Cell % 0 /100 WBC (0); Platelet Count 498 Thou/mm3 (140-440); RDW Standard Deviation 42.9 fL (35.1-43.9); Red Blood Count 2.76 Miln/mm3 (4.50-5.90); White Blood Count 13.6 Thou/mm3 (3.8-10.6)
[2025-04-27 10:19] LABS: Bacteria,Urine 4+; Bilirubin,Urine Negative (Negative); Blood,Urine 2+ (Negative); Glucose, Urine 2+ (Negative); Ketones,Urine Negative (Negative); Leukocyte Esterase,Urine Positive (Negative); Nitrite,Urine Positive (Negative); Protein,Urine 3+ (Neg - Trace); RBC,Urine 17 /hpf (0-3); Specific Gravity,Urine 1.015 (1.001-1.035); Squamous Epithelial Cell,Urine 1 /hpf (0-5); Urobilinogen,Urine Negative mg/dL (0.0-1.0); WBC,Urine 685 /hpf (0-5)
[2025-04-27 10:20] LABS: Amorphous Crystals,Urine Present (Absent); Clarity,Urine Cloudy (Clear/Hazy); Color,Urine Lt Yellow (Lt Yel-Yel); Culture Indicated,Urine Yes
[2025-04-27 10:27] LABS: Partial Thromboplastin Time 39.6 Seconds (22.0-36.0); Prothrombin Time 11.4 Seconds (9.0-12.2)
[2025-04-27 10:31] LABS: Amphetamine/Methamp Scrn,U Negative (Negative); Barbiturate Screen,Urine Negative (Negative); Benzodiazepines Screen,Urine Negative (Negative); Benzoylecgonine Screen, Ur Negative (Negative); Fentanyl Screen,Urine Negative (Negative); Opiate Screen,Urine Negative (Negative); THC Screen,Urine Negative (Negative)
[2025-04-27 10:32] LABS: Alanine Aminotransferase 15 U/L (10-49); Albumin, Serum 3.2 gm/dL (3.4-4.8); Albumin/Globulin Ratio 1.1 (1.2-2.2); Alkaline Phosphatase 67 U/L (46-116); Anion Gap 8 (7-16); Aspartate Amino Transferase 11 U/L (0-34); BUN/Creatinine Ratio 28 Ratio (12-20); Bilirubin,Total 0.2 mg/dL (0.3-1.2); Blood Urea Nitrogen 28 mg/dL (9-23); Calcium 8.3 mg/dL (8.3-10.6); Calcium (Corrected) 8.9 mg/dL (8.5-10.1); Carbon Dioxide 21.8 mMol/L (20.0-31.0); Chloride 109 mMol/L (98-107); Estimated Creatinine Clearance 65.6 mL/min (>60); Glucose 166 mg/dL (74-106); Lipase 32 U/L (12-53); Magnesium 1.9 mg/dL (1.6-2.6); Osmolality,Calculated 287 (275-295); Potassium 4.1 mMol/L (3.4-5.1); Sodium 139 mMol/L (136-145); Total Protein 6.2 gm/dL (5.7-8.2); Troponin I < 0.020 ng/mL (0.0-0.045); eGFR > 60 See Note
[2025-04-27 10:35] LABS: Ammonia < 10 uMol/L (11-32)
[2025-04-27 10:46] LABS: B-Type Natriuretic Peptide 247 pg/mL (0-100)
[2025-04-27] MEDS: PIPER/TAZO 3.375 GM PREMIX 3.375 GM/50 ML BAG IV (13:06)
[2025-04-27] MEDS: VANCOMYCIN/NS 1 GM IVPB 200 ML IV (13:44)
--- NOTE | 2025-04-27 14:03 | XR_ITS ---
Examination: CT abdomen and pelvis without contrast. Coronal 3-D reconstructions. Sagittal 2-D reconstructions. Date and time of exam:April 27, 2025 1519 hours Comparison January 27, 2025 INDICATIONS: Fever unknown origin CTDI: vol (mGy): 18 DLP: (mGycm): 1030 Technique: Axial images of the abdomen have been obtained, 3 mm slice thickness Intravenous contrast material has not been administered. Low dose protocols were performed. One or more of the following dose reduction techniques were used; automated exposure control, adjustment of the mA and/or KV according to patient size, use of iterative reconstruction technique. Findings: Moderate left mild right pleural fluid Pneumonia both lung bases No visualized liver or splenic lesion, liver is irregular in contour Gallbladder wall appears thickened No pancreatic or adrenal mass No renal or ureteral calculi, mild hydronephrosis Normal appendix Mild ascites Minimal bilateral hydronephrosis Prominent urinary bladder wall thickening up to 21 mm Right inguinal hernia containing colon but no incarcerated bowel Fat-containing left inguinal hernia Severe osteopenia with diffuse thoracic and lumbar disc narrowing IMPRESSION: Bibasilar pneumonia Moderate left mild right pleural fluid Primary hepatocellular disease Mild ascites Mild hydronephrosis, likely vesicoureteral reflux with cystitis pattern, marked thickening of urinary bladder wall Right inguinal hernia containing colon but no incarcerated bowel
--- NOTE | 2025-04-27 14:09 | ESHP_ITS ---
<Statement entered by Godwin Cabrera MD - 04/27/25 17:45> I discussed with and supervised the jewelry internship physician involved in the care of this patient. Patient assessment and plan was discussed with entire medicine team, including my attending. I agree with the assessment and plan as documented by jewelry internship doctor. Patient care was discussed with my attending physician Dr. Sixto Cabrera, PGY-2 Documentation for date of: 04/27/25 HPI History of Present Illness History of present illness: History of Present Illness: This is a 64-year-old male with PMHx of HTN, HLD, CHF, peripheral neuropathy, IDDM, diabetic foot ulcer, chronic muscle weakness, cervical myelopathy, BIBA from [facility] with acute AMS, SOB and hypoxia, found 71% on room air by EMS, subsequently placed on 10 L oxygen. On exam, he is awake, oriented to name and date of , but not place or situation. Unfortunately, history is limited secondary to altered mental status, poor history obtained from SNF, unable to get a hold of contact on file. However, evidently, at baseline he is A&O X4, has normal conversation, bedbound 2/2 generalized weakness, and was at baseline last night. This morning, a new staff took over management, and he was noted to be altered during morning rounds. Apparently, not making sense, saying random words, not recognizing staff, refusing food. There has been no reported BRINK, fever, chills, dizziness, loc, fall/trauma, chest pain, sob, cough, or abdominal pain n/v/d/c. Although he has complained of dysuria and has endorsed difficulty urinating 3 weeks ago. 3 days ago he complained of dysuria and had a urias inserted with good urine output (per SNF staff). No reported hematuria, pyuria, dark or foul-smelling urine. He was admitted on 05/2025 for lower extremity weakness and bilateral swelling, at the time. CVA was ruled out. However, he was diagnosed with cervical spine stenosis with advanced degenerative disc disease involving several cervical vertebrae. DVT was also evaluated time. Patient follow-up with Dr. Dasilva, unclear if he was seen after discharge. Past Medical History: * HTN, HLD, CHF, peripheral neuropathy, IDDM, diabetic foot ulcer, chronic muscle weakness, cervical myelopathy. Past Surgical History: * I&D of diabetic foot wound Medications: * AMLODIPINE 10 mg, LISINOPRIL 40 mg, FUROSEMIDE 20 mg, ATORVASTATIN 40 mg, JANUMET 1 tab BID, TRULICITY 0.7 mg weekly, ZINC SULFATE, INSULIN sliding scale. Allergies: * No known allergies Family History: * Unknown Social History: * No history of alcohol, tobacco or drug use. ED Course: * Altered, on exam, follows command, AOA x 2. * Afebrile, BP 153/83, HR 18, satting 97% on 10 L OxiMax. * CBC showed WBC 13.6, Hgb 8.0 around baseline, PLT 498. * PTT 39.6, PT 11.4, INR 1.0. * VBG showed pH 7.36, CO2 37, PO2 73. * CHEM panel showed chloride 109, BUN 28, CR 1.0, GLUCOSE 166, ammonia less than 10, BNP 247. * Normal lipase, troponin, LFTs, and lactic acid. * UA cloudy with 3+ protein, 2+ GLUCOSE, 2+ blood, 685, WBC, 4+ bacteria, positive LE/nitrite. * Toxin was negative. * Head CT was negative for acute pathology. * EKG shows sinus rhythm, no acute ST changes. * CXR showed significant left base pneumonia. * Abdominal CT showed bibasilar pneumonia, moderate bilateral pleural effusion, primary parasellar disease, mild ascites, mild hydronephrosis, right inguinal hernia containing colon without incarceration. Reason for admission: Acute encephalopathy, acute hypoxemic respiratory failure, pleural effusion, pneumonia, UTI. Exam Vital Signs Temp Pulse Resp BP Pulse Ox O2 Del Method O2 Flow Rate 98.1 F 85 14 137/79 H 96 Room Air 10 04/27/25 11:59 04/27/25 11:59 04/27/25 11:59 04/27/25 11:59 04/27/25 11:59 04/27/25 11:59 04/27/25 09:42 Narrative Exam GENERAL * Ill-appearing male, NAD, ANO x 2, follows command, on 2 L OxyMask, though does not place but satting well. HEENT * NCAT.?DMITRY. Oral mucosa is moist. Patent Nares NECK * Supple, nontender, no thyromegaly, no meningismus, no JVD, no step offs CHEST * Tachycardic, regular rhythm, no m/g/r * CTAB although diminished breath sounds, no w/r/r. Symmetrical chest rise. No intercostal subcostal retraction * Atraumatic, nontender, no crepitus, symmetrical expansion. ABDOMEN * Soft, flat, nontender. No guarding/rebound tenderness/masses. * Bowel sounds presents EXTREMITIES * Extensive bilateral pitting edema involving lower and upper extremity, anasarca. SKIN * Warm and dry, no jaundice/rashes. NEUROMUSCULAR * No lumbar or midline, no CVA, no paraspinal muscle spasm or tenderness. * Moves all 4 extremities well, with full ROM and good CSM. * GARRIDO x4, CN II-XII grossly intact. * No focal neurologic deficits. PSYCHIATRY * Normal mood and affect, cooperative, no SI or HI or hallucinations. Results: Labs 04/28/25 05:48 04/28/25 05:48 Labs: Short CBC 04/27/25 Range/Units 09:58 WBC 13.6 H (3.8-10.6) Thou/mm3 Hgb 8.0 L (13.5-16.0) g/dL Hct 23.6 L (41.0-53.0) % Plt Count 498 H D (140-440) Thou/mm3 BMP 04/27/25 09:58 Sodium 139 Potassium 4.1 Chloride 109 H Carbon Dioxide 21.8 BUN 28 H Creatinine 1.0 Glucose 166 H Calcium 8.3 Cardiac Enzymes 04/27/25 Range/Units 09:58 Troponin I < 0.020 (0.0-0.045) ng/mL Liver Function 04/27/25 Range/Units 09:58 Total Bilirubin 0.2 L (0.3-1.2) mg/dL AST 11 (0-34) U/L ALT 15 (10-49) U/L Alkaline Phosphatase 67 (46-116) U/L Albumin 3.2 L (3.4-4.8) gm/dL Urine 04/27/25 Range/Units 09:58 Urine Color Lt Yellow (Lt Yel-Yel) Urine Clarity Cloudy A (Clear/Hazy) Urine pH 6.0 (5.0-7.0) Ur Specific [place] 1.015 (1.001-1.035) Urine Protein 3+ A (Neg - Trace) Urine Glucose (UA) 2+ A (Negative) ABG Interpretation ABG results: 04/27/25 09:58 VBG pH 7.36 VBG pCO2 37 VBG pO2 73 H VBG Base Excess -4 L Quality Measures Quality Measures none Advance care planning discussed with:: patient Medications Home Medications and Allergies Home Medications ?Medication ?Instructions ?Recorded ?Confirmed ?Type sitagliptin phosphate 50 1 tab PO BID 05/19/24 History mg-metformin 1,000 mg tablet (Janumet) atorvastatin 40 mg tablet 40 mg PO QPM 01/27/25 History acetaminophen 500 mg capsule 1,000 mg PO Q8HR PRN pain 04/28/25 04/28/25 History amlodipine 10 mg tablet 10 mg PO QDAY 04/28/2504/28 History baclofen 10 mg tablet 10 mg PO TID 04/28/25 History bisacodyl 10 mg rectal suppository 10 mg IA QDAY PRN c onstipation 04/28/25 04/28/25 History (Dulcolax (bisacodyl)) cranberry fruit concentrate 500 mg 500 mg PO QDAY 04/0904/28/25 History capsule (Cran-Max) ferrous sulfate 325 mg (65 mg 325 mg PO BID 04/28/25 0 04/28/25 History iron) tablet (Iron (ferrous sulfate)) furosemide 20 mg tablet (Lasix) 20 mg PO QAM 04/28/25 04/28/25 History gabapentin 100 mg capsule 200 mg PO BID 04/28/2504/28 History lisinopril 20 mg tablet 40 mg PO QDAY 04/28/2504/28 History phenol 1.4 % mucosal aerosol spray 1 spray .Route Q4HR PRN sore throat 04/28/25 04/28/25 History (Chloraseptic Throat [place]) sodium phosphates 19 gram-7 118 ml IA Q72H PRN constip ation 04/28/25 04/28/25 History gram/118 mL enema (Enema) Allergies Allergy/AdvReac Type Severity Reaction Status Date / Time No Known Allergies Allergy Verified 02/06/25 11:35 Visit Medications Acetaminophen (Acetaminophen 325 Mg Tablet) 650 mg PO Q6H PRN PRN Reason: Fever >101.5 Stop: 05/27/25 13:45 Dextrose (Dextrose 50%-Water Inj 50 Ml Syringe) 25 ml IV Q15MIN PRN PRN Reason: BG 50-70 responsive npo pt Stop: 05/27/25 13:51 Dextrose (Dextrose 50%-Water Inj 50 Ml Syringe) 50 ml IV Q15MIN PRN PRN Reason: BG <50 OR BG <70 & pt unresponsive Stop: 05/27/25 13:51 Glucagon (Glucagon Inj 1 Mg Vial) 1 mg IM Q15MIN PRN PRN Reason: BG <70, and no IV access Heparin Sodium (Porcine) (Heparin Sod Inj 5000 Unit/Ml Vial) 5,000 unit SC Q8HR YOLI Stop: 05/11/25 13:59 Vancomycin/Sodium Chloride (Vancomycin/Ns 1 Gm Ivpb) 200 mls @ 120 mls/hr IV X1 ONE Stop: 04/27/25 14:15 Last Admin: 04/27/25 13:44 Dose: 120 mls/hr Lactated Ringer's (Lactated Ringers) 1,000 mls @ 75 mls/hr IV .[id number] ONE Stop: 04/28/25 03:07 Ceftriaxone Sodium/Dextrose (Rocephin/D5w 1gm Iv Premix) 1 gm in 50 mls @ 100 mls/hr IV QDAY YOLI Stop: 05/04/25 13:49 Azithromycin 500 mg/ Sodium (Chloride) 250 mls @ 250 mls/hr IV QDAY YOLI Stop: 05/05/25 08:59 Azithromycin 500 mg/ Sodium (Chloride) 250 mls @ 250 mls/hr IV X1 ONE Stop: 04/27/25 14:59 Insulin Human Lispro (Insulin Lispro (Admelog) 1 Unit/0.01 Ml Unit) 0 unit SC [facility]; Protocol Stop: 05/27/25 16:59 Metoclopramide HCl (Metoclopramide 5 Mg Tablet) 10 mg PO Q6H PRN; Protocol PRN Reason: NAUSEA OR VOMITING Stop: 05/27/25 13:45 Pantoprazole Sodium (Pantoprazole 40 Mg Tablet) 40 mg PO QDAY YOLI Stop: 05/28/25 08:59 Discontinued Medications Piperacillin/Tazobactam/Dextrose (Zosyn) 3.375 gm in 50 mls @ 100 mls/hr IV X1 ONE Stop: 04/27/25 13:05 Last Infusion: 04/27/25 13:36 Dose: Infused Assessment & Plan Plan This is a 64-year-old male with PMHx of HTN, HLD, CHF, peripheral neuropathy, IDDM, diabetic foot ulcer, chronic muscle weakness, cervical myelopathy, BIBA from [facility] with acute AMS, SOB and hypoxia, found 71% on room air by EMS, subsequently placed on 10 L oxygen. Acute encephalopathy likely 2/2 UTI versus PNA Acute hypoxemic respiratory failure Left base pneumonia, likely GNR Significant bilateral pleural effusion CHF exacerbation Evidently has acute AMS that started this morning, previously alert and oriented x 4 at baseline, and was at normal state of health last night. Found desatting to 71% on room air. Head CT was negative for acute pathology. There were no major metabolic or electrolyte disorders, including normal ammonia, ABGs, lactic acid, and renal function. CXR showed left base pneumonia, although he denies cough. Lung exam showed decreased breath sound but otherwise no rales or rhonchi. CT showed significant bilateral pleural effusion, and he is very anasarcous on exam, history of of CHF, EF unknown, no recent echo on file on LASIX 20 mg daily, BNP 247, will likely reason CHF exacerbation. Possibly he is retaining fluid secondary to anuria as stated below. Currently afebrile, mild leukocytosis present. ? Avoid narcotics 2/2 AMS ? Continue CEFTRIAXONE (04/27 to present) ? Continue AZITHROMYCIN (04/27 to present) ? Started LASIX 40 mg daily, strict JUANJO's, fluid restrictions ? Daily labs, replete electrolytes as needed ? BiPAP as needed ? Pending echo ? Pending pancultures ? Pending lipid panel, TSH, A1c Pleural effusion likely 2/2 CHF exacerbation, anticipate improvement with diuresis. Will consider thoracentesis for analysis if symptoms persist or worsen. Suspected oliguria/anuria Mild hydronephrosis Complicated UTI, likely GNR Evidently he has complained of difficulty urinating at SNF, associated with dysuria. He had urias placed 3 days ago and reportedly has good urine output. UA has significant UTI. Has complained of dysuria prior to admission, and anuria requiring Urias. UA was cloudy with significant proteinuria and glucosuria, likely 2/2 UTI. ? Strict JUANJO ? Urias ordered ? Bladder scan as needed ? ANTIBIOTICS and cultures as above HTN HLD ? Continue home ATORVASTATIN 40 mg daily ? Continue home LISINOPRIL 40 mg daily ? Holding AMLODIPINE 10 mg daily 2/2 LE edema ? Pending lipid panel IDDM GLUCOSE 166 on admission. ? INSULIN sliding scale ? Accu-Cheks ? Pending A1c Generalized weakness Cervical myopathy He was admitted on 05/2025 for lower extremity weakness and bilateral swelling, at the time. CVA was ruled out. However, he was diagnosed with cervical spine stenosis with advanced degenerative disc disease involving several cervical vertebrae. DVT was also evaluated time. Patient follow-up with Dr. Dasilva, unclear if he was seen after discharge. ? Physical therapy Primary hepatocellular disease Right inguinal hernia without incarceration Seen on CT, patient asymptomatic, although unable to move assessment 2/2 AMS. No pain on abdominal palpation. ? Will reexamine when AMS resolved Health maintenance Diet: Cardiac GI prophylaxis: Not indicated DVT prophylaxis: HEPARIN subcu Antibiotics: CEFTRIAXONE, AZITHROMYCIN CODE STATUS: Full code Disposition: [facility] Case was discussed with attending physician and senior resident. Surya Lawton DO PGYI Attending Provider Attestation/Addendum I, Demetra Henson DO, attest that I was physically present for the ramos portions of the service and evaluated the patient with the resident and I reviewed and discussed the case with the resident and agree with the resident's findings and plans of care as documented above Patient is a 64-year-old male with past medical history of hypertension, hyperlipidemia, CHF, peripheral neuropathy, IDDM, cervical myelopathy who was brought to the ED from a half-way facility for reportedly altered mental status and hypoxia. Per ER report, patient was found to have saturation of 79% was subsequently placed on 10 L oxymask. Patient at time of evaluation is alert, but oriented to only self. He states that he is feeling unwell, but unable to further elaborate. He states that his whole body feels bad. He also endorses having trouble urinating for several days. Patient is bedbound at baseline and has generalized weakness. He is also noted to have 2+ pitting edema bilateral upper extremities. CT head was done in the ED showing no evidence of acute intracranial findings. Chest x-ray shows significant pneumonia in the left base. However she was also noted to have significant UTI. CT abdomen pelvis was subsequently done and shows bibasilar pneumonia, moderate left mild and right pleural effusions, primary hepatocellular disease, mild ascites and mild hydronephrosis likely secondary to vesicoureteral reflux with cystitis. He is noted to have a right inguinal hernia but no incarcerated bowel. Will admit patient for altered mental status likely secondary to UTI. Will start empiric antibiotics for pneumonia and UTI. Will fluid restrict due to edema. Will start patient on IV Lasix 40 mg IV twice daily. Patient does have decreased breath sounds in bilateral lung bases. Suspect secondary to effusions. However, effusions are small and not amenable to thoracentesis at this time. Will admit patient to med/telemetry for further workup and medical management of acute encephalopathy secondary to UTI.
[2025-04-27] MEDS: cefTRIAXone/D5w 1gm IV premix 1 GM/50 ML BAG IV (14:36)
[2025-04-27] MEDS: HEPARIN SOD INJ 5000 UNIT/ML VIAL SC ×2 (14:37→22:02)
[2025-04-27] MEDS: RINGERS LACTATED 1000 ML 1,000 ML 75 ML IV (14:52)
[2025-04-27] MEDS: AZITHROMYCIN INJ 500 MG in SODIUM CHLORIDE 0.9% 250 ML 250 ML 250 MG IV (14:52)
--- NOTE | 2025-04-27 15:36 | ECHO_ITS ---
Transthoracic Echo Report Ht (in): 66 Wt (lb): 142 Exam Location: Echo Lab Status: Inpatient Forensic Artist: Whitley Gross Indications: Procedure Performed: BP: 116 / 74 HR: 88 Technical Quality: Technically difficult study MEASUREMENTS (Male / Female) Normal Values 2D ECHO LV Diastolic Diameter PLAX 4.2 cm 4.2 - 5.9 / 3.9 - 5.3 cm LV Systolic Diameter PLAX 3.0 cm IVS Diastolic Thickness 1.3 cm 0.6 - 1.0 / 0.6 - 0.9 cm LVPW Diastolic Thickness 1.1 cm 0.6 - 1.0 / 0.6 - 0.9 cm LV Relative Wall Thickness 0.6 LVOT Diameter 1.8 cm Aortic Root Diameter 2.9 cm LA Systolic Diameter LX 2.7 cm 3.0 - 4.0 / 2.7 - 3.8 cm LA Volume Index 17.8 cm?/m? 16 - 28 cm?/m? M-MODE Aortic Root Diameter MM 1.7 cm LA Systolic Diameter MM 2.5 cm LA Ao Ratio MM 1.5 AV Cusp Separation MM 1.5 cm DOPPLER AV Peak Velocity 125.0 cm/s AV Peak Gradient 6.3 mmHg AV Mean Gradient 3.0 mmHg AV Velocity Time Integral 24.6 cm LVOT Peak Velocity 87.2 cm/s LVOT Peak Gradient 3.0 mmHg LVOT Velocity Time Integral 20.7 cm LVOT Cardiac Index 2670.0 cm?/min?m? AV Area Cont Eq vti 2.1 cm? AV Area Cont Eq pk 1.8 cm? MV Area PHT 8.1 cm? MR Peak Velocity 205.0 cm/s MR Peak Gradient 16.8 mmHg Mitral E Point Velocity 51.4 cm/s Mitral A Point Velocity 73.2 cm/s Mitral E to A Ratio 0.7 LV E' Lateral Velocity 7.0 cm/s Mitral E to LV E' Lateral Ratio 7.4 LV E' Septal Velocity 5.3 cm/s Mitral E to LV E' Septal Ratio 9.6 TR Peak Velocity 240.0 cm/s TR Peak Gradient 23.0 mmHg PV Peak Velocity 88.2 cm/s PV Peak Gradient 3.1 mmHg FINDINGS Left Ventricle Normal left ventricular size. Mild LVH. Global left ventricular systolic function is mildly decreased. There is grade I diastolic dysfunction of the left ventricle (impaired relaxation pattern). The ejection fraction is visually estimated at 45-50 %. Right Ventricle The right ventricle is normal in size and systolic function. Left Atrium The left atrium is normal by two-dimensional, color flow and Doppler imaging with no structural abnormalities, no thrombus formation present. Right Atrium The right atrium is normal by two-dimensional imaging, color flow and Doppler imaging with no structural abnormalities, no thrombus formation present. Atrial Septum The interatrial septum appears normal with no evidence of a shunt. Aorta The aorta is normal by two-dimensional, color flow and Doppler interrogation. Mitral Valve The mitral valve is normal by two-dimensional, color flow and Doppler interrogation. Trace mitral regurgitation. Aortic Valve The aortic valve is trileaflet and normal by two-dimensional, color flow and Doppler interrogation. There is no significant aortic valve regurgitation. Tricuspid Valve The tricuspid valve is normal by two-dimensional, color flow and Doppler interrogation. There is trace tricuspid valve regurgitation. Pulmonic Valve The pulmonic valve is not well visualized. There is no significant pulmonic valve regurgitation. Vessels The pulmonary artery appears normal. The inferior vena cava pulmonary and hepatic veins appear normal. Pericardium There is a tiny, hemodynamically insignificant pericardial effusion. CONCLUSIONS Indication: CHF Normal LV size. Mild LVH. Normal LV systolic function with an EF of 50 to 55%. Grade I diastolic dysfunction. Normal RV size and function. Mildly elevated RVSP at around 35 mmHg. Trace MR and TR. Mildly thickened mitral and aortic valve leaflets. Trace to small pericardial effusion noted. No evidence of any cardiac tamponade. Jake Waldrop (Electronically Signed) Final Date: 30 April 2025 04:09
[2025-04-27] MEDS: FUROSEMIDE INJ 10 MG/ML 4ML VIAL 40 MG IVP (18:50)
--- NOTE | 2025-04-27 20:09 | PC.NURSE ---
UNABLE TO DO COVID TEST NO BEDSIDE COVID JUICE AVAILABLE
[2025-04-27 21:32] LABS: COVID-19 Antigen (In-House) Negative (Negative)
[2025-04-27] MEDS: ATORVASTATIN CALCIUM 20 MG TABLET 40 MG PO (22:02)
[2025-04-28] VITALS (13 sets, daily range): BP systolic 140–156; BP diastolic 74–92; PULSE 80–92; RESP 16–97; TEMP 36.2–37; O2SAT 97–98
[2025-04-28] MEDS: FUROSEMIDE INJ 10 MG/ML 4ML VIAL 40 MG IVP ×2 (05:41→17:10)
[2025-04-28] MEDS: HEPARIN SOD INJ 5000 UNIT/ML VIAL SC ×3 (05:42→21:19)
[2025-04-28 06:11] LABS: Basophils # (Auto) 0.1 Thou/mm3 (0.0-0.2); Basophils % (Auto) 1 % (0-2.5); Eosinophils # (Auto) 0.1 Thou/mm3 (0.0-0.5); Eosinophils % (Auto) 1 % (0-10); Hematocrit 23.3 % (41.0-53.0); Immature Granulocytes % (Auto) 1 % (0-0); Immature Granulocytes Auto 0.12 Thou/mm3 (0.00-0.00); Lymphocytes # (Auto) 0.8 Thou/mm3 (1.0-4.8); Lymphocytes % (Auto) 7 % (10-50); Mean Corpuscular HGB Conc 33.5 g/dl (31.0-37.0); Mean Corpuscular Hemoglobin 28.4 pg (25.0-35.0); Mean Corpuscular Volume 85 fL (80-100); Monocytes # (Auto) 0.7 Thou/mm3 (0.0-0.8); Monocytes % (Auto) 6 % (0-12); Neutrophils % (Auto) 85 % (37-80); Nucleated Red Blood Cell % 0 /100 WBC (0); Platelet Count 493 Thou/mm3 (140-440); RDW Standard Deviation 42.9 fL (35.1-43.9); Red Blood Count 2.75 Miln/mm3 (4.50-5.90); White Blood Count 11.8 Thou/mm3 (3.8-10.6)
[2025-04-28 06:19] LABS: Hemoglobin 7.8 g/dL (13.5-16.0)
[2025-04-28 06:40] LABS: Glucose Estimated Average 186 mg/dL (80-131); Hemoglobin A1C 8.1 % Hgb (4.8-6.0)
[2025-04-28 06:57] LABS: Alanine Aminotransferase 15 U/L (10-49); Albumin, Serum 3.1 gm/dL (3.4-4.8); Albumin/Globulin Ratio 1.1 (1.2-2.2); Alkaline Phosphatase 64 U/L (46-116); Anion Gap 13 (7-16); Aspartate Amino Transferase 15 U/L (0-34); BUN/Creatinine Ratio 26 Ratio (12-20); Bilirubin,Total < 0.2 mg/dL (0.3-1.2); Blood Urea Nitrogen 26 mg/dL (9-23); Calcium 8.2 mg/dL (8.3-10.6); Calcium (Corrected) 8.9 mg/dL (8.5-10.1); Carbon Dioxide 20.1 mMol/L (20.0-31.0); Cardiac Risk Estimate 3.4 RATIO (4.0-6.7); Chloride 108 mMol/L (98-107); Cholesterol 72 mg/dL (132-200); Estimated Creatinine Clearance 63.9 mL/min (>60); Free T4 (Free Thyroxine) 0.95 ng/dL (0.89-1.76); Globulin 2.9 gm/dL (2.3-3.5); Glucose 174 mg/dL (74-106); HDL Cholesterol 21 mg/dL (40-60); LDL Cholesterol,Calculated 23 mg/dL (0-130); Magnesium 1.9 mg/dL (1.6-2.6); Osmolality,Calculated 289 (275-295); Phosphorous 4.6 mg/dL (2.4-5.1); Potassium 4.3 mMol/L (3.4-5.1); Sodium 141 mMol/L (136-145); Thyroid Stimulating Hormone 7.01 uIU/mL (0.55-4.78); Triglycerides 140 mg/dL (30-150); eGFR > 60 See Note
[2025-04-28] MEDS: INSULIN LISPRO (AdmeLOG) 1 UNIT/0.01 ML UNIT SC ×4 (07:23→20:29)
[2025-04-28] MEDS: PANTOPRAZOLE 40 MG TABLET PO (09:11)
[2025-04-28] MEDS: Lisinopril 20 MG TABLET 40 MG PO (09:11)
[2025-04-28] MEDS: cefTRIAXone/D5w 1gm IV premix 1 GM/50 ML BAG IV (09:11)
--- NOTE | 2025-04-28 09:16 | XR_ITS ---
Examination: Duplex scan of the upper extremity, unilateral right complete Date and time of exam: April 28, 2025 10:14 AM Indications: Altered mental status arm swelling and pain today Technique: Duplex scan of the extremity veins using B-mode/grayscale imaging and Doppler spectral analysis and color flow Attention is directed to internal echogenicity, compression and augmentation involving these veins, color flow assessment, spectral analysis Findings: Major deep venous structures in the extremity demonstrate normal course and caliber. There is no evidence of deep vein thrombosis. Normal color flow and spectral analysis Impression: Negative for DVT..
[2025-04-28] MEDS: VANCOMYCIN/NS 750 MG IVPB 750 MG/150 ML BAG 120 MG IV ×2 (10:04→21:18)
--- NOTE | 2025-04-28 17:24 | PD.RESPRO ---
Documentation for date of: 04/28/25 Subjective Subjective Interval history: No acute overnight events. Remains altered, although able to state first and last name. Unclear if he is complaining of pain, he mostly answers yes to any questions, however does not appear in distress. Vitals are stable, he is afebrile. WBC downtrending, Hgb 7.8 but stable, no source of bleed. CHEM panel without acute changes. He has persistent swelling in upper extremity greater than lower extremity. Ultrasound was negative for DVT in upper extremity. We increased diuresis. Exam Vital Signs Temp Pulse Resp BP Pulse Ox O2 Del Method O2 Flow Rate 98.6 F 87 18 149/77 H 97 Room Air 10 04/28/25 16:00 04/28/25 17:10 04/28/25 16:00 04/28/25 17:10 04/28/25 16:04/28/25 16:04/27/25 09:42 Narrative Exam GENERAL Ill-appearing male, NAD, ANO x 2, follows command, on 2 L OxyMask, though does not place but satting well. HEENT NCAT.?DMITRY. Oral mucosa is moist. Patent Nares NECK Supple, nontender, no thyromegaly, no meningismus, no JVD, no step offs CHEST Tachycardic, regular rhythm, no m/g/r CTAB although diminished breath sounds, no w/r/r. Symmetrical chest rise. No intercostal subcostal retraction Atraumatic, nontender, no crepitus, symmetrical expansion. ABDOMEN Soft, flat, nontender. No guarding/rebound tenderness/masses. Bowel sounds presents EXTREMITIES Extensive bilateral pitting edema involving upper> lower extremity, anasarca. SKIN Warm and dry, no jaundice/rashes. Significant scrotal edema, with foul smelling discharge from the penis. NEUROMUSCULAR No lumbar or midline, no CVA, no paraspinal muscle spasm or tenderness. Moves all 4 extremities well, with full ROM and good CSM. GARRIDO x4, CN II-XII grossly intact. No focal neurologic deficits. PSYCHIATRY Normal mood and affect, cooperative, no SI or HI or hallucinations. Objective Labs 04/29/25 06:10 04/29/25 06:10 Labs: Laboratory Results - last 24 hr 04/27/25 04/28/25 20:21 05:48 WBC 11.8 H RBC 2.75 L Hgb 7.8 L Hct 23.3 L MCV 85 MCH 28.4 MCHC 33.5 RDW Std Deviation 42.9 Plt Count 493 H Neut % (Auto) 85 H Lymph % (Auto) 7 L [place] % (Auto) 6 Eos % (Auto) 1 Baso % (Auto) 1 Neut # (Auto) 10.0 H Lymph # (Auto) 0.8 L [place] # (Auto) 0.7 Eos # (Auto) 0.1 Baso # (Auto) 0.1 Immature Gran # (Auto) 0.12 H Absolute Nucleated RBC 0.00 Immature Gran % 1 H Nucleated RBC % 0 Sodium 141 Potassium 4.3 Chloride 108 H Carbon Dioxide 20.1 Anion Gap 13 BUN 26 H Creatinine 1.0 Estim Creat Clear Calc 63.9 eGFR > 60 BUN/Creatinine Ratio 26 H Glucose [address] Glu mg/dL 186 H Hemoglobin A1c 8.1 H Calculated Osmolality 289 Calcium 8.2 L Corrected Calcium 8.9 Phosphorus 4.6 Magnesium 1.9 Total Bilirubin < 0.2 L AST 15 ALT 15 Alkaline Phosphatase 64 Total Protein 6.0 Albumin 3.1 L Globulin 2.9 Albumin/Globulin Ratio 1.1 L Triglycerides 140 Cholesterol 72 L LDL Cholesterol, Calc 23 HDL Cholesterol 21 L Cholesterol/HDL Ratio 3.4 L TSH 7.01 H Free T4 0.95 SARS-CoV-2 Ag (Rapid) Negative ABG Interpretation ABG results: 04/27/25 09:58 VBG pH 7.36 VBG pCO2 37 VBG pO2 73 H VBG Base Excess -4 L Quality Measures Quality Measures none Advance care planning discussed with:: patient Assessment & Plan Assessment Current Active Medications: Generic Name Dose Route Start Last Admin Trade Name Freq PRN Reason Stop Dose Admin Acetaminophen 650 mg 04/27/25 17:15 Acetaminophen 325 Mg Tablet PO 05/27/25 17:14 Q6HR PRN FEVER >101 Amlodipine Besylate 10 mg 04/27/25 15:45 Amlodipine Besylate 5 Mg Tablet PO 05/27/25 15:44 QDAY YOLI Atorvastatin Calcium 40 mg 04/27/25 21:00 04/27/25 22:02 Atorvastatin Calcium 20 Mg Tablet PO 05/27/25 20:59 40 mg QPM YOLI Administration Dextrose 25 ml 04/27/25 15:22 Dextrose 50%-Water Inj 50 Ml Syringe IV 05/27/25 15:21 Q15MIN PRN BG 50-70 responsive npo pt Dextrose 50 ml 04/27/25 15:22 Dextrose 50%-Water Inj 50 Ml Syringe IV 05/27/25 15:21 Q15MIN PRN BG <50 OR BG <70 & pt unresponsive Furosemide 40 mg 04/27/25 18:00 04/28/25 17:10 Furosemide Inj 10 Mg/Ml 4ml Vial IVP 05/27/25 17:59 40 mg BIDD YOLI Administration Glucagon 1 mg 04/27/25 15:22 Glucagon Inj 1 Mg Vial IM Q15MIN PRN BG <70, and no IV access Heparin Sodium (Porcine) 5,000 unit 04/27/25 14:00 04/28/25 13:09 Heparin Sod Inj 5000 Unit/Ml Vial SC 05/11/25 13:59 5,000 unit Q8HR YOLI Administration Ceftriaxone Sodium/Dextrose 1 gm in 50 mls @ 100 mls/hr 04/27/25 13:50 04/28/25 09:40 Rocephin/D5w 1gm Iv Premix IV 05/04/25 13:49 Infused QDAY YOLI Infusion Vancomycin/Sodium Chloride 750 mg in 150 mls @ 120 mls/hr 04/28/25 10:00 04/28/25 11:20 Vancomycin/Ns 750 Mg Ivpb IV 05/05/25 09:59 Infused Q12H YOLI Infusion Insulin Human Lispro 0 unit 04/27/25 17:00 04/28/25 17:10 Insulin Lispro (Admelog) 1 Unit/0.01 Ml Unit SC 05/27/25 16:59 3 unit ACHS YOLI Administration Protocol Lisinopril 40 mg 04/28/25 09:00 04/28/25 09:11 Lisinopril 20 Mg Tablet PO 05/28/25 08:59 40 mg QDAY YOLI Administration Metoclopramide HCl 10 mg 04/27/25 13:46 Metoclopramide 5 Mg Tablet PO 05/27/25 13:45 Q6H PRN NAUSEA OR VOMITING Protocol Pantoprazole Sodium 40 mg 04/28/25 09:00 04/28/25 09:11 Pantoprazole 40 Mg Tablet PO 05/28/25 08:59 40 mg QDAY YOLI Administration Pharmacy Consult 1 each 04/28/25 09:15 Vancomycin Pharmacy To Dose 1 Each Each IV 05/28/25 09:14 QDAY PRN CONSULT Plan This is a 64-year-old male with PMHx of HTN, HLD, CHF, peripheral neuropathy, IDDM, diabetic foot ulcer, chronic muscle weakness, cervical myelopathy, BIBA from [facility] with acute AMS, SOB and hypoxia, found 71% on room air by EMS, subsequently placed on 10 L oxygen. Acute encephalopathy likely 2/2 UTI versus PNA Acute hypoxemic respiratory failure Left base pneumonia, likely GNR Significant bilateral pleural effusion CHF exacerbation Evidently has acute AMS that started this morning, previously alert and oriented x 4 at baseline, and was at normal state of health last night. Found desatting to 71% on room air. Head CT was negative for acute pathology. There were no major metabolic or electrolyte disorders, including normal ammonia, ABGs, lactic acid, and renal function. CXR showed left base pneumonia, although he denies cough. Lung exam showed decreased breath sound but otherwise no rales or rhonchi. CT showed significant bilateral pleural effusion, and he is very anasarcous on exam, history of of CHF, EF unknown, no recent echo on file on LASIX 20 mg daily, BNP 247, will likely reason CHF exacerbation. Possibly he is retaining fluid secondary to anuria as stated below. A1c 8.1. TSH 7.0, free T4 0.95. TG 140, cholesterol 72, LDL 23, HDL 21. Currently afebrile, mild leukocytosis present. Urine culture growing GNR X2. Preliminary blood culture growing GPC in 1/2 samples. Mercedes anasarca, poor urine output, we increased diuresis. ? Avoid narcotics 2/2 AMS ? Discontinued AZITHROMYCIN (04/27 to 04/28) ? Continue CEFTRIAXONE (04/27 to present) ? Started VANCOMYCIN (04/28 to present) ? Increase LASIX to 40 mg IV BID ? Daily labs, replete electrolytes as needed ? BiPAP as needed ? Pending echo, consider cardiology consult ? Pending pancultures Pleural effusion likely 2/2 CHF exacerbation, anticipate improvement with diuresis. Will consider thoracentesis for analysis if symptoms persist or worsen. Suspected oliguria/anuria Mild hydronephrosis Complicated UTI, likely GNR Evidently he has complained of difficulty urinating at [facility], associated with dysuria. He had urias placed 3 days ago and reportedly has good urine output. UA has significant UTI. Has complained of dysuria prior to admission, and anuria requiring Urias. UA was cloudy with significant proteinuria and glucosuria, likely 2/2 UTI. ? Strict JUANJO ? Urias ordered ? Bladder scan as needed ? ANTIBIOTICS and cultures as above HTN HLD TG 140, cholesterol 72, LDL 23, HDL 21. ? Continue home ATORVASTATIN 40 mg daily ? Continue home LISINOPRIL 40 mg daily ? Holding AMLODIPINE 10 mg daily 2/2 LE edema IDDM GLUCOSE 166 on admission. A1c 8.1. ? INSULIN sliding scale ? Accu-Cheks Generalized weakness Cervical myopathy He was admitted on 05/2025 for lower extremity weakness and bilateral swelling, at the time. CVA was ruled out. However, he was diagnosed with cervical spine stenosis with advanced degenerative disc disease involving several cervical vertebrae. DVT was also evaluated time. Patient follow-up with Dr. Dasilva, unclear if he was seen after discharge. ? Physical therapy Primary hepatocellular disease Right inguinal hernia without incarceration Seen on CT, patient asymptomatic, although unable to move assessment 2/2 AMS. No pain on abdominal palpation. ? Will reexamine when AMS resolved Health maintenance Diet: Cardiac GI prophylaxis: Not indicated DVT prophylaxis: HEPARIN subcu Antibiotics: CEFTRIAXONE, VANCOMYCIN CODE STATUS: Full code [facility] Case was discussed with attending physician and senior resident. Surya Lawton DO PGYI Attending Provider Attestation/Addendum I, Demetra Henson DO, attest that I was physically present for the ramos portions of the service and evaluated the patient with the resident and I reviewed and discussed the case with the resident and agree with the resident's findings and plans of care as documented above patient seen eval this a.m. Patient remains confused and ANO x 1. He reports that he has been having trouble with urination. However, Urias catheter is in place. Penis appears to be swollen. Patient has anasarca with 3+ pitting edema in bilateral upper extremities and trace edema in lower extremities. Pending echocardiogram. Will continue IV diuresis. Patient remains on room air without any respiratory distress. Will order ultrasound of upper extremities to rule out DVT. Patient does have hypoalbuminemia which may be because of bilateral extremity edema. Pending urine cultures at this time. Urine appears to to be purulent with lots of sediment. He has been afebrile otherwise. Continue with antibiotics and diuretics at this time.
[2025-04-28] MEDS: ATORVASTATIN CALCIUM 20 MG TABLET 40 MG PO (20:30)
[2025-04-29] VITALS (15 sets, daily range): BP systolic 116–167; BP diastolic 74–95; PULSE 77–88; RESP 14–98; TEMP 36.3–36.8; O2SAT 96–98
[2025-04-29] MEDS: FUROSEMIDE INJ 10 MG/ML 4ML VIAL 40 MG IVP ×2 (05:17→17:47)
[2025-04-29] MEDS: ACETAMINOPHEN 325 MG TABLET 650 MG PO (05:21)
[2025-04-29] MEDS: HEPARIN SOD INJ 5000 UNIT/ML VIAL SC ×2 (05:21→21:02)
[2025-04-29 06:34] LABS: Basophils # (Auto) 0.1 Thou/mm3 (0.0-0.2); Basophils % (Auto) 1 % (0-2.5); Eosinophils # (Auto) 0.2 Thou/mm3 (0.0-0.5); Eosinophils % (Auto) 3 % (0-10); Hematocrit 20.3 % (41.0-53.0); Immature Granulocytes % (Auto) 2 % (0-0); Immature Granulocytes Auto 0.14 Thou/mm3 (0.00-0.00); Lymphocytes # (Auto) 1.1 Thou/mm3 (1.0-4.8); Lymphocytes % (Auto) 11 % (10-50); Mean Corpuscular HGB Conc 33.5 g/dl (31.0-37.0); Mean Corpuscular Hemoglobin 28.7 pg (25.0-35.0); Mean Corpuscular Volume 86 fL (80-100); Monocytes # (Auto) 0.8 Thou/mm3 (0.0-0.8); Monocytes % (Auto) 8 % (0-12); Neutrophils # (Auto) 7.2 Thou/mm3 (1.8-7.7); Neutrophils % (Auto) 76 % (37-80); Nucleated Red Blood Cell % 0 /100 WBC (0); Platelet Count 421 Thou/mm3 (140-440); RDW Standard Deviation 43.3 fL (35.1-43.9); Red Blood Count 2.37 Miln/mm3 (4.50-5.90); White Blood Count 9.4 Thou/mm3 (3.8-10.6)
[2025-04-29 06:39] LABS: Hemoglobin 6.8 g/dL (13.5-16.0)
[2025-04-29 06:42] LABS: Path Review Blood Smear Sent to Pathologist
[2025-04-29 06:51] LABS: Alanine Aminotransferase 10 U/L (10-49); Albumin, Serum 2.9 gm/dL (3.4-4.8); Albumin/Globulin Ratio 1.1 (1.2-2.2); Alkaline Phosphatase 56 U/L (46-116); Anion Gap 10 (7-16); Aspartate Amino Transferase < 10 U/L (0-34); BUN/Creatinine Ratio 22 Ratio (12-20); Bilirubin,Total < 0.2 mg/dL (0.3-1.2); Blood Urea Nitrogen 22 mg/dL (9-23); Calcium (Corrected) 8.9 mg/dL (8.5-10.1); Carbon Dioxide 23.4 mMol/L (20.0-31.0); Chloride 108 mMol/L (98-107); Estimated Creatinine Clearance 63.9 mL/min (>60); Globulin 2.6 gm/dL (2.3-3.5); Glucose 193 mg/dL (74-106); Magnesium 1.8 mg/dL (1.6-2.6); Osmolality,Calculated 289 (275-295); Potassium 3.5 mMol/L (3.4-5.1); Sodium 141 mMol/L (136-145); Total Protein 5.5 gm/dL (5.7-8.2); eGFR > 60 See Note
[2025-04-29] MEDS: INSULIN LISPRO (AdmeLOG) 1 UNIT/0.01 ML UNIT SC ×3 (07:29→21:01)
[2025-04-29 09:08] LABS: Hematocrit 20.4 % (41.0-53.0)
[2025-04-29 09:23] LABS: Vancomycin,Trough 19.8 mcg/mL (5.0-10.0)
[2025-04-29 09:32] LABS: Hemoglobin 6.8 g/dL (13.5-16.0)
[2025-04-29] MEDS: Lisinopril 20 MG TABLET 40 MG PO (09:42)
[2025-04-29] MEDS: PANTOPRAZOLE 40 MG TABLET PO (09:42)
[2025-04-29] MEDS: cefTRIAXone/D5w 1gm IV premix 1 GM/50 ML BAG IV (09:42)
[2025-04-29] MEDS: VANCOMYCIN/NS 750 MG IVPB 750 MG/150 ML BAG 120 MG IV (10:43)
--- NOTE | 2025-04-29 11:35 | PC.NURSE ---
Blood transfusion pending location of appropriate person to provide consent aware.
--- NOTE | 2025-04-29 13:31 | ESPR_ITS ---
Documentation for date of: 04/29/25 Subjective Subjective Interval history: Morning lab significant for HgB 6.8, repeat indicated same number, x1 pRBC ordered along with occult stool. Patienthad 2.3L urine output with overall net - 820 cc fluid balance. Cognition has improved, complaining of pain, baclofen and gabapentin restarted. We will continue IV abx with Vanc and Rocephin. Edeme of UE improving, will continue diuresis. Exam Vital Signs Temp Pulse Resp BP Pulse Ox O2 Del Method O2 Flow Rate 97.3 F 82 18 165/87 H 98 Room Air 10 04/29/25 12:00 04/29/25 13:13 04/29/25 13:13 04/29/25 12:00 04/29/25 12:00 04/29/25 12:00 04/27/25 09:42 Narrative Exam Constitutional: well-developed, well-nourished, in no acute distress, lying in bed HEENT: NCAT, EOMI, reactive round pupils b/l, patent nares b/l, moist mucous membranes Lung: CTAB, no wheezing, no rhonchi Heart: Regular S1S2, no murmurs, gallops, or rubs Abdomen: Soft, non-distended, non-tender, bowel sounds present throughout Extremities: No cyanosis, clubbing, improving edema of UE b/l, LE pulses present b/l Neurologic: AOx3, appropriate affect, unable to ambulate arms b/l (per [place], its his baseline) Skin: Warm, dry, no lesions or rashes noted Objective Labs 04/30/25 04:58 04/30/25 04:58 Labs: Laboratory Results - last 24 hr 04/27/25 04/29/25 04/29/25 10:15 06:10 08:48 WBC 9.4 RBC 2.37 L Hgb 6.8 L* 6.8 L* Hct 20.3 L* 20.4 L* MCV 86 MCH 28.7 MCHC 33.5 RDW Std Deviation 43.3 Plt Count 421 D Neut % (Auto) 76 Lymph % (Auto) 11 [place] % (Auto) 8 Eos % (Auto) 3 Baso % (Auto) 1 Neut # (Auto) 7.2 Lymph # (Auto) 1.1 [place] # (Auto) 0.8 Eos # (Auto) 0.2 Baso # (Auto) 0.1 Immature Gran # (Auto) 0.14 H Absolute Nucleated RBC 0.00 Immature Gran % 2 H Nucleated RBC % 0 Smear Path Review Sent to Pathologist Sodium 141 Potassium 3.5 D Chloride 108 H Carbon Dioxide 23.4 Anion Gap 10 BUN 22 Creatinine 1.0 Estim Creat Clear Calc 63.9 eGFR > 60 BUN/Creatinine Ratio 22 H Glucose 193 H Calculated Osmolality 289 Calcium 8.0 L Corrected Calcium 8.9 Phosphorus 4.0 Magnesium 1.8 Total Bilirubin < 0.2 L AST < 10 ALT 10 Alkaline Phosphatase 56 Total Protein 5.5 L Albumin 2.9 L Globulin 2.6 Albumin/Globulin Ratio 1.1 L Vancomycin Trough 19.8 H Blood Type O Positive Antibody Screen NEGATIVE Crossmatch See Detail Blood Bank Wristband ID Yes ABG Interpretation ABG results: 04/27/25 09:58 VBG pH 7.36 VBG pCO2 37 VBG pO2 73 H VBG Base Excess -4 L Quality Measures Quality Measures none Advance care planning discussed with:: other Assessment & Plan Assessment Current Active Medications: Generic Name Dose Route Start Last Admin Trade Name Freq PRN Reason Stop Dose Admin Acetaminophen 650 mg 04/27/25 17:15 04/29/25 05:21 Acetaminophen 325 Mg Tablet PO 05/27/25 17:14 650 mg Q6HR PRN Administration FEVER >101 Atorvastatin Calcium 40 mg 04/27/25 21:00 04/28/25 20:30 Atorvastatin Calcium 20 Mg Tablet PO 05/27/25 20:59 40 mg QPM YOLI Administration Baclofen 10 mg 04/29/25 14:00 Baclofen 10 Mg Tablet PO 05/29/25 13:59 TID YOLI Dextrose 25 ml 04/27/25 15:22 Dextrose 50%-Water Inj 50 Ml Syringe IV 05/27/25 15:21 Q15MIN PRN BG 50-70 responsive npo pt Dextrose 50 ml 04/27/25 15:22 Dextrose 50%-Water Inj 50 Ml Syringe IV 05/27/25 15:21 Q15MIN PRN BG <50 OR BG <70 & pt unresponsive Furosemide 40 mg 04/27/25 18:00 04/29/25 05:17 Furosemide Inj 10 Mg/Ml 4ml Vial IVP 05/27/25 17:59 40 mg BIDD YOLI Administration Gabapentin 200 mg 04/29/25 11:30 04/29/25 12:21 Gabapentin 100 Mg Capsule PO 05/29/25 11:29 Not Given BID YOLI Glucagon 1 mg 04/27/25 15:22 Glucagon Inj 1 Mg Vial IM Q15MIN PRN BG <70, and no IV access Heparin Sodium (Porcine) 5,000 unit 04/27/25 14:00 04/29/25 05:21 Heparin Sod Inj 5000 Unit/Ml Vial SC 05/11/25 13:59 5,000 unit Q8HR YOLI Administration Ceftriaxone Sodium/Dextrose 1 gm in 50 mls @ 100 mls/hr 04/27/25 13:50 04/29/25 09:42 Rocephin/D5w 1gm Iv Premix IV 05/04/25 13:49 100 mls/hr QDAY YOLI Administration Vancomycin/Sodium Chloride 750 mg in 150 mls @ 120 mls/hr 04/28/25 10:00 04/29/25 10:43 Vancomycin/Ns 750 Mg Ivpb IV 05/05/25 09:59 120 mls/hr Q12H YOLI Administration Insulin Human Lispro 0 unit 04/27/25 17:00 04/29/25 11:48 Insulin Lispro (Admelog) 1 Unit/0.01 Ml Unit SC 05/27/25 16:59 Not Given ACHS YOLI Protocol Lisinopril 40 mg 04/28/25 09:00 04/29/25 09:42 Lisinopril 20 Mg Tablet PO 05/28/25 08:59 40 mg QDAY YOLI Administration Metoclopramide HCl 10 mg 04/27/25 13:46 Metoclopramide 5 Mg Tablet PO 05/27/25 13:45 Q6H PRN NAUSEA OR VOMITING Protocol Pantoprazole Sodium 40 mg 04/29/25 21:00 Pantoprazole Inj 40 Mg Vial IVP 05/29/25 20:59 BID YOLI Pharmacy Consult 1 each 04/28/25 09:15 Vancomycin Pharmacy To Dose 1 Each Each IV 05/28/25 09:14 QDAY PRN CONSULT Plan This is a 64-year-old male with PMHx of HTN, HLD, CHF, peripheral neuropathy, IDDM, diabetic foot ulcer, chronic muscle weakness, cervical myelopathy, BIBA from [facility] with acute AMS, SOB and hypoxia, found 71% on room air by EMS, subsequently placed on 10 L oxygen. Acute encephalopathy likely 2/2 UTI versus PNA, improving Acute hypoxemic respiratory failure Left base pneumonia, likely GNR Significant bilateral pleural effusion CHF exacerbation Evidently has acute AMS that started this morning, previously alert and oriented x 4 at baseline, and was at normal state of health last night. Found desatting to 71% on room air. Head CT was negative for acute pathology. There were no major metabolic or electrolyte disorders, including normal ammonia, ABGs, lactic acid, and renal function. CXR showed left base pneumonia, although he denies cough. Lung exam showed decreased breath sound but otherwise no rales or rhonchi. CT showed significant bilateral pleural effusion, and he is very anasarcous on exam, history of of CHF, EF unknown, no recent echo on file on LASIX 20 mg daily, BNP 247, will likely reason CHF exacerbation. Possibly he is retaining fluid secondary to anuria as stated below. A1c 8.1. TSH 7.0, free T4 0.95. TG 140, cholesterol 72, LDL 23, HDL 21. Currently afebrile, mild leukocytosis present. Urine culture growing GNR X2. Preliminary blood culture growing GPC in 1/2 samples. Mercedes anasarca, poor urine output, we increased diuresis. ? Avoid narcotics 2/2 AMS ? Discontinued AZITHROMYCIN (04/27 to 04/28) ? Continue CEFTRIAXONE (04/27 to present) ? Started VANCOMYCIN (04/28 to present) ? Increase LASIX to 40 mg IV BID ? Daily labs, replete electrolytes as needed ? BiPAP as needed ? Pending echo, consider cardiology consult ? Pending pancultures Pleural effusion likely 2/2 CHF exacerbation, anticipate improvement with diuresis. Will consider thoracentesis for analysis if symptoms persist or worsen. Suspected oliguria/anuria Mild hydronephrosis Complicated UTI, likely GNR Evidently he has complained of difficulty urinating at [facility], associated with dysuria. He had urias placed 3 days ago and reportedly has good urine output. UA has significant UTI. Has complained of dysuria prior to admission, and anuria requiring Urias. UA was cloudy with significant proteinuria and glucosuria, likely 2/2 UTI. ? Strict JUANJO ? Urias ordered ? Bladder scan as needed ? ANTIBIOTICS and cultures as above HTN HLD TG 140, cholesterol 72, LDL 23, HDL 21. ? Continue home ATORVASTATIN 40 mg daily ? Continue home LISINOPRIL 40 mg daily ? Holding AMLODIPINE 10 mg daily 2/2 LE edema IDDM GLUCOSE 166 on admission. A1c 8.1. ? INSULIN sliding scale ? Accu-Cheks Generalized weakness Cervical myopathy He was admitted on 05/2025 for lower extremity weakness and bilateral swelling, at the time. CVA was ruled out. However, he was diagnosed with cervical spine stenosis with advanced degenerative disc disease involving several cervical vertebrae. DVT was also evaluated time. Patient follow-up with Dr. Dasilva, unclear if he was seen after discharge. ? Physical therapy Primary hepatocellular disease Right inguinal hernia without incarceration Seen on CT, patient asymptomatic, although unable to move assessment 2/ AMS. No pain on abdominal palpation. ? Will reexamine when AMS resolved Health maintenance Diet: Cardiac GI prophylaxis: Not indicated DVT prophylaxis: HEPARIN subcu Antibiotics: CEFTRIAXONE, VANCOMYCIN CODE STATUS: Full code Disposition: Treating AMS, [facility] This patient care was discussed with my attending Dr. Sixto Cabrera MD PGY-2 Disclaimer: Minor errors in weatherization technician may be present since this note was dictated by speech recognition software. Attending Provider Attestation/Addendum Demetra Ugarte, DO, attest that I was physically present for the ramos portions of the service and evaluated the patient with the resident and I reviewed and discussed the case with the resident and agree with the resident's findings and plans of care as documented above Patient seen and evaluated this AM. Patient appears confused. He continues to complain of inability to urinate, but assured patient that he has a urias catheter and has been making urine. Patient is able to lay flat and in no respiratory distress. B/l UE remains very edematous. Will continue with diuresis. Pending echocardiogran
--- NOTE | 2025-04-29 14:43 | PC.SS ---
SS worked with medical team to track down pt ; spoke with Ceferino [phone], who was with ; confirmed decision maker; Ceferino stated does not have telephone and best to call him [phone]; Ceferino is a friend; SS was unable to complete initial at time of the call
[2025-04-29 19:05] LABS: Hematocrit 27.6 % (41.0-53.0); Hemoglobin 9.3 g/dL (13.5-16.0)
[2025-04-29] MEDS: PANTOPRAZOLE INJ 40 MG VIAL IVP (21:03)
[2025-04-29] MEDS: GABAPENTIN 100 MG CAPSULE 200 MG PO (21:21)
[2025-04-29] MEDS: BACLOFEN 10 MG TABLET PO (21:22)
[2025-04-29] MEDS: ATORVASTATIN CALCIUM 20 MG TABLET 40 MG PO (21:22)
[2025-04-29 21:56] LABS: Vancomycin,Trough 26.1 mcg/mL (5.0-10.0)
[2025-04-30] VITALS (10 sets, daily range): BP systolic 140–169; BP diastolic 57–90; PULSE 72–87; RESP 18–21; TEMP 36.4–37.1; O2SAT 96–99; BMI 22.0
[2025-04-30] MEDS: HEPARIN SOD INJ 5000 UNIT/ML VIAL SC ×3 (05:58→21:10)
[2025-04-30] MEDS: FUROSEMIDE INJ 10 MG/ML 4ML VIAL 40 MG IVP ×2 (06:00→17:25)
[2025-04-30 06:03] LABS: Basophils % (Auto) 1 % (0-2.5); Eosinophils # (Auto) 0.2 Thou/mm3 (0.0-0.5); Eosinophils % (Auto) 2 % (0-10); Hematocrit 24.4 % (41.0-53.0); Immature Granulocytes % (Auto) 2 % (0-0); Immature Granulocytes Auto 0.21 Thou/mm3 (0.00-0.00); Lymphocytes # (Auto) 1.1 Thou/mm3 (1.0-4.8); Lymphocytes % (Auto) 13 % (10-50); Mean Corpuscular Hemoglobin 28.3 pg (25.0-35.0); Mean Corpuscular Volume 83 fL (80-100); Monocytes # (Auto) 0.7 Thou/mm3 (0.0-0.8); Monocytes % (Auto) 8 % (0-12); Neutrophils # (Auto) 6.5 Thou/mm3 (1.8-7.7); Neutrophils % (Auto) 74 % (37-80); Nucleated Red Blood Cell % 0 /100 WBC (0); Platelet Count 488 Thou/mm3 (140-440); RDW Standard Deviation 45.1 fL (35.1-43.9); Red Blood Count 2.93 Miln/mm3 (4.50-5.90); White Blood Count 8.8 Thou/mm3 (3.8-10.6)
[2025-04-30] MEDS: BACLOFEN 10 MG TABLET PO ×3 (06:05→21:15)
[2025-04-30 06:07] LABS: Hemoglobin 8.3 g/dL (13.5-16.0)
[2025-04-30 06:34] LABS: Alanine Aminotransferase 12 U/L (10-49); Albumin, Serum 3.1 gm/dL (3.4-4.8); Albumin/Globulin Ratio 1.1 (1.2-2.2); Alkaline Phosphatase 61 U/L (46-116); Anion Gap 11 (7-16); Aspartate Amino Transferase 11 U/L (0-34); BUN/Creatinine Ratio 20 Ratio (12-20); Bilirubin,Total < 0.2 mg/dL (0.3-1.2); Blood Urea Nitrogen 22 mg/dL (9-23); Calcium 8.4 mg/dL (8.3-10.6); Calcium (Corrected) 9.1 mg/dL (8.5-10.1); Carbon Dioxide 22.6 mMol/L (20.0-31.0); Chloride 106 mMol/L (98-107); Creatinine (Component) 1.1 mg/dL (0.6-1.3); Estimated Creatinine Clearance 58.1 mL/min (>60); Globulin 2.8 gm/dL (2.3-3.5); Glucose 289 mg/dL (74-106); Magnesium 1.7 mg/dL (1.6-2.6); Osmolality,Calculated 293 (275-295); Phosphorous 4.1 mg/dL (2.4-5.1); Potassium 3.5 mMol/L (3.4-5.1); Sodium 140 mMol/L (136-145); Total Protein 5.9 gm/dL (5.7-8.2); eGFR > 60 See Note
--- NOTE | 2025-04-30 07:19 | ESPR_ITS ---
Documentation for date of: 04/30/25 Subjective Subjective Interval history: No acute overnight events. Mentation improved today, appears at baseline. Denies new or worsening symptoms. Blood pressure slightly up, HR 86. Has slight creatinine elevation from 1.0-1.1. Hgb slightly down trended 8.3, still no obvious source of bleed. FOBT pending. Exam Vital Signs Temp Pulse Resp BP Pulse Ox O2 Del Method O2 Flow Rate 98.8 F 87 20 169/57 H 96 Room Air 10 04/30/25 04:00 04/30/25 06:00 04/30/25 04:00 04/30/25 06:00 04/30/25 04:00 04/30/25 04:00 04/29/25 14:26 Narrative Exam Constitutional: well-developed, well-nourished, in no acute distress, lying in bed HEENT: NCAT, EOMI, reactive round pupils b/l, patent nares b/l, moist mucous membranes Lung: CTAB, no wheezing, no rhonchi Heart: Regular S1S2, no murmurs, gallops, or rubs Abdomen: Soft, non-distended, non-tender, bowel sounds present throughout Extremities: No cyanosis, clubbing, improving edema of UE b/l, LE pulses present b/l Neurologic: AOx3, appropriate affect, unable to ambulate arms b/l (per [place], its his baseline) Skin: Warm, dry, no lesions or rashes noted Objective Labs 05/01/25 08:12 05/01/25 08:12 Labs: Laboratory Results - last 24 hr 04/27/25 04/29/25 04/29/25 10:15 08:48 18:55 WBC RBC Hgb 6.8 L* 9.3 L D Hct 20.4 L* 27.6 L MCV MCH MCHC RDW Std Deviation Plt Count Neut % (Auto) Lymph % (Auto) [place] % (Auto) Eos % (Auto) Baso % (Auto) Neut # (Auto) Lymph # (Auto) [place] # (Auto) Eos # (Auto) Baso # (Auto) Immature Gran # (Auto) Absolute Nucleated RBC Immature Gran % Nucleated RBC % Sodium Potassium Chloride Carbon Dioxide Anion Gap BUN Creatinine Estim Creat Clear Calc eGFR BUN/Creatinine Ratio Glucose Calculated Osmolality Calcium Corrected Calcium Phosphorus Magnesium Total Bilirubin AST ALT Alkaline Phosphatase Total Protein Albumin Globulin Albumin/Globulin Ratio Vancomycin Trough 19.8 H 26.1 H* Blood Type O Positive Antibody Screen NEGATIVE Crossmatch See Detail Blood Bank Wristband ID Yes 04/30/25 04:58 WBC 8.8 RBC 2.93 L Hgb 8.3 L Hct 24.4 L MCV 83 MCH 28.3 MCHC 34.0 RDW Std Deviation 45.1 H Plt Count 488 H D Neut % (Auto) 74 Lymph % (Auto) 13 [place] % (Auto) 8 Eos % (Auto) 2 Baso % (Auto) 1 Neut # (Auto) 6.5 Lymph # (Auto) 1.1 [place] # (Auto) 0.7 Eos # (Auto) 0.2 Baso # (Auto) 0.0 Immature Gran # (Auto) 0.21 H Absolute Nucleated RBC 0.00 Immature Gran % 2 H Nucleated RBC % 0 Sodium 140 Potassium 3.5 Chloride 106 Carbon Dioxide 22.6 Anion Gap 11 BUN 22 Creatinine 1.1 Estim Creat Clear Calc 58.1 L eGFR > 60 BUN/Creatinine Ratio 20 Glucose 289 H D Calculated Osmolality 293 Calcium 8.4 Corrected Calcium 9.1 Phosphorus 4.1 Magnesium 1.7 Total Bilirubin < 0.2 L AST 11 ALT 12 Alkaline Phosphatase 61 Total Protein 5.9 Albumin 3.1 L Globulin 2.8 Albumin/Globulin Ratio 1.1 L Vancomycin Trough Blood Type Antibody Screen Crossmatch Blood Bank Wristband ID ABG Interpretation ABG results: 04/27/25 09:58 VBG pH 7.36 VBG pCO2 37 VBG pO2 73 H VBG Base Excess -4 L Quality Measures Quality Measures none Advance care planning discussed with:: patient Assessment & Plan Assessment Current Active Medications: Generic Name Dose Route Start Last Admin Trade Name Freq PRN Reason Stop Dose Admin Acetaminophen 650 mg 04/27/25 17:15 04/29/25 05:21 Acetaminophen 325 Mg Tablet PO 05/27/25 17:14 650 mg Q6HR PRN Administration FEVER >101 Atorvastatin Calcium 40 mg 04/27/25 21:00 04/29/25 21:22 Atorvastatin Calcium 20 Mg Tablet PO 05/27/25 20:59 40 mg QPM YOLI Administration Baclofen 10 mg 04/29/25 14:00 04/30/25 06:05 Baclofen 10 Mg Tablet PO 05/29/25 13:59 10 mg TID YOLI Administration Dextrose 25 ml 04/27/25 15:22 Dextrose 50%-Water Inj 50 Ml Syringe IV 05/27/25 15:21 Q15MIN PRN BG 50-70 responsive npo pt Dextrose 50 ml 04/27/25 15:22 Dextrose 50%-Water Inj 50 Ml Syringe IV 05/27/25 15:21 Q15MIN PRN BG <50 OR BG <70 & pt unresponsive Furosemide 40 mg 04/27/25 18:00 04/30/25 06:00 Furosemide Inj 10 Mg/Ml 4ml Vial IVP 05/27/25 17:59 40 mg BIDD YOLI Administration Gabapentin 200 mg 04/29/25 11:30 04/29/25 21:21 Gabapentin 100 Mg Capsule PO 05/29/25 11:29 200 mg BID YOLI Administration Glucagon 1 mg 04/27/25 15:22 Glucagon Inj 1 Mg Vial IM Q15MIN PRN BG <70, and no IV access Heparin Sodium (Porcine) 5,000 unit 04/27/25 14:00 04/30/25 05:58 Heparin Sod Inj 5000 Unit/Ml Vial SC 05/11/25 13:59 5,000 unit Q8HR YOLI Administration Ceftriaxone Sodium/Dextrose 1 gm in 50 mls @ 100 mls/hr 04/27/25 13:50 04/29/25 09:42 Rocephin/D5w 1gm Iv Premix IV 05/04/25 13:49 100 mls/hr QDAY YOLI Administration Vancomycin/Sodium Chloride 750 mg in 150 mls @ 120 mls/hr 04/28/25 10:00 04/29/25 22:14 Vancomycin/Ns 750 Mg Ivpb IV 05/05/25 09:59 Not Given Q12H YOLI Insulin Human Lispro 0 unit 04/27/25 17:00 04/29/25 21:01 Insulin Lispro (Admelog) 1 Unit/0.01 Ml Unit SC 05/27/25 16:59 3 unit ACHS YOLI Administration Protocol Lisinopril 40 mg 04/28/25 09:00 04/29/25 09:42 Lisinopril 20 Mg Tablet PO 05/28/25 08:59 40 mg QDAY YOLI Administration Metoclopramide HCl 10 mg 04/27/25 13:46 Metoclopramide 5 Mg Tablet PO 05/27/25 13:45 Q6H PRN NAUSEA OR VOMITING Protocol Pantoprazole Sodium 40 mg 04/29/25 21:00 04/29/25 21:03 Pantoprazole Inj 40 Mg Vial IVP 05/29/25 20:59 40 mg BID YOLI Administration Pharmacy Consult 1 each 04/28/25 09:15 Vancomycin Pharmacy To Dose 1 Each Each IV 05/28/25 09:14 QDAY PRN CONSULT Plan This is a 64-year-old male with PMHx of HTN, HLD, CHF, peripheral neuropathy, IDDM, diabetic foot ulcer, chronic muscle weakness, cervical myelopathy, BIBA from [facility] with acute AMS, SOB and hypoxia, found 71% on room air by EMS, subsequently placed on 10 L oxygen. Acute normocytic anemia On 04/29, Hgb 6.8, then 9.3 after 1 unit transfusion. Currently, Hgb 8.3. No obvious source of bleeding, stool brown in color. ? Pending occult Acute encephalopathy likely 2/2 UTI versus PNA (improving) Acute hypoxemic respiratory failure (improving) Left base pneumonia, likely GNR Significant bilateral pleural effusion CHF exacerbation Evidently has acute AMS that started this morning, previously alert and oriented x 4 at baseline, and was at normal state of health last night. Found desatting to 71% on room air. Head CT was negative for acute pathology. There were no major metabolic or electrolyte disorders, including normal ammonia, ABGs, lactic acid, and renal function. CXR showed left base pneumonia, although he denies cough. Lung exam showed decreased breath sound but otherwise no rales or rhonchi. Pleural effusion likely 2/2 CHF exacerbation, anticipate improvement with diuresis. Will consider thoracentesis for analysis if symptoms persist or worsen. CT showed significant bilateral pleural effusion, and he is very anasarcous on exam, history of of CHF, EF unknown, no recent echo on file on LASIX 20 mg daily, BNP 247, will likely reason CHF exacerbation. Possibly he is retaining fluid secondary to anuria as stated below. A1c 8.1. TSH 7.0, free T4 0.95. TG 140, cholesterol 72, LDL 23, HDL 21. Echo showed EF 50-55%, grade 1 diastolic dysfunction, trace-small pericardial effusion without tamponade. Currently afebrile, mild leukocytosis present. Urine culture growing pansensitive E. coli 48H blood culture negative. MRSA negative. Remains anasarca, poor urine output, we increased diuresis. ? Avoid narcotics 2/2 AMS ? Discontinued AZITHROMYCIN (04/27 to 04/28) ? Discontinued VANCOMYCIN (04/28 to present) ? Continue CEFTRIAXONE (04/27 to present) ? Increase LASIX to 40 mg IV BID ? Daily labs, replete electrolytes as needed ? BiPAP as needed Possible urinary incontinence Vesicoureteral reflux Mild hydronephrosis Complicated E. coli UTI Evidently he has complained of difficulty urinating at SNF, associated with dysuria. He had urias placed 3 days ago and reportedly has good urine output. UA has significant UTI. Has complained of dysuria prior to admission, and anuria requiring Urias. UA was cloudy with significant proteinuria and glucosuria, likely 2/[address] Mild hydronephrosis, likely vesicoureteral reflux with cystitis pattern, marked thickening of urinary bladder wall. ? Strict JUANJO ? Urias ordered ? Bladder scan as needed ? ANTIBIOTICS and cultures as above HTN HLD TG 140, cholesterol 72, LDL 23, HDL 21. ? Continue home ATORVASTATIN 40 mg daily ? Continue home LISINOPRIL 40 mg daily ? Holding AMLODIPINE 10 mg daily 2/2 LE edema IDDM GLUCOSE 166 on admission. A1c 8.1. ? INSULIN sliding scale ? Accu-Cheks Generalized weakness Cervical myopathy He was admitted on 05/2025 for lower extremity weakness and bilateral swelling, at the time. CVA was ruled out. However, he was diagnosed with cervical spine stenosis with advanced degenerative disc disease involving several cervical vertebrae. DVT was also evaluated time. Patient follow-up with Dr. Dasilva, unclear if he was seen after discharge. ? Physical therapy Primary hepatocellular disease Right inguinal hernia without incarceration Seen on CT, patient asymptomatic, although unable to move assessment 2/2 AMS. No pain on abdominal palpation. ? Will reexamine when AMS resolved Health maintenance Diet: Cardiac GI prophylaxis: Not indicated DVT prophylaxis: HEPARIN subcu Antibiotics: CEFTRIAXONE, VANCOMYCIN CODE STATUS: Full code Dis[facility]: [facility] Case was discussed with attending physician and senior resident. Surya Lawton DO PGYI This document was transcribed using voice recognition technology. Minor inaccuracies may be present. Attending Provider Attestation/Addendum Demetra Ugarte DO, attest that I was physically present for the ramos portions of the service and evaluated the patient with the resident and I reviewed and discussed the case with the resident and agree with the resident's findings and plans of care as documented above Patient seen and evaluated this a.m. He appears to be much more oriented today. Patient states that he is feeling better today. Family is at bedside. Update provided to reconciling clerk and at bedside. Hemoglobin is stable after patient received 1 unit of PRBCs. Patient has not had a movement. Lipase pending. Bilateral upper extremities remain very swollen. Patient noted to have some penile discharge. Will obtain swab as well will continue with diuresis at this time. Continue with antibiotics for E. coli UTI.
[2025-04-30] MEDS: cefTRIAXone/D5w 1gm IV premix 1 GM/50 ML BAG IV (08:03)
[2025-04-30] MEDS: INSULIN LISPRO (AdmeLOG) 1 UNIT/0.01 ML UNIT SC ×4 (08:03→21:08)
[2025-04-30] MEDS: PANTOPRAZOLE INJ 40 MG VIAL IVP ×2 (08:05→21:16)
[2025-04-30] MEDS: GABAPENTIN 100 MG CAPSULE 200 MG PO ×2 (08:07→21:15)
[2025-04-30] MEDS: Lisinopril 20 MG TABLET 40 MG PO (08:07)
--- NOTE | 2025-04-30 11:50 | PC.SS ---
Patient is alert/oriented. Patient is Uz[place] speaking only. Patient is a short term resident from [facility]. Patient will need a new PT eval. SS attempted to speak with but no answer. SS spoke to patient's friend, Ceferino, who states patient's , Romaine, is the alt medical decision maker. She does not have a phone but if we phone Ceferino, he will contact to come in for consents. Ceferino states is hard of hearing. But she made decisions at facility and will continue to make decisions. SS spoket charo Zazueta @ [facility] and they will require a new PT eval. Once we receive PT eval notes, SS will submit on [facility] so patient can return to facility. Romaine, , no contact number- call friend, Ceferino @ [phone]. D/c to [facility] transportation: karen
--- NOTE | 2025-04-30 14:17 | PC.SS ---
Patient pending PT eval. Once PT notes have been entered then we can submit to [facility] for prior authorization request.
[2025-04-30 16:07] LABS: Chlamydia trachomatis PCR Negative (Not Detect); Neisseria Gonorrhoeae DNA PCR Negative (Not Detect); Trichomonas Negative (Negative)
--- NOTE | 2025-04-30 21:00 | PC.NURSE ---
blood sugar 404, MD was made aware.
[2025-04-30] MEDS: INSULIN GLARGINE (Lantus) 5 UNIT/0.05 ML (PER 5 UNITS) 10 UNIT SC (21:08)
[2025-04-30] MEDS: ATORVASTATIN CALCIUM 20 MG TABLET 40 MG PO (21:15)
[2025-05-01] VITALS (11 sets, daily range): BP systolic 108–166; BP diastolic 69–89; PULSE 74–82; RESP 17–26; TEMP 36.1–36.8; O2SAT 92–98
[2025-05-01] MEDS: INSULIN LISPRO (AdmeLOG) 1 UNIT/0.01 ML UNIT 5 UNIT SC (00:11)
[2025-05-01] MEDS: BACLOFEN 10 MG TABLET PO ×3 (05:29→21:07)
[2025-05-01] MEDS: FUROSEMIDE INJ 10 MG/ML 4ML VIAL 40 MG IVP ×2 (05:29→17:45)
[2025-05-01] MEDS: HEPARIN SOD INJ 5000 UNIT/ML VIAL SC ×3 (05:30→21:08)
[2025-05-01] MEDS: INSULIN LISPRO (AdmeLOG) 1 UNIT/0.01 ML UNIT SC ×4 (08:10→20:24)
[2025-05-01] MEDS: PANTOPRAZOLE INJ 40 MG VIAL IVP ×2 (08:11→20:25)
[2025-05-01] MEDS: cefTRIAXone/D5w 1gm IV premix 1 GM/50 ML BAG IV (08:11)
[2025-05-01] MEDS: GABAPENTIN 100 MG CAPSULE 200 MG PO ×2 (08:11→20:25)
[2025-05-01] MEDS: Lisinopril 20 MG TABLET 40 MG PO (08:12)
[2025-05-01 08:30] LABS: Basophils # (Auto) 0.1 Thou/mm3 (0.0-0.2); Basophils % (Auto) 1 % (0-2.5); Eosinophils # (Auto) 0.3 Thou/mm3 (0.0-0.5); Eosinophils % (Auto) 3 % (0-10); Hematocrit 26.1 % (41.0-53.0); Immature Granulocytes % (Auto) 2 % (0-0); Immature Granulocytes Auto 0.21 Thou/mm3 (0.00-0.00); Lymphocytes # (Auto) 1.4 Thou/mm3 (1.0-4.8); Lymphocytes % (Auto) 14 % (10-50); Mean Corpuscular Hemoglobin 28.1 pg (25.0-35.0); Mean Corpuscular Volume 85 fL (80-100); Monocytes # (Auto) 0.6 Thou/mm3 (0.0-0.8); Monocytes % (Auto) 6 % (0-12); Neutrophils # (Auto) 7.2 Thou/mm3 (1.8-7.7); Neutrophils % (Auto) 75 % (37-80); Nucleated Red Blood Cell % 0 /100 WBC (0); Platelet Count 423 Thou/mm3 (140-440); Red Blood Count 3.06 Miln/mm3 (4.50-5.90); White Blood Count 9.7 Thou/mm3 (3.8-10.6)
[2025-05-01 08:35] LABS: Hemoglobin 8.6 g/dL (13.5-16.0)
[2025-05-01 08:49] LABS: Alanine Aminotransferase 14 U/L (10-49); Albumin, Serum 3.1 gm/dL (3.4-4.8); Albumin/Globulin Ratio 1.1 (1.2-2.2); Alkaline Phosphatase 59 U/L (46-116); Anion Gap 9 (7-16); Aspartate Amino Transferase 14 U/L (0-34); BUN/Creatinine Ratio 16 Ratio (12-20); Bilirubin,Total < 0.2 mg/dL (0.3-1.2); Blood Urea Nitrogen 21 mg/dL (9-23); Calcium 8.1 mg/dL (8.3-10.6); Calcium (Corrected) 8.8 mg/dL (8.5-10.1); Carbon Dioxide 24.6 mMol/L (20.0-31.0); Chloride 104 mMol/L (98-107); Creatinine (Component) 1.3 mg/dL (0.6-1.3); Estimated Creatinine Clearance 49.1 mL/min (>60); Globulin 2.9 gm/dL (2.3-3.5); Glucose 303 mg/dL (74-106); Osmolality,Calculated 289 (275-295); Potassium 3.6 mMol/L (3.4-5.1); Sodium 138 mMol/L (136-145); eGFR > 60 See Note
--- NOTE | 2025-05-01 09:28 | PC.SS ---
PT evaluation submitted via [facility] to [facility] to initiate auth. to return to SNF.
[2025-05-01] MEDS: SENNA TABLET 1 TAB PO (11:31)
[2025-05-01] MEDS: POLYETHYLENE GLYCOL 17 GM PACKET PO (11:31)
--- NOTE | 2025-05-01 13:49 | ESPR_ITS ---
Documentation for date of: 05/01/25 Subjective Subjective Interval history: No acute overnight events. Appears at baseline today. Denies fever, chills, headaches, chest pain, sob, cough, GI or urinary symptoms. Exam Vital Signs Temp Pulse Resp BP Pulse Ox O2 Del Method O2 Flow Rate 97.3 F 80 18 166/89 H 92 L Room Air 10 05/01/25 12:00 05/01/25 12:00 05/01/25 12:00 05/01/25 12:00 05/01/25 12:00 05/01/25 12:00 04/29/25 14:26 Narrative Exam Constitutional: well-developed, well-nourished, in no acute distress, lying in bed HEENT: NCAT, EOMI, reactive round pupils b/l, patent nares b/l, moist mucous membranes Lung: CTAB, no wheezing, no rhonchi Heart: Regular S1S2, no murmurs, gallops, or rubs Abdomen: Soft, non-distended, non-tender, bowel sounds present throughout Extremities: No cyanosis, clubbing, improving edema of UE b/l, LE pulses present b/l Neurologic: AOx3, appropriate affect, unable to ambulate arms b/l (per [place], its his baseline) Skin: Warm, dry, no lesions or rashes noted Objective Labs 05/02/25 04:57 05/02/25 04:57 Labs: Laboratory Results - last 24 hr 04/30/25 05/01/25 12:18 08:12 WBC 9.7 RBC 3.06 L Hgb 8.6 L Hct 26.1 L MCV 85 MCH 28.1 MCHC 33.0 RDW Std Deviation 45.0 H Plt Count 423 D Neut % (Auto) 75 Lymph % (Auto) 14 [place] % (Auto) 6 Eos % (Auto) 3 Baso % (Auto) 1 Neut # (Auto) 7.2 Lymph # (Auto) 1.4 [place] # (Auto) 0.6 Eos # (Auto) 0.3 Baso # (Auto) 0.1 Immature Gran # (Auto) 0.21 H Absolute Nucleated RBC 0.00 Immature Gran % 2 H Nucleated RBC % 0 Sodium 138 Potassium 3.6 Chloride 104 Carbon Dioxide 24.6 Anion Gap 9 BUN 21 Creatinine 1.3 Estim Creat Clear Calc 49.1 L eGFR > 60 BUN/Creatinine Ratio 16 Glucose 303 H Calculated Osmolality 289 Calcium 8.1 L Corrected Calcium 8.8 Total Bilirubin < 0.2 L AST 14 ALT 14 Alkaline Phosphatase 59 Total Protein 6.0 Albumin 3.1 L Globulin 2.9 Albumin/Globulin Ratio 1.1 L Chlam trachomat DNA PCR Negative N.gonorrhoeae DNA (PCR) Negative Trichomonas DNA Probe Negative ABG Interpretation ABG results: 04/27/25 09:58 VBG pH 7.36 VBG pCO2 37 VBG pO2 73 H VBG Base Excess -4 L Quality Measures Quality Measures none Advance care planning discussed with:: patient Assessment & Plan Assessment Current Active Medications: Generic Name Dose Route Start Last Admin Trade Name Freq PRN Reason Stop Dose Admin Acetaminophen 650 mg 04/27/25 17:15 04/29/25 05:21 Acetaminophen 325 Mg Tablet PO 05/27/25 17:14 650 mg Q6HR PRN Administration FEVER >101 Albuterol/Ipratropium 3 ml 04/30/25 08:39 Albuterol/Ipratropium (Duoneb) Rt [place] 3 Ml Nebu INH 05/30/25 08:38 Q6HRRT PRN Wheezing Atorvastatin Calcium 40 mg 04/27/25 21:00 04/30/25 21:15 Atorvastatin Calcium 20 Mg Tablet PO 05/27/25 20:59 40 mg QPM YOLI Administration Baclofen 10 mg 04/29/25 14:00 05/01/25 05:29 Baclofen 10 Mg Tablet PO 05/29/25 13:59 10 mg TID YOLI Administration Dextrose 25 ml 04/27/25 15:22 Dextrose 50%-Water Inj 50 Ml Syringe IV 05/27/25 15:21 Q15MIN PRN BG 50-70 responsive npo pt Dextrose 50 ml 04/27/25 15:22 Dextrose 50%-Water Inj 50 Ml Syringe IV 05/27/25 15:21 Q15MIN PRN BG <50 OR BG <70 & pt unresponsive Furosemide 40 mg 04/27/25 18:00 05/01/25 05:29 Furosemide Inj 10 Mg/Ml 4ml Vial IVP 05/27/25 17:59 40 mg BIDD YOLI Administration Gabapentin 200 mg 04/29/25 11:30 05/01/25 08:11 Gabapentin 100 Mg Capsule PO 05/29/25 11:29 200 mg BID YOLI Administration Glucagon 1 mg 04/27/25 15:22 Glucagon Inj 1 Mg Vial IM Q15MIN PRN BG <70, and no IV access Heparin Sodium (Porcine) 5,000 unit 04/27/25 14:00 05/01/25 05:30 Heparin Sod Inj 5000 Unit/Ml Vial SC 05/11/25 13:59 5,000 unit Q8HR YOLI Administration Ceftriaxone Sodium/Dextrose 1 gm in 50 mls @ 100 mls/hr 04/27/25 13:50 05/01/25 08:11 Rocephin/D5w 1gm Iv Premix IV 05/04/25 13:49 100 mls/hr QDAY YOLI Administration Insulin Glargine 10 unit 04/30/25 21:00 04/30/25 21:08 Insulin Glargine (Lantus) 5 Unit/0.05 Ml (Per 5 Units) SC 05/30/25 20:59 10 unit HS YOLI Administration Insulin Human Lispro 0 unit 04/30/25 23:00 05/01/25 12:28 Insulin Lispro (Admelog) 1 Unit/0.01 Ml Unit SC 05/27/25 16:59 4 unit ACHS YOLI Administration Protocol Lisinopril 40 mg 04/28/25 09:00 05/01/25 08:12 Lisinopril 20 Mg Tablet PO 05/28/25 08:59 40 mg QDAY YOLI Administration Metoclopramide HCl 10 mg 04/27/25 13:46 Metoclopramide 5 Mg Tablet PO 05/27/25 13:45 Q6H PRN NAUSEA OR VOMITING Protocol Pantoprazole Sodium 40 mg 04/29/25 21:00 05/01/25 08:11 Pantoprazole Inj 40 Mg Vial IVP 05/29/25 20:59 40 mg BID YOLI Administration Polyethylene Glycol 17 gm 05/01/25 11:30 05/01/25 11:31 Polyethylene Glycol 17 Gm Packet PO 05/31/25 11:29 17 gm QDAY YOLI Administration Sennosides 1 tab 05/01/25 11:30 05/01/25 11:31 Senna Tablet PO 05/31/25 11:29 1 tab QDAY YOLI Administration Protocol Plan This is a 64-year-old male with PMHx of HTN, HLD, CHF, peripheral neuropathy, IDDM, diabetic foot ulcer, chronic muscle weakness, cervical myelopathy, BIBA from [facility] with acute AMS, SOB and hypoxia, found 71% on room air by EMS, subsequently placed on 10 L oxygen. Acute normocytic anemia On 04/29, Hgb 6.8, then 9.3 after 1 unit transfusion. Hemoglobin continues to downtrend, hasn't been able to perform FOBT, due to lack of bowel movement. Enema given for stool sample. ? Pending occult Acute encephalopathy likely 2/2 UTI versus PNA (improving) Acute hypoxemic respiratory failure (improving) Left base pneumonia, likely GNR Significant bilateral pleural effusion CHF exacerbation Evidently has acute AMS that started this morning, previously alert and oriented x 4 at baseline, and was at normal state of health last night. Found desatting to 71% on room air. Head CT was negative for acute pathology. There were no major metabolic or electrolyte disorders, including normal ammonia, ABGs, lactic acid, and renal function. CXR showed left base pneumonia, although he denies cough. Lung exam showed decreased breath sound but otherwise no rales or rhonchi. Pleural effusion likely 2/2 CHF exacerbation, anticipate improvement with diuresis. Will consider thoracentesis for analysis if symptoms persist or worsen. CT showed significant bilateral pleural effusion, and he is very anasarcous on exam, history of of CHF, EF unknown, no recent echo on file on LASIX 20 mg daily, BNP 247, will likely reason CHF exacerbation. Possibly he is retaining fluid secondary to anuria as stated below. A1c 8.1. TSH 7.0, free T4 0.95. TG 140, cholesterol 72, LDL 23, HDL 21. Echo showed EF 50-55%, grade 1 diastolic dysfunction, trace-small pericardial effusion without tamponade. Currently afebrile, mild leukocytosis present. Urine culture growing pansensitive E. coli 48H blood culture negative. MRSA negative. Remains anasarca, poor urine output, we increased diuresis. ? Avoid narcotics 2/2 AMS ? Discontinued AZITHROMYCIN (04/27 to 04/28) ? Discontinued VANCOMYCIN (04/28 to present) ? Continue CEFTRIAXONE (04/27 to present) ? Increase LASIX to 40 mg IV BID ? Daily labs, replete electrolytes as needed ? BiPAP as needed Possible urinary incontinence Vesicoureteral reflux Mild hydronephrosis Complicated E. coli UTI Evidently he has complained of difficulty urinating at SNF, associated with dysuria. He had urias placed 3 days ago and reportedly has good urine output. UA has significant UTI. Has complained of dysuria prior to admission, and anuria requiring Urias. UA was cloudy with significant proteinuria and glucosuria, likely 2/[address] Mild hydronephrosis, likely vesicoureteral reflux with cystitis pattern, marked thickening of urinary bladder wall. ? Strict JUANJO ? Urias ordered ? Bladder scan as needed ? ANTIBIOTICS and cultures as above HTN HLD TG 140, cholesterol 72, LDL 23, HDL 21. ? Continue home ATORVASTATIN 40 mg daily ? Continue home LISINOPRIL 40 mg daily ? Holding AMLODIPINE 10 mg daily 2/2 LE edema IDDM GLUCOSE 166 on admission. A1c 8.1. ? INSULIN sliding scale ? Accu-Cheks Generalized weakness Cervical myopathy He was admitted on 05/2025 for lower extremity weakness and bilateral swelling, at the time. CVA was ruled out. However, he was diagnosed with cervical spine stenosis with advanced degenerative disc disease involving several cervical vertebrae. DVT was also evaluated time. Patient follow-up with Dr. Dasilva, unclear if he was seen after discharge. ? Physical therapy Primary hepatocellular disease Right inguinal hernia without incarceration Seen on CT, patient asymptomatic, although unable to move assessment 2/2 AMS. No pain on abdominal palpation. ? Will reexamine when AMS resolved Health maintenance Diet: Cardiac GI prophylaxis: Not indicated DVT prophylaxis: HEPARIN subcu Antibiotics: CEFTRIAXONE CODE STATUS: Full code [facility] Case was discussed with attending physician and senior resident. Surya Lawton DO PGYI This document was transcribed using voice recognition technology. Minor inaccuracies may be present. Attending Provider Attestation/Addendum Demetra Ugarte DO, attest that I was physically present for the ramos portions of the service and evaluated the patient with the resident and I reviewed and discussed the case with the resident and agree with the resident's findings and plans of care as documented above Patient seen and evaluated this AM. Patient appears much more oriented. He is pending echocardiogram due to b/l UE edema. Peripheral edema appears to be somewhat improved. Continue wtih diuresis and anticipate DC within next 24h.
[2025-05-01] MEDS: INSULIN GLARGINE (Lantus) 5 UNIT/0.05 ML (PER 5 UNITS) 10 UNIT SC (20:24)
[2025-05-01] MEDS: ATORVASTATIN CALCIUM 20 MG TABLET 40 MG PO (20:25)
[2025-05-02] VITALS (14 sets, daily range): BP systolic 115–156; BP diastolic 63–95; PULSE 68–84; RESP 16–29; TEMP 36.1–36.9; O2SAT 92–99
[2025-05-02] MEDS: HEPARIN SOD INJ 5000 UNIT/ML VIAL SC ×3 (06:11→21:59)
[2025-05-02] MEDS: FUROSEMIDE INJ 10 MG/ML 4ML VIAL 40 MG IVP ×2 (06:11→17:04)
[2025-05-02 06:18] LABS: Basophils % (Auto) 0 % (0-2.5); Eosinophils # (Auto) 0.3 Thou/mm3 (0.0-0.5); Eosinophils % (Auto) 4 % (0-10); Hematocrit 24.8 % (41.0-53.0); Immature Granulocytes % (Auto) 2 % (0-0); Immature Granulocytes Auto 0.17 Thou/mm3 (0.00-0.00); Lymphocytes # (Auto) 1.6 Thou/mm3 (1.0-4.8); Lymphocytes % (Auto) 18 % (10-50); Mean Corpuscular HGB Conc 33.9 g/dl (31.0-37.0); Mean Corpuscular Hemoglobin 28.2 pg (25.0-35.0); Mean Corpuscular Volume 83 fL (80-100); Monocytes # (Auto) 0.5 Thou/mm3 (0.0-0.8); Monocytes % (Auto) 6 % (0-12); Neutrophils # (Auto) 6.2 Thou/mm3 (1.8-7.7); Neutrophils % (Auto) 70 % (37-80); Nucleated Red Blood Cell % 0 /100 WBC (0); Platelet Count 409 Thou/mm3 (140-440); RDW Standard Deviation 43.7 fL (35.1-43.9); Red Blood Count 2.98 Miln/mm3 (4.50-5.90); White Blood Count 8.9 Thou/mm3 (3.8-10.6)
[2025-05-02 06:21] LABS: Hemoglobin 8.4 g/dL (13.5-16.0)
[2025-05-02 06:43] LABS: Alanine Aminotransferase 18 U/L (10-49); Albumin, Serum 2.8 gm/dL (3.4-4.8); Alkaline Phosphatase 53 U/L (46-116); Anion Gap 9 (7-16); Aspartate Amino Transferase 20 U/L (0-34); BUN/Creatinine Ratio 19 Ratio (12-20); Bilirubin,Total < 0.2 mg/dL (0.3-1.2); Blood Urea Nitrogen 23 mg/dL (9-23); Calcium 8.1 mg/dL (8.3-10.6); Calcium (Corrected) 9.1 mg/dL (8.5-10.1); Chloride 105 mMol/L (98-107); Creatinine (Component) 1.2 mg/dL (0.6-1.3); Estimated Creatinine Clearance 53.2 mL/min (>60); Globulin 2.8 gm/dL (2.3-3.5); Glucose 135 mg/dL (74-106); Magnesium 1.8 mg/dL (1.6-2.6); Osmolality,Calculated 286 (275-295); Phosphorous 4.6 mg/dL (2.4-5.1); Potassium 3.9 mMol/L (3.4-5.1); Sodium 141 mMol/L (136-145); Total Protein 5.6 gm/dL (5.7-8.2); eGFR > 60 See Note
[2025-05-02] MEDS: PANTOPRAZOLE INJ 40 MG VIAL IVP ×2 (09:17→21:51)
[2025-05-02] MEDS: SENNA TABLET 1 TAB PO (09:18)
[2025-05-02] MEDS: GABAPENTIN 100 MG CAPSULE 200 MG PO ×2 (09:18→21:51)
[2025-05-02] MEDS: Lisinopril 20 MG TABLET 40 MG PO (09:18)
[2025-05-02] MEDS: POLYETHYLENE GLYCOL 17 GM PACKET PO (09:19)
[2025-05-02] MEDS: FERROUS SULF 325 MG TABLET PO (09:19)
[2025-05-02] MEDS: cefTRIAXone/D5w 1gm IV premix 1 GM/50 ML BAG IV (09:19)
[2025-05-02] MEDS: INSULIN LISPRO (AdmeLOG) 1 UNIT/0.01 ML UNIT SC ×3 (12:18→21:58)
[2025-05-02] MEDS: BACLOFEN 10 MG TABLET PO ×2 (13:57→21:51)
--- NOTE | 2025-05-02 14:29 | ESPR_ITS ---
<Statement entered by Godwin Cabrera MD - 05/03/25 07:11> I discussed with and supervised the video intern physician involved in the care of this patient. Patient assessment and plan was discussed with entire medicine team, including my attending. I agree with the assessment and plan as documented by video intern doctor. Patient care was discussed with my attending physician Dr. Sixto Cabrera, PGY-2 Documentation for date of: 05/02/25 Subjective Subjective Interval history: No acute overnight events. Mentation slightly worse today, likely hospital delirium, however he has baseline waxing and waning mentation, as per family. Although denies fever, chills, headaches, chest pain, sob, cough, GI or urinary symptoms. Exam Vital Signs Temp Pulse Resp BP Pulse Ox O2 Del Method O2 Flow Rate 98.4 F 74 19 142/95 H 99 Room Air 10 05/02/25 11:40 05/02/25 12:00 05/02/25 11:40 05/02/25 11:40 05/02/25 11:40 05/02/25 11:40 04/29/25 14:26 FiO2 40 05/02/25 03:15 Narrative Exam Constitutional: well-developed, well-nourished, in no acute distress, lying in bed HEENT: NCAT, EOMI, reactive round pupils b/l, patent nares b/l, moist mucous membranes Lung: CTAB, no wheezing, no rhonchi Heart: Regular S1S2, no murmurs, gallops, or rubs Abdomen: Soft, non-distended, non-tender, bowel sounds present throughout Extremities: No cyanosis, clubbing, improving edema of UE b/l, LE pulses present b/l Neurologic: AOx3, appropriate affect, unable to ambulate arms b/l (per [place], its his baseline) Skin: Warm, dry, no lesions or rashes noted Objective Labs 05/03/25 04:43 05/03/25 04:43 Labs: Laboratory Results - last 24 hr 05/02/25 04:57 WBC 8.9 RBC 2.98 L Hgb 8.4 L Hct 24.8 L MCV 83 MCH 28.2 MCHC 33.9 RDW Std Deviation 43.7 Plt Count 409 Neut % (Auto) 70 Lymph % (Auto) 18 Park % (Auto) 6 Eos % (Auto) 4 Baso % (Auto) 0 Neut # (Auto) 6.2 Lymph # (Auto) 1.6 Park # (Auto) 0.5 Eos # (Auto) 0.3 Baso # (Auto) 0.0 Immature Gran # (Auto) 0.17 H Absolute Nucleated RBC 0.00 Immature Gran % 2 H Nucleated RBC % 0 Sodium 141 Potassium 3.9 Chloride 105 Carbon Dioxide 27.0 Anion Gap 9 BUN 23 Creatinine 1.2 Estim Creat Clear Calc 53.2 L eGFR > 60 BUN/Creatinine Ratio 19 Glucose 135 H D Calculated Osmolality 286 Calcium 8.1 L Corrected Calcium 9.1 Phosphorus 4.6 Magnesium 1.8 Total Bilirubin < 0.2 L AST 20 ALT 18 Alkaline Phosphatase 53 Total Protein 5.6 L Albumin 2.8 L Globulin 2.8 Albumin/Globulin Ratio 1.0 L ABG Interpretation ABG results: 04/27/25 09:58 VBG pH 7.36 VBG pCO2 37 VBG pO2 73 H VBG Base Excess -4 L Quality Measures Quality Measures none Advance care planning discussed with:: patient Assessment & Plan Assessment Current Active Medications: Generic Name Dose Route Start Last Admin Trade Name Freq PRN Reason Stop Dose Admin Acetaminophen 650 mg 04/27/25 17:15 04/29/25 05:21 Acetaminophen 325 Mg Tablet PO 05/27/25 17:14 650 mg Q6HR PRN Administration FEVER >101 Albuterol/Ipratropium 3 ml 04/30/25 08:39 Albuterol/Ipratropium (Duoneb) Rt Kylah 3 Ml Nebu INH 05/30/25 08:38 Q6HRRT PRN Wheezing Atorvastatin Calcium 40 mg 04/27/25 21:00 05/01/25 20:25 Atorvastatin Calcium 20 Mg Tablet PO 05/27/25 20:59 40 mg QPM YOLI Administration Baclofen 10 mg 04/29/25 14:00 05/02/25 13:57 Baclofen 10 Mg Tablet PO 05/29/25 13:59 10 mg TID YOLI Administration Dextrose 25 ml 04/27/25 15:22 Dextrose 50%-Water Inj 50 Ml Syringe IV 05/27/25 15:21 Q15MIN PRN BG 50-70 responsive npo pt Dextrose 50 ml 04/27/25 15:22 Dextrose 50%-Water Inj 50 Ml Syringe IV 05/27/25 15:21 Q15MIN PRN BG <50 OR BG <70 & pt unresponsive Ferrous Sulfate 325 mg 05/02/25 09:00 05/02/25 09:19 Ferrous Sulf 325 Mg Tablet PO 06/01/25 08:59 325 mg QOD YOLI Administration Furosemide 40 mg 04/27/25 18:00 05/02/25 06:11 Furosemide Inj 10 Mg/Ml 4ml Vial IVP 05/27/25 17:59 40 mg BIDD YOLI Administration Gabapentin 200 mg 04/29/25 11:30 05/02/25 09:18 Gabapentin 100 Mg Capsule PO 05/29/25 11:29 200 mg BID YOLI Administration Glucagon 1 mg 04/27/25 15:22 Glucagon Inj 1 Mg Vial IM Q15MIN PRN BG <70, and no IV access Heparin Sodium (Porcine) 5,000 unit 04/27/25 14:00 05/02/25 13:57 Heparin Sod Inj 5000 Unit/Ml Vial SC 05/11/25 13:59 5,000 unit Q8HR YOLI Administration Ceftriaxone Sodium/Dextrose 1 gm in 50 mls @ 100 mls/hr 04/27/25 13:50 05/02/25 09:19 Rocephin/D5w 1gm Iv Premix IV 05/04/25 13:49 100 mls/hr QDAY YOLI Administration Insulin Glargine 15 unit 05/02/25 21:00 Insulin Glargine (Lantus) 5 Unit/0.05 Ml (Per 5 Units) SC 06/01/25 20:59 HS YOLI Insulin Human Lispro 0 unit 04/30/25 23:00 05/02/25 12:18 Insulin Lispro (Admelog) 1 Unit/0.01 Ml Unit SC 05/27/25 16:59 3 unit ACHS YOLI Administration Protocol Lisinopril 40 mg 04/28/25 09:00 05/02/25 09:18 Lisinopril 20 Mg Tablet PO 05/28/25 08:59 40 mg QDAY YOLI Administration Metoclopramide HCl 10 mg 04/27/25 13:46 Metoclopramide 5 Mg Tablet PO 05/27/25 13:45 Q6H PRN NAUSEA OR VOMITING Protocol Pantoprazole Sodium 40 mg 04/29/25 21:00 05/02/25 09:17 Pantoprazole Inj 40 Mg Vial IVP 05/29/25 20:59 40 mg BID YOLI Administration Polyethylene Glycol 17 gm 05/01/25 11:30 05/02/25 09:19 Polyethylene Glycol 17 Gm Packet PO 05/31/25 11:29 17 gm QDAY YOLI Administration Sennosides 1 tab 05/01/25 11:30 05/02/25 09:18 Senna Tablet PO 05/31/25 11:29 1 tab QDAY YOLI Administration Protocol Plan This is a 64-year-old male with PMHx of HTN, HLD, CHF, peripheral neuropathy, IDDM, diabetic foot ulcer, chronic muscle weakness, cervical myelopathy, BIBA from [facility] with acute AMS, SOB and hypoxia, found 71% on room air by EMS, subsequently placed on 10 L oxygen. Acute normocytic anemia On 04/29, Hgb 6.8, then 9.3 after 1 unit transfusion. Hemoglobin continues to downtrend, hasn't been able to perform FOBT, due to lack of bowel movement. Enema given for stool sample. FOBT was negative. Patient iron panel showed low storage. ? Started iron supplements QOD ? Will continue monitoring Acute encephalopathy likely 2/2 UTI versus PNA (improving) Acute hypoxemic respiratory failure (improving) Left base pneumonia, likely GNR Significant bilateral pleural effusion CHF exacerbation Evidently has acute AMS that started this morning, previously alert and oriented x 4 at baseline, and was at normal state of health last night. Found desatting to 71% on room air. Head CT was negative for acute pathology. There were no major metabolic or electrolyte disorders, including normal ammonia, ABGs, lactic acid, and renal function. CXR showed left base pneumonia, although he denies cough. Lung exam showed decreased breath sound but otherwise no rales or rhonchi. Pleural effusion likely 2/2 CHF exacerbation, anticipate improvement with diuresis. Will consider thoracentesis for analysis if symptoms persist or worsen. CT showed significant bilateral pleural effusion, and he is very anasarcous on exam, history of of CHF, EF unknown, no recent echo on file on LASIX 20 mg daily, BNP 247, will likely reason CHF exacerbation. Possibly he is retaining fluid secondary to anuria as stated below. A1c 8.1. TSH 7.0, free T4 0.95. TG 140, cholesterol 72, LDL 23, HDL 21. Echo showed EF 50-55%, grade 1 diastolic dysfunction, trace-small pericardial effusion without tamponade. Currently afebrile, mild leukocytosis present. Urine culture growing pansensitive E. coli 48H blood culture negative. MRSA negative. Remains anasarca, poor urine output, we increased diuresis. ? Avoid narcotics 2/2 AMS ? Discontinued AZITHROMYCIN (04/27 to 04/28) ? Discontinued VANCOMYCIN (04/28 to present) ? Continue CEFTRIAXONE (04/27 to present) ? Increase LASIX to 40 mg IV BID ? Daily labs, replete electrolytes as needed ? BiPAP as needed Possible urinary incontinence Vesicoureteral reflux Mild hydronephrosis Complicated E. coli UTI Evidently he has complained of difficulty urinating at SNF, associated with dysuria. He had urias placed 3 days ago and reportedly has good urine output. UA has significant UTI. Has complained of dysuria prior to admission, and anuria requiring Urias. UA was cloudy with significant proteinuria and glucosuria, likely 2/[address] Mild hydronephrosis, likely vesicoureteral reflux with cystitis pattern, marked thickening of urinary bladder wall. ? Strict JUANJO ? Urias ordered ? Bladder scan as needed ? ANTIBIOTICS and cultures as above HTN HLD TG 140, cholesterol 72, LDL 23, HDL 21. ? Continue home ATORVASTATIN 40 mg daily ? Continue home LISINOPRIL 40 mg daily ? Holding AMLODIPINE 10 mg daily 2/2 LE edema IDDM GLUCOSE 166 on admission. A1c 8.1. ? INSULIN GLARGINE 15 units HS ? INSULIN sliding scale ? Accu-Cheks Generalized weakness Cervical myopathy He was admitted on 05/2025 for lower extremity weakness and bilateral swelling, at the time. CVA was ruled out. However, he was diagnosed with cervical spine stenosis with advanced degenerative disc disease involving several cervical vertebrae. DVT was also evaluated time. Patient follow-up with Dr. Dasilva, unclear if he was seen after discharge. ? Physical therapy Primary hepatocellular disease Right inguinal hernia without incarceration Seen on CT, patient asymptomatic, although unable to move assessment 2/2 AMS. No pain on abdominal palpation. ? Will reexamine when AMS resolved Health maintenance Diet: Cardiac GI prophylaxis: Not indicated DVT prophylaxis: HEPARIN subcu Antibiotics: CEFTRIAXONE CODE STATUS: Full code Disposition: Treating AMS, [facility] Case was discussed with attending physician and senior resident. Surya Lawton DO PGYI This document was transcribed using voice recognition technology. Minor inaccuracies may be present. Attending Provider Attestation/Addendum Demetra Ugarte DO, attest that I was physically present for the ramos portions of the service and evaluated the patient with the resident and I reviewed and discussed the case with the resident and agree with the resident's findings and plans of care as documented above Patient seen and evaluated this AM. Echocardiogram was done and showed elevated pulmonary pressures of 35 mmHg and a trace small pericardial effusion. Patient is otherwise hemodynamically stable.Patient appears confused today and states that he sees a girl in the corner. However, patient reportedly waxes and wanes in mentation. He is otherwise afebrile. Will continue to monitor mental status. Patient improves, anticipate discharge within the next 24 hours.
--- NOTE | 2025-05-02 14:52 | PC.SS ---
follow up note: SS spoke to Carlita @ [facility] who states they are still pending auth but made communication with insurance co. and then they need an YOUSUF. SS updated physician. Patient is still altered.
[2025-05-02] MEDS: ATORVASTATIN CALCIUM 20 MG TABLET 40 MG PO (21:51)
[2025-05-02] MEDS: INSULIN GLARGINE (Lantus) 5 UNIT/0.05 ML (PER 5 UNITS) 15 UNIT SC (21:58)
[2025-05-03] VITALS (11 sets, daily range): BP systolic 99–156; BP diastolic 65–88; PULSE 71–81; RESP 11–20; TEMP 36.1–36.6; O2SAT 94–96
[2025-05-03] MEDS: FUROSEMIDE INJ 10 MG/ML 4ML VIAL 40 MG IVP (05:35)
[2025-05-03] MEDS: BACLOFEN 10 MG TABLET PO ×2 (05:37→14:55)
[2025-05-03] MEDS: HEPARIN SOD INJ 5000 UNIT/ML VIAL SC ×2 (05:37→14:55)
[2025-05-03 06:04] LABS: Basophils # (Auto) 0.1 Thou/mm3 (0.0-0.2); Basophils % (Auto) 1 % (0-2.5); Eosinophils # (Auto) 0.4 Thou/mm3 (0.0-0.5); Eosinophils % (Auto) 3 % (0-10); Hematocrit 26.7 % (41.0-53.0); Immature Granulocytes % (Auto) 1 % (0-0); Immature Granulocytes Auto 0.14 Thou/mm3 (0.00-0.00); Lymphocytes # (Auto) 1.5 Thou/mm3 (1.0-4.8); Lymphocytes % (Auto) 13 % (10-50); Mean Corpuscular Hemoglobin 28.5 pg (25.0-35.0); Mean Corpuscular Volume 86 fL (80-100); Monocytes # (Auto) 0.6 Thou/mm3 (0.0-0.8); Monocytes % (Auto) 5 % (0-12); Neutrophils # (Auto) 8.7 Thou/mm3 (1.8-7.7); Neutrophils % (Auto) 77 % (37-80); Nucleated Red Blood Cell % 0 /100 WBC (0); Platelet Count 471 Thou/mm3 (140-440); RDW Standard Deviation 44.7 fL (35.1-43.9); Red Blood Count 3.09 Miln/mm3 (4.50-5.90); White Blood Count 11.3 Thou/mm3 (3.8-10.6)
[2025-05-03 06:05] LABS: Hemoglobin 8.8 g/dL (13.5-16.0)
[2025-05-03 06:47] LABS: Alanine Aminotransferase 16 U/L (10-49); Albumin, Serum 3.1 gm/dL (3.4-4.8); Alkaline Phosphatase 58 U/L (46-116); Anion Gap 11 (7-16); Aspartate Amino Transferase 15 U/L (0-34); BUN/Creatinine Ratio 19 Ratio (12-20); Bilirubin,Total < 0.2 mg/dL (0.3-1.2); Blood Urea Nitrogen 23 mg/dL (9-23); Calcium 8.3 mg/dL (8.3-10.6); Carbon Dioxide 25.6 mMol/L (20.0-31.0); Chloride 102 mMol/L (98-107); Creatinine (Component) 1.2 mg/dL (0.6-1.3); Estimated Creatinine Clearance 53.2 mL/min (>60); Globulin 3.1 gm/dL (2.3-3.5); Glucose 136 mg/dL (74-106); Magnesium 1.9 mg/dL (1.6-2.6); Osmolality,Calculated 283 (275-295); Phosphorous 4.4 mg/dL (2.4-5.1); Potassium 3.7 mMol/L (3.4-5.1); Sodium 139 mMol/L (136-145); Total Protein 6.2 gm/dL (5.7-8.2); eGFR > 60 See Note
[2025-05-03] MEDS: Lisinopril 20 MG TABLET 40 MG PO (08:33)
[2025-05-03] MEDS: GABAPENTIN 100 MG CAPSULE 200 MG PO (08:33)
[2025-05-03] MEDS: SENNA TABLET 1 TAB PO (08:33)
[2025-05-03] MEDS: cefTRIAXone/D5w 1gm IV premix 1 GM/50 ML BAG IV (08:34)
[2025-05-03] MEDS: PANTOPRAZOLE INJ 40 MG VIAL IVP (08:36)
[2025-05-03] MEDS: POLYETHYLENE GLYCOL 17 GM PACKET PO (08:37)
--- NOTE | 2025-05-03 08:37 | PC.SS ---
Addendum entered by JACOBO Thapa 05/03/25 15:46: [facility] dispatch called and moved transport to 1700. Bushra and Carlita at [facility] are aware. Addendum entered by JACOBO Thapa 05/03/25 14:39: [facility] dispatch called and moved transport to 1600. financial reserve clerk Ana and Carlita at [facility] are aware . Addendum entered by JACOBO Thapa 05/03/25 13:49: [facility] informed they were unable to transport today via gurney due to no transport available. Patient family unable to provide/pay for transport. YOUSUF was obtained by transfer nurse Mari. [facility] ETA 1500. Bushra aware, Carlita at [facility] aware. Addendum entered by JACOBO Thapa 05/03/25 12:21: Patient d/c plan it to return to [facility]. Patient's friend Ceferino was notified and agreeable with plan, he will inform patient's as she does not have a working phone. Per RN-Patient will need gurney transport, pending ETA for transport. Original Note: SS follow up: spoke with Carlita at admissions with [facility] to follow up on insurance authorization status. Carlita informs that insurance authorization and YOUSUF were obtained. Medical team is aware. Pending rounds with patient if stable for discharge to SNF today.
--- NOTE | 2025-05-03 10:52 | PC.NURSE ---
received call from RON Fischer, pt will d/c back to [place] and she will set up transportation time and notify me of time
[2025-05-03] MEDS: INSULIN LISPRO (AdmeLOG) 1 UNIT/0.01 ML UNIT SC (12:36)
--- NOTE | 2025-05-03 14:30 | PC.NURSE ---
[facility] called for new warehouse picker time of 1600.
--- NOTE | 2025-05-03 14:38 | PC.NURSE ---
Called [facility] and gave report to Omar, notified pt's bean picker machine operator time of 1600.
--- NOTE | 2025-05-03 15:32 | ESDS_ITS ---
<Statement entered by Demetra Henson DO - 05/04/25 18:22> I, Demetra Henson DO, attest that I was physically present for the ramos portions of the service and evaluated the patient with the resident and I reviewed and discussed the case with the resident and agree with the resident's findings and plans of care as documented above <Statement entered by Godwin Cabrera MD - 05/04/25 07:17> I discussed with and supervised the internal sales engineer physician involved in the care of this patient. Patient assessment and plan was discussed with entire medicine team, including my attending. I agree with the assessment and plan as documented by internal sales engineer doctor. Godwin Cabrera, PGY-2 Planned Discharge Date 05/03/25 DS: Providers Provider Date of admission: 04/27/25 13:46 Primary care physician: Physician Letitia Primary/Family Admitting Provider: Demetra Henson DO Attending Provider on Admission: Demetra Henson DO Consults: 04/27/25 17:14 Referral Physical Therapy Routine Comment: Physician Instructions: 04/27/25 23:25 Referral Physical Therapy Routine Comment: Physician Instructions: Attending Provider on DC: Demetra Henson DO Discharging Provider: Demetra Henson DO DS: Diagnosis Problem List Completed Was Problem List Reviewed/Reconciled?: Yes Hospital Course Hospital Course Hospital course: This is a 64-year-old male with PMHx of HTN, HLD, CHF, peripheral neuropathy, IDDM, diabetic foot ulcer, chronic muscle weakness, cervical myelopathy, BIBA from [facility] with acute AMS, SOB and hypoxia. He was found to have acute encephalopathy likely in settings of UTI/mild hydronephrosis and pneumonia and dehydration. His urine grew E. coli, blood culture grew Staph hominis (likely skin pillo). He continued a course of CEFTRIAXONE. Repeat blood culture was negative after 48 hours. His symptoms improved. Mentation at baseline, afebrile, without leukocytosis. Additionally, he was found anemic with Hgb 6.8 and completed 1 unit PRBC. FOBT was negative, coag panel was relatively WNL. No obvious source of bleed.. Iron stool were low, he was started on iron supplements which we will continue outpatient. Hemoglobin remained stable at 8.3. He remained hemodynamically stable. Of note: Per SNF, he endorsed urinary retention over the last several weeks, and presented with a [place] catheter. CT imaging showed vesicoureteral reflux. [place] catheter continued, urine output has been adequate. He was discharged on [place] catheter, to be exchanged every 3 weeks. Recommended follow-up with urology for this. IMAGE FINDINGS: * CXR shows significant left base pneumonia. * Head CT negative for acute hemorrhage, mass effect or midline shift. * EKG shows sinus rhythm without acute ST changes. * CT abdominal pelvis showed bibasilar pneumonia, moderate left/right pleural fluid, hepatocellular disease, mild ascites, mild hydronephrosis, likely vesicoureteral reflux with cystitis pattern, markedthickening of urinary bladder wall, right inguinal hernia containing colon but no incarcerated bowel. PATIENT INSTRUCTIONS: * Follow-up with PCP within 1-2 weeks of discharge. * Continue with [place] catheter, replace catheter regularly and every 3 weeks. * Follow-up with urology outpatient regarding urinary retention. * Follow-up with PCP regarding primary hepatocellular disease seen on imaging. * Follow-up with PCP regardingc right inguinal hernia without incarceration. * Return to Emergency Room if symptoms persist, worsen, or new symptoms develop. * We started INSULIN GLARGINE 15 units HS. * We started LASIX 40 mg to be taken daily. * STOP taking TRULICITY. * Continue taking daily iron supplements. * Please skip arms elevated to improve swelling/edema. * Continue taking medications as prescribed below. ADMISSION DIAGNOSES: Anasarca Complicated E. coli UTI Vesicoureteral reflux Mild hydronephrosis Acute normocytic anemia (stable) HTN HLD IDDM Generalized weakness Cervical myopathy Primary hepatocellular disease Right inguinal hernia without incarceration Acute encephalopathy (resolved) Case was discussed with attending physician and senior resident. Surya Lawton DO PGYI Time Spent with Patient Time attestation: Total time spent providing and/or coordinating discharge services: Time spent: Greater than 30 minutes Exam Vital Signs Temp Pulse Resp BP Pulse Ox O2 Del Method O2 Flow Rate 96.9 F 78 18 114/66 96 Room Air 10 05/03/25 12:10 05/03/25 13:09 05/03/25 13:09 05/03/25 12:10 05/03/25 13:09 05/03/25 12:10 04/29/25 14:26 FiO2 40 05/02/25 03:15 Discharge Plan Plan Patient Disposition: Xfer Skilled Nsg Fac (SNF) Disposition Comment: Discharge to [facility] Patient condition on transfer: Stable Care Plan Goals: * Follow-up with PCP within 1-2 weeks of discharge. * Continue with COV[place] catheter, replace catheter regularly and every 3 weeks. * Follow-up with urology outpatient regarding urinary retention. * Follow-up with PCP regarding primary hepatocellular disease seen on imaging. * Follow-up with PCP regardingc right inguinal hernia without incarceration. * Return to Emergency Room if symptoms persist, worsen, or new symptoms develop. * We started INSULIN GLARGINE 15 units HS. * We started LASIX 40 mg to be taken daily. * STOP taking TRULICITY. * Continue taking daily iron supplements. * Please skip arms elevated to improve swelling/edema. * Continue taking medications as prescribed below. Prescriptions/Referrals Prescriptions/Med Rec: New furosemide 40 mg tablet 40 mg PO QDAY Qty: 30 0RF insulin glargine 100 unit/mL solution 15 unit subcut HS Qty: 10 2RF ferrous sulfate 325 mg (65 mg iron) Tablet,Delayed Release (Dr/Ec) 325 mg PO QOD Qty: 30 0RF Continued Janumet 50-1,000 mg tablet 1 tab PO BID Patient Comments: TAKE 1 TABLET BY MOUTH TWICE A DAY WITH MEALS FOR 60 DAYS (DME) FreeStyle Rene 2 Sensor Kit See Rx Instructions .Route Qty: 1 0RF Rx Instructions: As directed (DME) FreeStyle Rene 2 [place] Misc See Rx Instructions .Route Qty: 1 0RF Rx Instructions: As directed atorvastatin 40 mg tablet 40 mg PO QPM amlodipine 10 mg tablet 10 mg PO QDAY Rx Instructions: hold if SBP <100 or DBP <60, HR <60 acetaminophen 500 mg capsule 1,000 mg PO Q8HR PRN (Reason: pain) baclofen 10 mg tablet 10 mg PO TID Chloraseptic Throat [place] 1.4 % aerosol,spray 1 spray .Route Q4HR PRN (Reason: sore throat) Rx Instructions: Give 1 spray by mouth every 4 hours as needed for sore throat Cran-Max 500 mg capsule 500 mg PO QDAY Rx Instructions: administer with a meal bisacodyl [Dulcolax (bisacodyl)] 10 mg suppository 10 mg SC QDAY PRN (Reason: constipation) Rx Instructions: to be administered the following shift if MOM is ineffective Enema 19-7 gram/118 mL enema 118 ml SC Q72H PRN (Reason: constipation) Rx Instructions: 1 dose rectally every 72 hours as needed for constipation, to be administered the following shift if dulcolax suppository is ineffective gabapentin 100 mg capsule 200 mg PO BID ferrous sulfate [Iron (ferrous sulfate)] 325 mg (65 mg iron) tablet 325 mg PO BID lisinopril 20 mg tablet 40 mg PO QDAY Rx Instructions: hold if SBP <100 or DBP <60 Discontinued Trulicity 0.75 mg/0.5 mL pen injector 0.75 mg subcut QWEEK Qty: 2 0RF furosemide [Lasix] 20 mg tablet 20 mg PO QAM Rx Instructions: hold if SBP <100 or DBP <60 Referrals: No Primary/Family,Physician [Primary Care Provider] - Patient/Caregiver Discharge Instructions Print Language: Croatian Stand Alone Forms: Karla Award Info., Patient Portal Info Letter Discharge Order Discharge Orders: Discharge (Routine); Ordered 05/03/25 Ordered By: Surya Lawton Quality Discharge Quality Measures VTE prophylaxis
== END 2025-05-03 17:38 | disposition skilled nursing facility (03) | DRG 194 ==
LOC: SERX 12:40 → SERHOLD 15:37 → S3NX 21:05
PROVIDERS: Internal Medicine; Student in an Organized Health Care Education/Training Program; Admitting Provider Internal Medicine; Emergency Provider Emergency Medicine; Visit Provider Internal Medicine
DX: I11.0 Hypertensive heart disease with heart failure (principal); E11.42 Type 2 diabetes mellitus with diabetic polyneuropathy; J96.01 Acute respiratory failure with hypoxia; E78.5 Hyperlipidemia, unspecified; M48.02 Spinal stenosis, cervical region; M50.30 Other cervical disc degeneration, unspecified cervical region; I50.33 Acute on chronic diastolic (congestive) heart failure; N13.6 Pyonephrosis; Z79.4 Long term (current) use of insulin; K40.90 Unilateral inguinal hernia, without obstruction or gangrene, not specified as recurrent; R18.8 Other ascites; G93.40 Encephalopathy, unspecified; J15.69 Pneumonia due to other Gram-negative bacteria; B96.20 Unspecified Escherichia coli [E. coli] as the cause of diseases classified elsewhere; J18.9 Pneumonia, unspecified organism; E88.09 Other disorders of plasma-protein metabolism, not elsewhere classified; D64.9 Anemia, unspecified; Z74.01 Bed confinement status; Z79.899 Other long term (current) drug therapy; Z87.891 Personal history of nicotine dependence; E86.0 Dehydration; N13.70 Vesicoureteral-reflux, unspecified
CPT/HCPCS: 36415; 70450; 71045; 74176; 80053; 80061; 80202; 80307; 81001; 82140; 82803; 83036; 83605; 83690; 83735; 83880; 84100; 84439; 84443; 84484; 85014; 85018; 85025; 85610; 85730; 86850; 86900; 86901; 86923; 87040; 87077; 87081; 87086; 87186; 87205; 87491; 87591; 87661; 87811; 93005; 93225; 93306; 93971; 94660; 96361; 96365; 96366; 96367; 96368; 96372; 96375; 97162; 99285; J0456; J0696; J1644; J1815; J1938; J2470; J2543; J3370; J7050; J7120; P9016; A9270